=== PATIENT | male | born 1955 | race Caucasian/White ===

== ENCOUNTER → 2019-05-13 10:12 | Outpatient (CLI) | payer OTHER, SELFPAY ==
--- NOTE | 2019-05-13 10:22 | CT_ITS ---
PROCEDURE: CT HEAD/BRAIN WO CON CLINICAL INDICATION: CONFUSION, HTN, DIZZINESS, CHINO COMPARISON: No exams were available for comparison TECHNIQUE: Axial images obtained with sagittal and coronal reformats. All CT scans at the facility use one or more dose reduction, viz: automated exposure control, ma/kV adjustment per patient size (including targeted exams where dose is matched to indication, i.e. head), or iterative reconstruction technique. FINDINGS: No midline shift, mass effect, intracranial hemorrhage, hydrocephalus, or extra-axial fluid collection is evident. Small area of decreased attenuation is present in the left frontal lobe adjacent to the anterior horn of the left lateral ventricle consistent with an old lacunar infarctions/periventricular ischemic gliotic change. The calvarium has an unremarkable appearance. No mastoid effusion. There is partial opacification of the right aspect of the sphenoid sinus IMPRESSION: 1. No acute intracranial findings. Periventricular ischemic gliotic change. 2. Right sphenoid sinus disease Dictated by: Markus Santo MD 05/14/2019 06:56 Electronically signed by Markus Santo MD in [place] 05/14/2019 06:56
== END ==
PROVIDERS: PCP Family Medicine; Visit Provider Nurse Practitioner
DX: R41.0 Disorientation, unspecified (principal); R42 Dizziness and giddiness; R51 Headache; I10 Essential (primary) hypertension
CPT/HCPCS: 70450

== ENCOUNTER → 2019-05-20 14:09 | Outpatient (CLI) | payer OTHER, SELFPAY ==
--- NOTE | 2019-05-20 14:23 | MR_ITS ---
PROCEDURE: MR HEAD/BRAIN WO/W CON CLINICAL INDICATION: TIA COMPARISON: No exams were available for comparison TECHNIQUE: Routine technique including diffusion-weighted images and contrasted images following intravenous injection of 20 cc of ProHance contrast. FINDINGS: Diffusion-weighted images are normal. There is no mass, hemorrhage or extra-axial fluid collection. There are small foci of increased FLAIR signal within the periventricular white matter adjacent to the frontal horns of the lateral ventricles, more prominent on the left side with central focus of CSF signal suggesting old lacunar infarct. There are no other areas of abnormal signal. Visualized portions of the optic pathway structures are normal. Visualized vessels are patent and the area of the foramen magnum is normal. There are non enhancing foci of increased T2 signal in the floor of the right maxillary sinus measuring at least 3.0 centimeters. IMPRESSION: No acute intracranial process or acute infarctions. Periventricular white matter findings likely from mild chronic microvascular ischemic change with left frontal old lacunar infarct. Right maxillary sinus retention cyst. Dictated by: Daniele Mcdaniels 05/20/2019 16:07 Electronically signed by Daniele Mcdaniels in [place] 05/20/2019 16:07
--- NOTE | 2019-05-20 15:05 | HMH.ITSHM ---
Current Home Medications as stated by this patient Chip Gamez or special service representative. []VALACYCLOVIR AMLODIPINE BESYLATE LOSARTAN POTASSIUM FLUTICASONE PROPIONATE AMOXICILLIN
== END ==
PROVIDERS: PCP Family Medicine; Visit Provider Family Medicine
DX: G45.9 Transient cerebral ischemic attack, unspecified (principal); I10 Essential (primary) hypertension; R20.2 Paresthesia of skin; M21.42 Flat foot [pes planus] (acquired), left foot; H54.7 Unspecified visual loss
CPT/HCPCS: 70553; A9576

== ENCOUNTER → 2019-05-28 10:55 | Outpatient (CLI) | payer OTHER, SELFPAY ==
--- NOTE | 2019-05-28 11:28 | MR_ITS ---
PROCEDURE: MR ANGIO HEAD WO CON CLINICAL INDICATION: TIA, LEFT HAND PARESTHESIA, LOSS OF VISION COMPARISON: MR HEAD/BRAIN WO/W CON from 05/20/2019 TECHNIQUE: 3D [id number] images are obtained without contrast. FINDINGS: No aneurysm, arteriovenous malformation, or major intracranial occlusive process is evident. The vertebral basilar system has an unremarkable appearance IMPRESSION: Negative MRA of the brain Dictated by: Markus Santo MD 05/29/2019 18:38 Electronically signed by Markus Santo MD in [place] 05/29/2019 18:38
== END ==
PROVIDERS: PCP Family Medicine; Visit Provider Family Medicine
DX: G45.9 Transient cerebral ischemic attack, unspecified (principal); I10 Essential (primary) hypertension; R20.2 Paresthesia of skin; M21.42 Flat foot [pes planus] (acquired), left foot; H54.7 Unspecified visual loss
CPT/HCPCS: 70544

== ENCOUNTER 2021-02-09 17:25 | Emergency (ER) | payer OTHER, SELFPAY ==
[2021-02-09 17:30] VITALS: BP 121/70; PULSE 95; RESP 16; TEMP 36.5; O2SAT 98; BMI 29.5
--- NOTE | 2021-02-09 18:05 | HMH.EDUTC ---
[facility] [place]ression: [place]cess of right buttock Disposition: Home, Self-Care Condition on Discharge: Good Instructions: Boil Additional Instructions: Apply warm wet compresses to the affected sites three or four times per day for 15 minutes as tolerated. Follow up with your primary care doctor. in 2 to 3 days for a recheck of the wound. Have your doctor look up the culture report and maybe stop one of the antibiotics depending on the culture result. Take the antibiotics as directed. Apply the topical antibiotics as directed. Follow up with your regular doctor. GO TO THE ER FOR ANY WORSENING SYMPTOMS OR CONCERNS Prescriptions: Sulfamethoxazole/Trimethoprim [Bactrim DS tablet] 1 each PO BID 10 Days #20 tab Transmission Status: Received by [facility] #[id number] Mupirocin [Bactroban 2% Ointment 22gm tube] 1 applicatio TP TID 7 Days #1 tube Transmission Status: Received by [facility] #[id number] cephALEXin [cephALEXin 500mg capsule] 500 mg PO Q6H 10 Days #40 cap Transmission Status: Received by [facility] #[id number] Referrals: Dashawn Mancilla MD [Primary Care Provider] - Forms: Work/School Release Time of Disposition: 18:09 Medical Decision Making - Medical Records Medical records reviewed: No: I reviewed the patient's medical records. - Curtis Inquiry Pt receiving controlled substance: No Vital Signs: 02/09/21 17:30 02/09/21 18:06 Temperature 97.7 F 98 F Temperature Source Oral Pulse Rate 95 H Pulse Rate [Right] 95 H Respiratory Rate 16 18 Blood Pressure 131/75 Blood Pressure [Right Arm] 121/70 Blood Pressure Mean [Right Arm] 87 02 Sat by Pulse Oximetry 98 Oxygen Delivery Method Room Air Orders (Tests/Meds): ED MEDICATIONS Discontinued Medications Generic Name Dose Route Start Last Admin Trade Name Freq PRN Reason Stop Dose Admin Lidocaine HCl 5 ml 02/09/21 18:01 02/09/21 18:04 Lidocaine 1% 5ml Pf Vial IJ 02/09/21 18:02 5 ml ONCE ONE Administration ORDERS Category Date Time Status Wound Culture and Gram Stain Stat Micro 02/09/21 17:59 Results [facility] [place] - General Stated complaint: boil on r hip Time Seen by Provider: 02/09/21 17:45 Mode of Arrival: Ambulatory Source of Information: Patient Limitations: No Limitations Description of Symptoms (Recalled from Triage Doc. by RN): pt c/o of a boil on his R buttocks. pt states he occasionally gets them behind his neck and has had them in his groin before. the area is not opened. red and inflamed. HEENT Symptoms (Recalled from RN notes): No Resp Symptoms (Recalled from RN notes): No Skin Symptoms (Recalled from RN notes): Yes (boil on R buttocks. area is not draining.) MS Symptoms (Recalled from RN notes): No Functional Status (Recalled from RN notes): na - History of Present Illness Provider Complaint: He states that he has had a swollen tender area on her right buttock for the past 3 days. He denies any fever chills. - Related Data Previous Rx's Medication Instructions Recorded Amoxicillin/Potassium Clav 1 tab PO Q12H 5 Days #10 tab 10/27/19 [Augmentin 875-125 Tablet] Azithromycin [Zithromax 250mg 250 mg PO DIRECTED #6 tab 10/27/19 tab] predniSONE [Prednisone 20mg 40 mg PO DAILY #5 tab 10/27/19 Tab] Amoxicillin/Potassium Clav 1 tab PO Q12H 10 Days #20 tab 11/13/19 [Augmentin 875-125 Tablet] Benzonatate [Tessalon Perle 100mg 100 mg PO TIDP PRN #30 cap 11/13/19 Cap] methylPREDNISolone [Medrol] 4 mg PO DIRECTED 6 Days #21 11/13/19 tab.ds.pk Mupirocin [Bactroban 2% Ointment 1 applicatio TP TID 7 Days #1 tube 02/09/21 22gm tube] Sulfamethoxazole/Trimethoprim 1 each PO BID 10 Days #20 tab 02/09/21 [Bactrim DS tablet] cephALEXin [cephALEXin 500mg 500 mg PO Q6H 10 Days #40 cap 02/09/21 capsule] Allergies Allergy/AdvReac Type Severity Reaction Status Date / Time No Known Allergies Allergy Verified 02/09/21 17
[2021-02-09 18:06] VITALS: BP 131/75; PULSE 95; RESP 18; TEMP 36.6
== END 2021-02-09 18:17 | disposition home or self-care (01) ==
PROVIDERS: Emergency Provider Nurse Practitioner Family; PCP Family Medicine
DX: L02.31 Cutaneous abscess of buttock (principal); E78.5 Hyperlipidemia, unspecified
CPT/HCPCS: 46050; 87070; 87077; 87186; 87205; 99202; G0463

== ENCOUNTER → 2022-01-08 07:10 | Outpatient (CLI) | payer MEDICARE, SELFPAY ==
--- NOTE | 2022-01-08 07:15 | CT_ITS ---
FINAL REPORT CLINICAL HISTORY: SMOKER. 1/2 ppd x 45 years. copd. no family hx COMPARISON: 10/27/2019 FINDINGS: Axial images were obtained from the lung apex to the mid abdomen by computed tomography. Low-dose protocol was utilized. CTDl vol(mGy): 2.90 DLP (mGy-cm): 107.33 FINDINGS: There is no axillary adenopathy. There is no hilar or mediastinal adenopathy. The heart size is normal. There is no pericardial or pleural effusion. Limited images of the upper abdomen are unremarkable. Lung window images demonstrate evidence of prior granulomatous disease. There is a 3 mm right lower lobe nodule seen on image 50 which is unchanged. No additional nodules or masses are identified.. IMPRESSION: Right lower lobe nodule, stable for 2 years. Lung RADS category 1. Recommend 12 month follow-up low-dose chest CT. Reviewed, Interpreted and Dictated by Kayla Watkins MD Transcribed by Waleska Villagomez Authenticated by Kayla Watkins MD on 01/08/2022 08:22:36 AM [facility]
--- NOTE | 2022-01-08 07:15 | US_ITS ---
FINAL REPORT CLINICAL HISTORY: SMOKER..TRIPLE A FINDINGS: Sonographic images were obtained of the abdominal aorta. The abdominal aorta measures up to 2.5 CM in greatest dimensions. The common iliac arteries are within normal limits. IMPRESSION: No evidence of abdominal aortic aneurysm. Reviewed, Interpreted and Dictated by Kayla Watkins MD Transcribed by Toi Milton Authenticated by Kayla Watkins MD on 01/08/2022 08:54:17 AM [facility]
== END ==
PROVIDERS: PCP Internal Medicine Adolescent Medicine; Visit Provider Internal Medicine Adolescent Medicine
DX: Z87.891 Personal history of nicotine dependence (principal); Z12.2 Encounter for screening for malignant neoplasm of respiratory organs; Z13.6 Encounter for screening for cardiovascular disorders
CPT/HCPCS: 71271; 76770

== ENCOUNTER → 2022-07-23 16:13 | Outpatient (CLI) | payer MEDICARE, SELFPAY ==
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
== END ==
PROVIDERS: PCP Internal Medicine Adolescent Medicine; Visit Provider Internal Medicine Adolescent Medicine
DX: M79.671 Pain in right foot (principal)
CPT/HCPCS: 73630

== ENCOUNTER 2022-07-25 14:47 | Outpatient (RCR) | payer MEDICARE, SELFPAY | END 2022-07-25 15:30 | disposition home or self-care (01) | LOC: PT 14:47 | PROVIDERS: Visit Provider Internal Medicine Adolescent Medicine | DX: S92.511A Displaced fracture of proximal phalanx of right lesser toe(s), initial encounter for closed fracture (principal) | CPT/HCPCS: 97760 ==

== ENCOUNTER → 2022-07-30 09:23 | Outpatient (CLI) | payer MEDICARE, SELFPAY ==
--- NOTE | 2022-07-30 09:33 | XR_ITS ---
FINAL REPORT CLINICAL HISTORY: R 5th displaced fx COMPARISON: July 23, 2022 FINDINGS: RIGHT FOOT Three views of the right foot demonstrate a fracture of the distal aspect of the 5th proximal phalanx. Bony alignment is unchanged. There is no significant callus formation. No new abnormality is identified. There is mild degenerative change. The soft tissues are unremarkable. IMPRESSION: 5th proximal phalanx fracture with no significant callus formation.. Reviewed, Interpreted and Dictated by Eliot Kulkarni III, MD Transcribed by Alicia Laguna Authenticated and . [facility]
== END ==
PROVIDERS: PCP Internal Medicine Adolescent Medicine; Visit Provider Podiatrist
DX: S92.351A Displaced fracture of fifth metatarsal bone, right foot, initial encounter for closed fracture (principal)
CPT/HCPCS: 73630

== ENCOUNTER → 2022-08-28 14:01 | Outpatient (CLI) | payer MEDICARE, SELFPAY ==
--- NOTE | 2022-08-28 14:08 | XR_ITS ---
FINAL REPORT CLINICAL HISTORY: closed fx to 5th toe COMPARISON: July 30, 2022 FINDINGS: RIGHT FOOT Three views of the right foot were obtained. Again noted is a fracture of the distal aspect of the 5th proximal phalanx. There is callus formation at the site. There are mild degenerative changes in the midfoot. The soft tissues are unremarkable. IMPRESSION: Healing fracture of the 5th proximal phalanx. Reviewed, Interpreted and Dictated by Eliot Kulkarni III, MD Transcribed by Alicia Laguna Authenticated and [facility]
== END ==
PROVIDERS: PCP Internal Medicine Adolescent Medicine; Visit Provider Podiatrist
DX: S92.501D Displaced unspecified fracture of right lesser toe(s), subsequent encounter for fracture with routine healing (principal); M79.671 Pain in right foot
CPT/HCPCS: 73630

== ENCOUNTER 2024-05-04 09:35 | Outpatient (CLI) | payer MEDICARE, SELFPAY ==
--- NOTE | 2024-05-04 09:39 | CT_ITS ---
FINAL REPORT TECHNIQUE: Thin section axial images were obtained through the lungs using a low-dose technique per lung cancer screening protocol. Reconstruction images were obtained using the axial data. Exam was performed using dose reduction technique. CLINICAL HISTORY: SCREENING current smoker 1ppd x 50 yrs COMPARISON: 01/08/2022 FINDINGS: CTDLvol: 2.9 DLP: 120.63 68-year-old male, current smoker 50 pack year history Lungs: There is evidence of prior granulomatous disease. No acute pulmonary abnormality. No suspicious nodules. There are presumed dependent secretions in the trachea and left mainstem bronchus. Lymph nodes: No thoracic lymphadenopathy. Mediastinum: Heart size is normal. Prominent coronary artery calcifications are present. Pleura/pericardium: No pleural or pericardial effusion. Other: There is a hypodense right renal lesion which is not accurately characterized without the administration of intravenous contrast. Would consider renal ultrasound for further evaluation. IMPRESSION: No suspicious pulmonary nodule or mass. There are presumed dependent secretions in the trachea and left mainstem bronchus. Lung RADS: 2S, the S designation for the hypodense right renal lesion and prominent coronary artery calcifications. Recommendation: 12-month follow-up LDCT Reviewed, Interpreted and Dictated by Kayla Watkins MD Transcribed by Shelia Hopper Authenticated and [facility]
== END 2024-05-04 23:59 | disposition home or self-care (01) ==
LOC: RAD 09:35
PROVIDERS: PCP Internal Medicine Adolescent Medicine; Visit Provider Internal Medicine Adolescent Medicine
DX: Z87.891 Personal history of nicotine dependence (principal)
CPT/HCPCS: 71271

== ENCOUNTER 2024-06-03 10:24 | Inpatient (IN) | payer MEDICARE, SELFPAY ==
[2024-06-03] VITALS (34 sets, daily range): BP systolic 100–272; BP diastolic 38–102; PULSE 30–48; RESP 14–20; TEMP 36.6–36.9; O2SAT 85–99; BMI 27.8
--- NOTE | 2024-06-03 10:33 | PC.NURSE ---
arrived by w/c from ED admissions
--- NOTE | 2024-06-03 10:51 | CA_ITS ---
APPROVED REPORT EXAM: Comprehensive 2D, Doppler, and color-flow Echocardiogram Commercial Property Manager: Sis Heck, ANTON, RVS Ht: 6 ft 0 in Wt: 204lbs BSA: 2.15 BP: 157/40 mmHg Rhythm: Bradycardia Indications: 3rd degree heart block, COPD, Smoker, Near syncope, Fatigue, EDMONDS, HTN, HLD 2D Dimensions Left Atrium 3.85 cm M: 3.0 - 4.0 LA Volume 63.50 mL LA Volume Index 29.221711 mL/m2 (M/F) 16-34 EF AP4 77.30 % GL Strain -30.9 % M-Mode Dimensions RVDd 2.44 cm (0.9-2.6) LA Diam 4.52 cm (1.9-4.0) LVDd 5.34 cm (3.5-5.7) LVDs 2.38 cm (3.5-5.7) IVSd 1.37 cm (0.6-1.1) PWd 1.35 cm (0.6-1.1) EF (Teich) 85.70% EPSs 1.11 cm FS 55.40% EDV (Teich) 137.70 mL TAPSE 2.64 (<1.7) ESV (Teich) 19.70 mL LV Diastology E Decel Time 280 (160-240 msec) E/A Ratio 0.78 MED A' 13.60 cm/s LAT A' 11.30 cm/s Aortic Valve JANA Index 0.99 cm2/m2 AoV Peak Alexis. 148.0 (50-130 cm/s) AO Peak GR. 8.70 mmHg AO Mean GR. 5.50 (<5 mmHg) AO VTI 46.4 (18-25 cm) JANA (VTI) 2.17 (2.5-4.5 cm2) Mitral Valve MV A Velocity 127.0 (40-130 cm/s) E/A Ratio 0.78 MV Mean Gr. 2.00 (<2mmHg) Pulmonary Valve PV Peak Velocity 134.0 (50-150 cm/s) Left Ventricle The left ventricle is normal size. The left ventricular systolic function is normal. The left ventricular ejection fraction is within the normal range. There is marked increase in LV wall thickness. IVSd 1.4 cm. There is normal LV segmental wall motion. Diastolic function is indeterminate. LVEF is 65%. Right Ventricle The right ventricle is mildly dilated. The right ventricular systolic function is normal. Atria The left atrium mildly dilated. The right atrium size is normal. There is no Doppler evidence of interatrial shunt. Aortic Valve The aortic valve is mildly thickened. There is no aortic valvular stenosis. Trace aortic regurgitation. Mitral Valve The mitral valve leaflets are mildly thickened. No evidence of mitral valve stenosis. Mild mitral regurgitation. Tricuspid Valve The tricuspid valve leaflets are thin and pliable. Trace tricuspid regurgitation. There is insufficient TR jet to estimate RVSP. Pulmonic Valve The pulmonary valve is normal in structure. Trace pulmonic regurgitation. Great Vessels The aortic root is normal in size. The ascending aorta is normal in size. IVC is normal in size and collapses >50% with inspiration. Pericardium There is no pericardial effusion. Other Information Study Quality: Fair Conclusion Normal biventricular systolic function. Marked increase in LV wall thickness. IVSD is 1.4 cm. Mild RV dilation with normal RV function. Mild LA dilation. Mild MR. In the setting of marked increase of LV wall thickness and conduction abnormality with complete heart block, further evaluation to rule out infiltrative cardiomyopathy (namely amyloidosis) is suggested with cardiac MRI (amyloidosis protocol), PYP nuclear scan, amyloidosis lab testing. Electronically signed by : Wanda Luis MD 06/03/2024 11:56:34
--- NOTE | 2024-06-03 11:00 | IR_ITS ---
APPROVED REPORT Patient Location: Inpatient PROCEDURES Selective coronary angiogram Drug-eluting stent deployment to the proximal and mid dominant right coronary artery Catheter placed in left subclavian artery Left subclavian artery angiogram INDICATION Third-degree AV block, Known coronary artery disease with extensive diffuse calcifications, Left subclavian artery occlusion, Malignant hypertension blood pressure 300/160 mmHg Informed consent was obtained prior to the procedure. COMPLICATIONS NONE Estimated Blood Loss: LESS THAN 10 ML TECHNIQUE One percent lidocaine used to anesthetize the right anterior aspect of the wrist. The right radial artery was accessed via the Seldinger technique. A 6 Frisian sheath was placed in the right radial artery. The initial aortic pressure measured 300/140 mmHg. Patient was given 2 separate aliquots of 800 mcg of intra arterial nitroglycerin. An IV night pride drip was started and the blood pressure was brought down to 180 mmHg. The 6 Frisian JL 3 guide catheter used to perform selective coronary angiogram. At the end of the diagnostic angiogram therapeutic heparin was administered giving a therapeutic ACT and the guide catheter was placed in the right coronary artery followed by Choice PT extra-support wire placed distally. A 3 mm x 38 mm Atul frontier stent was deployed at 24 shabbir in the mid dominant right coronary. An additional 3.5 x 38 mm Atul frontier stent was placed proximal to the for stent yet still overlapping and deployed at 20 shabbir. The balloon was advanced three quarters of the length and then deployed at 20 shabbir to post dilate the for stent and mesh the 2 stents. ROSENDA-3 flow was present before and after the procedure. The catheter was then pulled back and placed in the left subclavian artery where selective left subclavian artery angiography was performed. The end of procedure the apparatus was removed the arterial sheath was left into place due to the malignant hypertension in the presence of night pride drip. Patient was transferred to the postop holding area in stable condition ANGIOGRAPHIC RESULTS The left main artery Normal The left anterior descending artery Proximally normal with mid vessel calcified 50 and 60% stenoses. Distally there are additional diffuse 50% stenoses. As the LAD approaches the apex there is a concentric 90% stenosis and a vessel less than 2 mm in diameter The circumflex artery Is nondominant and calcified in the proximal and mid segment. There are 60% proximal and mid vessel calcifications The right coronary artery Is a dominant vessel and has proximal 80% stenosis mid vessel 80% and concentric 90% calcified stenosis. Distally there are 40% stenosis The MCGEE ventriculogram reveals Not performed The left ventricular end-diastolic pressure Not measured Left subclavian artery is ostially occluded IMPRESSION Coronary disease as described above Successful stenting of the proximal and mid dominant right coronary severe to critical disease reduced to 0% with 2 contiguous drug-eluting stents Persistent coronary disease in the LAD and circumflex artery which is best managed medically at this time Occluded left subclavian artery Persistent malignant hypertension Persistence of right radial arterial 6 Frisian sheath for continuous night pride monitoring PLAN 1. Plavix and aspirin 2. Continue nitroglycerin drip with a goal blood pressure of 160 mmHg systolic to 200 mmHg systolic 3. Continue heparin drip overnight due to the presence of right arterial sheath 4. Plan pacemaker tomorrow morning 5. Monitor blood pressure over the weekend and slowly wean off night pride drip while adding oral medications. Following pacemaker placement patient should be able to tolerate the addition of beta-blockers for blood pressure control 6. I would like to proceed with left subclavian artery stenting and revascularization prior to discharge home unless patient remains clinically stable and then the subclavian artery occlusion can be revascularized as an outpatient 7. Monitor for malignant hypertension and endorgan disease 8. Regular neurochecks monitoring for symptomatic hypotension 9. LDL less than 55 to be achieved with high intensity statin 10. Formal echocardiogram Electronically signed by : Gui Linares MD 06/03/2024 15:48:05
--- NOTE | 2024-06-03 11:05 | ECG_ITS ---
APPROVED REPORT Exam: Resting ECG HR:31 bpm ECG Measurements Heart Rate 31 AXES QRSd 154 QRS 111 QT 635 T 167 QTc 510 Conclusion 3rd Degree AV Block with severe bradycardia UNCONFIRMED REPORT Electronically signed by : Dashawn Chowdhury MD 06/04/2024 16:10:43
--- NOTE | 2024-06-03 11:11 | HMH.PHAINT1 ---
Pharmacy Intervention Comments: MEDICATION RECONCILIATION COMPLETED ON PATIENT USING EXTERNAL FILL HISTORY FROM PHARMACY. -HODA TALBOT, ROYERD
[2024-06-03 11:15] LABS: Chloride 110 mmol/L (98-107)
[2024-06-03 11:16] LABS: Albumin Level 3.8 g/dl (3.5-5.0); Potassium 4.2 mmoL/L (3.5-5.1); Sodium 138 mmol/L (136-145)
[2024-06-03 11:18] LABS: Magnesium 2.2 mg/dl (1.6-2.3)
[2024-06-03 11:19] LABS: Alanine Aminotransferase 46 U/L (12-78); Alkaline Phosphatase 84 U/L (38-126); Anion Gap 10.2 mEq/L (5-15); Aspartate Amino Transferase 30 U/L (17-59); Bilirubin,Direct 0.1 mg/dl (0.0-0.4); Bilirubin,Indirect 0.6 mg/dL (0.0-0.9); Bilirubin,Total 0.7 mg/dl (0.2-1.3); Bilirubin,Unconjugated 0.7 mg/dL (0.0-1.1); Blood Urea Nitrogen 34 mg/dl (9-20); Carbon Dioxide 22 mmol/L (22.0-30.0); Creatinine Clearance Estimated 47 mL/min (50-200); Estimated Glomerular Filt Rate 33 ml/min (>60); GFR (African American) 40 ML/MIN (>60); Glucose 101 mg/dl (74-100); Total Protein,Serum 6.4 g/dl (6.3-8.2)
[2024-06-03 11:23] LABS: Basophils # 0.1 K/mm3 (0-0.2); Basophils % 0.6 % (0.1-2.0); Eosinophils # 0.1 K/mm3 (0.0-0.4); Eosinophils % 1.2 % (0.1-12.0); Hematocrit 44.7 % (42.0-52.0); Hemoglobin 14.9 g/dL (14.1-18.0); Lymphocytes # 1.6 K/mm3 (0.7-4.5); Lymphocytes % 18.8 % (10-50); Mean Corpuscular HGB Conc 33.3 g/dL (31.8-35.4); Mean Corpuscular Hemoglobin 28.6 pg (27.0-31.2); Mean Platelet Volume 8.8 fl (7.4-10.4); Monocytes # 0.4 K/mm3 (0.1-1.0); Monocytes % 4.1 % (1.7-9.3); Neutrophils # 6.6 K/mm3 (1.8-7.8); Neutrophils % 75.3 % (37.0-80.0); Platelet Count 157 K/mm3 (142-424); Red Cell Distribution Width 14.2 % (11.5-17.5); White Blood Count 8.8 K/mm3 (4.8-10.8)
[2024-06-03 11:31] LABS: Troponin I 0.04 ng/ml (0.00-0.034)
[2024-06-03 11:49] LABS: Free T4 (Free Thyroxine) 1.37 ng/dl (0.78-2.19)
[2024-06-03 11:50] LABS: Thyroid Stimulating Hormone 1.25 uIU/mL (0.465-4.68)
--- NOTE | 2024-06-03 11:56 | MR_ITS ---
APPROVED REPORT Cocktail Lounge Manager: CLINICAL INDICATION Complete heart block. Plan for PPM. TECHNIQUE Image Acquisition: Cardiac magnetic resonance (CMR) was performed on Siemens Espree MRI 1.5T scanner. Software platform sequences were performed using the Siemens RoundPegg MR B19 platform. A set of three-plane, low-resolution, large [id number] localizers were initially acquired. Then axial, coronal, sagittal TrueFISP, as well as axial HASTE images, were obtained. These were followed by gated TrueFISP breathold cinematic sequences obtained in the short axis with 8 mm slices and 2 mm gaps, 2-chamber (vertical long axis), 3-chamber, 4-chamber (horizontal long axis). A bolus of contrast was injected intravenously with first-pass sequences obtained in the short axis and four-chamber planes. After approximately 10 minutes, a TI labor crew supervisor sequence was performed to determine the optimal TI time. Using the optimized TI time, delayed contrast enhancement segmented inversion???recovery TurboFLASH sequences were obtained in the short axis, 2-chamber, 3-chamber, and 4-chamber projections. 2D-velocity phase mapping was performed. Functional parameters were calculated by offline analysis on an independent workstation ([employer], [employer]). Contrast: ProHance??? (Gadoteridol) FINDINGS MORPHOLOGY AND FUNCTION Left ventricle: The left ventricle is normal in size. The indexed left ventricular end-diastolic volume (LVEDVi) is 64 ml/m2 (reference range 57-105 ml/m2 in males, 56-96 ml/m2 in females). Normal left ventricular systolic function is present. There is normal left ventricular wall thickness. There are no regional wall motion abnormalities noted. LVEF is calculated at 69.0% (reference range 57-77%). Right ventricle: The right ventricle is normal in size. The indexed right ventricular end-diastolic volume (RVEDVi) is 72 ml/m2 (reference range 61-121 ml/m2 in males, 48-112 ml/m2 in females). Normal right ventricular systolic function is present. RVEF is calculated at 54.5% (reference range 52-72% in males, 51-71% in females). Atria: The left atrium is normal in size. The maximum indexed left atrial volume is 39 ml/m2 (reference range 26-52 ml/m2 in males, 27-53 ml/m2 in females). The right atrium is normal in size. The maximum indexed right atrial volume is 20 ml/m2 (reference range 18-90 ml/m2). Aorta: The diameter of the aortic annulus is normal, measuring 25 mm (coronal view reference range 21-30 mm in males, 19-27 mm in females). The diameter of the aortic sinus is normal, measuring 32 mm (coronal view reference range 25-42 mm in males, 24-36 mm in females). The diameter of the sinotubular junction is normal, measuring 26 mm (coronal view reference range 18-32 mm in males, 18-28 mm in females). The diameters of the ascending and descending thoracic aorta are normal. Main pulmonary artery: The main pulmonary artery diameter is normal. Pericardium: The pericardial thickness is normal. The pericardial thickness measures 1.3 mm (normal < 4.0 mm). Trivial, circumferential pericardial effusion is present. VALVES The valvular morphologies in the visualized sequences appear normal. There is no significant valvular stenosis or regurgitation of the mitral, aortic, tricuspid, or pulmonic valve noted visually. Systolic anterior motion of the mitral valve is not visualized. Ratio of pulmonary to systemic flow, Qp:Qs ratio = 1.10. (normal < or = 1.2, hemodynamically significant shunt > 1.5), demonstrating no evidence of hemodynamically significant shunt. TISSUE CHARACTERIZATION Resting Perfusion: Normal myocardial blood flow at rest. No evidence of resting hypoperfusion. Myocardial Fibrosis and/or edema: Normal gadolinium kinetics are present. No obvious evidence of late gadolinium enhancement is noted, consistent with absence of myocardial scarring, infarction, or necrosis. Note that LGE data is difficult to analyze in the setting of significant motion and blurring. T2-weighted imaging demonstrates no evidence of myocardial edema or inflammation. OTHER Bilateral pleural effusions are noted. A small, T1 hyperintense mass is noted in the liver, measuring approximately 3 mm in diameter. This most likely represents hepatic cyst or hemangioma. Correlation with recent CT abdomen/pelvis is suggested. IMPRESSION Technically difficult study due to significant motion and blurring during image acquisition (in the setting of complete heart block). Normal LV size with normal LV systolic function. LVEDVi= 64 ml/m2 and LVEF= 69.0%. Normal RV size with normal RV systolic function. RVEDVi= 72 ml/m2 and RVEF= 54.5%. No atrial enlargement. No obvious CMR evidence of myocardial scarring, infarction, or necrosis. No evidence of myocardial edema or inflammation. Perfusion analysis demonstrates normal blood flow at rest with no evidence of resting hypoperfusion. Ratio of pulmonary to systemic flow, Qp:Qs ratio = 1.10 (normal < or = 1.2, hemodynamically significant shunt > 1.5), demonstrating no evidence of hemodynamically significant shunt. Trivial, circumferential pericardial effusion is present. Bilateral pleural effusions are noted. Overall, this CMR demonstrates normal biventricular size and systolic function. No evidence of infiltrative cardiomyopathy. No evidence of myocardial scarring, prior infarct, or acute/chronic inflammatory processes. No evidence of significant lymphadenopathy or aneurysms or other suggestion of cardiac sarcoidosis. COMPARISON None CRITICAL RESULT None COMMUNICATION Per this written report The findings of this cardiac MR were reviewed, reported, and signed by Zoran Luis MD (Coin Machine Assembler). Conclusion Electronically signed by : Wanda Luis MD 06/09/2024 01:06:40
--- NOTE | 2024-06-03 12:19 | P.PN_ITS ---
Subjective Subjective Date: 06/03/24 Time: 12:00 Principal diagnosis: third degree heart block Interval history: This is a 68-year-old gentleman who was admitted from cardiology clinic due to third-degree heart block. The patient has been having dizziness and lightheadedness when he stands up and feels as if he was going to pass out for approximately 2 weeks prior to being evaluated. The patient has some shortness of breath with very little activity which also started about 2 weeks ago. It improves with rest. He denies any chest pain or pressure. He denies any lower extremity edema. He denies any fever, chills, nausea, vomiting, diarrhea, PND or orthopnea. The patient states that he noticed he had a lower heart rate on his smart watch. He came into cardiology clinic today and was found to be bradycardic with third-degree heart block and referred for admission. Exam Data for Last 24 hours Vital signs and Labs for Last 24 Hours: Pulse Resp BP Pulse Ox O2 Del Method 31 L 20 133/54 L 98 Room Air 06/03/24 11:16 06/03/24 11:16 06/03/24 11:16 06/03/24 11:16 06/03/24 11:16 Laboratory Results - last 24 hr 06/03/24 11:02: WBC 8.8, RBC 5.20, Hgb 14.9, Hct 44.7, MCV 86.0, MCH 28.6, MCHC 33.3, RDW 14.2, Plt Count 157, MPV 8.8, Neut % (Auto) 75.3, Lymph % (Auto) 18.8, [place] % (Auto) 4.1, Eos % (Auto) 1.2, Baso % (Auto) 0.6, Neut # (Auto) 6.6, Lymph # (Auto) 1.6, [place] # (Auto) 0.4, Eos # (Auto) 0.1, Baso # (Auto) 0.1, Sodium 138, Potassium 4.2, Chloride 110 H, Carbon Dioxide 22, Anion Gap 10.2, BUN 34 H, Creatinine 2.00 H, Estimated Creat Clear 47, Estimated GFR 33 L, Est GFR ( Amer) 40 L, Glucose 101 H, Calcium 9.0, Magnesium 2.2, Total Bilirubin 0.7, Direct Bilirubin 0.1, Conjugated Bilirubin 0.0, Indirect Bilirubin 0.6, Unconjugated Bilirubin 0.7, AST 30, ALT 46, Alkaline Phosphatase 84, Troponin I 0.04 H, Total Protein 6.4, Albumin 3.8, TSH 1.25, Free T4 1.37 I & O for Last 24 hours: Intake & Output 05/31/24 06/01/24 06/02/24 06/03/24 23:59 23:59 23:59 23:59 Weight 205 lb 6 oz Constitutional Constitutional: no acute distress and average body habitus *Routine HEENT Exam Head: Present normocephalic and atraumatic ENT: Present mucous membranes moist *Routine Neck Exam Neck: Present supple, full ROM and normal carotid upstroke; Absent JVD, carotid bruit or lymphadenopathy *Routine Respiratory Exam Respiratory: Present CTA bilaterally, normal respiratory effort, able to speak in complete sentences and symmetric chest movement *Routine Cardiovascular Exam Cardiovascular: Present RRR, Normal S1, Normal S2 and bradycardia; Absent murmur or gallop *Routine Abdominal Exam Abdominal: Present soft and normoactive bowel sounds; Absent tenderness, distended or organomegaly *Routine Extremities Exam Extremities: Present full ROM, pulses intact and normal capillary refill; Absent cyanosis, clubbing or edema *Routine Skin Exam Skin: Present intact and warm; Absent erythema *Routine Neurological Exam Neurological: Present alert, oriented X3 and CN II-XII intact; Absent sensory deficit or motor deficit Routine Psychiatric Exam Psychiatric: Present normal affect Progress Note: A&P Assessment and plan (1) Elevated troponin: Status: Acute (2) Third degree heart block: Status: Acute (3) Near syncope: Status: Acute (4) Dizziness: Status: Acute (5) Shortness of Breath: Status: Acute (6) HLD (hyperlipidemia): Status: Acute (7) HTN (hypertension): Status: Acute (8) MUNA (acute kidney injury): Status: Acute Assessment and Plan Assessment and Plan for All Diagnoses:: Plan: 1. The patient presented to cardiology clinic and was found to be in third- degree heart block. The patient was referred for admission. Will obtain an echocardiogram to evaluate his LV function prior to proceeding with permanent pacemaker placement. 2. Given the patient's shortness of breath and third-degree heart block as well as elevated troponin we will plan to proceed with left cardiac catheterization today to evaluate for coronary artery disease prior to proceeding with permanent pacemaker placement. As his third-degree heart block could be ischemically mediated in the setting of an elevated troponin. 3. The patient has been educated the risk and benefits of proceeding with left cardiac catheterization. The patient verbalized understanding and is agreeable in proceeding with the procedure. 4. The patient will be n.p.o. in preparation for left cardiac catheterization. 5. Echocardiogram was obtained and the patient does have a normal ejection fraction with mild MR and LV wall thickness. This is highly concerning for amyloidosis in this patient with a thick LV wall and third-degree heart block. Will plan to proceed with cardiac MRI with and without contrast today to rule out amyloidosis before proceeding with pacemaker placement. 6. Given the patient's third-degree heart block we will plan to proceed with permanent pacemaker placement tomorrow pending his left cardiac catheterization and cardiac MRI with and without contrast results. 7. The patient has been educated the risk and benefits of proceeding with permanent pacemaker placement. The patient verbalizes understanding and is agreeable in proceeding with this procedure as well. 8. His blood pressure is well-controlled. 9. His LDL goal is less than 100. He is on Crestor. Will get a lipid panel in the morning. 10. The patient does have an elevated creatinine at 2.0. His baseline creatinine from 2019 was 1.2. The patient does have an MUNA. This may be stemming from his third-degree heart block. Hold losartan. 11. Further recommendations were made pending the patient's response to treatment and the results of his left cardiac catheterization and cardiac MRI with and without contrast today. Thank you for the opportunity to help participate in the care of this patient. All recommendations and orders are per Dr. Luis. Addendum: The patient's AFO pressure during cardiac catheterization was 300/100. The patient was given intra-arterial nitroglycerin and his systolic blood pressure dropped to 250. The patient was then started on a nipride drip. Cancel cardiac MRI as the patient's blood pressure is too high and he will most likely have an A-line left in place to monitor his blood pressure while on the nipride drip. The patient's LV wall thickness is most likely stemming from his malignantly elevated blood pressure.
--- NOTE | 2024-06-03 12:25 | PC.NURSE ---
Addendum entered by Lizeth Lacy RN 06/03/24 13:57: 1350 pt transported directly from MRI to laboratory sample carrier by radiology staff and Guillermo Arvizu RN Original Note: 1220 pt transported by Radiology staff to MRI for cardiac MRI. pt accompanied by Guillermo Arvizu RN
[2024-06-03 12:29] LABS: Total Protein,Serum 6.3 g/dl (6.3-8.2)
--- NOTE | 2024-06-03 14:03 | P.HP_ITS ---
History of Present Illness *Admission Date: 06/03/24 *Reason for visit:: Complete heart block, malignant hypertension *History of present illness: hCip Horan is a 68-year-old male with a medical history significant for hypertension, left frontal lacunar CVA, BPH presented to cardiology clinic with dizziness, lightheadedness. He was found to have complete heart block with heart rate in the 30s on EKG. I discussed case with cardiology, and decision was made to admit patient for complete heart block requiring continuous telemetry, left heart catheterization, and pacemaker placement. Patient denies previous stents, but does endorse remote CVA in around 2019. Denies chest pain, shortness of breath. States he has been adherent to his medications. [facility] Disclaimer: The information contained in this section may have been updated after the patient was seen, as this information can be updated by other users. Medical History (Updated 06/03/24 @ 17:38 by Hiro Marie MD) MUNA (acute kidney injury) Elevated troponin Shortness of Breath Neuropathy Renal cyst CVA (cerebral vascular accident) BPH (benign prostatic hyperplasia) HTN (hypertension) HLD (hyperlipidemia) COPD (chronic obstructive pulmonary disease) High blood pressure Surgical History History of dental surgery Family History (Updated 06/03/24 @ 11:20 by Lizeth Lacy RN) Other Coronary artery disease Social History (Updated 06/03/24 @ 11:21 by Lizeth Lacy RN) Smoking Status: Current every day smoker tobacco type: cigarettes packs per day: 1 second hand exposure: Yes alcohol intake: never current occupational status: employed Travel in the last 8 weeks: None housing: house Other Medical History Have you received the Flu Vaccine for this season: No Have you received the Pneumonia Vaccine: Yes Meds Home Medications and Allergies Home Medications ?Medication ?Instructions ?Recorded ?Confirmed ?Type losartan 100 mg tablet 100 mg PO DAILY 08/28/22 06/03/24 History rosuvastatin 20 mg tablet 20 mg PO DAILY 08/28/22 06/03/24 History tamsulosin 0.4 mg capsule 0.4 mg PO DAILY 08/28/22 06/03/24 History tadalafil 5 mg tablet 5 mg PO DAILY 06/03/24 06/03/24 History New Prescriptions to Start Prescriptions: Allergies Allergy/AdvReac Type Severity Reaction Status Date / Time No Known Allergies Allergy Verified 06/03/24 10:20 Exam Data for Last 24 hours Vital signs and Labs for Last 24 Hours: Pulse Resp BP Pulse Ox O2 Del Method 40 L 20 133/54 L 98 Room Air 06/03/24 12:00 06/03/24 11:16 06/03/24 11:16 06/03/24 11:16 06/03/24 11:16 Laboratory Results - last 24 hr 06/03/24 11:02: WBC 8.8, RBC 5.20, Hgb 14.9, Hct 44.7, MCV 86.0, MCH 28.6, MCHC 33.3, RDW 14.2, Plt Count 157, MPV 8.8, Neut % (Auto) 75.3, Lymph % (Auto) 18.8, [place] % (Auto) 4.1, Eos % (Auto) 1.2, Baso % (Auto) 0.6, Neut # (Auto) 6.6, Lymph # (Auto) 1.6, [place] # (Auto) 0.4, Eos # (Auto) 0.1, Baso # (Auto) 0.1, Sodium 138, Potassium 4.2, Chloride 110 H, Carbon Dioxide 22, Anion Gap 10.2, BUN 34 H, Creatinine 2.00 H, Estimated Creat Clear 47, Estimated GFR 33 L, Est GFR ( Amer) 40 L, Glucose 101 H, Calcium 9.0, Magnesium 2.2, Total Bilirubin 0.7, Direct Bilirubin 0.1, Conjugated Bilirubin 0.0, Indirect Bilirubin 0.6, Unconjugated Bilirubin 0.7, AST 30, ALT 46, Alkaline Phosphatase 84, Troponin I 0.04 H, Total Protein 6.4 06/03/24 11:02: Total Protein 6.3, Albumin 3.8, TSH 1.25, Free T4 1.37 I & O for Last 24 hours: Intake & Output 05/31/24 06/01/24 06/02/24 06/03/24 23:59 23:59 23:59 23:59 Weight 93.157 kg Constitutional Constitutional: no acute distress *Routine HEENT Exam Head: Present normocephalic Eye: Present EOMI and PERRL ENT: Present mucous membranes moist *Routine Neck Exam Neck: Present supple; Absent lymphadenopathy *Routine Respiratory Exam Respiratory: Present CTA bilaterally *Routine Cardiovascular Exam Cardiovascular: Present RRR *Routine Abdominal Exam Abdominal: Present soft and normoactive bowel sounds; Absent tenderness *Routine Rectal Exam Rectal:: deferred *Routine Genitalia Exam Genitalia:: deferred *Routine Extremities Exam Extremities: Absent cyanosis, clubbing or edema Comments: Right radial arterial sheath intact without bloody drainage. *Routine Skin Exam Skin: Present warm; Absent rash *Routine Neurological Exam Neurological: Present alert and oriented X3 Assessment and Plan *Assessment and plan (1) MUNA (acute kidney injury): Status: Acute Category: Medical Code(s): N17.9 - Acute kidney failure, unspecified (2) HTN (hypertension): Status: Acute Category: Medical Code(s): I10 - Essential (primary) hypertension (3) Malignant hypertension: Status: Acute Category: Medical Code(s): I10 - Essential (primary) hypertension (4) CAD (coronary artery disease): Status: Acute Category: Medical Code(s): I25.10 - Atherosclerotic heart disease of [place] coronary artery without angina pectoris (5) Third degree heart block: Status: Acute Category: Medical Code(s): I44.2 - Atrioventricular block, complete (6) Subclavian artery stenosis: Status: Acute Category: Medical Code(s): I77.1 - Stricture of artery Plan Chip Horan is a 68-year-old male with a medical history significant for hypertension, left frontal lacunar CVA, BPH presented to cardiology clinic with dizziness, lightheadedness. He was found to have complete heart block with heart rate in the 30s on EKG. I discussed case with cardiology, and decision was made to admit patient for complete heart block requiring continuous telemetry, left heart catheterization, and pacemaker placement. Patient denies previous stents, but does endorse remote CVA in around 2019. Denies chest pain, shortness of breath. States he has been adherent to his medications. #CAD #Complete heart block #Left subclavian artery stenosis ? S/p PCI today with 2 stents in right dominant artery. Access right radial artery, sheath in place without bloody drainage. ? LHC revealed significant subclavian artery occlusion ostially. Therefore, blood pressure readings in the left arm are not physician relations representative of systemic blood pressure. ? Plan for pacemaker and cardiac resynchronization tomorrow morning with cardiology. N.p.o. at midnight. ? Cardiology plans for inpatient subclavian artery PCI unless patient is stable. ? Aspirin 81 mg, Plavix 75, atorvastatin 40 mg daily. Loaded with Plavix 600 mg. ? IV heparin drip for left subclavian artery stenosis. ? Continuous telemetry. Avoid beta-blockers. Heart rate currently in the 30s, but patient comfortable. ? Follow-up ECHO. ? Follow-up cardiac MRI ordered by cardiology to evaluate for amyloidosis. ? Cardiology following, appreciate efforts and recommendations as above. #Malignant hypertension ? With left subclavian artery stenosis, blood pressures in the left arm are not physician relations representative systemic pressures. ? Right radial arterial line yesterday revealed blood pressures of 300/150 during C. ? Creatinine 2.0 on admission, was 1.2 in 2019. Patient is breathing with appr opriate saturations on room air, not suggestive of pulmonary edema. No other evidence of endorgan damage at this time. ? Thyroid function tests normal during admission. ? IV nitroprusside gtt was started by cardiology. ? SBP goal between 180 and 200 for tonight as blood pressures distal to subclavian occlusion likely lower. ? Left arm blood pressure checks every 1 hour. SBP goal greater than 90. ? Started amlodipine 10 mg, and resumed home tamsulosin 0.4 mg. ? Can consider Imdur if need further blood pressure optimization to wean off nitroprusside. ? Avoid beta-blockers in the setting of complete heart block. ? Follow-up renal duplex ultrasound, carotid ultrasound. ? Follow-up renin/aldosterone labs. Full code DVT prophylaxis heparin drip Cardiac diet
[2024-06-03] MEDS: 0.9 % SODIUM CHLORIDE 50 ML VIAL IV (14:06)
[2024-06-03] MEDS: SODIUM CHLORIDE 0.9% 10ML SYR (RAD ONLY) 10 ML IV (14:07)
[2024-06-03] MEDS: GADOTERIDOL INJ 20ML SYRINGE 20 ML IV (14:07)
[2024-06-03] MEDS: LIDOCAINE 1% 10ML MDV 20 ML IJ (14:55)
[2024-06-03] MEDS: HEPARIN 1,000 UNITS/ML 10ML VIAL (CATH LAB) 10000 UNIT IV (14:55)
[2024-06-03] MEDS: diphenhydrAMINE 50MG/ML VIAL 50 MG IV (14:55)
[2024-06-03] MEDS: 0.9 % SODIUM CHLORIDE 500 ML 25 ML IV (14:56)
[2024-06-03] MEDS: MIDAZOLAM HCL 1MG/ML 5ML VIAL 1 MG IV (14:56)
[2024-06-03] MEDS: VERAPAMIL 2.5MG/ML 2ML VIAL 2.5 MG IV (14:56)
[2024-06-03] MEDS: FENTANYL 100MCG/2ML VIAL 50 MCG IV (14:56)
[2024-06-03] MEDS: HEPARIN 1,000 UNITS/500ML NS (CATH LAB) 3000 UNIT IV (14:57)
[2024-06-03] MEDS: NITROPRUSSIDE SODIUM 50 MG in DEXTROSE 5 % IN WATER 250 ML IV (15:36)
[2024-06-03] MEDS: IOPAMIDOL-370 (76%);100ML BOTTLE 40 ML IV (15:54)
[2024-06-03 15:56] LABS: CATHL Activated Clotting Time > 400 SEC (74-125)
--- NOTE | 2024-06-03 16:10 | HMH.PHAHEP ---
[facility] Pharmacy Heparin Dosing Demographic Data Admission date:: 06/03/24 Date: 06/03/24 Time: 16:11 Allergies Allergy/AdvReac Type Severity Reaction Status Date / Time No Known Allergies Allergy Verified 06/03/24 10:20 Height: 1.83 m Weight: 93 kg Indication Medication therapy:: Heparin Current Active Problems (Updated 06/03/24 @ 17:38 by Hiro Marie MD) Subclavian artery stenosis (Acute) CAD (coronary artery disease) (Acute) Malignant hypertension (Acute) MUNA (acute kidney injury) (Acute) HTN (hypertension) (Acute) Third degree heart block (Acute) CVA?: No Bleeding problem?: No Kidney disease?: No ND?: No Desired PTT range:: 50-75 seconds Labs Anticoagulation Lab Results:: 06/03/24 11:02 Hgb 14.9 Hct 44.7 Plt Count 157 Monitoring Dose Monitor 1: Date: 06/03/24 Time: 16:11 PTT Result:: MD STARTED AT 20 ML/HR (1000 UNITS/HR). PATIENT RECEIVED [id number] UNITS IN STEAM SHOVEL OPERATOR. BASELINE PTT ORDERED. Infusion Rate:: 20 ML/HR (1000 UNITS/HR) Dose Monitor 2: Date: 06/03/24 Time: 17:03 PTT Result:: 200 Infusion Rate:: CONTINUED AT 20 ML/HR Dose Monitor 3: Date: 06/03/24 Time: 19:07 PTT Result:: 126.2 Infusion Rate:: CONTINUED AT 20 ML/HR Dose Monitor 4: Date: 06/03/24 Time: 22:31 PTT Result:: 64.2 Infusion Rate:: CONTINUE WITH HEPARIN 20 ML/HR Dose Monitor 5: Date: 06/04/24 Time: 04:07 PTT Result:: 46.4 Infusion Rate:: INCREASE RATE TO 23 ML/HR AND BOLUSED WITH 3000 UNITS OF HEPARIN. Dose Monitor 6: Date: 06/04/24 Time: 13:20 PTT Result:: 42.3 Infusion Rate:: 3000 UNIT BOLUS, NO CHANGE IN DOSE RATE 1150 UNITS/HR Dose Monitor 7: Date: 06/04/24 Time: 17:40 PTT Result:: 72.7 Infusion Rate:: 1150 UNITS/HR Dose Monitor 8: Date: 06/05/24 Time: 00:10 PTT Result:: 61.2 Infusion Rate:: HEPARIN 1150 UNITS/HR Dose Monitor 9: Date: 06/05/24 Time: 06:20 PTT Result:: 57.4 Infusion Rate:: 1150 UNITS/HR Dose Monitor 10: Date: 06/05/24 Time: 12:00 PTT Result:: 53.2 Infusion Rate:: 1150 UNITS/HR Dose Monitor 11: Date: 06/05/24 Time: 17:45 PTT Result:: 50.7 Infusion Rate:: 1150 UNITS/HR Dose Monitor 12: Date: 06/06/24 Time: 02:24 PTT Result:: 58.1 Infusion Rate:: 1150 UNITS/HR Dose Monitor 13: Date: 06/06/24 Time: 06:37 PTT Result:: 54.8 Infusion Rate:: 1150 UNITS/HR Core Measures Is INR > or = 2 at discharge?: No Most Recent Labs:: Laboratory Results - last 24 hr 06/03/24 11:02: WBC 8.8, RBC 5.20, Hgb 14.9, Hct 44.7, MCV 86.0, MCH 28.6, MCHC 33.3, RDW 14.2, Plt Count 157, MPV 8.8, Neut % (Auto) 75.3, Lymph % (Auto) 18.8, [place] % (Auto) 4.1, Eos % (Auto) 1.2, Baso % (Auto) 0.6, Neut # (Auto) 6.6, Lymph # (Auto) 1.6, [place] # (Auto) 0.4, Eos # (Auto) 0.1, Baso # (Auto) 0.1, Sodium 138, Potassium 4.2, Chloride 110 H, Carbon Dioxide 22, Anion Gap 10.2, BUN 34 H, Creatinine 2.00 H, Estimated Creat Clear 47, Estimated GFR 33 L, Est GFR ( Amer) 40 L, Glucose 101 H, Calcium 9.0, Magnesium 2.2, Total Bilirubin 0.7, Direct Bilirubin 0.1, Conjugated Bilirubin 0.0, Indirect Bilirubin 0.6, Unconjugated Bilirubin 0.7, AST 30, ALT 46, Alkaline Phosphatase 84, Troponin I 0.04 H, Total Protein 6.4 06/03/24 11:02: Total Protein 6.3, Albumin 3.8, TSH 1.25, Free T4 1.37 06/03/24 15:14: Activated Clotting Time > 400 H* If INR was < than 2.0 why was therapy stopped?: HEPARIN DRIP STOPPED Were Heparin and Warfarin started on the same day?: No If not, why?: HEPARIN DRIP STOPPED
--- NOTE | 2024-06-03 16:47 | SUR.PHASEII ---
Notified nurse that pt needs loading dose of 600mg of plavix
[2024-06-03] MEDS: CLOPIDOGREL 300MG TABLET 600 MG PO (16:55)
[2024-06-03] MEDS: HEPARIN SODIUM,PORCINE/D5W 500 ML 20 UNIT IV (16:57)
--- NOTE | 2024-06-03 17:33 | ECG_ITS ---
APPROVED REPORT Exam: Resting ECG HR:34 bpm ECG Measurements Heart Rate 34 AXES QRSd 138 QRS 94 QT 605 T -82 QTc 497 Conclusion IDIOVENTRICULAR RHYTHM PROLONGED QT INTERVAL CRITICAL TEST RESULT UNCONFIRMED REPORT Electronically signed by : Dashawn Chowdhury MD 06/04/2024 16:08:47
--- NOTE | 2024-06-03 18:13 | PC.NURSE ---
1758 notified [facility] pharmacist that pt ptt is 200.0 pt had just been in center medical and lab director and received heparin during case. ptt to be rechecked at 1900. no changes in orders from kalin
[2024-06-03] MEDS: AMLODIPINE 10MG TABLET 10 MG PO (18:21)
--- NOTE | 2024-06-03 19:20 | PC.NURSE ---
Right radial artery sheath in place from catholic priest-- to be used as arterial line. Small amount of old blood under dressing without signs of acute bleeding at site. 20g RAC, 20g Left hand. Heparin gtt and Nipride infusing per MAR/titration record.
[2024-06-03] MEDS: NITROPRUSSIDE SODIUM 50 MG in DEXTROSE 5 % IN WATER 250 ML 70.43 MG IV (20:09)
[2024-06-03] MEDS: ATORVASTATIN 40MG TABLET 40 MG PO (20:13)
[2024-06-03 20:24] LABS: PTT Heparin (inpatient only) 126.2 Seconds (50-75)
[2024-06-03] MEDS: ACETAMINOPHEN 325MG TAB 650 MG PO (20:38)
[2024-06-03 23:00] LABS: PTT Heparin (inpatient only) 64.2 Seconds (50-75)
[2024-06-04] VITALS (44 sets, daily range): BP systolic 91–229; BP diastolic 6–86; PULSE 30–70; RESP 12–22; TEMP 36.5–37.7; O2SAT 88–100; BMI 19.7; BMI 27.8
[2024-06-04] MEDS: NITROPRUSSIDE SODIUM 50 MG in DEXTROSE 5 % IN WATER 250 ML 56.34 MG IV ×2 (00:11→09:47)
[2024-06-04] MEDS: MORPHINE 2MG/ML SYRINGE 2 MG IV (00:18)
[2024-06-04] MEDS: ONDANSETRON 4MG/2ML VIAL 4 MG IV (00:23)
--- NOTE | 2024-06-04 03:14 | PC.NURSE ---
Patient has removed BP cuff from left arm and states he no longer wants it taken in that arm r/t it being too tight. Patient educated that Dr. Marie would like an hourly check to this arm. Patient declined to have it to his left arm or either leg. ICU care continued.
--- NOTE | 2024-06-04 04:27 | PC.NURSE ---
Patient remains stable at this time. Patient remains in a 3rd degree heart block with an almost constant rate of 35 bpm. Nipride gtt titrated per titration record to maintain systolic arterial pressure of 160-[address] Marie communication order. Medicated per MAR per pain and nausea. Right radial arterial sheath remains in place for arterial pressure readings. Patient remains comfortable, a/o x3 with no acute needs or concerns. Family has stayed at bedside and voice no questions or concerns. VSS otherwise with NAD. ICU care continued.
[2024-06-04 05:01] LABS: PTT Heparin (inpatient only) 46.4 Seconds (50-75)
--- NOTE | 2024-06-04 05:13 | PC.NURSE ---
Spoke to Jackson with [facility] pharmacy regarding Heparin gtt-- Jackson to place orders for Heparin bolus and increasing gtt rate to 1150 units/hr. Repeat PTT order placed for 6 hours
[2024-06-04 05:15] LABS: Basophils % 0.4 % (0.1-2.0); Eosinophils # 0.1 K/mm3 (0.0-0.4); Eosinophils % 1.1 % (0.1-12.0); Hematocrit 36.8 % (42.0-52.0); Lymphocytes # 1.4 K/mm3 (0.7-4.5); Mean Corpuscular Hemoglobin 29.3 pg (27.0-31.2); Mean Platelet Volume 8.7 fl (7.4-10.4); Monocytes # 0.5 K/mm3 (0.1-1.0); Monocytes % 4.9 % (1.7-9.3); Neutrophils # 7.2 K/mm3 (1.8-7.8); Neutrophils % 78.6 % (37.0-80.0); Platelet Count 161 K/mm3 (142-424); Red Blood Count 4.28 M/mm3 (4.60-6.20); Red Cell Distribution Width 14.4 % (11.5-17.5); White Blood Count 9.2 K/mm3 (4.8-10.8)
[2024-06-04 05:21] LABS: Chloride 111 mmol/L (98-107); Potassium 3.7 mmoL/L (3.5-5.1); Sodium 135 mmol/L (136-145)
[2024-06-04] MEDS: HEPARIN SODIUM 5,000 UNIT/ML VIAL 3000 UNIT IV ×2 (05:22→14:12)
[2024-06-04] MEDS: HEPARIN SODIUM,PORCINE/D5W 500 ML 23 UNIT IV ×2 (05:22→15:42)
[2024-06-04 05:24] LABS: Anion Gap 8.7 mEq/L (5-15); Blood Urea Nitrogen 37 mg/dl (9-20); Calcium 8.3 mg/dl (8.4-10.2); Carbon Dioxide 19 mmol/L (22.0-30.0); Creatinine Clearance Estimated 31 mL/min (50-200); Estimated Glomerular Filt Rate 32 ml/min (>60); GFR (African American) 38 ML/MIN (>60); Glucose 105 mg/dl (74-100)
[2024-06-04 05:30] LABS: Hemoglobin 12.8 g/dL (14.1-18.0)
[2024-06-04 05:53] LABS: Chol/HDL Ratio 3.8 (1-3.5); Cholesterol 123 mg/dl (140-200); HDL Cholesterol 32 mg/dl (40-60); Magnesium 2.1 mg/dl (1.6-2.3); Triglycerides 109 mg/dl (30-150); VLDL Cholesterol 22 mg/dL (0-40)
--- NOTE | 2024-06-04 06:30 | CA_ITS ---
FINAL REPORT TECHNIQUE: Real-time imaging was performed of the extracranial carotid arteries in transverse and longitudinal planes, with color duplex evaluation of blood flow velocity. Spectral analysis was performed. The cervical vertebral arteries were also examined. CLINICAL HISTORY: Evaluate for stenosis, Extreme HTN, Extreme bradycardia FINDINGS: NASCET technique is utilized for stenosis evaluation. Right carotid system (centimeters/second): CCA: 160 ICA: 361 Vertebral artery: Antegrade ICA/CCA ratio: 2.47 Large plaque is identified at the bifurcation. Left carotid system (centimeters/second): Occlusion of the left common and internal carotid arteries. Vertebral artery: Retrograde IMPRESSION: High-grade stenosis of the proximal right internal carotid artery, greater than 70%. Correlation with CTA or catheter directed angiogram is recommended. Occlusion of the left common and internal carotid arteries. Retrograde flow in the left vertebral artery. Reviewed, Interpreted and Dictated by Alfredo Page MD Transcribed by Nichole Harman Authenticated and [facility]
[2024-06-04] MEDS: NITROPRUSSIDE SODIUM 50 MG in DEXTROSE 5 % IN WATER 250 ML 42.26 MG IV ×2 (06:31→09:55)
--- NOTE | 2024-06-04 08:28 | IR_ITS ---
APPROVED REPORT Patient Location: Inpatient Rn Ortho: GUERITA Cortez RT (R) PROCEDURES 1. Pocket formation for Permanent Pacemaker Placement. 2. Placement of an atrial sensing and pacing coil into the right atrial appendage. 3. Placement of a ventricular sensing and pacing coil in the right ventricular apex. 4. Permanent Pacemaker Placement. INDICATION Third-degree AV block Informed consent was obtained prior to the procedure. COMPLICATIONS None Estimated Blood Loss: Less than 10 mls TECHNIQUE 1% Lidocaine with epinephrine used to anesthetized the left anterior aspect of the chest. Scalpel was used to make the initial cutaneous incision while electrocautery was used to dissect down tinto the fascia. The fascia was lifted off the pectoralis muscle and digitally manipulated creating a pocket for the pacemaker. The patient was then placed in Trendelenburg position and the subclavian vein was accessed twice via the Selinger technique, there are two wires in the vein. A 6 Maldivian sheath was placed under fluoroscopic guidance into the subclavian vein over one of the wires while keeping the other wire in place within the subclavian vein. The dilator was removed from the sheath. Using fluoroscopic guidance, the ventricular lead was placed into the right ventricular apex, screwed and secured into place. Electronic interrogation proved acceptable thresholds and voltage within the lead. Using 3-0 silk, the ventricular lead was then secured into place. Lead was secured to the facia using the 3-0 silk. Following this, the sheath was pealed away. An additional 6 Maldivian fresh sheath and dilator was placed over the existing wire. Using fluoroscopic guidance, the atrial lead was the placed into the right atrial appendage and screwed and secured in place. Electrical interrogation demonstrated acceptable thresholds and voltage number. The atrial lead was then secured into place using 3-0 silk. 1 gram of Ancef was used to flush the pocket. Following the pacemaker generator being secured to the fascia and in place, Monocryl was used to close the subcutaneous layers while melba were used to close the cutaneous layer. A pressure dressing was placed and the patient was transferred to the postop holding area in stable condition for postoperative care. INTERROGATION Generator Model number: BioPh[employer]X [id number] Generator Serial number: [id number] Atrial lead model number: Tendril STS 8TC Atrial lead serial number: [id number] P-wave: 3.0 mV Impedance: 510 Ohms Threshold: 1.0V @ 0.4ms Right Ventricular lead model number: Leigh STS 8TC Right Ventricular lead serial number: [id number] R-wave: 17 mV Impedance: 730 Ohms Threshold: 1.0V @ 0.4ms Pacing Parameters: Mode: DDDR Base/Max Track:60 ppm / 130 ppm No diaphragmatic stimulation at 10 volts. IMPRESSION 1. Successful pocket formation for Permanent Pacemaker Placement. 2. Successful placement of an atrial sensing and pacing coil into the right atrial appendage. 3. Successful placement of a ventricular sensing and pacing coil in the right ventricular apex. 4. Successful permanent Pacemaker Placement. PLAN 1. Post op wound care, follow up office visit Electronically signed by : Gui Linares MD 06/04/2024 14:39:09
[2024-06-04] MEDS: CLOPIDOGREL 75MG TAB 75 MG PO (08:29)
[2024-06-04] MEDS: AMLODIPINE 10MG TABLET 10 MG PO (08:29)
[2024-06-04] MEDS: ASPIRIN EC 81MG TABLET 81 MG PO (08:29)
--- NOTE | 2024-06-04 09:15 | EXP.CARD.PN ---
Subjective Subjective Date: 06/04/24 Time: 08:30 Principal diagnosis: third degree heart block Interval history: Patient status post left heart catheterization yesterday. Patient awaiting pacemaker placement today. Patient complaining of fatigue. Morning labs reviewed. Patient is on heparin drip and nipride drip with a systolic blood pressure of 190. Family at bedside. Exam Data for Last 24 hours Vital signs and Labs for Last 24 Hours: Temp Pulse Resp BP Pulse Ox O2 Del Method O2 Flow Rate 97.7 F 36 L 20 194/53 H 95 Nasal Cannula 4 06/04/24 08:00 06/04/24 08:30 06/04/24 08:30 06/04/24 08:30 06/04/24 08:30 06/04/24 08:30 06/04/24 08:30 Laboratory Results - last 24 hr 06/03/24 11:02: WBC 8.8, RBC 5.20, Hgb 14.9, Hct 44.7, MCV 86.0, MCH 28.6, MCHC 33.3, RDW 14.2, Plt Count 157, MPV 8.8, Neut % (Auto) 75.3, Lymph % (Auto) 18.8, [place] % (Auto) 4.1, Eos % (Auto) 1.2, Baso % (Auto) 0.6, Neut # (Auto) 6.6, Lymph # (Auto) 1.6, [place] # (Auto) 0.4, Eos # (Auto) 0.1, Baso # (Auto) 0.1, Sodium 138, Potassium 4.2, Chloride 110 H, Carbon Dioxide 22, Anion Gap 10.2, BUN 34 H, Creatinine 2.00 H, Estimated Creat Clear 47, Estimated GFR 33 L, Est GFR ( Amer) 40 L, Glucose 101 H, Calcium 9.0, Magnesium 2.2, Total Bilirubin 0.7, Direct Bilirubin 0.1, Conjugated Bilirubin 0.0, Indirect Bilirubin 0.6, Unconjugated Bilirubin 0.7, AST 30, ALT 46, Alkaline Phosphatase 84, Troponin I 0.04 H, Total Protein 6.4 06/03/24 11:02: Total Protein 6.3, Albumin 3.8, TSH 1.25, Free T4 1.37 06/03/24 15:14: Activated Clotting Time > 400 H* 06/03/24 17:03: APTT 200.0 H* 06/03/24 19:07: APTT 126.2 H* 06/03/24 22:31: APTT 64.2 06/04/24 04:07: APTT 46.4 L 06/04/24 05:10: WBC 9.2, RBC 4.28 L, Hgb 12.8 L D, Hct 36.8 L, MCV 86.0, MCH 29.3, MCHC 34.0, RDW 14.4, Plt Count 161, MPV 8.7, Neut % (Auto) 78.6, Lymph % (Auto) 15.0, [place] % (Auto) 4.9, Eos % (Auto) 1.1, Baso % (Auto) 0.4, Neut # (Auto) 7.2, Lymph # (Auto) 1.4, [place] # (Auto) 0.5, Eos # (Auto) 0.1, Baso # (Auto) 0.0, Sodium 135 L, Potassium 3.7, Chloride 111 H, Carbon Dioxide 19 L, Anion Gap 8.7, BUN 37 H, Creatinine 2.10 H, Estimated Creat Clear 31, Estimated GFR 32 L, Est GFR ( Amer) 38 L, Glucose 105 H, Calcium 8.3 L, Magnesium 2.1, Triglycerides 109, Cholesterol 123 L, LDL Cholesterol Direct 64.40 L, VLDL Cholesterol 22, HDL Cholesterol 32 L, Cholesterol/HDL Ratio 3.8 H I & O for Last 24 hours: Intake & Output 06/01/24 06/02/24 06/03/24 06/04/24 23:59 23:59 23:59 23:59 Intake Total 767.385 / 787.385 434.382 / 434.382 Output Total 225 / 225 200 / 200 Balance 542.385 / 562.385 234.382 / 234.382 Weight 205 lb 0.478 oz 145 lb 7 oz Constitutional Constitutional: no acute distress *Routine Respiratory Exam Respiratory: Present CTA bilaterally and symmetric chest movement *Routine Cardiovascular Exam Cardiovascular: Present Normal S1, Normal S2 and bradycardia *Routine Abdominal Exam Abdominal: Present soft and normoactive bowel sounds; Absent tenderness *Routine Extremities Exam Extremities: Present full ROM; Absent edema *Routine Skin Exam Skin: Present intact, dry and warm Detailed Neck Exam: Thyroids Thyroid: Absent bruit Progress Note: A&P Assessment and plan (1) MUNA (acute kidney injury): Status: Acute (2) HTN (hypertension): Status: Acute (3) Malignant hypertension: Status: Acute (4) CAD (coronary artery disease): Status: Acute (5) Third degree heart block: Status: Acute (6) Subclavian artery stenosis: Status: Acute Assessment and Plan Assessment and Plan for All Diagnoses:: Coronary artery disease Third-degree AV block resolved s/p dual-chamber pacemaker Echocardiogram: Normal biventricular systolic function, marked increased LV wall thickness, mild RV dilation with normal RV function, mild LA dilation, mild MR. Recommend cardiac MRI, PYP nuclear scan and amyloidosis lab testing. Cardiac MRI is pending Left heart catheterization 06/03/2024: Successful stenting of the proximal and mid dominant RCA with 2 NANETTE. Persistent coronary disease in the LAD and circumflex artery which is best managed medically at this time. Occluded left subclavian artery. Persistent malignant hypertension. Continue Plavix and aspirin Dual-chamber pacemaker placed today with resolution of 3rd degree block Malignant hypertension Right radial artery sheath present for continuous blood pressure readings Continue Nipride drip Start esmolol drip, titrate systolic blood pressure to 160. Blood pressure needs to remain above 160. Stop Norvasc Start Isordil 10 mg 3 times daily Start metoprolol tartrate 50 mg p.o. every 6 hours Continuing heparin drip for right arterial sheath Left subclavian artery stenosis Total occlusion of the left CCA and internal carotid arteries Stenosis of the right internal carotid artery greater than 70% Carotid ultrasound: High-grade stenosis of the proximal right internal carotid artery greater than 70%. Occlusion of the left common and internal carotid arteries with retrograde flow noted Left subclavian artery stenosis noted on left heart cath yesterday Possible intervention for left subclavian during this admission Hip pain Concern for PAD Bilateral LE arterial duplex and venous duplex pending Acute kidney injury Creatinine upon presentation was 2 Creatinine up to 2.1 today Renal artery duplex pending CV summary 06/04/2024: Patient is status post pacemaker placement. Continue Nipride drip. Start Esmolol drip, Isordil 10 mg p.o. 3 times daily and Metoprolol tartrate 50mg po Q6 hours. Goal systolic blood pressures 160. Renal artery duplex and bilateral lower extremity arterial and venous duplexes pending. Cardiac MRI pending. All orders per Dr. Linares. Cardiac meds: Aspirin 81 mg p.o. daily Atorvastatin 40 mg p.o. daily Plavix 75 mg p.o. daily Heparin drip Esmolol drip Nipride drip Metoprolol tartrate 50 mg every 6 hours Isordil 10mg po TID
--- NOTE | 2024-06-04 09:24 | PC.NURSE ---
0925 Pt transported off of unit to clinical lab assistant at this time for procedure. transported by sae weiner and [facility]
--- NOTE | 2024-06-04 09:34 | EXP.ANES.CKL ---
[facility] Disclaimer: The information contained in this section may have been updated after the patient was seen, as this information can be updated by other users. Medical History MUNA (acute kidney injury) Elevated troponin Shortness of Breath Neuropathy Renal cyst CVA (cerebral vascular accident) BPH (benign prostatic hyperplasia) HTN (hypertension) HLD (hyperlipidemia) COPD (chronic obstructive pulmonary disease) High blood pressure Surgical History History of dental surgery Family History Other Coronary artery disease Social History Smoking Status: Current every day smoker tobacco type: cigarettes packs per day: 1 second hand exposure: Yes alcohol intake: never substance use type: denies use current occupational status: employed Travel in the last 8 weeks: None housing: house [facility] Anesthesia Checklist Patient Identification Patient Identification: Arm Band and Verbal (Name & ) Structural Data Admitted From: Inpatient Planned Operative Procedure/s: Pacemaker placement Consent for Planned Operative Procedure(s) Verified: Yes Verified Documents: Surgical Consent and History and Physical NPO Status Verified Time NPO: 00:00 Chart Verification Results Verified: CBC, BMP and ECG Additional verifications Anesthesia Reactions: No Airway Assessment Mallampati Score:: Class II C-Spine Mobility Assessed: Yes TMJ Mobility Assessed: Yes Dentition: Good Dentition Neurological Assessment Level of Consciousness: Awake Hx Seizures: No Numbness or tingling in extremities: No Anesthesia Plan Anesthesia Risk discussed: Yes Anesthesia Plan: Verified ASA Class: IV Anesthesia Type: MAC
[2024-06-04] MEDS: CEFAZOLIN SODIUM 1 GM in 0.9 % SODIUM CHLORIDE 50 ML IV (10:08)
[2024-06-04] MEDS: LIDOCAINE 1% W/EPI 1:100,000 20ML VIAL 20 ML SQ (10:08)
[2024-06-04] MEDS: CEFAZOLIN 1GM VIAL 1 GM TP (10:08)
[2024-06-04] MEDS: NITROPRUSSIDE SODIUM 50 MG in DEXTROSE 5 % IN WATER 250 ML 14.09 MG IV ×2 (10:15→14:10)
[2024-06-04] MEDS: NITROPRUSSIDE SODIUM 50 MG in DEXTROSE 5 % IN WATER 250 ML 8.45 MG IV (10:40)
[2024-06-04] MEDS: METOPROLOL TARTRATE 5MG/5ML VIAL 5 MG IV ×2 (10:57→11:18)
--- NOTE | 2024-06-04 11:16 | XR_ITS ---
FINAL REPORT TECHNIQUE: Single view chest CLINICAL HISTORY: Confirm pacemaker/AID placement COMPARISON: 10/27/2019 FINDINGS: A single view of the chest was obtained. There is been interval placement of a left-sided pacemaker. There are overlying skin melba. The heart and mediastinum are within normal limits. Mild chronic changes are seen at the lung bases. The lungs are otherwise clear. There is no pneumothorax. Osseous structures are unremarkable. IMPRESSION: Interval pacemaker placement without pneumothorax. Reviewed, Interpreted and Dictated by Alfredo Page MD Transcribed by Sandra Johnson Authenticated and . [facility]
--- NOTE | 2024-06-04 11:30 | SUR.PHASEII ---
PORTABLE CHEST XRAY AT BEDSIDE
--- NOTE | 2024-06-04 11:40 | SUR.PHASEII ---
CALLED REPORT TO KEVEN HENRIQUEZ
[2024-06-04] MEDS: ESMOLOL HCL 100 MG/10 ML VIAL 46 MG IV (11:44)
[2024-06-04] MEDS: ESMOLOL HCL IN STERILE WATER 2,500 MG/250 ML PIGGYBACK 27.9 MG IV (11:45)
--- NOTE | 2024-06-04 11:45 | CA_ITS ---
FINAL REPORT TECHNIQUE: Grayscale and color Doppler ultrasound images with graded compression of the deep venous system were obtained from the groin to the calf veins bilaterally. CLINICAL HISTORY: hip pain. s/p pacemaker/cardiac catheterization FINDINGS: The deep venous system is normal. There is no evidence of DVT. Flow and compressibility are normal. IMPRESSION: No evidence of left or right lower extremity DVT. Reviewed, Interpreted and Dictated by Alfredo Page MD Transcribed by Nichole Harman Authenticated and [facility]
[2024-06-04 13:22] LABS: PTT Heparin (inpatient only) 42.3 Seconds (50-75)
[2024-06-04] MEDS: METOPROLOL TARTRATE 50MG TABLET 50 MG PO ×3 (13:40→23:55)
--- NOTE | 2024-06-04 14:08 | P.PN_ITS ---
Subjective *Date: 06/04/24 *Time: 14:08 Interval history: Patient returned from dual-chamber pacemaker placement this morning. Currently comfortable, states he feels better after pacemaker. Exam Data for Last 24 hours Vital signs and Labs for Last 24 Hours: Temp Pulse Resp BP Pulse Ox O2 Del Method O2 Flow Rate 98.2 F 62 18 215/82 H 95 Room Air 6 06/04/24 12:00 06/04/24 12:30 06/04/24 12:30 06/04/24 12:30 06/04/24 12:30 06/04/24 12:30 06/04/24 11:43 Laboratory Results - last 24 hr 06/03/24 15:14: Activated Clotting Time > 400 H* 06/03/24 17:03: APTT 200.0 H* 06/03/24 19:07: APTT 126.2 H* 06/03/24 22:31: APTT 64.2 06/04/24 04:07: APTT 46.4 L 06/04/24 05:10: WBC 9.2, RBC 4.28 L, Hgb 12.8 L D, Hct 36.8 L, MCV 86.0, MCH 29.3, MCHC 34.0, RDW 14.4, Plt Count 161, MPV 8.7, Neut % (Auto) 78.6, Lymph % (Auto) 15.0, [place] % (Auto) 4.9, Eos % (Auto) 1.1, Baso % (Auto) 0.4, Neut # (Auto) 7.2, Lymph # (Auto) 1.4, [place] # (Auto) 0.5, Eos # (Auto) 0.1, Baso # (Auto) 0.0, Sodium 135 L, Potassium 3.7, Chloride 111 H, Carbon Dioxide 19 L, Anion Gap 8.7, BUN 37 H, Creatinine 2.10 H, Estimated Creat Clear 31, Estimated GFR 32 L, Est GFR ( Amer) 38 L, Glucose 105 H, Calcium 8.3 L, Magnesium 2.1, Triglycerides 109, Cholesterol 123 L, LDL Cholesterol Direct 64.40 L, VLDL Cholesterol 22, HDL Cholesterol 32 L, Cholesterol/HDL Ratio 3.8 H 06/04/24 12:52: APTT 42.3 L I & O for Last 24 hours: Intake & Output 06/01/24 06/02/24 06/03/24 06/04/24 23:59 23:59 23:59 23:59 Intake Total 767.385 / 787.385 678.771 / 678.771 Output Total 225 / 225 200 / 200 Balance 542.385 / 562.385 478.771 / 478.771 Weight 93 kg 92.986 kg Constitutional Constitutional: no acute distress *Routine HEENT Exam Head: Present normocephalic Eye: Present EOMI and PERRL ENT: Present mucous membranes moist *Routine Neck Exam Neck: Present supple; Absent lymphadenopathy *Routine Respiratory Exam Respiratory: Present CTA bilaterally *Routine Cardiovascular Exam Cardiovascular: Present RRR *Routine Abdominal Exam Abdominal: Present soft and normoactive bowel sounds; Absent tenderness *Routine Extremities Exam Extremities: Absent cyanosis, clubbing or edema *Routine Skin Exam Skin: Present warm; Absent rash *Routine Neurological Exam Neurological: Present alert and oriented X3 Assessment and Plan *Assessment and plan (1) MUNA (acute kidney injury): Status: Acute Category: Medical Code(s): N17.9 - Acute kidney failure, unspecified (2) HTN (hypertension): Status: Acute Category: Medical Code(s): I10 - Essential (primary) hypertension (3) Malignant hypertension: Status: Acute Category: Medical Code(s): I10 - Essential (primary) hypertension (4) CAD (coronary artery disease): Status: Acute Category: Medical Code(s): I25.10 - Atherosclerotic heart disease of [place] coronary artery without angina pectoris (5) Third degree heart block: Status: Acute Category: Medical Code(s): I44.2 - Atrioventricular block, complete (6) Subclavian artery stenosis: Status: Acute Category: Medical Code(s): I77.1 - Stricture of artery Plan Chip Horan is a 68-year-old male with a medical history significant for hypertension, left frontal lacunar CVA, BPH presented to cardiology clinic with dizziness, lightheadedness. He was found to have complete heart block with heart rate in the 30s on EKG. I discussed case with cardiology, and decision was made to admit patient for complete heart block requiring continuous telemetry, left heart catheterization, and pacemaker placement. Patient denies previous stents, but does endorse remote CVA in around 2019. Denies chest pain, shortness of breath. States he has been adherent to his medications. #CAD #Third-degree heart block ? Direct admit from cardiology clinic for third-degree heart block, with symptoms of dizziness and fatigue. ? S/p PCI 06/05/2024 with 2 stents in right dominant artery. Access right radial artery, sheath in place without bloody drainage. ? S/p dual-chamber pacemaker on 06/04/2024. Currently pacing appropriately. ? ECHO Normal biventricular systolic function, marked increased LV wall thickness, mild RV dilation with normal RV function, mild LA dilation, mild MR. Recommend cardiac MRI, PYP nuclear scan and amyloidosis lab testing. ? Aspirin 81 mg, Plavix 75, atorvastatin 40 mg daily. Loaded with Plavix 600 mg. ? Follow-up cardiac MRI ordered by cardiology to evaluate for amyloidosis. ? Cardiology following, appreciate efforts and recommendations as above. 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 C 06/05/2020 revealed significant subclavian artery occlusion ostially. Therefore, blood pressure readings in the left arm are not associate sales representative of systemic blood pressure. ? Carotid ultrasound revealed high-grade stenosis of the proximal right internal carotid artery, greater than 70%. Occlusion of the left common and internal carotid arteries. Retrograde flow in the left vertebral artery. ? Patient has symptoms of subclavian steal syndrome, endorsing word finding difficulties this morning and intermittent paresthesias of left arm suggesting hypoperfusion. Blood pressure was in the 150s at that time. ? Dr. Linares wants to perform intervention for subclavian artery stenosis next week, and that can be done outpatient if patient's blood pressure is at goal and patient is asymptomatic from hypoperfusion standpoint. ? Maintain SBP greater than 160-180 to avoid hypoperfusion from subclavian steal syndrome. ? If patient has strokelike symptoms such as word finding difficulties, SBP needs to be increased to decrease hypoperfusion. ? Neurochecks every 2 hours. ? Avoid strenuous or overhead activity with left arm. ? Patient is an active smoker contributing to cardiovascular burden. Counseled on smoke cessation and patient is interested in quitting. Nicotine patch ordered as needed. #Malignant hypertension with endorgan damage #MUNA ? With left subclavian artery stenosis, blood pressures in the left arm are not associate sales representative systemic pressures. ? Right radial arterial line yesterday revealed blood pressures of 300/150 during [facility]. ? Creatinine 2.0 on admission, was 1.2 in 2019. Patient is breathing with appropriate saturations on room air, not suggestive of pulmonary edema. No other evidence of endorgan damage at this time. ? Creatinine 2.1 today, no electrolyte abnormalities and patient making urine. Will continue to monitor as malignant hypertension is treated. ? Thyroid function tests normal during admission. ? Per cardiology, continue IV nitroprusside and IV esmolol drip. Started metoprolol tartrate 50 mg every 6 hours and Isordil 10 mg 3 times daily. ? SBP goal between 160 and 180 on right radial arterial line. Continue IV heparin until radial sheath can be discontinued. - Resumed home tamsulosin 0.4 mg. ? Follow-up renal duplex ultrasound. ? Follow-up renin/aldosterone labs. Full code DVT prophylaxis heparin drip Cardiac diet
[2024-06-04] MEDS: ISOSORBIDE DINITRATE 10 MG TABLET PO ×2 (14:12→20:41)
[2024-06-04] MEDS: ESMOLOL HCL IN STERILE WATER 2,500 MG/250 ML PIGGYBACK 55.79 MG IV ×2 (16:37→20:42)
--- NOTE | 2024-06-04 17:25 | PC.NURSE ---
Patient has appeared to be resting in room following pacemaker placement. pt is a/ox 4. pt has patent art line in r radial artery. pacemaker site to l chest no hematoma or bruising noted at site pt is currently on nipride, esmolol and heparin drips. when asleep pt bp is noted to be in the 170 systolic range. Pt sitting up for supper, art line pressure is noted to again be elevated in the 200's systolic. pt started on oral hypertension meds this shift. pt has had numerous visitors this shift, bp noted to be elevated at times as well.
[2024-06-04 18:16] LABS: PTT Heparin (inpatient only) 72.7 Seconds (50-75)
--- NOTE | 2024-06-04 18:33 | PC.NURSE ---
183 called and notified Olga in [facility] pharmacy of pt PTT results of 72.7 no new orders for changes in heparin drip
[2024-06-04] MEDS: OXYCODONE 5MG W/APAP 325MG TABLET 1 EACH PO ×2 (19:39→23:56)
[2024-06-04] MEDS: ATORVASTATIN 40MG TABLET 40 MG PO (20:41)
[2024-06-04] MEDS: TAMSULOSIN 0.4MG CAPSULE 0.4 MG PO (20:41)
[2024-06-04] MEDS: dilTIAZem 30MG TABLET 30 MG PO (23:55)
[2024-06-05] VITALS (26 sets, daily range): BP systolic 151–205; BP diastolic 57–88; PULSE 60–74; RESP 14–22; TEMP 36.5–36.7; O2SAT 91–97; BMI 27.7
[2024-06-05 00:45] LABS: PTT Heparin (inpatient only) 61.2 Seconds (50-75)
--- NOTE | 2024-06-05 00:50 | PC.NURSE ---
Spoke with Jackson at [facility] to inform of patient ptt result. No new orders to change heparin gtt rate at this time, and to maintain current dose, see MAR. Next ptt draw at 0600, order placed per written protocol.
[2024-06-05] MEDS: ESMOLOL HCL IN STERILE WATER 2,500 MG/250 ML PIGGYBACK 55.79 MG IV ×2 (01:40→06:48)
--- NOTE | 2024-06-05 05:32 | PC.NURSE ---
Dr. Linares called TRN to check on patient. TRN updated him on patient care and gtt titrations. Informed to give metoprolol with diltiazem as scheduled and approx 30 min after medication administered to wean off esmolol. Maintain SBP between 160-180. If SBP exceeds parameters, administer Nitroprusside gtt as ordered.
[2024-06-05] MEDS: dilTIAZem 30MG TABLET 30 MG PO (06:05)
[2024-06-05] MEDS: METOPROLOL TARTRATE 50MG TABLET 50 MG PO ×3 (06:06→17:40)
[2024-06-05 06:59] LABS: Basophils % 0.5 % (0.1-2.0); Eosinophils # 0.1 K/mm3 (0.0-0.4); Eosinophils % 0.7 % (0.1-12.0); Hematocrit 36.4 % (42.0-52.0); Hemoglobin 12.5 g/dL (14.1-18.0); Lymphocytes # 1.6 K/mm3 (0.7-4.5); Lymphocytes % 17.9 % (10-50); Mean Corpuscular HGB Conc 34.2 g/dL (31.8-35.4); Mean Corpuscular Hemoglobin 29.4 pg (27.0-31.2); Mean Corpuscular Volume 85.9 fl (80-94); Mean Platelet Volume 8.5 fl (7.4-10.4); Monocytes # 0.4 K/mm3 (0.1-1.0); Monocytes % 4.3 % (1.7-9.3); Neutrophils # 6.8 K/mm3 (1.8-7.8); Neutrophils % 76.6 % (37.0-80.0); Platelet Count 156 K/mm3 (142-424); Red Blood Count 4.24 M/mm3 (4.60-6.20); Red Cell Distribution Width 14.2 % (11.5-17.5); White Blood Count 8.9 K/mm3 (4.8-10.8)
[2024-06-05 07:06] LABS: Chloride 109 mmol/L (98-107); Potassium 3.8 mmoL/L (3.5-5.1); Sodium 134 mmol/L (136-145)
[2024-06-05 07:09] LABS: Anion Gap 7.8 mEq/L (5-15); Blood Urea Nitrogen 29 mg/dl (9-20); Calcium 8.4 mg/dl (8.4-10.2); Carbon Dioxide 21 mmol/L (22.0-30.0); Creatinine Clearance Estimated 52 mL/min (50-200); Estimated Glomerular Filt Rate 38 ml/min (>60); GFR (African American) 46 ML/MIN (>60); Glucose 93 mg/dl (74-100)
[2024-06-05 07:10] LABS: PTT Heparin (inpatient only) 57.4 Seconds (50-75)
[2024-06-05] MEDS: CLOPIDOGREL 75MG TAB 75 MG PO (09:27)
[2024-06-05] MEDS: ASPIRIN EC 81MG TABLET 81 MG PO (09:27)
[2024-06-05] MEDS: ISOSORBIDE DINITRATE 10 MG TABLET PO ×3 (09:28→20:08)
[2024-06-05] MEDS: OXYCODONE 5MG W/APAP 325MG TABLET 1 EACH PO ×3 (10:30→20:08)
--- NOTE | 2024-06-05 10:47 | EXP.CARD.PN ---
Subjective Subjective Date: 06/05/24 Time: 08:00 Principal diagnosis: third degree heart block Interval history: Patient is status post dual-chamber pacemaker yesterday. Blood pressure remains elevated >160. Morning labs reviewed. Bilateral renal ultrasound and bilateral lower extremity arterial and venous ultrasounds are pending. Girlfriend at bedside. Exam Data for Last 24 hours Vital signs and Labs for Last 24 Hours: Temp Pulse Resp BP Pulse Ox O2 Del Method O2 Flow Rate 97.7 F 63 20 205/72 H 97 Room Air 6 06/05/24 09:00 06/05/24 10:00 06/05/24 10:00 06/05/24 10:00 06/05/24 10:00 06/05/24 10:00 06/04/24 11:43 FiO2 50 06/04/24 15:30 Laboratory Results - last 24 hr 06/04/24 12:52: APTT 42.3 L 06/04/24 17:40: APTT 72.7 06/05/24 00:10: APTT 61.2 06/05/24 06:20: WBC 8.9, RBC 4.24 L, Hgb 12.5 L, Hct 36.4 L, MCV 85.9, MCH 29.4, MCHC 34.2, RDW 14.2, Plt Count 156, MPV 8.5, Neut % (Auto) 76.6, Lymph % (Auto) 17.9, [place] % (Auto) 4.3, Eos % (Auto) 0.7, Baso % (Auto) 0.5, Neut # (Auto) 6.8, Lymph # (Auto) 1.6, [place] # (Auto) 0.4, Eos # (Auto) 0.1, Baso # (Auto) 0.0, APTT 57.4, Sodium 134 L, Potassium 3.8, Chloride 109 H, Carbon Dioxide 21 L, Anion Gap 7.8, BUN 29 H, Creatinine 1.80 H, Estimated Creat Clear 52, Estimated GFR 38 L, Est GFR ( Amer) 46 L D, Glucose 93, Calcium 8.4, Magnesium 2.0 I & O for Last 24 hours: Intake & Output 06/02/24 06/03/24 06/04/24 06/05/24 23:59 23:59 23:59 23:59 Intake Total 767.385 / 914.331 8925.421 / 2295.421 1646.117 / 1646.117 Output Total 225 / 225 900 / 900 250 / 250 Balance 542.385 / 568.088 7474.421 / 2989.347 9866.117 / 1396.117 Weight 205 lb 0.478 oz 205 lb 204 lb 15.984 oz Constitutional Constitutional: no acute distress *Routine HEENT Exam Head: Present normocephalic Eye: Present EOMI and PERRL ENT: Present mucous membranes moist *Routine Neck Exam Neck: Present supple; Absent lymphadenopathy *Routine Respiratory Exam Respiratory: Present CTA bilaterally *Routine Cardiovascular Exam Cardiovascular: Present RRR *Routine Abdominal Exam Abdominal: Present soft and normoactive bowel sounds; Absent tenderness *Routine Extremities Exam Extremities: Absent cyanosis, clubbing or edema *Routine Skin Exam Skin: Present warm; Absent rash *Routine Neurological Exam Neurological: Present alert and oriented X3 Progress Note: A&P Assessment and plan (1) MUNA (acute kidney injury): Status: Acute (2) HTN (hypertension): Status: Acute (3) Malignant hypertension: Status: Acute (4) CAD (coronary artery disease): Status: Acute (5) Third degree heart block: Status: Acute (6) Subclavian artery stenosis: Status: Acute Assessment and Plan Assessment and Plan for All Diagnoses:: Coronary artery disease Third-degree AV block resolved s/p dual-chamber pacemaker Echocardiogram: Normal biventricular systolic function, marked increased LV wall thickness, mild RV dilation with normal RV function, mild LA dilation, mild MR. Recommend cardiac MRI, PYP nuclear scan and amyloidosis lab testing. Cardiac MRI is pending Left heart catheterization 06/03/2024: Successful stenting of the proximal and mid dominant RCA with 2 NANETTE. Persistent coronary disease in the LAD and circumflex artery which is best managed medically at this time. Occluded left subclavian artery. Persistent malignant hypertension. Continue Plavix and aspirin Dual-chamber pacemaker placed yesterday with resolution of 3rd degree block Malignant hypertension Continue Nipride drip Esmolol drip off currently, titrate systolic blood pressure to 160. Blood pressure needs to remain above 160. Continue Isordil 10 mg 3 times daily Continue metoprolol tartrate 50 mg p.o. every 6 hours Continue diltiazem 30 mg p.o. every 6 hours Will plan for arterial line placement today. Once arterial line is placed the radial sheath can be pulled and heparin drip can be turned off. 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 Occlusion of the left common and internal carotid arteries with retrograde flow noted Left subclavian artery stenosis noted on left heart cath yesterday Hip pain Concern for PAD Bilateral lower extremity venous duplex negative Bilateral LE arterial duplex-preliminary reports shows a left femoral artery occlusion with plaque in bilateral [employer]. Official read is pending Acute kidney injury Creatinine improving to 1.8 today Preliminary renal artery duplex shows a left renal artery stenosis greater than 60%. Official read is pending CV summary 06/05/2024: Patient is status post pacemaker placement. Blood pressure remains elevated averaging 160s to 200s systolic. Patient has a left subclavian artery stenosis, total occlusion of the left CCA and internal carotid arteries and stenosis of the right internal carotid artery greater than 70%. Patient also has a left renal artery stenosis greater than 60% and a left femoral artery occlusion with plaque noted to bilateral [employer]. Due to significant vascular disease patient's family are requesting he be transferred to a facility that offers vascular and neurology coverage. Primary service will facilitate this transfer. Arterial line needs placed today prior to transfer. Once art line is placed the arterial sheath can be pulled and the heparin drip can be turned off. Cardiac meds: Aspirin 81 mg p.o. daily Atorvastatin 40 mg p.o. daily Plavix 75 mg p.o. daily Heparin drip Esmolol drip-currently off Nipride drip Metoprolol tartrate 50 mg every 6 hours Isordil 10mg po TID Diltiazem 30 mg p.o. every 6 hours
[2024-06-05] MEDS: dilTIAZem 60MG TABLET 60 MG PO ×2 (12:28→17:39)
[2024-06-05 12:41] LABS: PTT Heparin (inpatient only) 53.2 Seconds (50-75)
[2024-06-05 14:13] LABS: Protein,Total,Urine 598.6 mg/dL (Not Estab.)
[2024-06-05 14:13] LABS: Albumin 2.6 g/dL (2.9-4.4); Alpha-1-Globulin 0.2 g/dL (0.0-0.4); Alpha-2-Globulin 0.5 g/dL (0.4-1.0); Gamma Globulin 0.8 g/dL (0.4-1.8); Protein, Total 4.7 g/dL (6.0-8.5)
[2024-06-05] MEDS: HEPARIN SODIUM,PORCINE/D5W 500 ML 23 UNIT IV (14:51)
--- NOTE | 2024-06-05 15:43 | PC.NURSE ---
VS stable, right arterial sheath in place. Old bloody drainage noted, no new drainage present. Lung sounds clear. Nipride gtt at 0.5 mcg. Patient remained on room air. AV paced on monitor, pacemaker site clean dry and intact.
--- NOTE | 2024-06-05 15:50 | P.PN_ITS ---
Subjective *Date: 06/05/24 *Time: 15:50 Interval history: Patient continues to feel well, however daughter requests transfer to facility that has vascular surgery. reached out to and [facility] and spoke to the vascular surgeons. Both surgeons advised that if we can get the blood pressures under control, there is no need for transfer for inpatient intervention at this time. Patient can follow-up in their outpatient clinics for further evaluation management. Phone numbers given to family to make appointments. [facility] will call them to make an appointment next week Exam Data for Last 24 hours Vital signs and Labs for Last 24 Hours: Temp Pulse Resp BP Pulse Ox O2 Del Method O2 Flow Rate 98 F 60 20 164/62 H 93 L Room Air 6 06/05/24 13:00 06/05/24 15:00 06/05/24 15:00 06/05/24 15:00 06/05/24 15:00 06/05/24 15:00 06/04/24 11:43 FiO2 50 06/04/24 15:30 Laboratory Results - last 24 hr 06/03/24 17:03: Total Protein (PEP) 4.7 L, Albumin (PEP) 2.6 L, Globulin (PEP) 2.1 L, Albumin/Globulin Ratio 1.2, Llczi-7-Nnwlljgjt 0.2, Fsduy-2-Alplbwzcz 0.5, Beta Globulins 0.7, Gamma Globulins 0.8, M-Maxwell Comment:, PEP Note Comment 06/04/24 06:48: Urine Total Protein 598.6, Ur Protein 24 Hr Calc Comment, Urine Albumin (%) TNP, U Ercsp-9-Zyalsegb (%) TNP, U Aiijg-5-Abrclxhb (%) TNP, U Beta Globulin (%) TNP, U Gamma Globulin (%) TNP, U PEP M-Maxwell % TNP, Urine PEP Note Comment, Ur IEP M-Maxwell mg/24hr TNP 06/04/24 17:40: APTT 72.7 06/05/24 00:10: APTT 61.2 06/05/24 06:20: WBC 8.9, RBC 4.24 L, Hgb 12.5 L, Hct 36.4 L, MCV 85.9, MCH 29.4, MCHC 34.2, RDW 14.2, Plt Count 156, MPV 8.5, Neut % (Auto) 76.6, Lymph % (Auto) 17.9, [place] % (Auto) 4.3, Eos % (Auto) 0.7, Baso % (Auto) 0.5, Neut # (Auto) 6.8, Lymph # (Auto) 1.6, [place] # (Auto) 0.4, Eos # (Auto) 0.1, Baso # (Auto) 0.0, APTT 57.4, Sodium 134 L, Potassium 3.8, Chloride 109 H, Carbon Dioxide 21 L, Anion Gap 7.8, BUN 29 H, Creatinine 1.80 H, Estimated Creat Clear 52, Estimated GFR 38 L, Est GFR ( Amer) 46 L D, Glucose 93, Calcium 8.4, Magnesium 2.0 06/05/24 12:00: APTT 53.2 I & O for Last 24 hours: Intake & Output 06/02/24 06/03/24 06/04/24 06/05/24 23:59 23:59 23:59 23:59 Intake Total 767.385 / 228.898 7571.421 / 2295.421 1886.117 / 1886.117 Output Total 225 / 225 900 / 900 475 / 475 Balance 542.385 / 336.660 1837.421 / 1799.042 6278.117 / 1411.117 Weight 93 kg 92.986 kg 92.986 kg Constitutional Constitutional: no acute distress *Routine HEENT Exam Head: Present normocephalic Eye: Present EOMI and PERRL ENT: Present mucous membranes moist *Routine Neck Exam Neck: Present supple; Absent lymphadenopathy *Routine Respiratory Exam Respiratory: Present CTA bilaterally *Routine Cardiovascular Exam Cardiovascular: Present RRR *Routine Abdominal Exam Abdominal: Present soft and normoactive bowel sounds; Absent tenderness *Routine Extremities Exam Extremities: Absent cyanosis, clubbing or edema Comments: Right arterial line in place with no active bleeding, but presence of dried blood. Sheath in place. *Routine Skin Exam Skin: Present warm; Absent rash *Routine Neurological Exam Neurological: Present alert and oriented X3 Assessment and Plan *Assessment and plan (1) MUNA (acute kidney injury): Status: Acute Category: Medical Code(s): N17.9 - Acute kidney failure, unspecified (2) HTN (hypertension): Status: Acute Category: Medical Code(s): I10 - Essential (primary) hypertension (3) Malignant hypertension: Status: Acute Category: Medical Code(s): I10 - Essential (primary) hypertension (4) CAD (coronary artery disease): Status: Acute Category: Medical Code(s): I25.10 - Atherosclerotic heart disease of [place] coronary artery without angina pectoris (5) Third degree heart block: Status: Acute Category: Medical Code(s): I44.2 - Atrioventricular block, complete (6) Subclavian artery stenosis: Status: Acute Category: Medical Code(s): I77.1 - Stricture of artery Plan Chip Horan is a 68-year-old male with a medical history significant for hypertension, left frontal lacunar CVA, BPH presented to cardiology clinic with dizziness, lightheadedness. He was found to have complete heart block with heart rate in the 30s on EKG. I discussed case with cardiology, and decision was made to admit patient for complete heart block requiring continuous telemetry, left heart catheterization, and pacemaker placement. Patient denies previous stents, but does endorse remote CVA in around 2019. Denies chest pain, shortness of breath. States he has been adherent to his medications. #Malignant hypertension with endorgan damage #MUNA ? With left subclavian artery stenosis, blood pressures in the left arm are not business center representative systemic pressures. ? Right radial arterial line during C revealed blood pressures of 300/150 duri ng [facility]. ? Creatinine 2.0 on admission, was 1.2 in 2020. Patient is breathing with appropriate saturations on room air, not suggestive of pulmonary edema. No other evidence of endorgan damage at this time. ? Creatinine improved to 1.8 from 2.1 yesterday after gentle IV fluid rehydration. Will continue to monitor as malignant hypertension is treated. ? Thyroid function tests normal during admission. ? Per cardiology, continue IV nitroprusside and IV esmolol drip. Patient weaned off esmolol drip, weaning nitroprusside drip. ? Continue metoprolol tartrate 50 mg every 6 hours and Isordil 10 mg 3 times daily. ? Started diltiazem 30 mg, uptitrated to 60 mg every 6 hours per cardiology recommendations. ? Consider hydralazine if BP not at goal. Avoid nephrotoxic medications in setting of MUNA. ? SBP goal between 160 and 180 on right radial arterial line. Continue IV heparin until radial sheath can be discontinued. - Resumed home tamsulosin 0.4 mg. ? Follow-up renal duplex ultrasound. ? Follow-up renin/aldosterone labs. 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 [facility] 06/05/2020 revealed significant subclavian artery occlusion ostially. Therefore, blood pressure readings in the left arm are not business center representative of systemic blood pressure. ? Carotid ultrasound revealed high-grade stenosis of the proximal right internal carotid artery, greater than 70%. Occlusion of the left common and internal carotid arteries. Retrograde flow in the left vertebral artery. ? Patient has symptoms of subclavian steal syndrome, endorsing word finding difficulties this morning and intermittent paresthesias of left arm suggesting hypoperfusion. Blood pressure was in the 150s at that time. ? Dr. Linares wants to perform intervention for subclavian artery stenosis next week, and that can be done outpatient if patient's blood pressure is at goal and patient is asymptomatic from hypoperfusion standpoint. ? Maintain SBP greater than 160-180 to avoid hypoperfusion from subclavian steal syndrome. ? If patient has strokelike symptoms such as word finding difficulties, SBP needs to be increased to decrease hypoperfusion. ? Neurochecks every 2 hours. ? Avoid strenuous or overhead activity with left arm. ? Patient is an active smoker contributing to cardiovascular burden. Counseled on smoke cessation and patient is interested in quitting. Nicotine patch ordered as needed. ? Per family request, reached out to and [facility] and spoke to the vascular surgeons. Both surgeons advised that if we can get the blood pressures under control, there is no need for transfer for inpatient intervention at this time. Patient can follow-up in their outpatient clinics for further evaluation management. Phone numbers given to family to make appointments. [facility] will call them to make an appointment next week #CAD #Third-degree heart block ? Direct admit from cardiology clinic for third-degree heart block, with symptoms of dizziness and fatigue. ? S/p PCI 06/05/2024 with 2 stents in right dominant artery. Access right radial artery, sheath in place without bloody drainage. ? S/p dual-chamber pacemaker on 06/04/2024. Currently pacing appropriately. ? ECHO Normal biventricular systolic function, marked increased LV wall thickness, mild RV dilation with normal RV function, mild LA dilation, mild MR. Recommend cardiac MRI, PYP nuclear scan and amyloidosis lab testing. ? Aspirin 81 mg, Plavix 75, atorvastatin 40 mg daily. Loaded with Plavix 600 mg. ? Follow-up cardiac MRI ordered by cardiology to evaluate for amyloidosis. ? Cardiology following, appreciate efforts and recommendations as above. Full code DVT prophylaxis heparin drip Cardiac diet
[2024-06-05 17:14] LABS: Free Kappa Lt Chains 25.3 mg/L (3.3-19.4); Free Lambda Lt Chains 20.7 mg/L (5.7-26.3); Immunoglobulin A, Qn 139 mg/dL (61-437); Immunoglobulin G, Qn 523 mg/dL (603-1613); Immunoglobulin M, Qn 25 mg/dL (20-172)
[2024-06-05] MEDS: ONDANSETRON 4MG/2ML VIAL 4 MG IV (17:40)
[2024-06-05 18:45] LABS: PTT Heparin (inpatient only) 50.7 Seconds (50-75)
--- NOTE | 2024-06-05 18:53 | PC.NURSE ---
Per [facility], no change in ptt. Next draw at 0600 and can be daily due to numerous prior therapeutic ranges.
[2024-06-05] MEDS: ATORVASTATIN 40MG TABLET 40 MG PO (20:08)
[2024-06-05] MEDS: TAMSULOSIN 0.4MG CAPSULE 0.4 MG PO (20:08)
[2024-06-05] MEDS: NITROPRUSSIDE SODIUM 50 MG in DEXTROSE 5 % IN WATER 250 ML 14.09 MG IV (20:51)
[2024-06-06] VITALS (30 sets, daily range): BP systolic 115–209; BP diastolic 57–84; PULSE 59–63; RESP 14–20; TEMP 36.4–36.8; O2SAT 90–96; BMI 27.8
[2024-06-06] MEDS: METOPROLOL TARTRATE 50MG TABLET 50 MG PO ×3 (00:01→18:51)
[2024-06-06] MEDS: dilTIAZem 60MG TABLET 60 MG PO ×3 (00:01→11:07)
[2024-06-06] MEDS: OXYCODONE 5MG W/APAP 325MG TABLET 1 EACH PO ×4 (00:51→15:54)
[2024-06-06 02:53] LABS: PTT Heparin (inpatient only) 58.1 Seconds (50-75)
--- NOTE | 2024-06-06 03:15 | PC.NURSE ---
Spoke with Jackson at [facility] to report ptt results. Patient remains therapeutic at this time, and he instructs to get daily ptt draws for maintenance. New order placed for redraw at 0900 which will start daily blood draws while patient is on heparin gtt.
[2024-06-06 06:56] LABS: Basophils % 0.3 % (0.1-2.0); Eosinophils # 0.2 K/mm3 (0.0-0.4); Eosinophils % 1.9 % (0.1-12.0); Hematocrit 35.2 % (42.0-52.0); Hemoglobin 11.8 g/dL (14.1-18.0); Lymphocytes # 1.5 K/mm3 (0.7-4.5); Lymphocytes % 17.5 % (10-50); Mean Corpuscular HGB Conc 33.6 g/dL (31.8-35.4); Mean Corpuscular Hemoglobin 28.6 pg (27.0-31.2); Mean Platelet Volume 8.3 fl (7.4-10.4); Monocytes # 0.5 K/mm3 (0.1-1.0); Monocytes % 5.6 % (1.7-9.3); Neutrophils # 6.3 K/mm3 (1.8-7.8); Neutrophils % 74.7 % (37.0-80.0); Platelet Count 159 K/mm3 (142-424); Red Blood Count 4.15 M/mm3 (4.60-6.20); Red Cell Distribution Width 14.3 % (11.5-17.5); White Blood Count 8.4 K/mm3 (4.8-10.8)
[2024-06-06 07:12] LABS: Free Kappa Lt Chains,Ur 148.33 mg/L (1.17-86.46); Free Lambda Lt Chains,Ur 57.81 mg/L (0.27-15.21)
[2024-06-06 07:26] LABS: PTT Heparin (inpatient only) 54.8 Seconds (50-75)
[2024-06-06 07:31] LABS: Anion Gap 4.6 mEq/L (5-15); Blood Urea Nitrogen 22 mg/dl (9-20); Carbon Dioxide 23 mmol/L (22.0-30.0); Chloride 110 mmol/L (98-107); Creatinine Clearance Estimated 58 mL/min (50-200); Estimated Glomerular Filt Rate 43 ml/min (>60); GFR (African American) 52 ML/MIN (>60); Glucose 104 mg/dl (74-100); Potassium 3.6 mmoL/L (3.5-5.1); Sodium 134 mmol/L (136-145)
[2024-06-06 08:31] LABS: Magnesium 2.1 mg/dl (1.6-2.3)
[2024-06-06] MEDS: ASPIRIN EC 81MG TABLET 81 MG PO (08:48)
[2024-06-06] MEDS: ISOSORBIDE DINITRATE 10 MG TABLET PO ×2 (08:48→13:30)
[2024-06-06] MEDS: CLOPIDOGREL 75MG TAB 75 MG PO (08:48)
[2024-06-06] MEDS: CARVEDILOL 6.25MG TABLET 6.25 MG PO ×2 (09:25→11:07)
[2024-06-06] MEDS: ONDANSETRON 4MG/2ML VIAL 4 MG IV (12:14)
--- NOTE | 2024-06-06 13:04 | PC.NURSE ---
c/o nausea, nurse is aware
[2024-06-06] MEDS: HEPARIN SODIUM,PORCINE/D5W 500 ML 23 UNIT IV (13:17)
[2024-06-06] MEDS: CARVEDILOL 12.5MG TABLET 12.5 MG PO (13:31)
[2024-06-06] MEDS: 0.9 % SODIUM CHLORIDE 1000ML 1,000 ML 333 ML IV (15:28)
[2024-06-06] MEDS: NITROPRUSSIDE SODIUM 50 MG in DEXTROSE 5 % IN WATER 250 ML IV (15:29)
[2024-06-06] MEDS: dilTIAZem 30MG TABLET 60 MG PO (15:37)
[2024-06-06] MEDS: NIFEdipine 10MG CAPSULE 20 MG PO (17:22)
--- NOTE | 2024-06-06 17:45 | PC.NURSE ---
verbal order given per Dr. Marie to remove radial sheath. Radial sheath removed using sterile technique. Radial band placed with 17 ml's of air. pt able to move all fingers at this time, cap refill noted. Instructed pt's MARTINEZ Ray air could start being removed at 1945, assess cap refill and movement of fingers.
[2024-06-06] MEDS: dilTIAZem 30MG TABLET 90 MG PO (18:23)
--- NOTE | 2024-06-06 18:36 | EXP.PN ---
Subjective *Date: 06/06/24 *Time: 18:36 Interval history: Patient continues to feel well, no chest pain, shortness of breath. No focal neurological deficits. Exam Data for Last 24 hours Vital signs and Labs for Last 24 Hours: Temp Pulse Resp BP Pulse Ox O2 Del Method O2 Flow Rate 98.3 F 60 20 172/73 H 92 L Room Air 6 06/06/24 15:15 06/06/24 17:40 06/06/24 17:40 06/06/24 17:40 06/06/24 17:40 06/06/24 17:40 06/04/24 11:43 FiO2 50 06/04/24 15:30 Laboratory Results - last 24 hr 06/03/24 17:03: U Free [place] Light Ch 148.33 H, U Free [place] Ch 57.81 H, Free [place]/Lambda Ratio 2.57 06/05/24 17:45: APTT 50.7 06/06/24 02:24: APTT 58.1 06/06/24 06:37: WBC 8.4, RBC 4.15 L, Hgb 11.8 L, Hct 35.2 L, MCV 85.0, MCH 28.6, MCHC 33.6, RDW 14.3, Plt Count 159, MPV 8.3, Neut % (Auto) 74.7, Lymph % (Auto) 17.5, [place] % (Auto) 5.6, Eos % (Auto) 1.9, Baso % (Auto) 0.3, Neut # (Auto) 6.3, Lymph # (Auto) 1.5, [place] # (Auto) 0.5, Eos # (Auto) 0.2, Baso # (Auto) 0.0, APTT 54.8, Sodium 134 L, Potassium 3.6, Chloride 110 H, Carbon Dioxide 23, Anion Gap 4.6 L, BUN 22 H, Creatinine 1.60 H, Estimated Creat Clear 58, Estimated GFR 43 L, Est GFR ( Amer) 52 L, Glucose 104 H, Calcium 8.0 L, Magnesium 2.1 I & O for Last 24 hours: Intake & Output 06/03/24 06/04/24 06/05/24 06/06/24 23:59 23:59 23:59 23:59 Intake Total 767.385 / 205.218 7468.421 / 2295.421 2469.228 / 2469.228 924.361 / 924.361 Output Total 225 / 225 900 / 900 1220 / 1220 1600 / 1600 Balance 542.385 / 552.054 9319.421 / 8810.993 4449.228 / 1249.228 -675.639 / -675.639 Weight 93 kg 92.986 kg 92.986 kg 93.213 kg Constitutional Constitutional: no acute distress *Routine HEENT Exam Head: Present normocephalic Eye: Present EOMI and PERRL ENT: Present mucous membranes moist *Routine Neck Exam Neck: Present supple; Absent lymphadenopathy *Routine Respiratory Exam Respiratory: Present CTA bilaterally *Routine Cardiovascular Exam Cardiovascular: Present RRR *Routine Abdominal Exam Abdominal: Present soft and normoactive bowel sounds; Absent tenderness *Routine Extremities Exam Extremities: Absent cyanosis, clubbing or edema *Routine Skin Exam Skin: Present warm; Absent rash *Routine Neurological Exam Neurological: Present alert and oriented X3 Assessment and Plan *Assessment and plan (1) MUNA (acute kidney injury): Status: Acute Category: Medical Code(s): N17.9 - Acute kidney failure, unspecified (2) HTN (hypertension): Status: Acute Category: Medical Code(s): I10 - Essential (primary) hypertension (3) Malignant hypertension: Status: Acute Category: Medical Code(s): I10 - Essential (primary) hypertension (4) CAD (coronary artery disease): Status: Acute Category: Medical Code(s): I25.10 - Atherosclerotic heart disease of [place] coronary artery without angina pectoris (5) Third degree heart block: Status: Acute Category: Medical Code(s): I44.2 - Atrioventricular block, complete (6) Subclavian artery stenosis: Status: Acute Category: Medical Code(s): I77.1 - Stricture of artery Plan Chip Horan is a 68-year-old male with a medical history significant for hypertension, left frontal lacunar CVA, BPH presented to cardiology clinic with dizziness, lightheadedness. He was found to have complete heart block with heart rate in the 30s on EKG. I discussed case with cardiology, and decision was made to admit patient for complete heart block requiring continuous telemetry, left heart catheterization, and pacemaker placement. Patient denies previous stents, but does endorse remote CVA in around 2019. Denies chest pain, shortness of breath. States he has been adherent to his medications. #Malignant hypertension with endorgan damage #MUNA ? With left subclavian artery stenosis, blood pressures in the left arm are not u.s. representative systemic pressures. ? Right radial arterial line during [facility] revealed blood pressures of 300/150 during LH. ? Creatinine 2.0 on admission, was 1.2 in 2020. Patient is breathing with appropriate saturations on room air, not suggestive of pulmonary edema. No other evidence of endorgan damage at this time. ? Creatinine improved to 1.8 from 2.1 yesterday after gentle IV fluid rehydration. Will continue to monitor as malignant hypertension is treated. ? Thyroid function tests normal during admission. ? Today, patient states he continues to feel well. ? Blood pressures have been quite refractory to oral medications, even with the addition of multiple doses of Coreg and diltiazem. ? Weaned off IV nitroprusside today. ? Started nifedipine 30 mg every 8 hours. ? Increase diltiazem to 90 mg every 6 hours. Continue metoprolol tartrate 50 mg every 6 hours and Isordil 10 mg 3 times daily. ? Consider hydralazine if BP not at goal. Avoid nephrotoxic medications in setting of MUNA. ? 1 L fluid bolus given for MUNA. Creatinine improving today. ? SBP goal between 160 and 180. ? Right lower artery line which sheath removed today. IV heparin discontinued. ? Blood pressure checks every 30 minutes to 1 hour. -Continue home tamsulosin 0.4 mg. ? Follow-up renal duplex ultrasound. ? Follow-up renin/aldosterone labs. ? If patient continues to have refractory blood pressure, will likely need endovascular treatment for likely underlying renal artery stenosis, subclavian artery stenosis, carotid artery stenosis. 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 [facility] 06/05/2020 revealed significant subclavian artery occlusion ostially. Therefore, blood pressure readings in the left arm are not u.s. representative of systemic blood pressure. ? Carotid ultrasound revealed high-grade stenosis of the proximal right internal carotid artery, greater than 70%. Occlusion of the left common and internal carotid arteries. Retrograde flow in the left vertebral artery. ? Patient has symptoms of subclavian steal syndrome, endorsing word finding difficulties this morning and intermittent paresthesias of left arm suggesting hypoperfusion. Blood pressure was in the 150s at that time. ? Dr. Linares wants to perform intervention for subclavian artery stenosis next week, and that can be done outpatient if patient's blood pressure is at goal and patient is asymptomatic from hypoperfusion standpoint. ? Maintain SBP greater than 160-180 to avoid hypoperfusion from subclavian steal syndrome. ? If patient has strokelike symptoms such as word finding difficulties, SBP needs to be increased to decrease hypoperfusion. ? Neurochecks every 2 hours. ? Avoid strenuous or overhead activity with left arm. ? Patient is an active smoker contributing to cardiovascular burden. Counseled on smoke cessation and patient is interested in quitting. Nicotine patch ordered as needed. ? Per family request, reached out to and Sofia Burnham and spoke to the vascular surgeons. Both surgeons advised that if we can get the blood pressures under control, there is no need for transfer for inpatient intervention at this time. Patient can follow-up in their outpatient clinics for further evaluation management. Phone numbers given to family to make appointments. [facility] will call them to make an appointment next week #CAD #Third-degree heart block ? Direct admit from cardiology clinic for third-degree heart block, with symptoms of dizziness and fatigue. ? S/p PCI 06/05/2024 with 2 stents in right dominant artery. Access right radial artery, sheath in place without bloody drainage. ? S/p dual-chamber pacemaker on 06/04/2024. Currently pacing appropriately. ? ECHO Normal biventricular systolic function, marked increased LV wall thickness, mild RV dilation with normal RV function, mild LA dilation, mild MR. Recommend cardiac MRI, PYP nuclear scan and amyloidosis lab testing. ? Aspirin 81 mg, Plavix 75, atorvastatin 40 mg daily. Loaded with Plavix 600 mg. ? Follow-up cardiac MRI ordered by cardiology to evaluate for amyloidosis. ? Cardiology following, appreciate efforts and recommendations as above. Full code DVT prophylaxis heparin drip Cardiac diet
--- NOTE | 2024-06-06 18:38 | PC.NURSE ---
Patient remains a/o able to voice needs to staff, no new c/o this shift. Rt radial sheath / art line removed, radial band placed site unremarkable with no bleeding or s/s of hematoma noted at this time. VS baseline for patient, nipride gtt weaned off, heparin gtt stopped prior to sheath removal. Patient educated on post radial sheath removal precautions and s/s to report to nurse. PRN pain medications given throughout shift as patient requested, pain controlled with current regimen. Patient has multiple family visitors throughout day. Remains resting in bed with call light in reach
[2024-06-06] MEDS: ATORVASTATIN 40MG TABLET 40 MG PO (20:20)
[2024-06-06] MEDS: TAMSULOSIN 0.4MG CAPSULE 0.4 MG PO (20:20)
[2024-06-06] MEDS: SENNA 8.6MG TABLET 8.6 MG PO (20:45)
--- NOTE | 2024-06-06 21:44 | PC.NURSE ---
Pressure dressing removed, and area cleaned with chlorahexadine. No bleeding noted. Pressure dressing applied. Patient tolerated procedure well. While TRN was in room patient BP resulted as 115/59. Dr. Freedman notified, new orders received. See MAR. Patient with nighttime BP meds held per MD order, and informed to administer 500cc bolus of NS, and continue maintenance fluids at 75/hr. Patient denies felling any different, denies s/s of hypotension, and neuro exam negative. MD aware.
[2024-06-06] MEDS: 0.9 % SODIUM CHLORIDE 1000ML 500 ML 999 ML IV (22:00)
[2024-06-06] MEDS: 0.9 % SODIUM CHLORIDE 1000ML 1,000 ML 75 ML IV (22:30)
[2024-06-07] VITALS (19 sets, daily range): BP systolic 142–210; BP diastolic 65–79; PULSE 60–80; RESP 15–22; TEMP 36.6–37.1; O2SAT 90–97; BMI 28.9
--- NOTE | 2024-06-07 04:13 | PC.NURSE ---
Spoke with Dr. Freedman to inform of patient SBP sustaining >150 since 0200. New orders received to not dc fluids but to decrease maintenance fluids from 75 ml/hr to 50ml/hr. Pharmacy sheet faxed at this time.
[2024-06-07] MEDS: 0.9 % SODIUM CHLORIDE 1000ML 1,000 ML 50 ML IV (04:42)
[2024-06-07] MEDS: OXYCODONE 5MG W/APAP 325MG TABLET 1 EACH PO ×2 (04:43→16:58)
[2024-06-07 06:26] LABS: Chloride 110 mmol/L (98-107); Sodium 136 mmol/L (136-145)
[2024-06-07 06:27] LABS: Potassium 3.7 mmoL/L (3.5-5.1)
[2024-06-07 06:29] LABS: Blood Urea Nitrogen 18 mg/dl (9-20); Creatinine Clearance Estimated 61 mL/min (50-200); Estimated Glomerular Filt Rate 43 ml/min (>60); GFR (African American) 52 ML/MIN (>60)
[2024-06-07 06:30] LABS: Anion Gap 7.7 mEq/L (5-15); Calcium 8.4 mg/dl (8.4-10.2); Carbon Dioxide 22 mmol/L (22.0-30.0); Glucose 97 mg/dl (74-100)
[2024-06-07 06:38] LABS: Basophils % 0.3 % (0.1-2.0); Eosinophils # 0.1 K/mm3 (0.0-0.4); Eosinophils % 1.9 % (0.1-12.0); Hematocrit 35.7 % (42.0-52.0); Hemoglobin 12.3 g/dL (14.1-18.0); Lymphocytes # 1.3 K/mm3 (0.7-4.5); Lymphocytes % 19.1 % (10-50); Mean Corpuscular HGB Conc 34.5 g/dL (31.8-35.4); Mean Corpuscular Hemoglobin 29.7 pg (27.0-31.2); Mean Corpuscular Volume 86.2 fl (80-94); Mean Platelet Volume 8.7 fl (7.4-10.4); Monocytes # 0.4 K/mm3 (0.1-1.0); Monocytes % 5.8 % (1.7-9.3); Neutrophils % 72.9 % (37.0-80.0); Platelet Count 147 K/mm3 (142-424); Red Blood Count 4.14 M/mm3 (4.60-6.20); Red Cell Distribution Width 14.1 % (11.5-17.5); White Blood Count 6.9 K/mm3 (4.8-10.8)
[2024-06-07] MEDS: CLOPIDOGREL 75MG TAB 75 MG PO (08:59)
[2024-06-07] MEDS: NIFEdipine 10MG CAPSULE 10 MG PO (08:59)
[2024-06-07] MEDS: SENNA 8.6MG TABLET 8.6 MG PO (08:59)
[2024-06-07] MEDS: ISOSORBIDE DINITRATE 10 MG TABLET PO ×3 (08:59→20:50)
[2024-06-07] MEDS: ASPIRIN EC 81MG TABLET 81 MG PO (08:59)
--- NOTE | 2024-06-07 11:21 | EXP.PN ---
Subjective *Date: 06/07/24 *Time: 11:21 Interval history: Patient states he is feeling better today, will plan to ambulate around the room. Denies chest pain, shortness of breath Exam Data for Last 24 hours Vital signs and Labs for Last 24 Hours: Temp Pulse Resp BP Pulse Ox O2 Del Method O2 Flow Rate 98.2 F 63 18 173/77 H 96 Room Air 6 06/07/24 08:00 06/07/24 08:00 06/07/24 08:00 06/07/24 08:00 06/07/24 08:00 06/07/24 08:00 06/04/24 11:43 FiO2 50 06/04/24 15:30 Laboratory Results - last 24 hr 06/07/24 05:35: WBC 6.9, RBC 4.14 L, Hgb 12.3 L, Hct 35.7 L, MCV 86.2, MCH 29.7, MCHC 34.5, RDW 14.1, Plt Count 147, MPV 8.7, Neut % (Auto) 72.9, Lymph % (Auto) 19.1, [place] % (Auto) 5.8, Eos % (Auto) 1.9, Baso % (Auto) 0.3, Neut # (Auto) 5.0, Lymph # (Auto) 1.3, [place] # (Auto) 0.4, Eos # (Auto) 0.1, Baso # (Auto) 0.0, Sodium 136, Potassium 3.7, Chloride 110 H, Carbon Dioxide 22, Anion Gap 7.7, BUN 18, Creatinine 1.60 H, Estimated Creat Clear 61, Estimated GFR 43 L, Est GFR ( Amer) 52 L, Glucose 97, Calcium 8.4, Magnesium 2.0 I & O for Last 24 hours: Intake & Output 06/04/24 06/05/24 06/06/24 06/07/24 23:59 23:59 23:59 23:59 Intake Total 2043.421 / 2295.421 2469.228 / 2469.228 2724.361 / 2799.361 2095 / 2095 Output Total 900 / 900 1220 / 1220 1900 / 1900 800 / 800 Balance 1143.421 / 0155.634 5670.228 / 1249.228 824.361 / 558.855 0594 / 1296 Weight 92.986 kg 92.986 kg 93.213 kg 96.842 kg Constitutional Constitutional: no acute distress *Routine HEENT Exam Head: Present normocephalic Eye: Present EOMI and PERRL ENT: Present mucous membranes moist *Routine Neck Exam Neck: Present supple; Absent lymphadenopathy *Routine Respiratory Exam Respiratory: Present CTA bilaterally *Routine Cardiovascular Exam Cardiovascular: Present RRR *Routine Abdominal Exam Abdominal: Present soft and normoactive bowel sounds; Absent tenderness *Routine Extremities Exam Extremities: Present edema; Absent cyanosis or clubbing Comments: Trace edema since starting nifedipine. *Routine Skin Exam Skin: Present warm; Absent rash *Routine Neurological Exam Neurological: Present alert and oriented X3 Assessment and Plan *Assessment and plan (1) MUNA (acute kidney injury): Status: Acute Category: Medical Code(s): N17.9 - Acute kidney failure, unspecified (2) HTN (hypertension): Status: Acute Category: Medical Code(s): I10 - Essential (primary) hypertension (3) Malignant hypertension: Status: Acute Category: Medical Code(s): I10 - Essential (primary) hypertension (4) CAD (coronary artery disease): Status: Acute Category: Medical Code(s): I25.10 - Atherosclerotic heart disease of [place] coronary artery without angina pectoris (5) Third degree heart block: Status: Acute Category: Medical Code(s): I44.2 - Atrioventricular block, complete (6) Subclavian artery stenosis: Status: Acute Category: Medical Code(s): I77.1 - Stricture of artery Plan Chip Horan is a 68-year-old male with a medical history significant for hypertension, left frontal lacunar CVA, BPH presented to cardiology clinic with dizziness, lightheadedness. He was found to have complete heart block with heart rate in the 30s on EKG. I discussed case with cardiology, and decision was made to admit patient for complete heart block requiring continuous telemetry, left heart catheterization, and pacemaker placement. Patient denies previous stents, but does endorse remote CVA in around 2019. Denies chest pain, shortness of breath. States he has been adherent to his medications. #Malignant hypertension, resolving #MUNA, resolving #CKD suspected from uncontrolled hypertension ? With left subclavian artery stenosis, blood pressures in the left arm are not financial services sales representative systemic pressures. ? Creatinine 2.0 on admission, was 1.2 in 2020 though may now be in CKD given uncontrolled hypertension. Patient is breathing with appropriate saturations on room air, not suggestive of pulmonary edema. No other evidence of endorgan damage at this time. ? Creatinine has plateaued at 1.6, suggesting patient may have CKD stage III from uncontrolled hypertension. Will continue to monitor as malignant hypertension is treated. ? Thyroid function tests normal during admission. ? Today, patient states he is feeling much better than yesterday. Received IV fluids yesterday to help with MUNA. ? Blood pressures have been refractory to diltiazem, metoprolol, Coreg. Initially holding off on nephrotoxic antihypertensives given presumed MUNA. ? Weaned off IV nitroprusside 06/06/2024. ? Right lower artery line which sheath removed 06/06/2024. IV heparin discontinued. ? SBP goal between 160-180, given subclavian steal syndrome, carotid artery stenosis. ? Started nifedipine 20 mg, however blood pressures were over responsive going down as low as 115/59. ? Will likely start MARTINEZ/ARB this afternoon and discontinue nifedipine. ? Holding diltiazem, metoprolol tartrate given lack of efficacy. ? Blood pressure checks every 30 minutes to 1 hour. - Continue Isordil 10 mg 3 times daily, home tamsulosin 0.4 mg. ? Follow-up renal duplex ultrasound. ? Follow-up renin/aldosterone labs. ? Patient likely can be discharged once BP is stable with outpatient follow-up with cardiology and vascular for further management of subclavian artery stenosis, carotid/renal artery stenosis. 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 C 06/05/2020 revealed significant subclavian artery occlusion ostially. Therefore, blood pressure readings in the left arm are not financial services sales representative of systemic blood pressure. ? Carotid ultrasound revealed high-grade stenosis of the proximal right internal carotid artery, greater than 70%. Occlusion of the left common and internal carotid arteries. Retrograde flow in the left vertebral artery. ? Patient has symptoms of subclavian steal syndrome, endorsing word finding difficulties this morning and intermittent paresthesias of left arm suggesting hypoperfusion. Blood pressure was in the 150s at that time. ? Dr. Linares wants to perform intervention for subclavian artery stenosis next week, and that can be done outpatient if patient's blood pressure is at goal and patient is asymptomatic from hypoperfusion standpoint. ? Maintain SBP greater than 160-180 to avoid hypoperfusion from subclavian steal syndrome. ? If patient has strokelike symptoms such as word finding difficulties, SBP needs to be increased to decrease hypoperfusion. ? Neurochecks every 2 hours. ? Avoid strenuous or overhead activity with left arm. ? Patient is an active smoker contributing to cardiovascular burden. Counseled on smoke cessation and patient is interested in quitting. Nicotine patch ordered as needed. ? Per family request, reached out to and Sofia Burnham and spoke to the vascular surgeons. Both surgeons advised that if we can get the blood pressures under control, there is no need for transfer for inpatient intervention at this time. Patient can follow-up in their outpatient clinics for further evaluation management. Phone numbers given to family to make appointments. [facility] will call them to make an appointment next week #CAD #Third-degree heart block ? Direct admit from cardiology clinic for third-degree heart block, with symptoms of dizziness and fatigue. ? S/p PCI 06/05/2024 with 2 stents in right dominant artery. Access right radial artery, sheath in place without bloody drainage. ? S/p dual-chamber pacemaker on 06/04/2024. Currently pacing appropriately. ? ECHO Normal biventricular systolic function, marked increased LV wall thickness, mild RV dilation with normal RV function, mild LA dilation, mild MR. Recommend cardiac MRI, PYP nuclear scan and amyloidosis lab testing. ? Aspirin 81 mg, Plavix 75, atorvastatin 40 mg daily. Loaded with Plavix 600 mg. ? Follow-up cardiac MRI ordered by cardiology to evaluate for amyloidosis. ? Cardiology following, appreciate efforts and recommendations as above. Full code DVT prophylaxis heparin drip Cardiac diet
[2024-06-07] MEDS: IRBESARTAN 75MG TABLET 37.5 MG PO (14:19)
--- NOTE | 2024-06-07 17:41 | PC.NURSE ---
Patient able to tolerate bp oral medications. Some swelling noted on ankles and feet, md aware. VS stable and patient remained on room air. Patient able to ambulate to bathroom a couple of times during shift. Patient sat in chair for lunch but stated he did not want to sit in chair again as he was uncomfortable. Lung sounds clear. Right radial dressing clean dry and intact. Left chest wall dressing has scant old drainage, no new drainage noted. Pain medicated with prm medications and relief noted per patient.
[2024-06-07] MEDS: TAMSULOSIN 0.4MG CAPSULE 0.4 MG PO (20:45)
[2024-06-07] MEDS: ATORVASTATIN 40MG TABLET 40 MG PO (20:45)
[2024-06-07] MEDS: NIFEdipine XL 30MG TABLET 30 MG PO (20:50)
[2024-06-08] VITALS (9 sets, daily range): BP systolic 170–212; BP diastolic 71–83; PULSE 64–80; RESP 16–20; TEMP 36.6–36.9; O2SAT 94–97; BMI 27.1
[2024-06-08] MEDS: ISOSORBIDE DINITRATE 10 MG TABLET PO ×3 (00:37→13:35)
[2024-06-08] MEDS: OXYCODONE 5MG W/APAP 325MG TABLET 1 EACH PO (00:43)
--- NOTE | 2024-06-08 05:11 | PC.NURSE ---
Patient has had a good night. His BP has remained within parameters through the shift once i gave the extra dose of medication per provider. He has been using the urinal thorough the shift. He tried to have a BM and was unsuccessful. He has requested to have medication during the day today, RN offered to call the provider but the patient wanted to wait. He does state that his pacemaker site is more sore today and swollen. Swelling is noted but no bruising and is skin soft around the site. Family has remained at bedside through the night
[2024-06-08 06:59] LABS: Basophils % 0.5 % (0.1-2.0); Eosinophils # 0.2 K/mm3 (0.0-0.4); Eosinophils % 2.2 % (0.1-12.0); Hemoglobin 12.9 g/dL (14.1-18.0); Lymphocytes # 1.7 K/mm3 (0.7-4.5); Lymphocytes % 21.1 % (10-50); Mean Corpuscular HGB Conc 34.9 g/dL (31.8-35.4); Mean Corpuscular Hemoglobin 29.8 pg (27.0-31.2); Mean Corpuscular Volume 85.3 fl (80-94); Mean Platelet Volume 8.1 fl (7.4-10.4); Monocytes # 0.5 K/mm3 (0.1-1.0); Monocytes % 5.9 % (1.7-9.3); Neutrophils # 5.7 K/mm3 (1.8-7.8); Neutrophils % 70.3 % (37.0-80.0); Platelet Count 181 K/mm3 (142-424); Red Blood Count 4.33 M/mm3 (4.60-6.20); Red Cell Distribution Width 14.2 % (11.5-17.5); White Blood Count 8.1 K/mm3 (4.8-10.8)
[2024-06-08 07:05] LABS: Anion Gap 6.7 mEq/L (5-15); Blood Urea Nitrogen 18 mg/dl (9-20); Calcium 8.6 mg/dl (8.4-10.2); Carbon Dioxide 24 mmol/L (22.0-30.0); Chloride 111 mmol/L (98-107); Creatinine Clearance Estimated 65 mL/min (50-200); Estimated Glomerular Filt Rate 50 ml/min (>60); GFR (African American) 61 ML/MIN (>60); Glucose 91 mg/dl (74-100); Potassium 3.7 mmoL/L (3.5-5.1); Sodium 138 mmol/L (136-145)
[2024-06-08] MEDS: CLOPIDOGREL 75MG TAB 75 MG PO (08:34)
[2024-06-08] MEDS: SENNA 8.6MG TABLET 8.6 MG PO (08:34)
[2024-06-08] MEDS: ASPIRIN EC 81MG TABLET 81 MG PO (08:34)
[2024-06-08] MEDS: POLYETHYLENE GLYCOL 3350 17 GM PACKET PO (11:49)
--- NOTE | 2024-06-08 11:58 | EXP.CARD.PN ---
Subjective Subjective Date: 06/08/24 Time: 08:00 Principal diagnosis: third degree heart block Interval history: Patient remains stable. This morning patient reports he is feeling better, denies chest pain, shortness of breath or dizziness. Blood pressure > 160. Morning labs reviewed. Exam Data for Last 24 hours Vital signs and Labs for Last 24 Hours: Temp Pulse Resp BP Pulse Ox O2 Del Method O2 Flow Rate 98.4 F 73 20 191/71 H 96 Room Air 6 06/08/24 11:49 06/08/24 10:00 06/08/24 10:00 06/08/24 10:00 06/08/24 10:00 06/08/24 11:00 06/04/24 11:43 FiO2 50 06/04/24 15:30 Laboratory Results - last 24 hr 06/08/24 05:30: WBC 8.1, RBC 4.33 L, Hgb 12.9 L, Hct 37.0 L, MCV 85.3, MCH 29.8, MCHC 34.9, RDW 14.2, Plt Count 181, MPV 8.1, Neut % (Auto) 70.3, Lymph % (Auto) 21.1, [place] % (Auto) 5.9, Eos % (Auto) 2.2, Baso % (Auto) 0.5, Neut # (Auto) 5.7, Lymph # (Auto) 1.7, [place] # (Auto) 0.5, Eos # (Auto) 0.2, Baso # (Auto) 0.0, Sodium 138, Potassium 3.7, Chloride 111 H, Carbon Dioxide 24, Anion Gap 6.7, BUN 18, Creatinine 1.40 H, Estimated Creat Clear 65, Estimated GFR 50 L, Est GFR ( Amer) 61, Glucose 91, Calcium 8.6, Magnesium 2.0 I & O for Last 24 hours: Intake & Output 06/05/24 06/06/24 06/07/24 06/08/24 23:59 23:59 23:59 23:59 Intake Total 2469.228 / 2469.228 2724.361 / 2799.361 2856 / 2856 540 / 540 Output Total 1220 / 1220 1900 / 1900 2175 / 2575 2100 / 2100 Balance 1249.228 / 1249.228 824.361 / 899.361 681 / 281 -1560 / -1560 Weight 204 lb 15.984 oz 205 lb 8 oz 213 lb 7.225 oz 200 lb 3.017 oz Constitutional Constitutional: no acute distress *Routine Respiratory Exam Respiratory: Present CTA bilaterally and symmetric chest movement *Routine Cardiovascular Exam Cardiovascular: Present RRR, Normal S1 and Normal S2 *Routine Abdominal Exam Abdominal: Present soft and normoactive bowel sounds; Absent tenderness *Routine Extremities Exam Extremities: Present full ROM; Absent edema *Routine Skin Exam Skin: Present intact, dry and warm Detailed Neck Exam: Thyroids Thyroid: Absent bruit Progress Note: A&P Assessment and plan (1) MUNA (acute kidney injury): Status: Acute (2) HTN (hypertension): Status: Acute (3) Malignant hypertension: Status: Acute (4) CAD (coronary artery disease): Status: Acute (5) Third degree heart block: Status: Acute (6) Subclavian artery stenosis: Status: Acute Assessment and Plan Assessment and Plan for All Diagnoses:: Coronary artery disease Third-degree AV block resolved s/p dual-chamber pacemaker Echocardiogram: Normal biventricular systolic function, marked increased LV wall thickness, mild RV dilation with normal RV function, mild LA dilation, mild MR. Recommend cardiac MRI, PYP nuclear scan and amyloidosis lab testing. Cardiac MRI is pending Left heart catheterization 06/03/2024: Successful stenting of the proximal and mid dominant RCA with 2 NANETTE. Persistent coronary disease in the LAD and circumflex artery which is best managed medically at this time. Occluded left subclavian artery. Persistent malignant hypertension. Continue Plavix and aspirin Dual-chamber pacemaker placed with resolution of 3rd degree block Malignant hypertension Maintain blood pressure greater than 160 due to neurological symptoms when blood pressure falls below 160 Continue Procardia 30 mg p.o. daily Change Isordil to Imdur 30 mg p.o. daily Left subclavian artery stenosis Total occlusion of the left CCA and internal carotid arteries Stenosis of the right internal carotid artery greater than 70% Carotid ultrasound: High-grade stenosis of the proximal right internal carotid artery greater than 70%. 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 Official read is pending Acute kidney injury-resolving Creatinine improving to 1.4 today Preliminary renal artery duplex shows a left renal artery stenosis greater than 60%. Official read is pending Scheduled for renal angiogram on Saturday with Dr. Linares. CV summary 06/08/2024: Patient is CV stable for discharge home. Please discharge patient home with the below listed medications. Patient has an office follow-up for blood pressure check tomorrow at 10 AM with Henry Reyes PA-C. Patient will be scheduled for a renal angiogram on Saturday to address renal artery stenosis. A referral has been placed to [facility] in [place] to see Dr. Renee in the 1-2 weeks. Vascular images have been sent to [facility] for review by vascular. Cardiac meds: Aspirin 81 mg p.o. daily Atorvastatin 40 mg p.o. daily Plavix 75 mg p.o. daily Procardia 30 mg p.o. daily Imdur 30 mg p.o. daily
[2024-06-08] MEDS: NIFEdipine XL 30MG TABLET 30 MG PO (12:15)
--- NOTE | 2024-06-08 15:04 | EXP.DC.SUM ---
General Admission date:: 06/03/24 HPI HPI HPI: Chip Horan is a 68-year-old male with a medical history significant for hypertension, left frontal lacunar CVA, BPH presented to cardiology clinic with dizziness, lightheadedness. He was found to have complete heart block with heart rate in the 30s on EKG. I discussed case with cardiology, and decision was made to admit patient for complete heart block requiring continuous telemetry, left heart catheterization, and pacemaker placement. Patient denies previous stents, but does endorse remote CVA in around 2019. Denies chest pain, shortness of breath. States he has been adherent to his medications. Hospital Course Hospital Course Hospital Course: Chip Horan is a 68-year-old male with a medical history significant for hypertension, left frontal lacunar CVA, BPH presented to cardiology clinic with dizziness, lightheadedness. He was found to have complete heart block with heart rate in the 30s on EKG. I discussed case with cardiology, and decision was made to admit patient for complete heart block requiring continuous telemetry, left heart catheterization, and pacemaker placement. Patient denies previous stents, but does endorse remote CVA in around 2019. Denies chest pain, shortness of breath. States he has been adherent to his medications. #Malignant hypertension #MUNA #CKD suspected from uncontrolled hypertension ? With left subclavian artery stenosis, blood pressures in the left arm are not sales representative livestock systemic pressures. ? Creatinine 2.0 on admission, was 1.2 in 2020 though may now be in CKD given uncontrolled hypertension. Patient is breathing with appropriate saturations on room air, not suggestive of pulmonary edema. No other evidence of endorgan damage at this time. ? Creatinine improved to 1.4 during admission. ? Thyroid function tests normal during admission. - Patient's blood pressues have been very challenging to control. Required IV nitroprusside, esmolol drips, and arterial line for BP monitoring. - HTN refractory to even high doses of metoprolol tartrate and diltiazem Q6h. Discontinued. - Responsive to IR nefedipine 20mg, however blood pressures were over-responsive going down as low as 115/59. - Somewhat responsive to irbesartan, however discontinued given risk of azotemia in suspected bilateral renal artery stenosis. Will avoid MARTINEZ/ARB until renal duplex results. - Started nefedipine 30mg ER with good response for 12 hours. Increased to 60mg. ? SBP goal between 160-180, given subclavian steal syndrome, carotid artery stenosis. ? Follow-up renal duplex ultrasound. ? Follow-up renin/aldosterone labs. - Discharged with nefedipine 60mg ER, Imdur 30mg. Will follow-up with cardiology tomorrow, and vascular surgery at [facility] in [place], [place]. 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 [facility] 06/05/2020 revealed significant subclavian artery occlusion ostially. Therefore, blood pressure readings in the left arm are not sales representative livestock of systemic blood pressure. ? Carotid ultrasound revealed high-grade stenosis of the proximal right internal carotid artery, greater than 70%. Occlusion of the left common and internal carotid arteries. Retrograde flow in the left vertebral artery. ? Patient has mild symptoms of subclavian steal syndrome, endorsing word finding difficulties this morning and intermittent paresthesias of left arm suggesting hypoperfusion though these were rare events during admission. ? Dr. Linares wants to perform intervention for subclavian artery stenosis this week, and that can be done outpatient. ? Maintain SBP greater than 160-180 to avoid hypoperfusion from subclavian steal syndrome. ? Avoid strenuous or overhead activity with left arm. ? Patient is an active smoker contributing to cardiovascular burden. Counseled on smoke cessation and patient is interested in quitting. Nicotine patch ordered as needed. ? Per family request, reached out to and [facility] and spoke to the vascular surgeons. Both surgeons advised that if we can get the blood pressures under control, there is no need for transfer for inpatient intervention at this time. Patient can follow-up in their outpatient clinics for further evaluation management. Phone numbers given to family to make appointments. [facility] will call them to make an appointment next week. #CAD #Third-degree heart block ? Direct admit from cardiology clinic for third-degree heart block, with symptoms of dizziness and fatigue. ? S/p PCI 06/05/2024 with 2 stents in right dominant artery. Access right radial artery, sheath in place without bloody drainage. ? S/p dual-chamber pacemaker on 06/04/2024. Currently pacing appropriately. ? ECHO Normal biventricular systolic function, marked increased LV wall thickness, mild RV dilation with normal RV function, mild LA dilation, mild MR. Recommend cardiac MRI, PYP nuclear scan and amyloidosis lab testing. ? Aspirin 81 mg, Plavix 75, atorvastatin 40 mg daily. Loaded with Plavix 600 mg. ? Follow-up cardiac MRI ordered by cardiology to evaluate for amyloidosis. Exam Data for Last 24 hours Vital signs and Labs for Last 24 Hours: Temp Pulse Resp BP Pulse Ox O2 Del Method O2 Flow Rate 98.4 F 72 18 177/75 H 96 Room Air 6 06/08/24 11:49 06/08/24 14:00 06/08/24 14:00 06/08/24 14:00 06/08/24 14:00 06/08/24 14:37 06/04/24 11:43 FiO2 50 06/04/24 15:30 Laboratory Results - last 24 hr 06/08/24 05:30: WBC 8.1, RBC 4.33 L, Hgb 12.9 L, Hct 37.0 L, MCV 85.3, MCH 29.8, MCHC 34.9, RDW 14.2, Plt Count 181, MPV 8.1, Neut % (Auto) 70.3, Lymph % (Auto) 21.1, Gilchrist % (Auto) 5.9, Eos % (Auto) 2.2, Baso % (Auto) 0.5, Neut # (Auto) 5.7, Lymph # (Auto) 1.7, Gilchrist # (Auto) 0.5, Eos # (Auto) 0.2, Baso # (Auto) 0.0, Sodium 138, Potassium 3.7, Chloride 111 H, Carbon Dioxide 24, Anion Gap 6.7, BUN 18, Creatinine 1.40 H, Estimated Creat Clear 65, Estimated GFR 50 L, Est GFR ( Amer) 61, Glucose 91, Calcium 8.6, Magnesium 2.0 I & O for Last 24 hours: Intake & Output 06/05/24 06/06/24 06/07/24 06/08/24 23:59 23:59 23:59 23:59 Intake Total 2469.228 / 2469.228 2724.361 / 2799.361 2856 / 2856 1080 / 1080 Output Total 1220 / 1220 1900 / 1900 2175 / 2575 2400 / 2400 Balance 1249.228 / 1249.228 824.361 / 899.361 681 / 281 -1320 / -1320 Weight 92.986 kg 93.213 kg 96.82 kg 90.804 kg Constitutional Constitutional: no acute distress *Routine HEENT Exam Head: Present normocephalic Eye: Present EOMI and PERRL ENT: Present mucous membranes moist *Routine Neck Exam Neck: Present supple; Absent lymphadenopathy *Routine Respiratory Exam Respiratory: Present CTA bilaterally *Routine Cardiovascular Exam Cardiovascular: Present RRR *Routine Abdominal Exam Abdominal: Present soft and normoactive bowel sounds; Absent tenderness *Routine Extremities Exam Extremities: Present edema; Absent cyanosis or clubbing Comments: Trace edema since starting nifedipine. *Routine Skin Exam Skin: Present warm; Absent rash *Routine Neurological Exam Neurological: Present alert and oriented X3 Results Data Completed and Pending Labs on day of discharge: Labs from last 24 hours 06/08/24 05:30 WBC 8.1 RBC 4.33 L Hgb 12.9 L Hct 37.0 L MCV 85.3 MCH 29.8 MCHC 34.9 RDW 14.2 Plt Count 181 MPV 8.1 Neut % (Auto) 70.3 Lymph % (Auto) 21.1 Gilchrist % (Auto) 5.9 Eos % (Auto) 2.2 Baso % (Auto) 0.5 Neut # (Auto) 5.7 Lymph # (Auto) 1.7 Gilchrist # (Auto) 0.5 Eos # (Auto) 0.2 Baso # (Auto) 0.0 Sodium 138 Potassium 3.7 Chloride 111 H Carbon Dioxide 24 Anion Gap 6.7 BUN 18 Creatinine 1.40 H Estimated Creat Clear 65 Estimated GFR 50 L Est GFR ( Amer) 61 Glucose 91 Calcium 8.6 Magnesium 2.0 DS: Diagnosis Discharge Diagnosis (1) MUNA (acute kidney injury): Status: Acute Code(s): N17.9 - Acute kidney failure, unspecified (2) HTN (hypertension): Status: Acute Code(s): I10 - Essential (primary) hypertension (3) Malignant hypertension: Status: Acute Code(s): I10 - Essential (primary) hypertension (4) CAD (coronary artery disease): Status: Acute Code(s): I25.10 - Atherosclerotic heart disease of rosebud coronary artery without angina pectoris (5) Third degree heart block: Status: Acute Code(s): I44.2 - Atrioventricular block, complete (6) Subclavian artery stenosis: Status: Acute Code(s): I77.1 - Stricture of artery Meds Home Medications and Allergies Home Medications ?Medication ?Instructions ?Recorded ?Confirmed ?Type tamsulosin 0.4 mg capsule 0.4 mg PO DAILY 08/28/22 06/09/24 History aspirin 81 mg tablet,delayed 81 mg PO DAILY 30 days #30 tabs 06/08/24 06/09/24 Rx release atorvastatin 40 mg tablet 40 mg PO HS 30 days #30 tabs 06/08/24 06/09/24 Rx clopidogrel 75 mg tablet 75 mg PO DAILY 30 days #30 tabs 06/08/24 06/09/24 Rx isosorbide mononitrate 30 mg 30 mg PO DAILY #30 tabs 06/08/24 06/09/24 Rx tablet,extended release 24 hr nifedipine 30 mg tablet,extended 60 mg (2 x 30 mg) PO DAILY 30 days 06/08/24 06/09/24 Rx release 24 hr #60 tabs New Prescriptions to Start Prescriptions: aspirin Frank,Hiro atorvastatin [place],Hiro clopidogrel Frank,Hiro isosorbide mononitrate Frank,Hiro nifedipine Frank,Hiro Allergies Allergy/AdvReac Type Severity Reaction Status Date / Time No Known Allergies Allergy Verified 06/09/24 09:47 Discharge Plan Disposition Patient Disposition: Home, Self-Care Discharge Order Discharge Orders: Discharge Order (Routine); Ordered 06/08/24 Ordered By: Hiro Marie Follow up Plan Follow up with: Henry Reyes PA [Physician Boat Painter] - 06/09/24 10:00 am Dashawn Chowdhury MD [Primary Care Provider] - 06/15/24 11:00 am Prescriptions/Medication Reconciliation: New atorvastatin 40 mg Tablet 40 mg PO HS 30 Days Qty: 30 0RF aspirin 81 mg Tablet,Delayed Release (Dr/Ec) 81 mg PO DAILY 30 Days Qty: 30 0RF nifedipine 30 mg Tablet Extended Release 24hr 60 mg PO DAILY 30 Days Qty: 60 0RF clopidogrel 75 mg Tablet 75 mg PO DAILY 30 Days Qty: 30 0RF isosorbide mononitrate 30 mg tablet extended release 24 hr 30 mg PO DAILY Qty: 30 0RF Continued tamsulosin 0.4 mg capsule 0.4 mg PO DAILY Discontinued losartan 100 mg tablet 100 mg PO DAILY rosuvastatin 20 mg tablet 20 mg PO DAILY tadalafil 5 mg tablet 5 mg PO DAILY Patient Comments: TAKE 1 TABLET BY MOUTH EVERY DAY Problem Reconciliation Problems Reviewed?: Yes Patient Discharge Instructions Patient Instructions: Coronary Artery Disease, Cardiac Catheterization, Pacemaker Insertion, Heart Block -- Adult, Malignant Hypertension, Heart-Healthy Diet, Surgical Site Infection, Moderate Sedation, DI for Post-Surgical Bleeding Print Language: Gibraltarian Providers Primary Care Provider: Dashawn Chowdhury Admit Provider: Gui Linares Attending Provider: Hiro Marie
[2024-06-08 15:30] LABS: Albumin, U 72.3 % (.); Alpha-1-Globulin, U 1.3 % (.); Alpha-2-Globulin, U 7.8 % (.); Beta Globulin, U 9.9 % (.); Gamma Globulin, U 8.7 % (.); M-Spike, % Not Observed % (Not Observed)
[2024-06-09 19:16] LABS: Renin Activity, Plasma 0.789 ng/mL/hr (0.167-5.380)
== END 2024-06-08 15:43 | disposition home or self-care (01) | DRG 243 ==
PROVIDERS: Nurse Practitioner Family; Admitting Provider Internal Medicine; PCP Internal Medicine Adolescent Medicine; Visit Provider Student in an Organized Health Care Education/Training Program
PROC: 027035Z Dilation of Coronary Artery, One Artery with Two Drug-eluting Intraluminal Devices, Percutaneous Approach (ICD-10-PCS; principal; 2024-06-03 12:50)
PROC: 0JH606Z Insertion of Pacemaker, Dual Chamber into Chest Subcutaneous Tissue and Fascia, Open Approach (ICD-10-PCS; principal; 2024-06-04 08:30)
DX: N17.9 Acute kidney failure, unspecified (principal); I12.9 Hypertensive chronic kidney disease with stage 1 through stage 4 chronic kidney disease, or unspecified chronic kidney disease; I25.10 Atherosclerotic heart disease of native coronary artery without angina pectoris; I44.2 Atrioventricular block, complete; I77.1 Stricture of artery; I70.8 Atherosclerosis of other arteries; I65.23 Occlusion and stenosis of bilateral carotid arteries; J44.9 Chronic obstructive pulmonary disease, unspecified; F17.210 Nicotine dependence, cigarettes, uncomplicated; I70.1 Atherosclerosis of renal artery; Z86.73 Personal history of transient ischemic attack (TIA), and cerebral infarction without residual deficits; N18.9 Chronic kidney disease, unspecified
CPT/HCPCS: 33208; 36415; 71045; 75561; 80048; 80061; 80076; 82088; 82784; 83735; 83883; 84155; 84156; 84165; 84166; 84244; 84439; 84443; 84484; 85025; 85347; 85730; 86334; 86335; 92928; 93005; 93306; 93454; 93880; 93925; 93970; 93976; 99152; 99153; A9576; C1725; C1760; C1769; C1785; C1874; C1898; C9600; J1200; J1644; J2250; J2270; J2405; J3010; J7030; J7060; Q9967

== ENCOUNTER 2024-06-10 14:20 | Observation (INO) | payer MEDICARE, SELFPAY ==
[2024-06-10] VITALS (40 sets, daily range): BP systolic 102–201; BP diastolic 54–119; PULSE 60–80; RESP 12–20; TEMP 36.8; O2SAT 90–100; BMI 25.4
--- NOTE | 2024-06-10 07:15 | IR_ITS ---
APPROVED REPORT Patient Location: Outpatient PROCEDURES Right femoral arterial access Left subclavian artery selective angiogram Bare-metal stent deployment to the left subclavian artery in a retrograde approach from the right femoral artery Left radial arterial access Bare-metal stent deployment to the left subclavian artery in a retrograde approach from the left radial artery Bilateral selective renal angiogram INDICATION Abnormal renal duplex suggesting renal artery stenosis, Suspected renovascular hypertension, Occluded left subclavian artery with subclavian steal phenomenon Informed consent was obtained prior to the procedure. COMPLICATIONS NONE Estimated Blood Loss: LESS THAN 10 ML TECHNIQUE 1% lidocaine used to anesthetize the right femoral groin. The right femoral artery was accessed via the Seldinger technique. 6 Turkmen sheath was placed in the right radial artery. JL 4 catheter was used to perform bilateral selective renal angiography as well as selective engagement of the left subclavian artery. Following this therapeutic heparin was administered and the sheath was upsized to a long 7 Turkmen sheath. A JR4 catheter was placed in the left subclavian artery and an advantage wire was used to traverse the subtotal occlusion of the left subclavian artery. A 9 mm x 37 mm balloon mounted bare-metal stent was deployed at 10 shabbir reducing the critical stenosis. During the procedure there was significant patient movement and the wire was inadvertently pulled back. At this point the left radial artery was accessed via the Salinger technique and a 6 Turkmen hydrophilic sheath was placed in the left radial artery. A wire was then placed retrograde through the subclavian artery out into the descending aorta. An 8 mm x 17 mm bare-metal stent was then deployed overlapping the for stent yet proximal to the left vertebral artery and left internal mammary artery. This was deployed at 20 shabbir. The balloon was advanced and deployed at 20 shabbir to mesh the 2 stents and further post dilate the ostium of the left subclavian artery. At the end of the procedure the left radial sheath was removed and hemostasis was achieved using TR banding patient was transferred to the postop holding area in stable condition for right femoral arterial sheath removal ANGIOGRAPHIC RESULTS Right renal artery singular normal Left renal artery singular and has proximal 10% luminal regularities Left subclavian artery is subtotally occluded proximally Following revascularization the left subclavian artery is widely patent with antegrade flow into the left vertebral artery and left internal mammary artery and left axillary artery IMPRESSION Nonocclusive renal artery disease Successful reconstruction of the left subclavian artery subtotal occlusion reduced to 0% with 2 contiguous bare metal balloon mounted stents PLAN 1. Supportive care overnight with specific attention on blood pressure to avoid hypertensive emergency and perisheath hematoma 2. Manual pressure for right femoral sheath 3. Continue dual antiplatelet therapy 4. Adequate pain control to avoid hypertensive spikes 5. Keep blood pressure above 140 mmHg systolic and less than 180 mmHg systolic Electronically signed by : Gui Linares MD 06/10/2024 15:16:18
[2024-06-10 11:48] LABS: Chloride 106 mmol/L (98-107)
[2024-06-10 11:49] LABS: Potassium 4.4 mmoL/L (3.5-5.1); Sodium 136 mmol/L (136-145)
[2024-06-10 11:51] LABS: Basophils # 0.1 K/mm3 (0-0.2); Basophils % 0.6 % (0.1-2.0); Blood Urea Nitrogen 23 mg/dl (9-20); Creatinine Clearance Estimated 57 mL/min (50-200); Eosinophils # 0.2 K/mm3 (0.0-0.4); Estimated Glomerular Filt Rate 47 ml/min (>60); GFR (African American) 56 ML/MIN (>60); Hematocrit 43.2 % (42.0-52.0); Hemoglobin 14.7 g/dL (14.1-18.0); Lymphocytes # 1.8 K/mm3 (0.7-4.5); Mean Corpuscular Hemoglobin 29.1 pg (27.0-31.2); Mean Corpuscular Volume 85.6 fl (80-94); Mean Platelet Volume 7.5 fl (7.4-10.4); Monocytes # 0.4 K/mm3 (0.1-1.0); Monocytes % 4.7 % (1.7-9.3); Neutrophils % 73.7 % (37.0-80.0); Platelet Count 286 K/mm3 (142-424); Red Blood Count 5.04 M/mm3 (4.60-6.20); Red Cell Distribution Width 14.2 % (11.5-17.5); White Blood Count 9.5 K/mm3 (4.8-10.8)
[2024-06-10 11:52] LABS: Anion Gap 10.4 mEq/L (5-15); Calcium 9.6 mg/dl (8.4-10.2); Carbon Dioxide 24 mmol/L (22.0-30.0); Glucose 106 mg/dl (74-100)
[2024-06-10] MEDS: HEPARIN 1,000 UNITS/500ML NS (CATH LAB) 3000 UNIT IV (12:35)
[2024-06-10] MEDS: LIDOCAINE 1% 10ML MDV 20 ML IJ (12:54)
[2024-06-10] MEDS: diphenhydrAMINE 50MG/ML VIAL 50 MG IV (12:54)
[2024-06-10] MEDS: HEPARIN 1,000 UNITS/ML 10ML VIAL (CATH LAB) 10000 UNIT IV (13:12)
[2024-06-10] MEDS: 0.9 % SODIUM CHLORIDE 500 ML 25 ML IV (14:24)
[2024-06-10] MEDS: PROPOFOL 10MG/ML 20ML VIAL IV (14:25)
[2024-06-10] MEDS: LABETALOL 20MG/4ML SYRINGE 20 MG IV (14:27)
[2024-06-10] MEDS: IOPAMIDOL-370 (76%);100ML BOTTLE 100 ML IV (14:28)
[2024-06-10 14:34] LABS: CATHL Activated Clotting Time 343 SEC (74-125)
--- NOTE | 2024-06-10 14:35 | HMH.PHAINT1 ---
Pharmacy Intervention Comments: HOME MEDICATION LIST VERIFIED USING DISCHARGE LIST FROM PREVIOUS VISIT
[2024-06-10] MEDS: PROTAMINE SULFATE 50MG/5ML VIAL (CATH LAB) 50 MG IV (14:41)
--- NOTE | 2024-06-10 14:43 | EXP.HP ---
History of Present Illness *Admission Date: 06/10/24 *Reason for visit:: Subclavian stenosis *History of present illness: 68-year-old male with left subclavian stenosis, malignant hypertension, CAD, pacemaker in situ, MUNA. Was brought in for elective stenting of left subclavian artery today. Tolerated procedure well. Given his kidney dysfunction, need to monitor blood pressure, and right femoral insertion site needing monitoring, medicine was consulted by cardiology for observation overnight. On arrival to the floor, patient denies any chest pain. Minimal pain in right groin. Stable on room air. Has to lie supine until 9 PM. No nausea or vomiting. No shortness of breath. Blood pressure with systolic of 1 60-1 70 on evaluation. No neurologic deficits at this time [facility] Disclaimer: The information contained in this section may have been updated after the patient was seen, as this information can be updated by other users. Medical History History of cardiac pacemaker in situ PAD (peripheral artery disease) Stenosis of carotid artery History of pacemaker MUNA (acute kidney injury) Elevated troponin Shortness of Breath Neuropathy Renal cyst CVA (cerebral vascular accident) BPH (benign prostatic hyperplasia) HTN (hypertension) HLD (hyperlipidemia) COPD (chronic obstructive pulmonary disease) High blood pressure Surgical History History of cardiac cath History of dental surgery Family History Other Coronary artery disease Social History Smoking Status: Current every day smoker tobacco type: cigarettes packs per day: 1 second hand exposure: Yes alcohol intake: never substance use type: denies use current occupational status: employed Travel in the last 8 weeks: None housing: house Other Medical History Have you received the Flu Vaccine for this season: No Have you received the Pneumonia Vaccine: Yes Review of Systems Review of Systems Review of systems (narrative): 14 point review of systems performed, pertinent positives and negatives as per HPI Meds Home Medications and Allergies Home Medications ?Medication ?Instructions ?Recorded ?Confirmed ?Type tamsulosin 0.4 mg capsule 0.4 mg PO HS 08/28/22 06/10/24 History aspirin 81 mg tablet,delayed 81 mg PO DAILY 30 days #30 tabs 06/08/24 06/10/24 Rx release atorvastatin 40 mg tablet 40 mg PO HS 30 days #30 tabs 06/08/24 06/10/24 Rx clopidogrel 75 mg tablet 75 mg PO DAILY 30 days #30 tabs 06/08/24 06/10/24 Rx isosorbide mononitrate 30 mg 30 mg PO DAILY #30 tabs 06/08/24 06/10/24 Rx tablet,extended release 24 hr nifedipine 30 mg tablet,extended 60 mg (2 x 30 mg) PO DAILY 30 days 06/08/24 06/10/24 Rx release 24 hr #60 tabs New Prescriptions to Start Prescriptions: Allergies Allergy/AdvReac Type Severity Reaction Status Date / Time No Known Allergies Allergy Verified 06/09/24 09:47 Exam Data for Last 24 hours Vital signs and Labs for Last 24 Hours: Pulse Resp BP Pulse Ox O2 Del Method 60 20 196/87 H 90 L Room Air 06/10/24 14:31 06/10/24 14:31 06/10/24 14:31 06/10/24 14:31 06/10/24 14:31 Laboratory Results - last 24 hr 06/10/24 11:30: WBC 9.5, RBC 5.04, Hgb 14.7, Hct 43.2, MCV 85.6, MCH 29.1, MCHC 34.0, RDW 14.2, Plt Count 286 D, MPV 7.5, Neut % (Auto) 73.7, Lymph % (Auto) 19.0, Shelby % (Auto) 4.7, Eos % (Auto) 2.0, Baso % (Auto) 0.6, Neut # (Auto) 7.0, Lymph # (Auto) 1.8, Shelby # (Auto) 0.4, Eos # (Auto) 0.2, Baso # (Auto) 0.1, Sodium 136, Potassium 4.4, Chloride 106, Carbon Dioxide 24, Anion Gap 10.4, BUN 23 H D, Creatinine 1.50 H, Estimated Creat Clear 57, Estimated GFR 47 L, Est GFR ( Amer) 56 L, Glucose 106 H, Calcium 9.6 06/10/24 13:34: Activated Clotting Time 343 H* I & O for Last 24 hours: Intake & Output 06/07/24 06/08/24 06/09/24 10/23/24 23:59 23:59 23:59 23:59 Weight 85 kg Constitutional Constitutional: no acute distress and cooperative *Routine HEENT Exam Head: Present normocephalic Eye: Present EOMI and PERRL ENT: Present mucous membranes moist *Routine Neck Exam Neck: Present supple; Absent lymphadenopathy *Routine Respiratory Exam Respiratory: Present CTA bilaterally *Routine Cardiovascular Exam Cardiovascular: Present RRR *Routine Abdominal Exam Abdominal: Present soft and normoactive bowel sounds; Absent tenderness *Routine Rectal Exam Rectal:: deferred *Routine Genitalia Exam Genitalia:: deferred Comment:: Right femoral insertion site clean dry and intact. Minimal tenderness. No hematoma *Routine Extremities Exam Extremities: Absent cyanosis, clubbing or edema Comments: Right radial arterial sheath intact without bloody drainage. *Routine Skin Exam Skin: Present warm; Absent rash *Routine Neurological Exam Neurological: Present alert, oriented X3 and moving all extremities; Absent altered mental status Assessment and Plan *Assessment and plan (1) Subclavian artery stenosis: Status: Acute Category: Medical Code(s): I77.1 - Stricture of artery (2) Malignant hypertension: Status: Acute Category: Medical Code(s): I10 - Essential (primary) hypertension (3) History of cardiac pacemaker in situ: Problem Comment: Dual chamber implant MAY 2024 Status: Acute Category: Medical Code(s): Z95.0 - Presence of cardiac pacemaker (4) PAD (peripheral artery disease): Status: Acute Category: Medical Code(s): I73.9 - Peripheral vascular disease, unspecified (5) Stenosis of carotid artery: Status: Acute Category: Medical Code(s): I65.29 - Occlusion and stenosis of unspecified carotid artery (6) MUNA (acute kidney injury): Status: Acute Category: Medical Code(s): N17.9 - Acute kidney failure, unspecified Plan 68-year-old male with significant vasculopathy, malignant hypertension. Presented for elective stenting of left subclavian artery. Procedure tolerated well. Improved flow in left arm and vertebral artery. Discussed case with cardiology, request admission for monitoring overnight of blood pressure and insertion site in right femoral artery along with serial labs for kidney function. Medicine agreed to admit for further management. Monitoring on telemetry. Family at bedside. 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 [facility] 06/05/2020 revealed significant subclavian artery occlusion ostially. Status post stenting today -Improved antegrade flow in subclavian artery as well as left vertebral artery - Patient experienced mild symptoms of subclavian steal syndrome, endorsing word finding difficulties this morning and intermittent paresthesias of left arm suggesting hypoperfusion though these were rare events during last admission. -Monitor on telemetry. Close monitoring of blood pressure. Will monitor for any CVA symptoms or neurologic signs. -Resume regimen with isosorbide mononitrate 30 mg daily and nifedipine 60 mg daily. #Malignant hypertension #MUNA #CKD suspected from uncontrolled hypertension - White count normal at 9.5, hemoglobin 14.7. Platelets normal at 286. BUN 23, creatinine 1.5, down from 2.0 last visit. Repeat CBC, CMP, magnesium ordered for the morning. Monitor for improvement. Potassium normal at 4.4. -Blood pressure meds continued as above with isosorbide and nifedipine. -Goal SBP less than 180 #CAD #Third-degree heart block ? S/p PCI 06/05/2024 with 2 stents in right dominant artery. Access right radial artery, sheath in place without bloody drainage. ? S/p dual-chamber pacemaker on 06/04/2024. Currently pacing appropriately. ? ECHO reviewed from last visit, normal biventricular systolic function, marked increased LV wall thickness, mild RV dilation with normal RV function, mild LA dilation, mild MR. ? Continue aspirin 81 mg, Plavix 75, atorvastatin 40 mg daily. Continue tamsulosin 0.4 mg nightly for BPH Full code Heparinized in Primary Special Educator Cardiac diet
[2024-06-10] MEDS: HYDRALAZINE 20MG/ML VIAL 20 MG IV (15:00)
[2024-06-10] MEDS: MORPHINE 4MG/ML SYRINGE 4 MG IV (15:00)
--- NOTE | 2024-06-10 16:09 | PC.NURSE ---
arrived by estelleer from [employer]
[2024-06-10] MEDS: HYDROCODONE/APAP 5/325 MG TABLET 2 TAB PO (19:25)
[2024-06-10] MEDS: ATORVASTATIN 40MG TABLET 40 MG PO (20:48)
[2024-06-10] MEDS: TAMSULOSIN 0.4MG CAPSULE 0.4 MG PO (20:49)
--- NOTE | 2024-06-10 21:30 | PC.NURSE ---
Spoke with Dr. Linares who relays verbal orders for addition of Metoprolol Tartrate 50mg to be added to patient medication regimen. First dose to be given now, and to continue medication BID at this time. Verbal read back for confirmation, and updated physician on patient presentation, and reviewed plan of care. No further additional orders.
[2024-06-10] MEDS: METOPROLOL TARTRATE 50MG TABLET 50 MG PO (22:17)
[2024-06-11] VITALS (12 sets, daily range): BP systolic 128–199; BP diastolic 60–92; PULSE 52–80; RESP 12–20; TEMP 36.4–37.8; O2SAT 93–98; BMI 25.9
[2024-06-11 07:02] LABS: Albumin Level 3.4 g/dl (3.5-5.0); Chloride 110 mmol/L (98-107)
[2024-06-11 07:03] LABS: Potassium 4.2 mmoL/L (3.5-5.1); Sodium 137 mmol/L (136-145)
[2024-06-11 07:05] LABS: Alanine Aminotransferase 47 U/L (12-78); Albumin/Globulin Ratio 1.3 (1.1-1.8); Anion Gap 9.2 mEq/L (5-15); Aspartate Amino Transferase 43 U/L (17-59); Blood Urea Nitrogen 23 mg/dl (9-20); Carbon Dioxide 22 mmol/L (22.0-30.0); Creatinine Clearance Estimated 54 mL/min (50-200); Estimated Glomerular Filt Rate 43 ml/min (>60); GFR (African American) 52 ML/MIN (>60); Globulin 2.7 g/dL (1.3-3.2); Total Protein,Serum 6.1 g/dl (6.3-8.2)
[2024-06-11 07:06] LABS: Alkaline Phosphatase 97 U/L (38-126); Bilirubin,Total 0.6 mg/dl (0.2-1.3); Calcium 8.6 mg/dl (8.4-10.2); Glucose 97 mg/dl (74-100); Magnesium 2.1 mg/dl (1.6-2.3)
[2024-06-11 07:11] LABS: Basophils % 0.4 % (0.1-2.0); Eosinophils # 0.2 K/mm3 (0.0-0.4); Eosinophils % 1.9 % (0.1-12.0); Hemoglobin 13.5 g/dL (14.1-18.0); Lymphocytes # 1.5 K/mm3 (0.7-4.5); Lymphocytes % 14.2 % (10-50); Mean Corpuscular HGB Conc 32.9 g/dL (31.8-35.4); Mean Corpuscular Hemoglobin 28.6 pg (27.0-31.2); Mean Corpuscular Volume 86.8 fl (80-94); Mean Platelet Volume 7.8 fl (7.4-10.4); Monocytes # 0.5 K/mm3 (0.1-1.0); Monocytes % 4.4 % (1.7-9.3); Neutrophils # 8.4 K/mm3 (1.8-7.8); Neutrophils % 79.2 % (37.0-80.0); Platelet Count 267 K/mm3 (142-424); Red Blood Count 4.73 M/mm3 (4.60-6.20); Red Cell Distribution Width 14.3 % (11.5-17.5); White Blood Count 10.6 K/mm3 (4.8-10.8)
--- NOTE | 2024-06-11 08:19 | P.DS_ITS ---
General Admission date:: 06/10/24 Discharge date: 06/11/24 HPI HPI HPI: 68-year-old male with left subclavian stenosis, malignant hypertension, CAD, pacemaker in situ, MUNA. Was brought in for elective stenting of left subclavian artery today. Tolerated procedure well. Given his kidney dysfunction, need to monitor blood pressure, and right femoral insertion site needing monitoring, medicine was consulted by cardiology for observation overnight. On arrival to the floor, patient denies any chest pain. Minimal pain in right groin. Stable on room air. Has to lie supine until 9 PM. No nausea or vomiting. No shortness of breath. Blood pressure with systolic of 1 60-1 70 on evaluation. No neurologic deficits at this time Hospital Course Hospital Course Hospital Course: 68-year-old male with significant vasculopathy, malignant hypertension. Presented for elective stenting of left subclavian artery. Procedure tolerated well. Improved flow in left arm and vertebral artery. Discussed case with cardiology, request admission for monitoring overnight of blood pressure and insertion site in right femoral artery along with serial labs for kidney function. Medicine agreed to admit for further management. Monitored on telemetry overnight. No significant issues overnight. Feeling well by morning. Stable to discharge home on goal-directed therapy. 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 [facility] 06/05/2020 revealed significant subclavian artery occlusion ostially. Status post stenting on 06/10/2024. Improved antegrade flow in subclavian artery as well as left vertebral artery. During last visit, patient experienced mild symptoms of subclavian steal syndrome, endorsing word finding difficulties this morning and intermittent paresthesias of left arm suggesting hypoperfusion though these were rare events during last admission. Monitored on telemetry. Close monitoring of blood pressure. No recurrence of any CVA symptoms or neurologic signs. Continued home regimen of isosorbide mononitrate 30 mg daily, nifedipine 60 mg daily with the addition of metoprolol 50 mg twice daily. Close follow-up with cardiology for further management. #Malignant hypertension #MUNA #CKD suspected from uncontrolled hypertension - White count normal at 9.5, hemoglobin 14.7. Platelets normal at 286. BUN 23, creatinine 1.5-1.6 during admission, down from 2.0 last visit. Repeat CBC, CMP, magnesium ordered for the morning. Monitor for improvement. Potassium normal at 4.4. Blood pressure well-controlled during admission. Continue isosorbide, nifedipine, metoprolol as above. -Goal SBP less than 180 #CAD #Third-degree heart block ? S/p PCI 06/05/2024 with 2 stents in right dominant artery. S/p dual-chamber pacemaker on 06/04/2024. Currently pacing appropriately. ECHO reviewed from last visit, normal biventricular systolic function, marked increased LV wall thickness, mild RV dilation with normal RV function, mild LA dilation, mild MR. Continue aspirin 81 mg, Plavix 75, atorvastatin 40 mg daily. Continue tamsulosin 0.4 mg nightly for BPH Total time spent on discharge 32 minutes in counseling, documentation, chart review, and direct care with patient. Exam Data for Last 24 hours Vital signs and Labs for Last 24 Hours: Temp Pulse Resp BP Pulse Ox O2 Del Method 98.8 F 52 L 12 128/60 97 Room Air 06/11/24 04:00 06/11/24 07:00 06/11/24 07:00 06/11/24 07:00 06/11/24 07:00 06/11/24 07:00 Laboratory Results - last 24 hr 06/10/24 11:30: WBC 9.5, RBC 5.04, Hgb 14.7, Hct 43.2, MCV 85.6, MCH 29.1, MCHC 34.0, RDW 14.2, Plt Count 286 D, MPV 7.5, Neut % (Auto) 73.7, Lymph % (Auto) 19.0, [place] % (Auto) 4.7, Eos % (Auto) 2.0, Baso % (Auto) 0.6, Neut # (Auto) 7.0, Lymph # (Auto) 1.8, [place] # (Auto) 0.4, Eos # (Auto) 0.2, Baso # (Auto) 0.1, Sodium 136, Potassium 4.4, Chloride 106, Carbon Dioxide 24, Anion Gap 10.4, BUN 23 H D, Creatinine 1.50 H, Estimated Creat Clear 57, Estimated GFR 47 L, Est GFR ( Amer) 56 L, Glucose 106 H, Calcium 9.6 06/10/24 13:34: Activated Clotting Time 343 H* 06/11/24 05:17: WBC 10.6, RBC 4.73, Hgb 13.5 L, Hct 41.0 L, MCV 86.8, MCH 28.6, MCHC 32.9, RDW 14.3, Plt Count 267, MPV 7.8, Neut % (Auto) 79.2, Lymph % (Auto) 14.2, [place] % (Auto) 4.4, Eos % (Auto) 1.9, Baso % (Auto) 0.4, Neut # (Auto) 8.4 H, Lymph # (Auto) 1.5, [place] # (Auto) 0.5, Eos # (Auto) 0.2, Baso # (Auto) 0.0, Sodium 137, Potassium 4.2, Chloride 110 H, Carbon Dioxide 22, Anion Gap 9.2, BUN 23 H, Creatinine 1.60 H, Estimated Creat Clear 54, Estimated GFR 43 L, Est GFR ( Amer) 52 L, Glucose 97, Calcium 8.6, Magnesium 2.1, Total Bilirubin 0.6, AST 43, ALT 47, Alkaline Phosphatase 97, Total Protein 6.1 L, Albumin 3.4 L , Globulin 2.7, Albumin/Globulin Ratio 1.3 I & O for Last 24 hours: Intake & Output 06/08/24 06/09/24 06/10/24 06/11/24 23:59 23:59 23:59 23:59 Intake Total 240 / 240 Output Total 325 / 325 200 / 200 Balance -325 / -85 40 / 40 Weight 85 kg 86.8 kg Constitutional Constitutional: no acute distress, average body habitus and cooperative *Routine HEENT Exam Head: Present normocephalic Eye: Present EOMI and PERRL ENT: Present mucous membranes moist *Routine Neck Exam Neck: Present supple; Absent lymphadenopathy *Routine Respiratory Exam Respiratory: Present CTA bilaterally; Absent rhonchi, wheezes or crackles *Routine Cardiovascular Exam Cardiovascular: Present RRR *Routine Abdominal Exam Abdominal: Present soft and normoactive bowel sounds; Absent tenderness *Routine Rectal Exam Patient deferred: visual exam *Routine Exam Patient deferred: penile exam *Routine Extremities Exam Extremities: Present pulses intact (Equal in bilateral radial); Absent cyanosis, clubbing or edema *Routine Skin Exam Skin: Present warm; Absent rash *Routine Neurological Exam Neurological: Present alert, oriented X3 and moving all extremities Results Data Completed and Pending Labs on day of discharge: Labs from last 24 hours 06/11/24 06/10/24 06/10/24 05:17 13:34 11:30 WBC 10.6 9.5 RBC 4.73 5.04 Hgb 13.5 L 14.7 Hct 41.0 L 43.2 MCV 86.8 85.6 MCH 28.6 29.1 MCHC 32.9 34.0 RDW 14.3 14.2 Plt Count 267 286 D MPV 7.8 7.5 Neut % (Auto) 79.2 73.7 Lymph % (Auto) 14.2 19.0 [place] % (Auto) 4.4 4.7 Eos % (Auto) 1.9 2.0 Baso % (Auto) 0.4 0.6 Neut # (Auto) 8.4 H 7.0 Lymph # (Auto) 1.5 1.8 [place] # (Auto) 0.5 0.4 Eos # (Auto) 0.2 0.2 Baso # (Auto) 0.0 0.1 Activated Clotting Time 343 H* Sodium 137 136 Potassium 4.2 4.4 Chloride 110 H 106 Carbon Dioxide 22 24 Anion Gap 9.2 10.4 BUN 23 H 23 H D Creatinine 1.60 H 1.50 H Estimated Creat Clear 54 57 Estimated GFR 43 L 47 L Est GFR ( Amer) 52 L 56 L Glucose 97 106 H Calcium 8.6 9.6 Magnesium 2.1 Total Bilirubin 0.6 AST 43 ALT 47 Alkaline Phosphatase 97 Total Protein 6.1 L Albumin 3.4 L Globulin 2.7 Albumin/Globulin Ratio 1.3 DS: Diagnosis Discharge Diagnosis (1) Subclavian artery stenosis: Status: Acute Code(s): I77.1 - Stricture of artery (2) Malignant hypertension: Status: Resolved Code(s): I10 - Essential (primary) hypertension (3) History of cardiac pacemaker in situ: Status: Acute Code(s): Z95.0 - Presence of cardiac pacemaker Problem details: Dual chamber implant MAY 2024 (4) PAD (peripheral artery disease): Status: Acute Code(s): I73.9 - Peripheral vascular disease, unspecified (5) Stenosis of carotid artery: Status: Acute Code(s): I65.29 - Occlusion and stenosis of unspecified carotid artery (6) MUNA (acute kidney injury): Status: Resolved Code(s): N17.9 - Acute kidney failure, unspecified Meds Home Medications and Allergies Home Medications ?Medication ?Instructions ?Recorded ?Confirmed ?Type tamsulosin 0.4 mg capsule 0.4 mg PO HS 08/28/22 06/10/24 History aspirin 81 mg tablet,delayed 81 mg PO DAILY 30 days #30 tabs 06/08/24 06/10/24 Rx release atorvastatin 40 mg tablet 40 mg PO HS 30 days #30 tabs 06/08/24 06/10/24 Rx clopidogrel 75 mg tablet 75 mg PO DAILY 30 days #30 tabs 06/08/24 06/10/24 Rx isosorbide mononitrate 30 mg 30 mg PO DAILY #30 tabs 06/08/24 06/10/24 Rx tablet,extended release 24 hr nifedipine 30 mg tablet,extended 60 mg (2 x 30 mg) PO DAILY 30 days 06/08/24 06/10/24 Rx release 24 hr #60 tabs metoprolol tartrate 50 mg tablet 50 mg PO BID 30 days #60 tabs 06/11/24 Rx New Prescriptions to Start Prescriptions: metoprolol tartrate Lester Maciel Allergies Allergy/AdvReac Type Severity Reaction Status Date / Time No Known Allergies Allergy Verified 06/09/24 09:47 Discharge Plan Disposition Patient Disposition: Home, Self-Care Condition: Fair Follow up Plan Follow up with: Samantha Reyes APRN [Nurse Practitioner] - 06/15/24 10:30 am Gui Linares MD [Staff Physician] - 06/24/24 9:30 am Prescriptions/Medication Reconciliation: New metoprolol tartrate 50 mg Tablet 50 mg PO BID 30 Days Qty: 60 0RF Continued tamsulosin 0.4 mg capsule 0.4 mg PO HS atorvastatin 40 mg Tablet 40 mg PO HS 30 Days Qty: 30 0RF aspirin 81 mg Tablet,Delayed Release (Dr/Ec) 81 mg PO DAILY 30 Days Qty: 30 0RF nifedipine 30 mg Tablet Extended Release 24hr 60 mg PO DAILY 30 Days Qty: 60 0RF clopidogrel 75 mg Tablet 75 mg PO DAILY 30 Days Qty: 30 0RF isosorbide mononitrate 30 mg tablet extended release 24 hr 30 mg PO DAILY Qty: 30 0RF Problem Reconciliation Problems Reviewed?: Yes Patient Discharge Instructions ACTIVITY: Continue current activity DIET: continue same diet Patient Instructions: Essential Hypertension, DI for Cardiac Catheterization, DI for Surgical Site Infection, DI for Renal Artery Stenosis Print Language: [place] Providers Primary Care Provider: Dashawn Chowdhury Provider: Gui Linares Attending Provider: Lester Maciel
--- NOTE | 2024-06-11 09:46 | EXP.CARD.CON ---
History of Present Illness History of Present Illness Consult date: 06/11/24 Requesting physician: Lester Maciel Chief complaint: post procedure monitoring, htn History of present illness: This is a 68-year-old white male with past medical history of a recent third-degree heart block status post pacemaker placement 06/04/2024, coronary artery disease with a recent NANETTE to RCA May 2024 and extensive peripheral artery disease who presented to [facility] yesterday and underwent successful reconstruction of the left subclavian artery with 2 continuous bare-metal balloon mounted stents who was admitted for observation throughout the evening status post procedure. This morning patient reports he is feeling great. Denies chest pain, shortness of breath or extremity pain or weakness. Morning labs reviewed and stable. Creatinine noted to be 1.6, baseline creatinine 1.4-2. Blood pressure has been averaging 160s to 170s throughout the evening, which has improved. See detailed plan below. [facility] Disclaimer: The information contained in this section may have been updated after the patient was seen, as this information can be updated by other users. Medical History History of cardiac pacemaker in situ PAD (peripheral artery disease) Stenosis of carotid artery History of pacemaker MUNA (acute kidney injury) Elevated troponin Shortness of Breath Neuropathy Renal cyst CVA (cerebral vascular accident) BPH (benign prostatic hyperplasia) HTN (hypertension) HLD (hyperlipidemia) COPD (chronic obstructive pulmonary disease) High blood pressure Surgical History History of cardiac cath History of dental surgery Family History Other Coronary artery disease Social History Smoking Status: Current every day smoker tobacco type: cigarettes packs per day: 1 second hand exposure: Yes alcohol intake: never substance use type: denies use current occupational status: employed Travel in the last 8 weeks: None housing: house Review of Systems Review of Systems Review of systems:: pertinent systems reviewed and negative unless documented below Exam Data for Last 24 hours Vital signs and Labs for Last 24 Hours: Temp Pulse Resp BP Pulse Ox O2 Del Method 98.4 F 71 18 196/92 H 94 L Room Air 06/11/24 08:00 06/11/24 09:00 06/11/24 09:00 06/11/24 09:00 06/11/24 09:00 06/11/24 09:00 Laboratory Results - last 24 hr 06/10/24 11:30: WBC 9.5, RBC 5.04, Hgb 14.7, Hct 43.2, MCV 85.6, MCH 29.1, MCHC 34.0, RDW 14.2, Plt Count 286 D, MPV 7.5, Neut % (Auto) 73.7, Lymph % (Auto) 19.0, [place] % (Auto) 4.7, Eos % (Auto) 2.0, Baso % (Auto) 0.6, Neut # (Auto) 7.0, Lymph # (Auto) 1.8, [place] # (Auto) 0.4, Eos # (Auto) 0.2, Baso # (Auto) 0.1, Sodium 136, Potassium 4.4, Chloride 106, Carbon Dioxide 24, Anion Gap 10.4, BUN 23 H D, Creatinine 1.50 H, Estimated Creat Clear 57, Estimated GFR 47 L, Est GFR ( Amer) 56 L, Glucose 106 H, Calcium 9.6 06/10/24 13:34: Activated Clotting Time 343 H* 06/11/24 05:17: WBC 10.6, RBC 4.73, Hgb 13.5 L, Hct 41.0 L, MCV 86.8, MCH 28.6, MCHC 32.9, RDW 14.3, Plt Count 267, MPV 7.8, Neut % (Auto) 79.2, Lymph % (Auto) 14.2, [place] % (Auto) 4.4, Eos % (Auto) 1.9, Baso % (Auto) 0.4, Neut # (Auto) 8.4 H, Lymph # (Auto) 1.5, [place] # (Auto) 0.5, Eos # (Auto) 0.2, Baso # (Auto) 0.0, Sodium 137, Potassium 4.2, Chloride 110 H, Carbon Dioxide 22, Anion Gap 9.2, BUN 23 H, Creatinine 1.60 H, Estimated Creat Clear 54, Estimated GFR 43 L, Est GFR ( Amer) 52 L, Glucose 97, Calcium 8.6, Magnesium 2.1, Total Bilirubin 0.6, AST 43, ALT 47, Alkaline Phosphatase 97, Total Protein 6.1 L, Albumin 3.4 L, Globulin 2.7, Albumin/Globulin Ratio 1.3 I & O for Last 24 hours: Intake & Output 06/08/24 06/09/24 06/10/24 06/11/24 23:59 23:59 23:59 23:59 Intake Total 575 / 575 Output Total 325 / 325 200 / 200 Balance -325 / -85 375 / 375 Weight 187 lb 6.287 oz 191 lb 5.78 oz Constitutional Constitutional: no acute distress *Routine Respiratory Exam Respiratory: Present CTA bilaterally and symmetric chest movement *Routine Cardiovascular Exam Cardiovascular: Present RRR, Normal S1 and Normal S2 *Routine Abdominal Exam Abdominal: Present soft and normoactive bowel sounds; Absent tenderness *Routine Extremities Exam Extremities: Present full ROM and normal capillary refill; Absent edema *Routine Skin Exam Skin: Present intact, dry and warm Detailed Neck Exam: Thyroids Thyroid: Absent bruit Meds Home Medications and Allergies Home Medications ?Medication ?Instructions ?Recorded ?Confirmed ?Type tamsulosin 0.4 mg capsule 0.4 mg PO HS 08/28/22 06/10/24 History aspirin 81 mg tablet,delayed 81 mg PO DAILY 30 days #30 tabs 06/08/24 06/10/24 Rx release atorvastatin 40 mg tablet 40 mg PO HS 30 days #30 tabs 06/08/24 06/10/24 Rx clopidogrel 75 mg tablet 75 mg PO DAILY 30 days #30 tabs 06/08/24 06/10/24 Rx isosorbide mononitrate 30 mg 30 mg PO DAILY #30 tabs 06/08/24 06/10/24 Rx tablet,extended release 24 hr nifedipine 30 mg tablet,extended 60 mg (2 x 30 mg) PO DAILY 30 days 06/08/24 06/10/24 Rx release 24 hr #60 tabs New Prescriptions to Start Prescriptions: Allergies Allergy/AdvReac Type Severity Reaction Status Date / Time No Known Allergies Allergy Verified 06/09/24 09:47 Assessment and Plan *Assessment and plan (1) CAD (coronary artery disease): Status: Acute Category: Medical Code(s): I25.10 - Atherosclerotic heart disease of [place] coronary artery without angina pectoris (2) Subclavian artery stenosis: Status: Acute Category: Medical Code(s): I77.1 - Stricture of artery (3) History of cardiac pacemaker in situ: Problem Comment: Dual chamber implant MAY 2024 Status: Acute Category: Medical Code(s): Z95.0 - Presence of cardiac pacemaker (4) Third degree heart block: Status: Acute Category: Medical Code(s): I44.2 - Atrioventricular block, complete (5) Malignant hypertension: Status: Acute Category: Medical Code(s): I10 - Essential (primary) hypertension (6) PAD (peripheral artery disease): Status: Acute Category: Medical Code(s): I73.9 - Peripheral vascular disease, unspecified (7) Stenosis of carotid artery: Status: Acute Category: Medical Code(s): I65.29 - Occlusion and stenosis of unspecified carotid artery (8) Chronic kidney disease: Status: Acute Category: Medical Code(s): N18.9 - Chronic kidney disease, unspecified Plan Left subclavian artery stenosis Total occlusion of the left CCA and internal carotid arteries Stenosis of the right internal carotid artery greater than 70% Carotid ultrasound: High-grade stenosis of the proximal right internal carotid artery greater than 70%. Occlusion of the left common and internal carotid arteries with retrograde flow noted Left subclavian artery stenosis noted on left heart cath06/03/2024 Patient underwent successful reconstruction of the left subclavian artery with 2 continguous bare-metal's balloon mounted stents 06/10/2024. Continue DAPT therapy with aspirin and Plavix Patient has vascular follow-up on Saturday with Dr. Rudy Renee Per Dr. Gui Linares the carotid enterectomy should be considered an elective procedure as patient is still asymptomatic. As an outpatient, once the blood pressure normalizes we will repeat carotid ultrasound and re-determine the degree of carotid stenosis after still syndrome has resolved. Coronary artery disease Third-degree AV block resolved s/p dual-chamber pacemaker Echocardiogram: Normal biventricular systolic function, marked increased LV wall thickness, mild RV dilation with normal RV function, mild LA dilation, mild MR. Recommend cardiac MRI, PYP nuclear scan and amyloidosis lab testing. Cardiac MRI normal Left heart catheterization 06/03/2024: Successful stenting of the proximal and mid dominant RCA with 2 NANETTE. Persistent coronary disease in the LAD and circumflex artery which is best managed medically at this time. Occluded left subclavian artery. Persistent malignant hypertension. Continue Plavix and aspirin Dual-chamber pacemaker placed with resolution of 3rd degree block Malignant hypertension Maintain blood pressure 140-180 Continue Procardia 30 mg p.o. daily Continue Imdur 30 mg p.o. daily Start Metoprolol tartrate 50 mg p.o. twice daily Hip pain Concern for PAD Bilateral lower extremity venous duplex negative Bilateral LE arterial duplex-preliminary reports shows a left femoral artery occlusion with plaque in bilateral RECORD FILING CLERK's. Official read is pending CKD Creatinine 1.6, baseline 1.6-2 Preliminary renal artery duplex shows a left renal artery stenosis greater than 60%. Official read is pending Patient underwent renal angiogram on 06/10/2024 which showed a normal right renal artery and a proximal 10% luminal irregularity to the left renal artery CV summary 06/11/2024: Patient is CV stable for discharge home. Please continue below listed medications and have patient follow-up in cardiology clinic next . Patient is scheduled to see vascular on Saturday. Cardiac meds: Aspirin 81 mg p.o. daily Atorvastatin 40 mg p.o. daily Plavix 75 mg p.o. daily Procardia 30 mg p.o. daily Imdur 30 mg p.o. daily Metoprolol tartrate 50mg po BID
[2024-06-11] MEDS: METOPROLOL TARTRATE 50MG TABLET 50 MG PO (10:50)
[2024-06-11] MEDS: NIFEDIPINE 30 MG 60 MG PO (10:51)
[2024-06-11] MEDS: PAT OWN MED ***ASPIRIN EC 81MG 81 MG PO (10:51)
[2024-06-11] MEDS: ISOSORBIDE MONO 30 MG PO (10:51)
[2024-06-11] MEDS: PAT OWN MED ***CLOPIDOGREL 75MG 75 MG PO (10:51)
--- NOTE | 2024-06-12 10:18 | CARE MANAGER ---
Contacted patient related to hospital discharge. He states that he is dong well. He picked up his new medication and is aware of follow up appointments. Denies questions or concerns at this time. MARTINEZ Melo
== END 2024-06-11 12:01 | disposition home or self-care (01) ==
LOC: 2ND 14:21
PROVIDERS: Admitting Provider Internal Medicine; PCP Internal Medicine Adolescent Medicine; Visit Provider Internal Medicine Adolescent Medicine
DX: I70.1 Atherosclerosis of renal artery (principal); I77.1 Stricture of artery; Z95.0 Presence of cardiac pacemaker; I73.9 Peripheral vascular disease, unspecified; N17.9 Acute kidney failure, unspecified; I25.10 Atherosclerotic heart disease of native coronary artery without angina pectoris; I44.2 Atrioventricular block, complete; N18.9 Chronic kidney disease, unspecified; F17.210 Nicotine dependence, cigarettes, uncomplicated; I70.8 Atherosclerosis of other arteries; G45.8 Other transient cerebral ischemic attacks and related syndromes; I12.9 Hypertensive chronic kidney disease with stage 1 through stage 4 chronic kidney disease, or unspecified chronic kidney disease
CPT/HCPCS: 36252; 36415; 37236; 80048; 80053; 83735; 85025; 85347; 99152; 99153; C1725; C1769; C1876; C1894; G0378; J0360; J1200; J1644; J2270; J2720; Q9967

== ENCOUNTER 2024-06-16 09:24 | Outpatient (CLI) | payer MEDICARE, SELFPAY ==
[2024-06-16 09:52] LABS: Basophils # 0.1 K/mm3 (0-0.2); Basophils % 0.7 % (0.1-2.0); Eosinophils # 0.3 K/mm3 (0.0-0.4); Eosinophils % 2.9 % (0.1-12.0); Hemoglobin 13.4 g/dL (14.1-18.0); Lymphocytes # 1.7 K/mm3 (0.7-4.5); Lymphocytes % 18.3 % (10-50); Mean Corpuscular Volume 90.7 fl (80-94); Mean Platelet Volume 7.5 fl (7.4-10.4); Monocytes # 0.4 K/mm3 (0.1-1.0); Monocytes % 4.5 % (1.7-9.3); Neutrophils # 6.7 K/mm3 (1.8-7.8); Neutrophils % 73.7 % (37.0-80.0); Platelet Count 331 K/mm3 (142-424); Red Blood Count 4.63 M/mm3 (4.60-6.20); Red Cell Distribution Width 13.8 % (11.5-17.5); White Blood Count 9.1 K/mm3 (4.8-10.8)
[2024-06-16 10:27] LABS: Albumin Level 3.8 g/dl (3.5-5.0); Chloride 108 mmol/L (98-107); Potassium 4.5 mmoL/L (3.5-5.1); Sodium 139 mmol/L (136-145)
[2024-06-16 10:29] LABS: Blood Urea Nitrogen 30 mg/dl (9-20); Estimated Glomerular Filt Rate 43 ml/min (>60); GFR (African American) 52 ML/MIN (>60)
[2024-06-16 10:30] LABS: Alanine Aminotransferase 62 U/L (12-78); Alkaline Phosphatase 106 U/L (38-126); Anion Gap 12.5 mEq/L (5-15); Aspartate Amino Transferase 45 U/L (17-59); Bilirubin,Direct 0.2 mg/dl (0.0-0.4); Bilirubin,Indirect 0.5 mg/dL (0.0-0.9); Bilirubin,Total 0.7 mg/dl (0.2-1.3); Bilirubin,Unconjugated 0.6 mg/dL (0.0-1.1); Carbon Dioxide 23 mmol/L (22.0-30.0); Glucose 111 mg/dl (74-100); Magnesium 2.1 mg/dl (1.6-2.3); Total Protein,Serum 6.4 g/dl (6.3-8.2)
[2024-06-19 20:10] LABS: Metanephrine Plasma 61.4 pg/mL (0.0-88.0); Normetanephrine Plasma 254.5 pg/mL (0.0-285.2)
[2024-06-22 09:18] LABS: Dopamine, Plasma 71 pg/mL (0-48); Epinephrine, Plasma 37 pg/mL (0-62); Norepinephrine, Plasma 1410 pg/mL (0-874)
== END 2024-06-16 23:59 | disposition home or self-care (01) ==
LOC: LAB 09:26
PROVIDERS: PCP Internal Medicine Adolescent Medicine; Visit Provider Nurse Practitioner
DX: I10 Essential (primary) hypertension (principal); E78.5 Hyperlipidemia, unspecified; I25.10 Atherosclerotic heart disease of native coronary artery without angina pectoris; I77.1 Stricture of artery; I70.1 Atherosclerosis of renal artery; I65.29 Occlusion and stenosis of unspecified carotid artery; I73.9 Peripheral vascular disease, unspecified; Z95.0 Presence of cardiac pacemaker; N18.9 Chronic kidney disease, unspecified; F17.200 Nicotine dependence, unspecified, uncomplicated
CPT/HCPCS: 36415; 80048; 80076; 82384; 83735; 83835; 85025

== ENCOUNTER 2024-06-18 09:02 | Outpatient (CLI) | payer MEDICARE, SELFPAY ==
[2024-06-23 01:13] LABS: Metanephrine, U,24hr 182 ug/24 hr (58-276); Metanephrine, Ur 126 ug/L (Undefined); Normetanephr.,U,24h 604 ug/24 hr (156-729); Normetanephrine, Ur 418 ug/L (Undefined)
== END 2024-06-18 23:59 | disposition home or self-care (01) ==
LOC: LAB 09:03
PROVIDERS: PCP Internal Medicine Adolescent Medicine; Visit Provider Nurse Practitioner
DX: I10 Essential (primary) hypertension (principal); E78.5 Hyperlipidemia, unspecified; I25.10 Atherosclerotic heart disease of native coronary artery without angina pectoris; I77.1 Stricture of artery; I70.1 Atherosclerosis of renal artery; I65.29 Occlusion and stenosis of unspecified carotid artery; I73.9 Peripheral vascular disease, unspecified; Z95.0 Presence of cardiac pacemaker; N18.9 Chronic kidney disease, unspecified; F17.200 Nicotine dependence, unspecified, uncomplicated
CPT/HCPCS: 83835

== ENCOUNTER 2024-06-22 10:29 | Outpatient (CLI) | payer MEDICARE, SELFPAY ==
[2024-07-03 14:18] LABS: Dopamine, Ur, 24hr 204 ug/24 hr (0-510); Dopamine, Urine 95 ug/L (Undefined); Epinephrine, U, 24hr <6 ug/24 hr (0-20); Epinephrine, Urine <3 ug/L (Undefined); Norepinephrine, Ur 20 ug/L (Undefined); Norepinephrine,U,24h 43 ug/24 hr (0-135); VMA, Urine 2.5 mg/L (Undefined); VMA, Urine, 24hr 5.4 mg/24 hr (0.0-7.5)
== END 2024-06-22 23:59 | disposition home or self-care (01) ==
LOC: LAB 10:30
PROVIDERS: PCP Internal Medicine Adolescent Medicine; Visit Provider Nurse Practitioner
DX: I10 Essential (primary) hypertension (principal); E78.5 Hyperlipidemia, unspecified; I25.10 Atherosclerotic heart disease of native coronary artery without angina pectoris; I77.1 Stricture of artery; I70.1 Atherosclerosis of renal artery; I65.29 Occlusion and stenosis of unspecified carotid artery; I73.9 Peripheral vascular disease, unspecified; Z95.0 Presence of cardiac pacemaker; N18.9 Chronic kidney disease, unspecified; F17.200 Nicotine dependence, unspecified, uncomplicated
CPT/HCPCS: 82384; 84585

== ENCOUNTER 2024-06-29 14:17 | Outpatient (CLI) | payer MEDICARE, SELFPAY ==
--- NOTE | 2024-06-29 14:18 | US_ITS ---
FINAL REPORT TECHNIQUE: Ultrasound images of the kidneys and bladder were obtained. CLINICAL HISTORY: N18.9 - Chronic kidney disease, unspecified COMPARISON: Renal Doppler 06/04/2024 FINDINGS: The right kidney measures 10.4 cm in length. It is normal in echogenicity. There is no hydronephrosis. There is a 2.7 cm cyst with septations in the right kidney, likely a mildly complicated cyst. The left kidney measures 11.2 cm in length. It is normal in echogenicity. There is no hydronephrosis. Favor parapelvic cysts up to 3.1 cm in size. IMPRESSION: Bilateral renal cysts as described, on the right side a septated cyst, likely mildly complicated. If clinically indicated, renal mass protocol CT could be performed for further evaluation. Reviewed, Interpreted and Dictated by Eliot Kulkarni III, MD Transcribed by Shelia Hopper Authenticated and [facility]
== END 2024-06-29 23:59 | disposition home or self-care (01) ==
LOC: RAD 14:18
PROVIDERS: PCP Internal Medicine Adolescent Medicine; Visit Provider Nurse Practitioner
DX: N18.9 Chronic kidney disease, unspecified (principal); I77.1 Stricture of artery; E78.5 Hyperlipidemia, unspecified
CPT/HCPCS: 76770

== ENCOUNTER 2024-07-01 12:45 | Outpatient (RCR) | payer MEDICARE, SELFPAY | END 2024-09-22 14:00 | disposition home or self-care (01) | LOC: CR 12:45 | PROVIDERS: Visit Provider Internal Medicine | DX: Z98.890 Other specified postprocedural states (principal); Z95.5 Presence of coronary angioplasty implant and graft | CPT/HCPCS: 93798 ==

== ENCOUNTER 2024-07-13 07:45 | Outpatient (CLI) | payer MEDICARE, SELFPAY ==
--- NOTE | 2024-07-13 07:46 | NM_ITS ---
APPROVED REPORT Sleep Manager: Procedure: 99mTc-PYP Cardiac Amyloidosis Imaging Clinical Indication: Heart failure, increased LV wall thickness Protocol: The patient received 26.4 mCi 99mTc-PYP intravenously. Planar and SPECT imaging was performed approximately 3 hours post injection. Planar images included anterior, left lateral and SHANNON-45 projections. Findings: Visual interpretation: Planar and SPECT images were reviewed The overall quality of the study was good. Semi quantitative SPECT findings showed a grade 2. Impression: 1. Overall, the quality of the study was fair. 2. Semi quantitative SPECT findings showed grade 2. 3. 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 This study and report were reviewed and signed by Zoran Luis MD (computer consultant). Conclusion Electronically signed by : Wanda Luis MD 07/14/2024 00:54:55
[2024-07-13] MEDS: PYROPHOSPHATE CARDIAC (PYP);1 DOSE VIAL IV (08:51)
[2024-07-13] MEDS: SODIUM CHLORIDE 0.9% 10ML SYR (RAD ONLY) 10 ML IV (08:51)
== END 2024-07-13 23:59 | disposition home or self-care (01) ==
LOC: RAD 07:46
PROVIDERS: PCP Internal Medicine Adolescent Medicine; Visit Provider Nurse Practitioner
DX: N18.9 Chronic kidney disease, unspecified (principal); I70.1 Atherosclerosis of renal artery; I73.9 Peripheral vascular disease, unspecified; I65.29 Occlusion and stenosis of unspecified carotid artery; I77.1 Stricture of artery; I25.10 Atherosclerotic heart disease of native coronary artery without angina pectoris; E78.5 Hyperlipidemia, unspecified
CPT/HCPCS: 78800

== ENCOUNTER 2024-07-14 10:12 | Outpatient (CLI) | payer MEDICARE, SELFPAY ==
[2024-07-14 10:33] LABS: Basophils # 0.1 K/mm3 (0-0.2); Basophils % 0.9 % (0.1-2.0); Eosinophils # 0.4 K/mm3 (0.0-0.4); Eosinophils % 5.5 % (0.1-12.0); Hematocrit 39.2 % (42.0-52.0); Hemoglobin 13.4 g/dL (14.1-18.0); Lymphocytes # 1.5 K/mm3 (0.7-4.5); Lymphocytes % 18.7 % (10-50); Mean Corpuscular HGB Conc 34.3 g/dL (31.8-35.4); Mean Corpuscular Volume 84.5 fl (80-94); Mean Platelet Volume 8.7 fl (7.4-10.4); Monocytes # 0.4 K/mm3 (0.1-1.0); Monocytes % 5.1 % (1.7-9.3); Neutrophils # 5.6 K/mm3 (1.8-7.8); Neutrophils % 69.9 % (37.0-80.0); Platelet Count 182 K/mm3 (142-424); Red Blood Count 4.64 M/mm3 (4.60-6.20); Red Cell Distribution Width 14.4 % (11.5-17.5)
[2024-07-14 11:18] LABS: Alanine Aminotransferase 20 U/L (12-78); Albumin Level 4.1 g/dl (3.5-5.0); Alkaline Phosphatase 78 U/L (38-126); Anion Gap 12.6 mEq/L (5-15); Aspartate Amino Transferase 21 U/L (17-59); Bilirubin,Direct 0.4 mg/dl (0.0-0.4); Bilirubin,Indirect 0.3 mg/dL (0.0-0.9); Bilirubin,Total 0.7 mg/dl (0.2-1.3); Bilirubin,Unconjugated 0.3 mg/dL (0.0-1.1); Blood Urea Nitrogen 28 mg/dl (9-20); Calcium 9.2 mg/dl (8.4-10.2); Carbon Dioxide 28 mmol/L (22.0-30.0); Chloride 106 mmol/L (98-107); Chol/HDL Ratio 3.3 (1-3.5); Cholesterol 143 mg/dl (140-200); Estimated Glomerular Filt Rate 28 ml/min (>60); GFR (African American) 34 ML/MIN (>60); Glucose 99 mg/dl (74-100); HDL Cholesterol 43 mg/dl (40-60); Magnesium 2.2 mg/dl (1.6-2.3); Potassium 4.6 mmoL/L (3.5-5.1); Sodium 142 mmol/L (136-145); Total Protein,Serum 6.3 g/dl (6.3-8.2); Triglycerides 156 mg/dl (30-150); VLDL Cholesterol 31 mg/dL (0-40)
[2024-07-14 11:30] LABS: Direct LDL Cholesterol 67.75 mg/dL (100-129)
[2024-07-14 11:37] LABS: Free T4 (Free Thyroxine) 1.08 ng/dl (0.78-2.19)
[2024-07-14 11:49] LABS: Thyroid Stimulating Hormone 1.36 uIU/mL (0.465-4.68)
== END 2024-07-14 23:59 | disposition home or self-care (01) ==
LOC: LAB 10:13
PROVIDERS: PCP Internal Medicine Adolescent Medicine; Visit Provider Nurse Practitioner
DX: I73.9 Peripheral vascular disease, unspecified (principal); I25.10 Atherosclerotic heart disease of native coronary artery without angina pectoris; I10 Essential (primary) hypertension; E78.5 Hyperlipidemia, unspecified
CPT/HCPCS: 36415; 80048; 80061; 80076; 83735; 84439; 84443; 85025

== ENCOUNTER 2024-07-23 08:18 | Day surgery (SDC) | payer MEDICARE, SELFPAY ==
[2024-07-23] VITALS (14 sets, daily range): BP systolic 106–177; BP diastolic 55–91; PULSE 59–70; RESP 16–18; TEMP 36.9; O2SAT 95–99; BMI 25.4
--- NOTE | 2024-07-23 07:04 | IR_ITS ---
APPROVED REPORT Patient Location: Outpatient PROCEDURES Selective coronary angiogram Drug-eluting stent deployment to the proximal LAD INDICATION Coronary artery disease Informed consent was obtained prior to the procedure. COMPLICATIONS NONE Estimated Blood Loss: LESS THAN 10 ML TECHNIQUE One percent lidocaine used to anesthetize the right anterior aspect of the wrist. The right radial artery was accessed via the Seldinger technique. A 6 [place] sheath was placed in the right radial artery. 2.5 mg of Verapamil, 800 mcg of nitroglycerin, 1mg Lidocaine and 5000 U Heparin were given through the arterial sheath. A 6 [place] JL 3 guide catheter was placed in left main artery followed by Choice PT extra-support wire placed on the LAD. A 3.5 x 26 mm [place] frontier stent was deployed at 14 shabbir reducing the severe stenosis to 0%. ROSENDA-3 flow was present before and after the procedure. In the procedure the apparatus was removed the sheath was removed and hemostasis was achieved using TR banding patient was transferred to the postop putting in stable addition. IMPRESSION Successful stenting the proximal LAD severe disease reduced to 0% with 1 drug-eluting stent PLAN 1. Continue with dual antiplatelet therapy 2. Avoidance of tobacco products 3. Risk factor modification 4. Treatment of amyloidosis as prescribed 5. Cardiac rehabilitation Electronically signed by : Gui Linares MD 07/23/2024 11:50:10
[2024-07-23 09:00] LABS: Basophils # 0.1 K/mm3 (0-0.2); Basophils % 1.5 % (0.1-2.0); Eosinophils # 0.4 K/mm3 (0.0-0.4); Eosinophils % 4.6 % (0.1-12.0); Hematocrit 41.8 % (42.0-52.0); Hemoglobin 13.8 g/dL (14.1-18.0); Lymphocytes # 1.4 K/mm3 (0.7-4.5); Lymphocytes % 17.2 % (10-50); Mean Corpuscular HGB Conc 32.9 g/dL (31.8-35.4); Mean Corpuscular Hemoglobin 28.8 pg (27.0-31.2); Mean Corpuscular Volume 87.6 fl (80-94); Mean Platelet Volume 7.5 fl (7.4-10.4); Monocytes # 0.3 K/mm3 (0.1-1.0); Monocytes % 3.5 % (1.7-9.3); Neutrophils # 5.8 K/mm3 (1.8-7.8); Neutrophils % 73.3 % (37.0-80.0); Platelet Count 213 K/mm3 (142-424); Red Blood Count 4.78 M/mm3 (4.60-6.20); Red Cell Distribution Width 14.5 % (11.5-17.5)
[2024-07-23 09:03] LABS: Chloride 110 mmol/L (98-107); Potassium 4.1 mmoL/L (3.5-5.1); Sodium 143 mmol/L (136-145)
[2024-07-23 09:06] LABS: Anion Gap 12.1 mEq/L (5-15); Blood Urea Nitrogen 24 mg/dl (9-20); Carbon Dioxide 25 mmol/L (22.0-30.0); Creatinine Clearance Estimated 41 mL/min (50-200); Estimated Glomerular Filt Rate 32 ml/min (>60); GFR (African American) 38 ML/MIN (>60)
[2024-07-23 09:07] LABS: Calcium 9.3 mg/dl (8.4-10.2); Glucose 107 mg/dl (74-100)
[2024-07-23] MEDS: LIDOCAINE 1% 10ML MDV 20 ML IJ (10:44)
[2024-07-23] MEDS: HEPARIN 1,000 UNITS/500ML NS (CATH LAB) 3000 UNIT IV (10:44)
[2024-07-23] MEDS: diphenhydrAMINE 50MG/ML VIAL 50 MG IV (10:44)
[2024-07-23] MEDS: 0.9 % SODIUM CHLORIDE 500 ML 25 ML IV (10:44)
[2024-07-23] MEDS: NITROGLYCERIN 800MCG/8ML SYR (CATH LAB) 800 MCG IA (10:45)
[2024-07-23] MEDS: VERAPAMIL 2.5MG/ML 2ML VIAL 2.5 MG IV (10:45)
[2024-07-23] MEDS: HEPARIN 1,000 UNITS/ML 10ML VIAL (CATH LAB) 10000 UNIT IV (10:45)
[2024-07-23] MEDS: MIDAZOLAM HCL 1MG/ML 5ML VIAL 1 MG IV (11:24)
[2024-07-23] MEDS: FENTANYL 100MCG/2ML VIAL 50 MCG IV (11:24)
[2024-07-23] MEDS: IOPAMIDOL-370 (76%);100ML BOTTLE 30 ML IV (14:07)
== END 2024-07-23 15:12 | disposition home or self-care (01) ==
PROVIDERS: PCP Internal Medicine Adolescent Medicine; Visit Provider Internal Medicine
DX: I25.10 Atherosclerotic heart disease of native coronary artery without angina pectoris (principal); I12.9 Hypertensive chronic kidney disease with stage 1 through stage 4 chronic kidney disease, or unspecified chronic kidney disease; F17.210 Nicotine dependence, cigarettes, uncomplicated; J44.9 Chronic obstructive pulmonary disease, unspecified; I77.1 Stricture of artery; Z95.0 Presence of cardiac pacemaker; I44.2 Atrioventricular block, complete; I70.1 Atherosclerosis of renal artery; N18.9 Chronic kidney disease, unspecified; E85.82 Wild-type transthyretin-related (ATTR) amyloidosis; I65.23 Occlusion and stenosis of bilateral carotid arteries; Z79.899 Other long term (current) drug therapy
CPT/HCPCS: 80048; 85025; 92928; 99152; C1725; C1769; C1874; C9600; J1200; J1644; J2250; J3010; Q9967

== ENCOUNTER 2024-07-27 10:56 | Outpatient (CLI) | payer MEDICARE, SELFPAY ==
[2024-07-27 12:06] LABS: Chloride 111 mmol/L (98-107)
[2024-07-27 12:07] LABS: Potassium 4.4 mmoL/L (3.5-5.1); Sodium 140 mmol/L (136-145)
[2024-07-27 12:09] LABS: Blood Urea Nitrogen 30 mg/dl (9-20); Estimated Glomerular Filt Rate 28 ml/min (>60); GFR (African American) 34 ML/MIN (>60)
[2024-07-27 12:10] LABS: Anion Gap 11.4 mEq/L (5-15); Calcium 8.9 mg/dl (8.4-10.2); Carbon Dioxide 22 mmol/L (22.0-30.0); Glucose 100 mg/dl (74-100)
[2024-07-27 13:16] LABS: Basophils # 0.1 K/mm3 (0-0.2); Basophils % 0.8 % (0.1-2.0); Eosinophils # 0.4 K/mm3 (0.0-0.4); Eosinophils % 5.1 % (0.1-12.0); Hemoglobin 13.2 g/dL (14.1-18.0); Lymphocytes # 1.8 K/mm3 (0.7-4.5); Lymphocytes % 25.5 % (10-50); Mean Corpuscular HGB Conc 33.9 g/dL (31.8-35.4); Mean Corpuscular Hemoglobin 28.8 pg (27.0-31.2); Mean Corpuscular Volume 84.9 fl (80-94); Monocytes # 0.4 K/mm3 (0.1-1.0); Monocytes % 5.2 % (1.7-9.3); Neutrophils # 4.5 K/mm3 (1.8-7.8); Neutrophils % 63.4 % (37.0-80.0); Platelet Count 193 K/mm3 (142-424); Red Blood Count 4.59 M/mm3 (4.60-6.20); Red Cell Distribution Width 14.5 % (11.5-17.5); White Blood Count 7.1 K/mm3 (4.8-10.8)
== END 2024-07-27 23:59 | disposition home or self-care (01) ==
LOC: LAB 10:57
PROVIDERS: PCP Internal Medicine Adolescent Medicine; Visit Provider Internal Medicine
DX: I25.10 Atherosclerotic heart disease of native coronary artery without angina pectoris (principal)
CPT/HCPCS: 36415; 80048; 85025

== ENCOUNTER 2024-08-03 07:48 | Outpatient (CLI) | payer MEDICARE, SELFPAY ==
--- NOTE | 2024-08-03 07:50 | CT_ITS ---
FINAL REPORT TECHNIQUE: Noncontrast CT exam of the abdomen and pelvis. This study was performed with techniques to keep radiation doses as low as reasonably achievable (ALARA). Individualized dose reduction techniques using automated exposure control or adjustment of mA and/or kV according to the patient''s size were employed. CLINICAL HISTORY: Renal Mass. COMPARISON: 06/29/2024 FINDINGS: Abdomen: Lung bases are clear. Liver, spleen and pancreas have a normal CT appearance in their limited unenhanced state. There is mild left adrenal enlargement which may be due to adenoma or hyperplasia. There is a cystic mass in the anterior left kidney measuring up to 3.2 cm. 2 right renal lesions are seen with the larger measuring 3 cm and the smaller measuring 1.1 cm. There is an exophytic lesion in the lateral left kidney measuring 1.2 cm which is not well-characterized without contrast. Pelvis: No distal ureteral stones are seen. Bladder is unremarkable. No fluid collection or adenopathy is seen. IMPRESSION: 3.2 cm cystic mass anterior left kidney and right renal lesions, not well-characterized without contrast. Reviewed, Interpreted and Dictated by Kofi Barnes MD Transcribed by Sandra Johnson Authenticated and [facility]
[2024-08-03 08:31] LABS: Albumin Level 4.3 g/dl (3.5-5.0)
[2024-08-03 08:32] LABS: Chloride 107 mmol/L (98-107); Potassium 3.9 mmoL/L (3.5-5.1); Sodium 135 mmol/L (136-145)
[2024-08-03 08:34] LABS: Alanine Aminotransferase 28 U/L (12-78); Anion Gap 7.9 mEq/L (5-15); Aspartate Amino Transferase 33 U/L (17-59); Bilirubin,Unconjugated 0.2 mg/dL (0.0-1.1); Blood Urea Nitrogen 38 mg/dl (9-20); Carbon Dioxide 24 mmol/L (22.0-30.0); Estimated Glomerular Filt Rate 23 ml/min (>60); GFR (African American) 27 ML/MIN (>60); Total Protein,Serum 6.8 g/dl (6.3-8.2)
[2024-08-03 08:35] LABS: Alkaline Phosphatase 84 U/L (38-126); Bilirubin,Direct 0.4 mg/dl (0.0-0.4); Bilirubin,Indirect 0.2 mg/dL (0.0-0.9); Bilirubin,Total 0.6 mg/dl (0.2-1.3); Calcium 9.2 mg/dl (8.4-10.2); Chol/HDL Ratio 4.1 (1-3.5); Cholesterol 155 mg/dl (140-200); Glucose 109 mg/dl (74-100); HDL Cholesterol 38 mg/dl (40-60); Magnesium 2.2 mg/dl (1.6-2.3); Triglycerides 231 mg/dl (30-150); VLDL Cholesterol 46 mg/dL (0-40)
[2024-08-03 08:43] LABS: Basophils # 0.1 K/mm3 (0-0.2); Eosinophils # 0.4 K/mm3 (0.0-0.4); Eosinophils % 5.2 % (0.1-12.0); Hematocrit 38.4 % (42.0-52.0); Hemoglobin 13.2 g/dL (14.1-18.0); Lymphocytes # 1.5 K/mm3 (0.7-4.5); Lymphocytes % 21.1 % (10-50); Mean Corpuscular HGB Conc 34.3 g/dL (31.8-35.4); Mean Corpuscular Hemoglobin 29.1 pg (27.0-31.2); Mean Corpuscular Volume 84.8 fl (80-94); Mean Platelet Volume 7.4 fl (7.4-10.4); Monocytes # 0.4 K/mm3 (0.1-1.0); Monocytes % 4.9 % (1.7-9.3); Neutrophils # 4.9 K/mm3 (1.8-7.8); Neutrophils % 67.8 % (37.0-80.0); Platelet Count 182 K/mm3 (142-424); Red Blood Count 4.53 M/mm3 (4.60-6.20); Red Cell Distribution Width 14.5 % (11.5-17.5); White Blood Count 7.2 K/mm3 (4.8-10.8)
[2024-08-03 08:46] LABS: Direct LDL Cholesterol 60.09 mg/dL (100-129)
[2024-08-03 09:08] LABS: Thyroid Stimulating Hormone 1.24 uIU/mL (0.465-4.68)
[2024-08-03 09:22] LABS: Free T4 (Free Thyroxine) 1.11 ng/dl (0.78-2.19)
== END 2024-08-03 23:59 | disposition home or self-care (01) ==
LOC: RAD 07:50
PROVIDERS: Physician Assistant; PCP Internal Medicine Adolescent Medicine; Visit Provider Internal Medicine
DX: E85.82 Wild-type transthyretin-related (ATTR) amyloidosis (principal); I70.1 Atherosclerosis of renal artery; I10 Essential (primary) hypertension; N18.9 Chronic kidney disease, unspecified; Z95.0 Presence of cardiac pacemaker; I73.9 Peripheral vascular disease, unspecified; I65.29 Occlusion and stenosis of unspecified carotid artery; I77.1 Stricture of artery; I25.10 Atherosclerotic heart disease of native coronary artery without angina pectoris; E78.5 Hyperlipidemia, unspecified; F17.200 Nicotine dependence, unspecified, uncomplicated
CPT/HCPCS: 36415; 74176; 80048; 80061; 80076; 83735; 84439; 84443; 85025

== ENCOUNTER 2024-09-29 09:55 | Outpatient (CLI) | payer MEDICARE, SELFPAY ==
[2024-09-29 10:05] LABS: Microscopic, Urine URINE MICROSCOPIC (MICROSCOPIC)
[2024-09-29 10:41] LABS: Appearance,Urine CLEAR (Clear); Bilirubin,Urine Negative (Negative); Blood, Urine TRACE-I (Negative); Color,Urine YELLOW (Yellow); Glucose,Urine (UA) Negative (Negative); Ketones,Urine Negative (Negative); Leukocyte Esterase,Urine Negative (Negative); Nitrate,Urine Negative (Negative); Protein,Urine 2+ (Negative); Specific Gravity, Urine 1.025 (1.005-1.030); Urobilinogen,Urine 0.2 EU/dl (0.2)
[2024-09-29 11:01] LABS: Bacteria,Urine Trace /lpf; Squamous Epithelial Cell,Urine Occasional #/hpf (0-5); WBC,Urine Occasional #/hpf (0-3)
[2024-09-29 11:05] LABS: Creatinine,Urine Random 134 mg/dL (Not Estab.)
[2024-09-29 11:20] LABS: Albumin Level 4.7 g/dl (3.5-5.0); Chloride 108 mmol/L (98-107); Potassium 4.2 mmoL/L (3.5-5.1); Sodium 140 mmol/L (136-145)
[2024-09-29 11:23] LABS: Anion Gap 16.2 mEq/L (5-15); Blood Urea Nitrogen 31 mg/dl (9-20); Calcium 9.3 mg/dl (8.4-10.2); Carbon Dioxide 20 mmol/L (22.0-30.0); Creatine Kinase 66 U/L (55-170); Estimated Glomerular Filt Rate 30 ml/min (>60); GFR (African American) 36 ML/MIN (>60); Glucose 102 mg/dl (74-100); Phosphorous 3.4 mg/dl (2.5-4.5)
[2024-09-30 08:12] LABS: Complement C3 142 mg/dL (82-167)
[2024-09-30 13:23] LABS: Anti-DNA (DS) Ab Qn <1 IU/mL (0-9)
[2024-10-05 12:15] LABS: Antinuclear Antibodies, IFA POSITIVE
== END 2024-09-29 23:59 | disposition home or self-care (01) ==
LOC: LAB 09:56
PROVIDERS: PCP Internal Medicine Adolescent Medicine; Visit Provider Internal Medicine Nephrology
DX: N17.9 Acute kidney failure, unspecified (principal); E78.5 Hyperlipidemia, unspecified; I25.10 Atherosclerotic heart disease of native coronary artery without angina pectoris; I10 Essential (primary) hypertension
CPT/HCPCS: 36415; 80069; 81001; 82550; 82570; 84156; 86038; 86161; 86225

== ENCOUNTER 2024-10-01 09:10 | Outpatient (CLI) | payer MEDICARE, SELFPAY ==
[2024-10-02 09:11] LABS: Prot,24hr calculated 2166 mg/24 hr (30-150); Protein, Total, Urine 108.3 mg/dL (Not Estab.)
== END 2024-10-01 23:59 | disposition home or self-care (01) ==
LOC: LAB 09:14
PROVIDERS: PCP Internal Medicine Adolescent Medicine; Visit Provider Internal Medicine Nephrology
DX: N17.9 Acute kidney failure, unspecified (principal)
CPT/HCPCS: 84156

== ENCOUNTER 2024-10-19 09:50 | Outpatient (CLI) | payer MEDICARE, SELFPAY ==
--- NOTE | 2024-10-19 09:51 | US_ITS ---
FINAL REPORT CLINICAL HISTORY: .fu cysts COMPARISON: 06/29/2024 FINDINGS: RENAL ULTRASOUND: The right kidney measures 9.9 cm in length. There is a complex mildly septated cyst in the right mid kidney measuring 2.8 x 2.2 cm, was previously 2.5 x 2.0 cm. A few other smaller cysts are identified. No evidence of hydronephrosis is noted. The left kidney measures 10.5 cm in length. There are multiple hypoechoic cysts, the largest is a central, measuring up to 2.5 cm, was previously 3.1 cm. Other hypoechoic cystic lesions are less prominent as well. There is a hypoechoic but not clearly cystic lesion in the lower pole of the left kidney measuring 1.2 cm in size. This focus may represent a complex cyst or solid mass, and is similar to the prior exam. No evidence of hydronephrosis is noted. IMPRESSION: Numerous bilateral renal cysts are present, with 1 indeterminate cyst in the left kidney. This indeterminate lesion is stable when compared to the prior ultrasound. Longer-term follow-up is suggested with a 6-month follow-up renal ultrasound. Reviewed, Interpreted and Dictated by Kofi Barnes MD Transcribed by Shelia Hopper Authenticated and [facility]
== END 2024-10-19 23:59 | disposition home or self-care (01) ==
LOC: RAD 09:51
PROVIDERS: PCP Internal Medicine Adolescent Medicine; Visit Provider Urology
DX: N28.1 Cyst of kidney, acquired (principal); N18.9 Chronic kidney disease, unspecified
CPT/HCPCS: 76770

== ENCOUNTER 2024-12-28 10:08 | Outpatient (CLI) | payer MEDICARE, SELFPAY ==
[2024-12-28 10:20] LABS: Microscopic, Urine URINE MICROSCOPIC (MICROSCOPIC)
[2024-12-28 10:43] LABS: Basophils % 0.6 % (0.1-2.0); Eosinophils # 0.2 Kmm3 (0.0-0.4); Eosinophils % 2.5 % (0.1-12.0); Hematocrit 38.2 % (42.0-52.0); Hemoglobin 12.7 g/dL (14.1-18.0); Immature Granulocytes # 0.03 10^3uL; Immature Granulocytes % 0.4 %; Lymphocytes # 1.4 K/mm3 (0.7-4.5); Mean Corpuscular HGB Conc 33.2 g/dL (31.8-35.4); Mean Corpuscular Hemoglobin 28.9 pg (27.0-31.2); Mean Corpuscular Volume 86.8 fl (80-94); Mean Platelet Volume 9.5 fl (7.4-10.4); Monocytes # 0.4 K/mm3 (0.1-1.0); Monocytes % 5.1 % (1.7-9.3); Neutrophils # 5.1 K/mm3 (1.8-7.8); Neutrophils % 71.4 % (37.0-80.0); Nucleated Red Blood Cells # 0 10^3/uL; Nucleated Red Blood Cells % 0 %; Platelet Count 192 K/mm3 (142-424); Red Cell Distribution Width 12.9 % (11.5-17.5); Red Cell Distribution Width-SD 40.6 fL; White Blood Count 7.1 K/mm3 (4.8-10.8)
[2024-12-28 12:17] LABS: Albumin Level 4.4 g/dl (3.5-5.0); Chloride 112 mmol/L (98-107); Potassium 4.1 mmoL/L (3.5-5.1); Sodium 140 mmol/L (136-145)
[2024-12-28 12:20] LABS: Anion Gap 13.1 mEq/L (5-15); Blood Urea Nitrogen 35 mg/dl (9-20); Calcium 9.1 mg/dl (8.4-10.2); Carbon Dioxide 19 mmol/L (22.0-30.0); Estimated Glomerular Filt Rate 26 ml/min (>60); GFR (African American) 31 ML/MIN (>60); Glucose 111 mg/dl (74-100); Phosphorous 3.2 mg/dl (2.5-4.5)
[2024-12-28 14:32] LABS: Appearance,Urine CLEAR (Clear); Bilirubin,Urine Negative (Negative); Blood, Urine Negative (Negative); Color,Urine YELLOW (Yellow); Glucose,Urine (UA) Negative (Negative); Ketones,Urine Negative (Negative); Leukocyte Esterase,Urine Negative (Negative); Nitrate,Urine Negative (Negative); Protein,Urine 2+ (Negative); Urobilinogen,Urine 0.2 EU/dl (0.2)
[2024-12-28 15:37] LABS: Creatinine,Urine Random 122 mg/dL (Not Estab.)
[2024-12-28 18:33] LABS: Bacteria,Urine Trace /lpf; Squamous Epithelial Cell,Urine Occasional #/hpf (0-5)
[2024-12-29 08:12] LABS: PSA, Free 0.72 ng/mL; Prostate Specific Ag 3.9 ng/mL (0.0-4.0)
== END 2024-12-28 23:59 | disposition home or self-care (01) ==
LOC: LAB 10:09
PROVIDERS: Urology; PCP Internal Medicine Adolescent Medicine; Visit Provider Internal Medicine Nephrology
DX: N17.9 Acute kidney failure, unspecified (principal); N40.1 Benign prostatic hyperplasia with lower urinary tract symptoms; N28.1 Cyst of kidney, acquired
CPT/HCPCS: 36415; 80069; 81001; 82570; 84153; 84154; 84156; 85025

== ENCOUNTER 2025-01-18 15:00 | Outpatient (CLI) | payer MEDICARE, SELFPAY ==
--- NOTE | 2025-01-18 15:10 | XR_ITS ---
FINAL REPORT CLINICAL HISTORY: rt hip pain FINDINGS: AP, lateral, and oblique views of the lumbar spine were obtained. There is no prior exam for comparison. There is no acute fracture or acute malalignment. Vertebral body height is preserved. Multilevel degenerative disc disease is most pronounced at L2-3.. No acute paraspinal abnormality is identified. IMPRESSION: Degenerative changes without acute osseous abnormalities lumbar spine. Reviewed, Interpreted and Dictated by Kayla Watkins MD Transcribed by Tracey Jameson Authenticated and [facility]
--- NOTE | 2025-01-18 15:10 | XR_ITS ---
FINAL REPORT CLINICAL HISTORY: RT HIP PAIN FINDINGS: SACROILIAC JOINTS SERIES Three views were obtained. There is no prior exam for comparison. There is no acute osseous abnormality of the SI joints. Degenerative joint disease is noted bilaterally. There is no evidence of erosions. No ankylosis. No acute soft tissue abnormality is seen. IMPRESSION: Degenerative changes without acute osseous abnormality. Reviewed, Interpreted and Dictated by Kayla Watkins MD Transcribed by Tracey Jameson Authenticated and . [facility]
--- NOTE | 2025-01-18 15:10 | XR_ITS ---
FINAL REPORT CLINICAL HISTORY: rt hip pain FINDINGS: AP and frog leg views of the right hip were obtained. There is no prior exam for comparison. There is no acute fracture or dislocation. Degenerative joint disease in the bilateral hips is slightly worse on the right. Soft tissues are unremarkable. IMPRESSION: Degenerative change without acute osseous abnormality of the right hip. Reviewed, Interpreted and Dictated by Kayla Watkins MD Transcribed by Tracey Jameson Authenticated and [facility]
== END 2025-01-18 23:59 | disposition home or self-care (01) ==
LOC: RAD 15:01
PROVIDERS: PCP Internal Medicine Adolescent Medicine; Visit Provider Internal Medicine Adolescent Medicine
DX: M16.11 Unilateral primary osteoarthritis, right hip (principal); M46.1 Sacroiliitis, not elsewhere classified; M47.816 Spondylosis without myelopathy or radiculopathy, lumbar region
CPT/HCPCS: 72110; 72202; 73502

== ENCOUNTER 2025-02-05 11:15 | Outpatient (CLI) | payer MEDICARE, SELFPAY ==
--- OUTSIDE RECORDS SUMMARY | 2025-02-05 11:17 | XMS_ITS | Clinical Summary ---
Author Organization [facility] Address [address] [place] [address] Care Team Providers Care Pump Erector Name Role Phone Dashawn Chowdhury MD Primary Care Provider [phone] Allergies No known active allergies Medications Aspirin EC Adult Low Dose 81 MG EC tablet Take 1 tablet (81 mg) by mouth daily. Active atorvastatin (Lipitor) 80 MG tablet Take 1 tablet (80 mg) by mouth daily. 09/28/2024 Active clopidogrel (Plavix) 75 MG tablet Take 1 tablet (75 mg) by mouth daily. Active Jardiance 10 MG Take 1 tablet (10 mg) by mouth daily. 08/27/2024 Active hydrALAZINE (Apresoline) 25 MG tablet Take 1 tablet (25 mg) by mouth 2 (two) times a day as needed. 06/18/2024 Active isosorbide mononitrate ER (Imdur) 30 MG 24 hr tablet Take 1 tablet (30 mg) by mouth daily. Active metoprolol tartrate (Lopressor) 50 MG tablet Take 1 tablet (50 mg) by mouth 2 (two) times a day. Active NIFEdipine XL (Procardia XL) 60 MG 24 hr tablet Take 2 tablets (120 mg) by mouth daily. Active tamsulosin (Flomax) 0.4 MG 24 hr capsule Take 1 capsule (0.4 mg) by mouth daily. 08/24/2024 Active nicotine (Nicoderm CQ) 14 MG/24HR patch Place 1 patch on the skin 1 (one) time each day at the same time. 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 PHQ-2 Answer Date Recorded Patient Health Questionnaire-2 Score 0 10/08/2024 PHQ-9 Answer Date Recorded Patient Health Questionnaire-9 Score 0 10/08/2024 Sex and Gender Information Value Date Recorded Sex Assigned at Male 10/22/2024 8:09 PM EST Legal Sex Male 2:01 PM EDT Gender Identity Male 10/22/2024 8:07 PM EST Sexual Orientation Choose not to disclose 2024 8:07 PM EST Last Filed Vital Signs Vital Sign Reading Time Taken Comments Blood Pressure 147/67 10/23/2024 11:30 AM EST Pulse 75 10/23/2024 11:30 AM EST Temperature 36.6 C (97.8 F) 10/23/2024 10:21 AM EST Respiratory Rate 16 10/23/2024 11:30 AM EST Oxygen Saturation 95% 10/23/2024 11:30 AM EST Inhaled Oxygen Concentration - - Weight 87 kg (191 lb 12.8 oz) 10/23/2024 9:00 AM EST Height 182.9 cm (6') 10/23/2024 9:00 AM EST Body Mass Index 26.01 10/23/2024 9:00 AM EST Plan of Treatment Upcoming Encounters Date Type Department Care Team (Late st Contact Info) Description 04/08/2025 1:20 PM EDT Office Visit [facility] [place] [address] [facility], [address] [place] [address] Vivek Lei MD [address] [place] [address] Health Maintenance Due Date Last Done Comments [facility]-Hepatitis C Screening 1955 [facility]-Medicare Annual Wellness (AWV) 1955 [facility]-/Child/Adol SDOH Screenings 1955 [facility]- SDOH Screenings 1973 [facility]-Adult SDOH Screenings 1973 [facility]-DTaP,Tdap,and Td Vaccines (1 - Tdap) 1974 CT Colonography 2000 Colonoscopy 2000 FIT-DNA 2000 FIT 2000 FOBT 2000 Sigmoidoscopy 2000 [facility]-Colorectal Cancer Screening 2000 [facility]-Lung Cancer Screening 2005 [facility]-RSV Vaccine: 60+ Years or (1 - Risk 60-74 years 1-dose series) 2015 [facility]-Abdominal Aortic Aneurysm (AAA) Screening 2020 [facility]-Zoster Vaccines (2 of 2) 04/14/2024 02/18/2024 [id number] Vaccine ( - season) 2024 05/04/2022, 06/08/2021, 12/05/2020, Additional history exists [facility]-Depression Screening 10/08/2025 10/08/2024, 09/20 [facility]-Pneumococcal Vaccine: 50+ Years Completed 02/18/2024, 11/08/2021 [facility]-Influenza Vaccine Completed 10/01/2024 , 06/27/2023, 05/04/2022, Additional history exists [facility]-Obesity Intervention Completed 10/08/2024, 09/20 HPV Vaccines Aged Out No longer eligi ble based on patient's age to complete this topic [facility]-HIB Vaccines Aged Out No longer e ligible based on patient's age to complete this topic [facility]-Hepatitis A Vaccines Aged Out No longer eligible based on patient's age to complete this topic [facility]-IPV Vaccines Aged Out No longer e ligible based on patient's age to complete this topic [facility]-Rotavirus Vaccines Aged Out No lo nger eligible based on patient's age to complete this topic Insurance [facility] MEDICARE Care Teams Pump Erector Relationship Specialty Start Date End Date Dashawn Chowdhury MD [address] [place] [address] PCP - General Internal Medicine 10/08/24
--- OUTSIDE RECORDS SUMMARY | 2025-02-05 11:17 | XMS_ITS | Encounter Summary ---
Author Organization [facility] Address [address] [place] [address] Care Team Providers Care Outreach Manager Name Role Phone Dashawn Chowdhury MD Primary Care Provider [phone] Encounter Details Date Type Department Care Team (Late Contact Info) Description 06/04/2024 Orders Only External Location [address] [place] [address] Gui Linares MD [address] [facility] [address] [place] [address] Social History Tobacco Use Types Packs/Day Years Used Date Smoking Tobacco: Never Assessed Sex and Gender Information Value Date Recorded Sex Assigned at Male 10/22/2024 8:09 PM EST Legal Sex Male 2:01 PM EDT Gender Identity Male 10/22/2024 8:07 PM EST Sexual Orientation Choose not to disclose 2024 8:07 PM EST documented as of this encounter Plan of Treatment Upcoming Encounters Date Type Department Care Team (Late Contact Info) Description 04/08/2025 1:20 PM EDT Office Visit [facility] [place] [address], [address] [place] [address] Vivek Lei MD [address] [place] [address] documented as of this encounter Procedures Procedure Name Priority Date/Time Associated Diagnosis Comments IR OUTSIDE IMAGES 06/04/2024 8:28 AM EDT documented in this encounter Results * IR OUTSIDE IMAGES (06/04/2024 8:28 AM EDT) Anatomical Region Laterality Modality X-Ray Angiograph y 06/04/2024 8:28 AM EDT us Gui Linares MD IMG IR PROCEDURES Final Re sult documented in this encounter Visit Diagnoses Not on filedocumented in this encounter Care Teams Outreach Manager Relationship Specialty Start Date End Date Dashawn Chowdhury MD [address] [place] [address] PCP - General Internal Medicine 10/08/24 documented as of this encounter
--- OUTSIDE RECORDS SUMMARY | 2025-02-05 11:17 | XMS_ITS | Encounter Summary ---
Author Organization [facility] Address [address] [place] [address] Care Team Providers Care Motorcycle Repairer Name Role Phone Dashawn Chowdhury MD Primary Care Provider [phone] Encounter Details Date Type Department Care Team (Late Contact Info) Description 06/03/2024 Orders Only External Location [address] [place] [address] Giselle Rose, TELEGRAPH OFFICE ROUTE AIDE [address] [facility] [address], [place] [address] Social History Tobacco Use Types Packs/Day Years [...] Description 04/08/2025 1:20 PM EDT Office Visit [facility] [place] [address] [facility] [facility], [address] [place] [address] Vivek Lei MD [address] [place] [address] documented as of this encounter Procedures Procedure Name Priority Date/Time Associated Diagnosis Comments MR OUTSIDE IMAGES 06/03/2024 12:41 PM EDT documented in this encounter Results * MR transfer of outside films (06/03/2024 12:41 PM EDT) Anatomical Region Laterality Modality Magnetic Resonan ce 06/03/2024 12:4 1 PM EDT us Giselle Rose APRN IMG MRI PROCEDURES Final Res ult documented in this encounter Visit Diagnoses Not on filedocumented in this encounter Care Teams Motorcycle Repairer Relationship Specialty Start Date End Date Dashawn Chowdhury MD [address] [place] [address] PCP - General Internal Medicine 10/08/24 documented as of this encounter
--- OUTSIDE RECORDS SUMMARY | 2025-02-05 11:17 | XMS_ITS | Encounter Summary ---
Author Organization [facility] Address [address] [place] [address] Care Team Providers Care Commercial Installer Name Role Phone Dashawn Chowdhury MD Primary Care Provider [phone] Encounter Details Date Type Department Care Team (Late Contact Info) Description 06/03/2024 Orders Only External Location [address] [place] [address] Gui Linares MD [address] [facility] [address] [place] [address] Social History Tobacco Use Types Packs/Day Years [...] Description 04/08/2025 1:20 PM EDT Office Visit [facility] [place] [address] [facility] [address], [address] [place] [address] Vivek Lei MD [address] [place] [address] documented as of this encounter Procedures Procedure Name Priority Date/Time Associated Diagnosis Comments IR OUTSIDE IMAGES 06/03/2024 11:00 AM EDT documented in this encounter Results * IR OUTSIDE IMAGES (06/03/2024 11:00 AM EDT) Anatomical Region Laterality Modality X-Ray Angiograph y 06/03/2024 11:0 0 AM EDT us Gui Linares MD IMG IR PROCEDURES Final Re sult documented in this encounter Visit Diagnoses Not on filedocumented in this encounter Care Teams Commercial Installer Relationship Specialty Start Date End Date Dashawn Chowdhury MD [address] [place] [address] PCP - General Internal Medicine 10/08/24 documented as of this encounter
--- OUTSIDE RECORDS SUMMARY | 2025-02-05 11:17 | XMS_ITS | Encounter Summary ---
Author Organization [facility] Address [address] [place] [address] Care Team Providers Care Manager Renewable Energy Name Role Phone Dashawn Chowdhury MD Primary Care Provider [phone] Encounter Details Date Type Department Care Team (Late st Contact Info) Description 06/03/2024 Orders Only External Location [address] [place] [address] Giselle Rose, VIRTUAL ASSISTANT FOR ADVERTISERS [address] [facility] [address], [place] [address] Social History Tobacco Use Types Packs/Day Years [...] Description 04/08/2025 1:20 PM EDT Office Visit [facility] [place] [address] [facility] [address] [facility], [address] [place] [address] Vivek Lei MD [address] [place] [address] documented as of this encounter Procedures Procedure Name Priority Date/Time Associated Diagnosis Comments US OUTSIDE IMAGES 06/03/2024 11:00 AM EDT documented in this encounter Results * US OUTSIDE IMAGES (06/03/2024 11:00 AM EDT) Anatomical Region Laterality Modality Ultrasound 06/03/2024 11:0 0 AM EDT us Giselle Rose VIRTUAL ASSISTANT FOR ADVERTISERS IMG US PROCEDURES Final Resu lt documented in this encounter Visit Diagnoses Not on filedocumented in this encounter Care Teams Manager Renewable Energy Relationship Specialty Start Date End Date Dashawn Chowdhury MD [address] [place] [address] PCP - General Internal Medicine 10/08/24 documented as of this encounter
--- OUTSIDE RECORDS SUMMARY | 2025-02-05 11:17 | XMS_ITS | Encounter Summary ---
Author Organization [facility] Address [address] [place] [address] Care Team Providers Care Ophthalmic Medical Assistant Name Role Phone Dashawn Chowdhury MD Primary Care Provider [phone] Encounter Details Date Type Department Care Team (Late Contact Info) Description 07/13/2024 Orders Only External Location [address] [place] [address] Samantha Reyes, SHANK CUTTER [address] [facility] [address] [place] [address] Social History Tobacco Use Types Packs/Day Years [...] Description 04/08/2025 1:20 PM EDT Office Visit [facility] [place] [address] [facility], [address] [place] [address] Vivek Lei MD [address] [place] [address] documented as of this encounter Procedures Procedure Name Priority Date/Time Associated Diagnosis Comments NM OUTSIDE IMAGES 07/13/2024 11:31 AM EST documented in this encounter Results * NM OUTSIDE IMAGES (07/13/2024 11:31 AM EST) Anatomical Region Laterality Modality Nuclear Medicine 07/13/2024 11:3 1 AM EST Samantha Reyes SHANK CUTTER IMG NM PROCEDURES Angela l Result documented in this encounter Visit Diagnoses Not on filedocumented in this encounter Care Teams Ophthalmic Medical Assistant Relationship Specialty Start Date End Date Dashawn Chowdhury MD [address] [place] [address] PCP - General Internal Medicine 10/08/24 documented as of this encounter
--- OUTSIDE RECORDS SUMMARY | 2025-02-05 11:17 | XMS_ITS | Encounter Summary ---
Author Organization [facility] Address [address] [place] [address] Care Team Providers Care Resilient Tile Installer Name Role Phone Dashawn Chowdhury MD Primary Care Provider [phone] Encounter Details Date Type Department Care Team (Late st Contact Info) Description 06/04/2024 Orders Only External Location [address] [place] [address] Provider, External Social History Tobacco Use Types Packs/Day Years [...] Description 04/08/2025 1:20 PM EDT Office Visit [facility] [place] [address] [facility] [address] [facility], [address] [place] [address] Vivek Lei MD [address] [place] [address] documented as of this encounter Procedures Procedure Name Priority Date/Time Associated Diagnosis Comments US OUTSIDE IMAGES 06/04/2024 6:47 AM EDT documented in this encounter Results * US OUTSIDE IMAGES (06/04/2024 6:47 AM EDT) Anatomical Region Laterality Modality Ultrasound 06/04/2024 6:47 AM EDT us External Provider IMG US PROCEDURES Final Result documented in this encounter Visit Diagnoses Not on filedocumented in this encounter Care Teams Resilient Tile Installer Relationship Specialty Start Date End Date Dashawn Chowdhury MD [address] [place] [address] PCP - General Internal Medicine 10/08/24 documented as of this encounter
--- OUTSIDE RECORDS SUMMARY | 2025-02-05 11:17 | XMS_ITS | Encounter Summary ---
Author Organization [facility] Address [address] [place] [address] Care Team Providers Care Metal Cnc Operator Name Role Phone Dashawn Chowdhury MD Primary Care Provider [phone] Encounter Details Date Type Department Care Team (Late st Contact Info) Description 06/04/2024 Orders Only External Location [address] [place] [address] Provider, External Social History Tobacco [...] Description 04/08/2025 1:20 PM EDT Office Visit [facility] [place] [address] [facility], [address] [place] [address] Vivek Lei MD [address] [place] [address] documented as of this encounter Procedures Procedure Name Priority Date/Time Associated Diagnosis Comments US OUTSIDE IMAGES 06/04/2024 7:06 AM EDT documented in this encounter Results * US OUTSIDE IMAGES (06/04/2024 7:06 AM EDT) Anatomical Region Laterality Modality Ultrasound 06/04/2024 7:06 AM EDT us External Provider IMG US PROCEDURES Final Result documented in this encounter Visit Diagnoses Not on filedocumented in this encounter Care Teams Metal Cnc Operator Relationship Specialty Start Date End Date Dashawn Chowdhury MD [address] [place] [address] PCP - General Internal Medicine 10/08/24 documented as of this encounter
--- OUTSIDE RECORDS SUMMARY | 2025-02-05 11:17 | XMS_ITS | Encounter Summary ---
Author Organization [facility] Address [address] [place] [address] Care Team Providers Care Hospice Bereavement Coordinator Name Role Phone Dashawn Chowdhury MD Primary Care Provider [phone] Encounter Details Date Type Department Care Team (Late Contact Info) Description 06/04/2024 Orders Only External Location [address] [place] [address] Samantha Reyes, LOSS PREVENTION INVESTIGATOR [address] [facility] [address] [place] [address] Social History Tobacco Use Types Packs/Day Years [...] Description 04/08/2025 1:20 PM EDT Office Visit [facility] [place] [address] [facility] [facility], [address] [place] [address] Vivek Lei MD [address] [place] [address] documented as of this encounter Procedures Procedure Name Priority Date/Time Associated Diagnosis Comments US OUTSIDE IMAGES 06/04/2024 12:58 PM EDT documented in this encounter Results * US OUTSIDE IMAGES (06/04/2024 12:58 PM EDT) Anatomical Region Laterality Modality Ultrasound 06/04/2024 12:5 8 PM EDT us Samantha Reyes LOSS PREVENTION INVESTIGATOR IMG US PROCEDURES Angela l Result documented in this encounter Visit Diagnoses Not on filedocumented in this encounter Care Teams Hospice Bereavement Coordinator Relationship Specialty Start Date End Date Dashawn Chowdhury MD [address] [place] [address] PCP - General Internal Medicine 10/08/24 documented as of this encounter
--- OUTSIDE RECORDS SUMMARY | 2025-02-05 11:17 | XMS_ITS | Encounter Summary ---
Author Organization [facility] Address [address] [place] [address] Care Team Providers Care Radiology Therapist Name Role Phone Dashawn Chowdhury MD Primary Care Provider [phone] Encounter Details Date Type Department Care Team (Late Contact Info) Description 06/03/2024 Orders Only External Location [address] [place] [address] Gui Linares MD [address] [facility] [facility] [place] [address] Social History Tobacco Use Types Packs/Day Years [...] Description 04/08/2025 1:20 PM EDT Office Visit [facility] [place] [address] [facility], [address] [place] [address] Vivek Lei MD [address] [place] [address] documented as of this encounter Procedures Procedure [...] on filedocumented in this encounter Care Teams Radiology Therapist Relationship Specialty Start Date End Date Dashawn Chowdhury MD [address] [place] [address] PCP - General Internal Medicine 10/08/24 documented as of this encounter
--- OUTSIDE RECORDS SUMMARY | 2025-02-05 11:17 | XMS_ITS | Encounter Summary ---
Author Organization [facility] Address [address] [place] [address] Care Team Providers Care Machine Rigger Name Role Phone Dashawn Chowdhury MD Primary Care Provider [phone] Encounter Details Date Type Department Care Team (Late Contact Info) Description 06/04/2024 Orders Only External Location [address] [place] [address] Samantha Reyes, TIGHT COOPER [address] [facility] [address] [place] [address] Social History Tobacco Use Types Packs/Day Years [...] Description 04/08/2025 1:20 PM EDT Office Visit [facility] [place] [address] [facility], [address] [place] [address] Vivek Lei MD [address] [place] [address] documented as of this encounter Procedures Procedure Name Priority Date/Time Associated Diagnosis Comments US OUTSIDE IMAGES 06/04/2024 1:11 PM EDT documented in this encounter Results * US OUTSIDE IMAGES (06/04/2024 1:11 PM EDT) Anatomical Region Laterality Modality Ultrasound 06/04/2024 1:11 PM EDT us Samantha Reyes TIGHT COOPER IMG US PROCEDURES Angela l Result documented in this encounter Visit Diagnoses Not on filedocumented in this encounter Care Teams Machine Rigger Relationship Specialty Start Date End Date Dashawn Chowdhury MD [address] [place] [address] PCP - General Internal Medicine 10/08/24 documented as of this encounter
--- OUTSIDE RECORDS SUMMARY | 2025-02-05 11:17 | XMS_ITS | Encounter Summary ---
Author Organization [facility] Address [address] [place] [address] Care Team Providers Care Grant Administrator Name Role Phone Dashawn Chowdhury MD Primary Care Provider [phone] Encounter Details Date Type Department Care Team (Late st Contact Info) Description 06/04/2024 Orders Only External Location [address] [place] [address] Provider, External Social History Tobacco [...] Description 04/08/2025 1:20 PM EDT Office Visit [facility] [place] [address] [facility], [address] [place] [address] Vivek Lei MD [address] [place] [address] documented as of this encounter [...] on filedocumented in this encounter Care Teams Grant Administrator Relationship Specialty Start Date End Date Dashawn Chowdhury MD [address] [place] [address] PCP - General Internal Medicine 10/08/24 documented as of this encounter
--- OUTSIDE RECORDS SUMMARY | 2025-02-05 11:17 | XMS_ITS | Encounter Summary ---
Author Organization [facility] Address [address] [place] [address] Care Team Providers Care Resident Manager Name Role Phone Dashawn Chowdhury MD Primary Care Provider [phone] Encounter Details Date Type Department Care Team (Late st Contact Info) Description 06/04/2024 Orders Only External Location [address] [place] [address] Provider, External Social History Tobacco [...] Description 04/08/2025 1:20 PM EDT Office Visit [facility] [place] [address] [facility], [address] [place] [address] Vivek Lei MD [address] [place] [address] documented as of this encounter [...] on filedocumented in this encounter Care Teams Resident Manager Relationship Specialty Start Date End Date Dashawn Chowdhury MD [address] [place] [id number] PCP - General Internal Medicine 10/08/24 documented as of this encounter
--- OUTSIDE RECORDS SUMMARY | 2025-02-05 11:17 | XMS_ITS | Encounter Summary ---
Author Organization [facility] Address [address] [place] [address] Care Team Providers Care Vaccinator Name Role Phone Dashawn Chowdhury MD Primary Care Provider [phone] Encounter Details Date Type Department Care Team (Late Contact Info) Description 06/04/2024 Orders Only External Location [address] [place] [address] Gui Linares MD [address] [facility] [address] [place] [address] Social History Tobacco Use Types Packs/Day Years [...] Description 04/08/2025 1:20 PM EDT Office Visit [facility] [place] [address] [facility], [address] [place] [address] Vivek Lei MD [address] [place] [address] documented as of this encounter Procedures Procedure Name Priority Date/Time Associated Diagnosis Comments XR OUTSIDE IMAGES 06/04/2024 11:31 AM EDT documented in this encounter Results * XR OUTSIDE IMAGES (06/04/2024 11:31 AM EDT) Anatomical Region Laterality Modality Radiographic Raquel ging 06/04/2024 11:3 1 AM EDT us Gui Linares MD IMG XR PROCEDURES Final Re sult documented in this encounter Visit Diagnoses Not on filedocumented in this encounter Care Teams Vaccinator Relationship Specialty Start Date End Date Dashawn Chowdhury MD [address] [place] [address] PCP - General Internal Medicine 10/08/24 documented as of this encounter
--- OUTSIDE RECORDS SUMMARY | 2025-02-05 11:17 | XMS_ITS | Encounter Summary ---
Author Organization [facility] Address [address] [place] [address] Care Team Providers Care Wooden Fence Erector Name Role Phone Dashawn Chowdhury MD Primary Care Provider [phone] Encounter Details Date Type Department Care Team (Late Contact Info) Description 06/04/2024 Orders Only External Location [address] [place] [address] Gui Linares MD [address] [facility] [address] [place] [address] Social History Tobacco Use Types Packs/Day Years [...] Description 04/08/2025 1:20 PM EDT Office Visit [facility] [place] [address] [facility], [address] [place] [address] Vivek Lei MD [address] [place] [address] documented as of this encounter Procedures Procedure [...] on filedocumented in this encounter Care Teams Wooden Fence Erector Relationship Specialty Start Date End Date Dashawn Chowdhury MD [address] [place] [address] PCP - General Internal Medicine 10/08/24 documented as of this encounter
--- OUTSIDE RECORDS SUMMARY | 2025-02-05 11:17 | XMS_ITS | Encounter Summary ---
Author Organization [facility] Address [address] [place] [address] Care Team Providers Care Granulator Machine Operator Name Role Phone Dashawn Chowdhury MD Primary Care Provider [phone] Encounter Details Date Type Department Care Team (Late Contact Info) Description 06/03/2024 Orders Only External Location [address] [place] [address] Giselle Rose, RN PERINATAL [address] [facility] [address] [address] Social History Tobacco Use Types Packs/Day Years [...] Description 04/08/2025 1:20 PM EDT Office Visit [facility] [place] [address] [facility], [address] [place] [address] Vivek Lei MD [address] [place] [address] documented as of this encounter [...] on filedocumented in this encounter Care Teams Granulator Machine Operator Relationship Specialty Start Date End Date Dashawn Chowdhury MD [address] [place] [address] PCP - General Internal Medicine 10/08/24 documented as of this encounter
--- OUTSIDE RECORDS SUMMARY | 2025-02-05 11:17 | XMS_ITS | Encounter Summary ---
Author Organization [facility] Address [address] [place] [address] Care Team Providers Care Chief Enterprise Architect Name Role Phone Dashawn Chowdhury MD Primary Care Provider [phone] Encounter Details Date Type Department Care Team (Late st Contact Info) Description 06/03/2024 Orders Only External Location [address] [place] [address] Giselle Rose, PACKER DRIED BEEF [address] [facility] [address] [address] Social History Tobacco Use Types Packs/Day Years [...] Description 04/08/2025 1:20 PM EDT Office Visit [facility] [place] [address] [facility], [address] [place] [address] Vivek Lei MD [address] [place] [address] documented as of this encounter Procedures Procedure Name Priority Date/Time Associated Diagnosis Comments US OUTSIDE IMAGES 06/03/2024 11:00 AM EDT documented in this encounter Results * US OUTSIDE IMAGES (06/03/2024 11:00 AM EDT) Anatomical Region Laterality Modality Ultrasound 06/03/2024 11:0 0 AM EDT us Giselle Rose PACKER DRIED BEEF IMG US PROCEDURES Final Resu lt documented in this encounter Visit Diagnoses Not on filedocumented in this encounter Care Teams Chief Enterprise Architect Relationship Specialty Start Date End Date Dashawn Chowdhury MD [address] [place] [address] PCP - General Internal Medicine 10/08/24 documented as of this encounter
--- OUTSIDE RECORDS SUMMARY | 2025-02-05 11:17 | XMS_ITS | Encounter Summary ---
Author Organization [facility] Address [address] [place] [address] Care Team Providers Care Advanced Clinical Specialist Name Role Phone Dashawn Chowdhury MD Primary Care Provider [phone] Encounter Details Date Type Department Care Team (Late Contact Info) Description 06/04/2024 Orders Only External Location [address] [place] [address] Samantha Reyes, MORTGAGE CLOSING CLERK [address] [facility] [address] [place] [address] Social History Tobacco Use Types Packs/Day Years [...] Description 04/08/2025 1:20 PM EDT Office Visit [facility] [place] [address] [facility], [address] [place] [address] Vivek Lei MD [address] [place] [address] documented as of this encounter Procedures Procedure Name Priority Date/Time Associated Diagnosis Comments US OUTSIDE IMAGES 06/04/2024 1:11 PM EDT documented in this encounter Results * US OUTSIDE IMAGES (06/04/2024 1:11 PM EDT) Anatomical Region Laterality Modality Ultrasound 06/04/2024 1:11 PM EDT us Samantha Reyes MORTGAGE CLOSING CLERK IMG US PROCEDURES Angela l Result documented in this encounter Visit Diagnoses Not on filedocumented in this encounter Care Teams Advanced Clinical Specialist Relationship Specialty Start Date End Date Dashawn Chowdhury MD [address] [place] [address] PCP - General Internal Medicine 10/08/24 documented as of this encounter
--- NOTE | 2025-02-05 11:29 | ECG_ITS ---
APPROVED REPORT Exam: Resting ECG HR:77 bpm ECG Measurements Heart Rate 77 AXES AL 153 P 46 QRSd 177 QRS -75 QT 447 T 77 QTc 479 Conclusion ELECTRONIC VENTRICULAR PACEMAKER ABNORMAL RHYTHM ECG UNCONFIRMED REPORT Electronically signed by : Dashawn Chowdhury MD 02/06/2025 14:53:13
--- NOTE | 2025-02-05 11:37 | XR_ITS ---
FINAL REPORT CLINICAL HISTORY: surgery states he is getting a hip injection denies chest pain or SOA hx HTN COMPARISON: 11/13/2019 FINDINGS: PA and lateral views of the chest were obtained. There has been interval placement of a left-sided pacemaker. The cardiac and mediastinal silhouettes are within normal limits. The lungs are clear. There is no pleural effusion or pneumothorax. No acute osseous abnormality is identified. IMPRESSION: No radiographic evidence of acute cardiac or pulmonary disease. Reviewed, Interpreted and Dictated by Kayla Watkins MD Transcribed by Tracey Jameson Authenticated and [facility]
[2025-02-05 11:40] LABS: MANUAL DIFFERENTIAL MANUAL DIFFERENTIAL (MANUAL DIFF)
[2025-02-05 11:49] LABS: Basophils % 0.3 % (0.1-2.0); Eosinophils # 0.2 Kmm3 (0.0-0.4); Eosinophils % 2.6 % (0.1-12.0); Hematocrit 39.1 % (42.0-52.0); Hemoglobin 13.1 g/dL (14.1-18.0); Lymphocytes # 1.6 K/mm3 (0.7-4.5); Lymphocytes % 17.4 % (10-50); Mean Corpuscular HGB Conc 33.5 g/dL (31.8-35.4); Mean Corpuscular Volume 86.5 fl (80-94); Mean Platelet Volume 9.4 fl (7.4-10.4); Monocytes # 0.4 K/mm3 (0.1-1.0); Monocytes % 3.8 % (1.7-9.3); Neutrophils # 6.9 K/mm3 (1.8-7.8); Neutrophils % 74.7 % (37.0-80.0); Platelet Count 208 K/mm3 (142-424); Red Blood Count 4.52 M/mm3 (4.60-6.20); White Blood Count 9.3 K/mm3 (4.8-10.8)
[2025-02-05 11:53] LABS: Chloride 109 mmol/L (98-107); Potassium 3.9 mmoL/L (3.5-5.1); Sodium 139 mmol/L (136-145)
[2025-02-05 11:56] LABS: Anion Gap 11.9 mEq/L (5-15); Blood Urea Nitrogen 31 mg/dl (9-20); Carbon Dioxide 22 mmol/L (22.0-30.0); Estimated Glomerular Filt Rate 28 ml/min (>60); GFR (African American) 34 ML/MIN (>60)
[2025-02-05 11:57] LABS: Calcium 9.1 mg/dl (8.4-10.2); Glucose 156 mg/dl (74-100)
[2025-02-05 14:32] LABS: Eosinophils % 3 % (0-3); Lymphocytes % 17 % (10-50); Monocytes % 1 % (2-9); Neutrophils % 79 % (42-76); Platelet Estimate Normal; RBC Morphology Normal; Total Cells Counted 100
== END 2025-02-05 23:59 | disposition home or self-care (01) ==
LOC: PREOP 11:15
PROVIDERS: Physician Assistant; PCP Internal Medicine Adolescent Medicine; Visit Provider Orthopaedic Surgery
DX: Z01.810 Encounter for preprocedural cardiovascular examination (principal); Z01.811 Encounter for preprocedural respiratory examination; Z01.812 Encounter for preprocedural laboratory examination; I49.8 Other specified cardiac arrhythmias; M25.551 Pain in right hip; G89.29 Other chronic pain; Z95.0 Presence of cardiac pacemaker
CPT/HCPCS: 71046; 80048; 85007; 85014; 85018; 85048; 85049; 93005

== ENCOUNTER 2025-02-09 08:04 | Day surgery (SDC) | payer MEDICARE, SELFPAY ==
--- NOTE | 2025-02-04 14:20 | PC.NURSE ---
Spoke w/ Kofi Chong in cardiology, determined ok for pt. to hold ASA and Plavix for 5 days prior to procedure. Pt. notified and verbalized understanding.
[2025-02-05 12:53] VITALS: BMI 27.1
[2025-02-09 09:26] VITALS: BP 138/69; PULSE 65; RESP 18; TEMP 36.4; O2SAT 100
[2025-02-09] MEDS: LIDOCAINE 1% 20ML MDV 20 ML (09:50)
[2025-02-09] MEDS: TRIAMCINOLONE ACET 40MG/ML VIAL 80 MG (09:50)
[2025-02-09 10:02] VITALS: BP 130/65; PULSE 66; RESP 18; TEMP 36.3; O2SAT 96
--- NOTE | 2025-02-09 10:02 | FL_ITS ---
FINAL REPORT CLINICAL HISTORY: RIGHT HIP INJECTION fluoro time 0:05 mGy 2.03 FINDINGS: FLUOROSCOPY LESS THAN 1 HOUR HISTORY: Fluoroscopy guidance Utilized right fluoroscopic guidance was provided for injection. A single spot film was obtained. 0.5 seconds of fluoroscopy time were used. DAP: 2.03 mGy IMPRESSION: As above. Reviewed, Interpreted and Dictated by Kofi Barnes MD Transcribed by Nichole Harman Authenticated and [facility]
[2025-02-09] MEDS: IOPAMIDOL-370 (76%);100ML BOTTLE 10 ML IV (10:05)
[2025-02-09 10:12] VITALS: BP 126/72; PULSE 68; RESP 18; O2SAT 97
[2025-02-09 10:22] VITALS: BP 132/74; PULSE 72; RESP 18; O2SAT 96
--- NOTE | 2025-02-09 10:27 | P.OP_ITS ---
Date of procedure: 02/09/25 Pre-op Diagnosis:: Right hip osteoarthritis Post-op Diagnosis:: Same Procedure performed:: Right hip injection with arthrogram x-ray guidance for needle placement Surgeon:: Simeon Umaña DO GROUP PRODUCT MANAGER:: Marshall Barrera Anesthesia: MAC Estimated blood loss (mL): 0 Operative findings:: See dictation Operative note:: Patient identified briefly. Right hip marked with yes my initial. Transferred operative suite placed upon the radiolucent bed. Right hip prepped and draped normal sterile fashion. Once prepped and draped final operative timeout performed to identify proper patient procedure and extremity. Everyone involved in case agree. No counter indication to beginning. X-rays brought into identify the right hip joint 18-gauge spinal needle was used in the proper trajectory into the hip capsule. Needle was placed in the hip capsule arthrogram performed once arthrogram was confirmed to be within the hip capsule injection 80 mg Kenalog 3 cc 1% lidocaine injected needle removed Band-A id placed patient waken sedation taken recovery in stable condition. Condition: stable Disposition: PACU Complications:: None apparent
[2025-02-09 10:32] VITALS: BP 133/77; PULSE 74; RESP 18; O2SAT 97
== END 2025-02-09 10:35 | disposition home or self-care (01) ==
PROVIDERS: PCP Internal Medicine Adolescent Medicine; Visit Provider Orthopaedic Surgery
PROC: 3E0U3GC Introduction of Other Therapeutic Substance into Joints, Percutaneous Approach (ICD-10-PCS; CPT 20610; principal; 2025-02-09 09:30)
DX: G89.29 Other chronic pain (principal); M25.551 Pain in right hip; M16.11 Unilateral primary osteoarthritis, right hip; E85.82 Wild-type transthyretin-related (ATTR) amyloidosis; J43.9 Emphysema, unspecified; I73.9 Peripheral vascular disease, unspecified; N40.0 Benign prostatic hyperplasia without lower urinary tract symptoms; I10 Essential (primary) hypertension; E78.5 Hyperlipidemia, unspecified; F17.210 Nicotine dependence, cigarettes, uncomplicated; I65.29 Occlusion and stenosis of unspecified carotid artery; Z86.73 Personal history of transient ischemic attack (TIA), and cerebral infarction without residual deficits; Z95.5 Presence of coronary angioplasty implant and graft; Z79.02 Long term (current) use of antithrombotics/antiplatelets; Z95.0 Presence of cardiac pacemaker; Z79.82 Long term (current) use of aspirin; Z79.899 Other long term (current) drug therapy
CPT/HCPCS: 27095; 77002; J2003; J2704; J3301; Q9967

== ENCOUNTER 2025-02-24 12:53 | Outpatient (CLI) | payer MEDICARE, SELFPAY ==
--- OUTSIDE RECORDS SUMMARY | 2025-02-24 12:57 | XMS_ITS | Encounter Summary ---
Author Organization [facility] Address [address] [place] [address] Care Team Providers Care Dye Automation Operator Name Role Phone Dashawn Chowdhury MD Primary Care Provider [phone] Encounter Details Date Type Department Care Team (Late Contact Info) Description 06/04/2024 Orders Only External Location [address] [place] [address] Samantha Reyes, LODGING FACILITIES MANAGER [address] [facility] [address] [place] [address] Social History Tobacco Use Types Packs/Day Years [...] Description 04/08/2025 1:20 PM EDT Office Visit [facility] [place] [address] [facility], [address] [place] [address] Vivek Lei MD [address] [place] [address] documented as of this encounter Procedures Procedure Name Priority Date/Time Associated Diagnosis Comments US OUTSIDE IMAGES 06/04/2024 12:58 PM EDT documented in this encounter Results * US OUTSIDE IMAGES (06/04/2024 12:58 PM EDT) Anatomical Region Laterality Modality Ultrasound 06/04/2024 12:5 8 PM EDT us Samantha Reyes LODGING FACILITIES MANAGER IMG US PROCEDURES Angela l Result documented in this encounter Visit Diagnoses Not on filedocumented in this encounter Care Teams Dye Automation Operator Relationship Specialty Start Date End Date Dashawn Chowdhury MD [address] [place] [address] PCP - General Internal Medicine 10/08/24 documented as of this encounter
--- OUTSIDE RECORDS SUMMARY | 2025-02-24 12:57 | XMS_ITS | Encounter Summary ---
Author Organization [facility] Address [address] [place] [address] Care Team Providers Care Managing Director Name Role Phone Dashawn Chowdhury MD Primary Care Provider [phone] Encounter Details Date Type Department Care Team (Late Contact Info) Description 06/04/2024 Orders Only External Location [address] [place] [address] Samantha Reyes, FIELD APPRAISER [address] [facility] [address] [place] [address] Social History Tobacco Use Types Packs/Day Years [...] Description 04/08/2025 1:20 PM EDT Office Visit [facility] [place] [address] [facility], [address] [place] [address] Vivek Lie MD [address] [place] [address] documented as of this encounter Procedures Procedure Name Priority Date/Time Associated Diagnosis Comments US OUTSIDE IMAGES 06/04/2024 1:11 PM EDT documented in this encounter Results * US OUTSIDE IMAGES (06/04/2024 1:11 PM EDT) Anatomical Region Laterality Modality Ultrasound 06/04/2024 1:11 PM EDT us Samantha Reyes FIELD APPRAISER IMG US PROCEDURES Angela l Result documented in this encounter Visit Diagnoses Not on filedocumented in this encounter Care Teams Managing Director Relationship Specialty Start Date End Date Dashawn Chowdhury MD [address] [place] [address] PCP - General Internal Medicine 10/08/24 documented as of this encounter
--- OUTSIDE RECORDS SUMMARY | 2025-02-24 12:57 | XMS_ITS | Clinical Summary ---
Author Organization [facility] Address [address] [place] [address] Care Team Providers Care C++ Quant Developer Name Role Phone Dashawn Chowdhury MD Primary Care Provider [phone] Allergies No known active allergies Medications Aspirin [...] Description 04/08/2025 1:20 PM EDT Office Visit [facility] [place] [address] [facility], [address] [place] [address] Vivek Lei MD [address] [place] [address] Health Maintenance Due Date Last Done Comments [facility]-Hepatitis C Screening 1955 [facility]-Medicare Annual Wellness (AWV) 1955 [facility]-Infant/Child/Adol SDOH Screenings 1955 [facility]- SDOH Screenings 1973 [...] [facility]-Zoster Vaccines (2 of 2) 04/14/2024 02/18/2024 [id number] Vaccine ( - season) 2024 05/04/2022, 06/08/2021, 12/05/2020, Additional history exists [facility]-Influenza Vaccine (#1) 04/19/202510/01, 06/27/2023, 05/04/2022, Additional history exists [facility]-Depression Screening 10/08/2025 10/08/2024, 09/20 [facility]-Pneumococcal Vaccine: 50+ Years Completed 02/18/2024, 11/08/2021 [facility]-Obesity Intervention Completed 10/08/2024, 09/20 HPV Vaccines [...] patient's age to complete this topic Insurance [employer] MEDICARE Care Teams C++ Quant Developer Relationship Specialty Start Date End Date Dashawn Chowdhury MD [address] [place] [address] PCP - General Internal Medicine 10/08/24
--- OUTSIDE RECORDS SUMMARY | 2025-02-24 12:57 | XMS_ITS | Encounter Summary ---
Author Organization [facility] Address [address] [place] [address] Care Team Providers Care Chief Strategy Officer Name Role Phone Dashawn Chowdhury MD Primary Care Provider [phone] Encounter Details Date Type Department Care Team (Late Contact Info) Description 06/03/2024 Orders Only External Location [address] [place] [address] Gui Linares MD [address] [facility] [address] [place] [address] Social History Tobacco Use Types Packs/Day Years [...] Description 04/08/2025 1:20 PM EDT Office Visit [facility] [place] [address] [facility], [address] [place] [address] Vivek Lei MD [address] [place] [address] documented as of this encounter Procedures Procedure [...] filedocumented in this encounter Care Teams Chief Strategy Officer Relationship Specialty Start Date End Date Dashawn Chowdhury MD [address] [place] [address] PCP - General Internal Medicine 10/08/24 documented as of this encounter
--- OUTSIDE RECORDS SUMMARY | 2025-02-24 12:57 | XMS_ITS | Encounter Summary ---
Author Organization [facility] Address [address] [place] [address] Care Team Providers Care Community Relations Officer Name Role Phone Dashawn Chowdhury MD Primary Care Provider [phone] Encounter Details Date Type Department Care Team (Late Contact Info) Description 06/03/2024 Orders Only External Location [address] [place] [address] Giselle Rose, DIGITAL DATA ANALYST [address] [facility] [address] [address] Social History Tobacco Use Types Packs/Day Years [...] Description 04/08/2025 1:20 PM EDT Office Visit [facility] [place] [address] [facility], [address] [place] [address] Vivek Lei MD [address] [place] [address] documented as of this encounter [...] on filedocumented in this encounter Care Teams Community Relations Officer Relationship Specialty Start Date End Date Dashawn Chowdhury MD [address] [place] [address] PCP - General Internal Medicine 10/08/24 documented as of this encounter
--- OUTSIDE RECORDS SUMMARY | 2025-02-24 12:57 | XMS_ITS | Encounter Summary ---
Author Organization [facility] Address [address] [place] [address] Care Team Providers Care Supervisor Microfilm Duplicating Unit Name Role Phone Dashawn Chowdhury MD Primary Care Provider [phone] Encounter Details Date Type Department Care Team (Late Contact Info) Description 06/04/2024 Orders Only External Location [address] [place] [address] Gui Linares MD [address] [facility] [address] [place] [address] Social History Tobacco Use Types Packs/Day Years [...] Description 04/08/2025 1:20 PM EDT Office Visit [facility] [place] [address] [facility], [address] [place] [address] Vivek Lei MD [address] [place] [address] documented as of this encounter Procedures Procedure [...] on filedocumented in this encounter Care Teams Supervisor Microfilm Duplicating Unit Relationship Specialty Start Date End Date Dashawn Chowdhury MD [address] [place] [address] PCP - General Internal Medicine 10/08/24 documented as of this encounter
--- OUTSIDE RECORDS SUMMARY | 2025-02-24 12:57 | XMS_ITS | Encounter Summary ---
Author Organization [facility] Address [address] [place] [address] Care Team Providers Care Health And Fitness Instructor Name Role Phone Dashawn Chowdhury MD Primary Care Provider [phone] Encounter Details Date Type Department Care Team (Late st Contact Info) Description 06/04/2024 Orders Only External Location [address] [place] [address] Provider, External Social History Tobacco [...] Description 04/08/2025 1:20 PM EDT Office Visit [facility] [place] [address] [facility], [address] [place] [address] Vivek Lei MD [address] [place] [address] documented as of this encounter [...] on filedocumented in this encounter Care Teams Health And Fitness Instructor Relationship Specialty Start Date End Date Dashawn Chowdhury MD [address] [place] [address] PCP - General Internal Medicine 10/08/24 documented as of this encounter
--- OUTSIDE RECORDS SUMMARY | 2025-02-24 12:57 | XMS_ITS | Encounter Summary ---
Author Organization [facility] Address [address] [place] [address] Care Team Providers Care Branch Assistant Name Role Phone Dashawn Chowdhury MD Primary Care Provider [phone] Encounter Details Date Type Department Care Team (Late Contact Info) Description 06/04/2024 Orders Only External Location [address] [place] [address] Gui Linares MD [address] [facility] [address] [place] [address] Social History Tobacco Use Types Packs/Day Years [...] Description 04/08/2025 1:20 PM EDT Office Visit [facility] [place] [address] [facility], [address] [place] [address] Vivek Lei MD [address] [place] [address] documented as of this encounter Procedures Procedure [...] on filedocumented in this encounter Care Teams Branch Assistant Relationship Specialty Start Date End Date Dashawn Chowdhury MD [address] [place] [address] PCP - General Internal Medicine 10/08/24 documented as of this encounter
--- OUTSIDE RECORDS SUMMARY | 2025-02-24 12:57 | XMS_ITS | Encounter Summary ---
Author Organization [facility] Address [address] [place] [address] Care Team Providers Care Manager Technical Name Role Phone Dashawn Chowdhury MD Primary Care Provider [phone] Encounter Details Date Type Department Care Team (Late st Contact Info) Description 06/04/2024 Orders Only External Location [address] [place] [address] Provider, External Social History Tobacco [...] Description 04/08/2025 1:20 PM EDT Office Visit [facility] [place] [address] [facility], [address] [place] [address] Vivek Lei MD [address] [place] [address] documented as of this encounter [...] filedocumented in this encounter Care Teams Manager Technical Relationship Specialty Start Date End Date Dashawn Chowdhury MD [address] [place] [address] PCP - General Internal Medicine 10/08/24 documented as of this encounter
--- OUTSIDE RECORDS SUMMARY | 2025-02-24 12:57 | XMS_ITS | Encounter Summary ---
Author Organization [facility] Address [address] [place] [address] Care Team Providers Care Bi Data Modeler Name Role Phone Dashawn Cohwdhury MD Primary Care Provider [phone] Encounter Details Date Type Department Care Team (Late Contact Info) Description 06/03/2024 Orders Only External Location [address] [place] [address] Gui Linares MD [address] [facility] [address] [place] [address] Social History Tobacco Use Types Packs/Day Years [...] Description 04/08/2025 1:20 PM EDT Office Visit [facility] [place] [address] [facility], [address] [place] [address] Vivek Lei MD [address] [place] [address] documented as of this encounter Procedures Procedure [...] on filedocumented in this encounter Care Teams Bi Data Modeler Relationship Specialty Start Date End Date Dashawn Chowdhury MD [address] [place] [address] PCP - General Internal Medicine 10/08/24 documented as of this encounter
--- OUTSIDE RECORDS SUMMARY | 2025-02-24 12:57 | XMS_ITS | Encounter Summary ---
Author Organization [facility] Address [address] [place] [address] Care Team Providers Care Research Consultant Name Role Phone Dashawn Chowdhury MD Primary Care Provider [phone] Encounter Details Date Type Department Care Team (Late st Contact Info) Description 06/04/2024 Orders Only External Location [address] [place] [address] Provider, External Social History Tobacco [...] Description 04/08/2025 1:20 PM EDT Office Visit [facility] [place] [address] [facility], [address] [place] [address] Vivek Lei MD [address] [place] [address] documented as of this encounter [...] on filedocumented in this encounter Care Teams Research Consultant Relationship Specialty Start Date End Date Dashawn Chowdhury MD [address] [place] [address] PCP - General Internal Medicine 10/08/24 documented as of this encounter
--- OUTSIDE RECORDS SUMMARY | 2025-02-24 12:57 | XMS_ITS | Encounter Summary ---
Author Organization [facility] Address [address] [place] [address] Care Team Providers Care Dry Heat Room Attendant Name Role Phone Dashawn Chowdhury MD Primary Care Provider [phone] Encounter Details Date Type Department Care Team (Late Contact Info) Description 06/03/2024 Orders Only External Location [address] [place] [address] Giselle Rose, HOST/HOSTESS RESTAURANT [address] [facility] [address], [place] [address] Social History Tobacco Use Types Packs/Day Years [...] Description 04/08/2025 1:20 PM EDT Office Visit [facility] [place] [address] [facility], [address] [place] [address] Vivek Lei MD [address] [place] [address] documented as of this encounter [...] on filedocumented in this encounter Care Teams Dry Heat Room Attendant Relationship Specialty Start Date End Date Dashawn Chowdhury MD [address] [place] [id number] PCP - General Internal Medicine 10/08/24 documented as of this encounter
--- OUTSIDE RECORDS SUMMARY | 2025-02-24 12:57 | XMS_ITS | Encounter Summary ---
Author Organization [facility] Address [address] [place] [address] Care Team Providers Care Trout Farmer Name Role Phone Dashawn Chowdhury MD Primary Care Provider [phone] Encounter Details Date Type Department Care Team (Late Contact Info) Description 06/04/2024 Orders Only External Location [address] [place] [address] Gui Linares MD [address] [facility] [address] [place] [address] Social History Tobacco Use Types Packs/Day Years [...] Description 04/08/2025 1:20 PM EDT Office Visit [facility] [place] [address] [facility], [address] [place] [address] Vivek Lei MD [address] [place] [address] documented as of this encounter Procedures Procedure Name Priority Date/Time Associated Diagnosis Comments XR OUTSIDE IMAGES 06/04/2024 11:31 AM EDT documented in this encounter Results * XR OUTSIDE IMAGES (06/04/2024 11:31 AM EDT) Anatomical Region Laterality Modality Radiographic Rqauel ging 06/04/2024 11:3 1 AM EDT us Gui Linares MD IMG XR PROCEDURES Final Re sult documented in this encounter Visit Diagnoses Not on filedocumented in this encounter Care Teams Trout Farmer Relationship Specialty Start Date End Date Dashawn Chowdhury MD [address] [place] [address] PCP - General Internal Medicine 10/08/24 documented as of this encounter
--- OUTSIDE RECORDS SUMMARY | 2025-02-24 12:57 | XMS_ITS | Encounter Summary ---
Author Organization [facility] Address [address] [place] [place] [address] Care Team Providers Care Final Finisher Name Role Phone Dashawn Chowdhury MD Primary Care Provider [phone] Encounter Details Date Type Department Care Team (Late Contact Info) Description 07/13/2024 Orders Only External Location [address] [place] [address] Samantha Reyes, EAR MACHINE OPERATOR [address] [facility] [address] [place] [address] Social History Tobacco Use Types Packs/Day Years [...] Description 04/08/2025 1:20 PM EDT Office Visit [facility] [place] [address] [facility], [address] [place] [address] Vivek Lei MD [address] [place] [address] documented as of this encounter Procedures Procedure Name Priority Date/Time Associated Diagnosis Comments NM OUTSIDE IMAGES 07/13/2024 11:31 AM EST documented in this encounter Results * NM OUTSIDE IMAGES (07/13/2024 11:31 AM EST) Anatomical Region Laterality Modality Nuclear Medicine 07/13/2024 11:3 1 AM EST Samantha Reyes EAR MACHINE OPERATOR IMG NM PROCEDURES Angela l Result documented in this encounter Visit Diagnoses Not on filedocumented in this encounter Care Teams Final Finisher Relationship Specialty Start Date End Date Dashawn Chowdhury MD [address] [place] [address] PCP - General Internal Medicine 10/08/24 documented as of this encounter
--- OUTSIDE RECORDS SUMMARY | 2025-02-24 12:57 | XMS_ITS | Encounter Summary ---
Author Organization [facility] Address [address] [place] [address] Care Team Providers Care Woodwind Instrument Repairer Name Role Phone Dashawn Chowdhury MD Primary Care Provider [phone] Encounter Details Date Type Department Care Team (Late st Contact Info) Description 06/04/2024 Orders Only External Location [address] [place] [address] Provider, External Social History Tobacco [...] Description 04/08/2025 1:20 PM EDT Office Visit [facility] [place] [address] [facility], [address] [place] [address] Vivek Lei MD [address] [place] [address] documented as of this encounter [...] on filedocumented in this encounter Care Teams Woodwind Instrument Repairer Relationship Specialty Start Date End Date Dashawn Chowdhury MD [address] [place] [address] PCP - General Internal Medicine 10/08/24 documented as of this encounter
--- OUTSIDE RECORDS SUMMARY | 2025-02-24 12:57 | XMS_ITS | Encounter Summary ---
Author Organization [facility] Address [address] [place] [address] Care Team Providers Care Air And Missile Defense Crewmember Name Role Phone Dashawn Chowdhury MD Primary Care Provider [phone] Encounter Details Date Type Department Care Team (Late st Contact Info) Description 06/03/2024 Orders Only External Location [address] [place] [address] Giselle Rose, WIRE CHARGER [address] [facility] [address] [address] Social History Tobacco Use Types Packs/Day Years [...] Description 04/08/2025 1:20 PM EDT Office Visit [facility] [place] [address] [facility], [address] [place] [address] Vivek Lei MD [address] [place] [address] documented as of this encounter Procedures Procedure Name Priority Date/Time Associated Diagnosis Comments US OUTSIDE IMAGES 06/03/2024 11:00 AM EDT documented in this encounter Results * US OUTSIDE IMAGES (06/03/2024 11:00 AM EDT) Anatomical Region Laterality Modality Ultrasound 06/03/2024 11:0 0 AM EDT us Giselle Rose WIRE CHARGER IMG US PROCEDURES Final Resu lt documented in this encounter Visit Diagnoses Not on filedocumented in this encounter Care Teams Air And Missile Defense Crewmember Relationship Specialty Start Date End Date Dashawn Chowdhury MD [address] [place] [address] PCP - General Internal Medicine 10/08/24 documented as of this encounter
--- OUTSIDE RECORDS SUMMARY | 2025-02-24 12:57 | XMS_ITS | Encounter Summary ---
Author Organization [facility] Address [address] [place] [address] Care Team Providers Care Manager Therapy Name Role Phone Dashawn Chowdhury MD Primary Care Provider [phone] Encounter Details Date Type Department Care Team (Late st Contact Info) Description 06/03/2024 Orders Only External Location [address] [place] [address] Giselle Rose, LONG CHAIN BEAMER [address] [facility] [address] [address] Social History Tobacco Use Types Packs/Day Years [...] Description 04/08/2025 1:20 PM EDT Office Visit [facility] [place] [address] [facility], [address] [place] [address] Vivek Lei MD [address] [place] [address] documented as of this encounter Procedures Procedure Name Priority Date/Time Associated Diagnosis Comments US OUTSIDE IMAGES 06/03/2024 11:00 AM EDT documented in this encounter Results * US OUTSIDE IMAGES (06/03/2024 11:00 AM EDT) Anatomical Region Laterality Modality Ultrasound 06/03/2024 11:0 0 AM EDT us Giselle Rose LONG CHAIN BEAMER IMG US PROCEDURES Final Resu lt documented in this encounter Visit Diagnoses Not on filedocumented in this encounter Care Teams Manager Therapy Relationship Specialty Start Date End Date Dashawn Chowdhury MD [address] [place] [address] PCP - General Internal Medicine 10/08/24 documented as of this encounter
--- OUTSIDE RECORDS SUMMARY | 2025-02-24 12:57 | XMS_ITS | Encounter Summary ---
Author Organization [facility] Address [address] [place] [address] Care Team Providers Care Mechanical Pencils Assembler Name Role Phone Dashawn Chowdhury MD Primary Care Provider [phone] Encounter Details Date Type Department Care Team (Late Contact Info) Description 06/04/2024 Orders Only External Location [address] [place] [address] Samantha Reyes, BOX CLOSING MACHINE OPERATOR [address] [facility] [address] [place] [address] Social History Tobacco Use Types Packs/Day Years [...] Description 04/08/2025 1:20 PM EDT Office Visit [facility] [place] [address] [facility] [facility], [address] [place] [address] Vivek Lei MD [address] [place] [address] documented as of this encounter Procedures Procedure Name Priority Date/Time Associated Diagnosis Comments US OUTSIDE IMAGES 06/04/2024 1:11 PM EDT documented in this encounter Results * US OUTSIDE IMAGES (06/04/2024 1:11 PM EDT) Anatomical Region Laterality Modality Ultrasound 06/04/2024 1:11 PM EDT us Samantha Reyes BOX CLOSING MACHINE OPERATOR IMG US PROCEDURES Angela l Result documented in this encounter Visit Diagnoses Not on filedocumented in this encounter Care Teams Mechanical Pencils Assembler Relationship Specialty Start Date End Date Dashawn Chowdhury MD [address] [place] [address] PCP - General Internal Medicine 10/08/24 documented as of this encounter
--- NOTE | 2025-02-24 13:00 | US_ITS ---
FINAL REPORT TECHNIQUE: Ultrasound images of the kidneys were obtained. CLINICAL HISTORY: .RENAL CYSTS COMPARISON: 10/19/2024 FINDINGS: The right kidney measures 10.7 cm in length. It is normal in echogenicity. There is no hydronephrosis. There are multiple cysts present in the right kidney. There is a mid right kidney 2.6 x 3.3 cm hypoechoic focus with a single septation again noted. The remainder of the cysts in the right kidney appear anechoic. The left kidney measures 11.8 cm in length. It is normal in echogenicity. There is no hydronephrosis. Multiple cysts are once again noted. There is a 1.3 x 1.5 cm exophytic left mid kidney cyst. A smaller exophytic left mid renal 9 mm cyst also remains present, and does not appear to represent a simple cyst. IMPRESSION: Multiple cysts are present bilaterally, most of which appear to represent simple cysts. However, a cyst on the right contains a septation, and a cyst on the left is not a simple cyst. Would recommend pre and postcontrast enhanced CT of the kidneys for further evaluation. Reviewed, Interpreted and Dictated by Alfredo Page MD Transcribed by Shelia Hopper Authenticated and [facility]
== END 2025-02-24 23:59 | disposition home or self-care (01) ==
LOC: RAD 12:53
PROVIDERS: PCP Internal Medicine Adolescent Medicine; Visit Provider Urology
DX: Q61.02 Congenital multiple renal cysts (principal); R93.422 Abnormal radiologic findings on diagnostic imaging of left kidney; R93.421 Abnormal radiologic findings on diagnostic imaging of right kidney
CPT/HCPCS: 76770

== ENCOUNTER 2025-03-03 13:43 | Outpatient (CLI) | payer MEDICARE, SELFPAY ==
--- OUTSIDE RECORDS SUMMARY | 2025-03-03 13:53 | XMS_ITS | Encounter Summary ---
Author Organization [facility] Address [address] [place] [address] Care Team Providers Care Medication Reconciliation Technician Name Role Phone Dashawn Chowdhury MD Primary Care Provider [phone] Encounter Details Date Type Department Care Team (Late st Contact Info) Description 06/04/2024 Orders Only External Location [address] [place] [address] Provider, External Social History Tobacco [...] Description 04/08/2025 1:20 PM EDT Office Visit [facility] [place] [address] [facility], [address] [place] [address] Vivek Lei MD [address] [place] [address] documented as of this encounter [...] on filedocumented in this encounter Care Teams Medication Reconciliation Technician Relationship Specialty Start Date End Date Dashawn Chowdhury MD [address] [place] [address] PCP - General Internal Medicine 10/08/24 documented as of this encounter
--- OUTSIDE RECORDS SUMMARY | 2025-03-03 13:53 | XMS_ITS | Encounter Summary ---
Author Organization [facility] Address [address] [place] [address] Care Team Providers Care Perennial House Manager Name Role Phone Dashawn Chowdhury MD Primary Care Provider [phone] Encounter Details Date Type Department Care Team (Late st Contact Info) Description 06/04/2024 Orders Only External Location [address] [place] [address] Provider, External Social History Tobacco [...] Description 04/08/2025 1:20 PM EDT Office Visit [facility] [place] [address] [facility], [address] [place] [address] Vivek Lei MD [address] [place] [address] documented as of this encounter [...] on filedocumented in this encounter Care Teams Perennial House Manager Relationship Specialty Start Date End Date Dashawn Chowdhury MD [address] [place] [address] PCP - General Internal Medicine 10/08/24 documented as of this encounter
--- OUTSIDE RECORDS SUMMARY | 2025-03-03 13:53 | XMS_ITS | Encounter Summary ---
Author Organization [facility] Address [address] [place] [address] Care Team Providers Care Sling Operator Name Role Phone Dashawn Chowdhury MD Primary Care Provider [phone] Encounter Details Date Type Department Care Team (Late st Contact Info) Description 06/04/2024 Orders Only External Location [address] [place] [address] Provider, External Social History Tobacco [...] Description 04/08/2025 1:20 PM EDT Office Visit [facility] [place] [address] [facility], [address] [place] [address] Vivek Lei MD [address] [place] [address] documented as of this encounter [...] on filedocumented in this encounter Care Teams Sling Operator Relationship Specialty Start Date End Date Dashawn Chowdhury MD [address] [place] [address] PCP - General Internal Medicine 10/08/24 documented as of this encounter
--- OUTSIDE RECORDS SUMMARY | 2025-03-03 13:54 | XMS_ITS | Clinical Summary ---
Author Organization [facility] Address [address] [place] [address] Care Team Providers Care Extension Agent Name Role Phone Dashawn Chowdhury MD Primary Care Provider [phone] Allergies No known active allergies Medications Aspirin [...] Description 04/08/2025 1:20 PM EDT Office Visit [facility] [place] [address] [facility], [address] [place] [address] Vivek Lei MD [address] [place] [address] Health Maintenance Due Date Last [...] UKY-Zoster Vaccines (2 of 2) 04/14/2024 02/18/2024 NON-RBIEL-03 Vaccine ( - season) 2024 05/04/2022, 06/08/2021, [...] this topic Insurance [employer] MEDICARE Care Teams Extension Agent Relationship Specialty Start Date End Date Dashawn Chowdhury MD [address] [place] [address] PCP - General Internal Medicine 10/08/24
--- OUTSIDE RECORDS SUMMARY | 2025-03-03 13:54 | XMS_ITS | Encounter Summary ---
Author Organization [facility] Address [address] [place] [address] Care Team Providers Care Online Marketing Coordinator Name Role Phone Dashawn Chowdhury MD Primary Care Provider [phone] Encounter Details Date Type Department Care Team (Late Contact Info) Description 06/04/2024 Orders Only External Location [address] [place] [address] Samantha Reyes, TACTICAL AIR CONTROL PARTY MANAGER [address] [facility] [address] [place] [address] Social History Tobacco Use Types Packs/Day Years [...] Description 04/08/2025 1:20 PM EDT Office Visit [facility] [place] [address] [facility], [address] [place] [address] Vivek Lei MD [address] [place] [address] documented as of this encounter Procedures Procedure Name Priority Date/Time Associated Diagnosis Comments US OUTSIDE IMAGES 06/04/2024 12:58 PM EDT documented in this encounter Results * US OUTSIDE IMAGES (06/04/2024 12:58 PM EDT) Anatomical Region Laterality Modality Ultrasound 06/04/2024 12:5 8 PM EDT us Samantha Reyes TACTICAL AIR CONTROL PARTY MANAGER IMG US PROCEDURES Angela l Result documented in this encounter Visit Diagnoses Not on filedocumented in this encounter Care Teams Online Marketing Coordinator Relationship Specialty Start Date End Date Dashawn Chowdhury MD [address] [place] [address] PCP - General Internal Medicine 10/08/24 documented as of this encounter
--- OUTSIDE RECORDS SUMMARY | 2025-03-03 13:54 | XMS_ITS | Encounter Summary ---
Author Organization [facility] Address [address] [place] [address] Care Team Providers Care Script Supervisor Name Role Phone Dashawn Chowdhury MD Primary Care Provider [phone] Encounter Details Date Type Department Care Team (Late Contact Info) Description 06/04/2024 Orders Only External Location [address] [place] [address] Gui Linares MD [address] [facility] [address] [place] [address] Social History Tobacco Use Types Packs/Day Years [...] Description 04/08/2025 1:20 PM EDT Office Visit [facility] [place] [address] [facility], [address] [place] [address] Vivek Lei MD [address] [place] [address] documented as of this encounter Procedures Procedure [...] on filedocumented in this encounter Care Teams Script Supervisor Relationship Specialty Start Date End Date Dashawn Chowdhury MD [address] [place] [address] PCP - General Internal Medicine 10/08/24 documented as of this encounter
--- OUTSIDE RECORDS SUMMARY | 2025-03-03 13:54 | XMS_ITS | Encounter Summary ---
Author Organization [facility] Address [address] [place] [address] Care Team Providers Care Civil Defense Director Name Role Phone Dashawn Chowdhury MD Primary Care Provider [phone] Encounter Details Date Type Department Care Team (Late Contact Info) Description 06/04/2024 Orders Only External Location [address] [place] [address] Samantha Reyes, WEIGHTS AND MEASURES INSPECTOR [address] [facility] [address] [place] [address] Social History Tobacco Use Types Packs/Day Years [...] Description 04/08/2025 1:20 PM EDT Office Visit [facility] [place] [address] [facility], [address] [place] [address] Vivek Lei MD [address] [place] [address] documented as of this encounter Procedures Procedure Name Priority Date/Time Associated Diagnosis Comments US OUTSIDE IMAGES 06/04/2024 1:11 PM EDT documented in this encounter Results * US OUTSIDE IMAGES (06/04/2024 1:11 PM EDT) Anatomical Region Laterality Modality Ultrasound 06/04/2024 1:11 PM EDT us Samantha Reyes WEIGHTS AND MEASURES INSPECTOR IMG US PROCEDURES Angela l Result documented in this encounter Visit Diagnoses Not on filedocumented in this encounter Care Teams Civil Defense Director Relationship Specialty Start Date End Date Dashawn Chowdhury MD [address] [place] [address] PCP - General Internal Medicine 10/08/24 documented as of this encounter
--- OUTSIDE RECORDS SUMMARY | 2025-03-03 13:54 | XMS_ITS | Encounter Summary ---
Author Organization [facility] Address [address] [place] [address] Care Team Providers Care Distribution Lineman Name Role Phone Dashawn Chowdhury MD Primary Care Provider [phone] Encounter Details Date Type Department Care Team (Late Contact Info) Description 06/03/2024 Orders Only External Location [address] [place] [address] Giselle Rose, MEDICAL OFFICE WORKER [address] [facility] [address] [address] Social History Tobacco Use Types Packs/Day Years [...] Description 04/08/2025 1:20 PM EDT Office Visit [facility] [place] [address] [facility], [address] [place] [address] Vivek Lei MD [address] [place] [address] documented as of this encounter [...] on filedocumented in this encounter Care Teams Distribution Lineman Relationship Specialty Start Date End Date Dashawn Chowdhury MD [address] [place] [address] PCP - General Internal Medicine 10/08/24 documented as of this encounter
--- OUTSIDE RECORDS SUMMARY | 2025-03-03 13:54 | XMS_ITS | Encounter Summary ---
Author Organization [facility] Address [address] [place] [address] Care Team Providers Care Hardware Engineer Name Role Phone Dashawn Chowdhury MD Primary Care Provider [phone] Encounter Details Date Type Department Care Team (Late st Contact Info) Description 06/04/2024 Orders Only External Location [address] [place] [address] Provider, External Social History Tobacco [...] Description 04/08/2025 1:20 PM EDT Office Visit [place] [facility] [place] [address] [facility], [address] [place] [address] Vivek Lei MD [address] [place] [address] documented as of this encounter [...] on filedocumented in this encounter Care Teams Hardware Engineer Relationship Specialty Start Date End Date Dashawn Chowdhury MD [address] [place] [address] PCP - General Internal Medicine 10/08/24 documented as of this encounter
--- OUTSIDE RECORDS SUMMARY | 2025-03-03 13:54 | XMS_ITS | Encounter Summary ---
Author Organization [facility] Address [address] [place] [address] Care Team Providers Care Locker Operator Name Role Phone Dashawn Chowdhury MD Primary Care Provider [phone] Encounter Details Date Type Department Care Team (Late Contact Info) Description 06/04/2024 Orders Only External Location [address] [place] [address] Samantha Reyes, FUNDRAISING OFFICER [address] [facility] [address] [place] [address] Social History Tobacco Use Types Packs/Day Years [...] Description 04/08/2025 1:20 PM EDT Office Visit [facility] [place] [address] [facility], [address] [place] [address] Vivek Lei MD [address] [place] [address] documented as of this encounter Procedures Procedure Name Priority Date/Time Associated Diagnosis Comments US OUTSIDE IMAGES 06/04/2024 1:11 PM EDT documented in this encounter Results * US OUTSIDE IMAGES (06/04/2024 1:11 PM EDT) Anatomical Region Laterality Modality Ultrasound 06/04/2024 1:11 PM EDT us Samantha Reyes FUNDRAISING OFFICER IMG US PROCEDURES Angela l Result documented in this encounter Visit Diagnoses Not on filedocumented in this encounter Care Teams Locker Operator Relationship Specialty Start Date End Date Dashawn Chowdhury MD [address] [place] [id number] PCP - General Internal Medicine 10/08/24 documented as of this encounter
--- OUTSIDE RECORDS SUMMARY | 2025-03-03 13:54 | XMS_ITS | Encounter Summary ---
Author Organization [facility] Address [address] [place] [address] Care Team Providers Care Library Clerical Assistant Name Role Phone Dashawn Chowdhury MD Primary Care Provider [phone] Encounter Details Date Type Department Care Team (Late Contact Info) Description 06/03/2024 Orders Only External Location [address] [place] [address] Gui Linares MD [address] [facility] [address] [place] [address] Social History Tobacco Use Types Packs/Day Years [...] Description 04/08/2025 1:20 PM EDT Office Visit [facility] [place] [address] [facility], [address] [place] [address] Vivek Lei MD [address] [place] [address] documented as of this encounter Procedures Procedure [...] on filedocumented in this encounter Care Teams Library Clerical Assistant Relationship Specialty Start Date End Date Dashawn Chowdhury MD [address] [place] [address] PCP - General Internal Medicine 10/08/24 documented as of this encounter
--- OUTSIDE RECORDS SUMMARY | 2025-03-03 13:54 | XMS_ITS | Encounter Summary ---
Author Organization [facility] Address [address] [place] [address] Care Team Providers Care Wool Supplier Name Role Phone Dashawn Chowdhury MD Primary Care Provider [phone] Encounter Details Date Type Department Care Team (Late st Contact Info) Description 06/03/2024 Orders Only External Location [address] [place] [phone] Giselle Rose, TRACK LAYING SUPERVISOR [address] [facility] [address] [address] Social History Tobacco Use Types Packs/Day Years [...] Description 04/08/2025 1:20 PM EDT Office Visit [facility] [place] [address] [facility], [address] [place] [address] Vivek Lei MD [address] [place] [address] documented as of this encounter Procedures Procedure Name Priority Date/Time Associated Diagnosis Comments US OUTSIDE IMAGES 06/03/2024 11:00 AM EDT documented in this encounter Results * US OUTSIDE IMAGES (06/03/2024 11:00 AM EDT) Anatomical Region Laterality Modality Ultrasound 06/03/2024 11:0 0 AM EDT us Giselle Rose TRACK LAYING SUPERVISOR IMG US PROCEDURES Final Resu lt documented in this encounter Visit Diagnoses Not on filedocumented in this encounter Care Teams Wool Supplier Relationship Specialty Start Date End Date Dashawn Chowdhury MD [address] [place] [address] PCP - General Internal Medicine 10/08/24 documented as of this encounter
--- OUTSIDE RECORDS SUMMARY | 2025-03-03 13:54 | XMS_ITS | Encounter Summary ---
Author Organization [facility] Address [address] [place] [address] Care Team Providers Care Tow Bar Driver Name Role Phone Dashawn Chowdhury MD Primary Care Provider [phone] Encounter Details Date Type Department Care Team (Late st Contact Info) Description 06/03/2024 Orders Only External Location [address] [place] [phone] Giselle Rose, CARTOGRAPHIC AIDE [address] [facility] [address] [address] Social History Tobacco Use Types Packs/Day Years [...] Description 04/08/2025 1:20 PM EDT Office Visit [facility] [place] [address] [facility], [address] [place] [address] Vivek Lei MD [address] [place] [address] documented as of this encounter Procedures Procedure Name Priority Date/Time Associated Diagnosis Comments US OUTSIDE IMAGES 06/03/2024 11:00 AM EDT documented in this encounter Results * US OUTSIDE IMAGES (06/03/2024 11:00 AM EDT) Anatomical Region Laterality Modality Ultrasound 06/03/2024 11:0 0 AM EDT us Giselle Rose CARTOGRAPHIC AIDE IMG US PROCEDURES Final Resu lt documented in this encounter Visit Diagnoses Not on filedocumented in this encounter Care Teams Tow Bar Driver Relationship Specialty Start Date End Date Dashawn Chowdhury MD [address] [place] [address] PCP - General Internal Medicine 10/08/24 documented as of this encounter
--- OUTSIDE RECORDS SUMMARY | 2025-03-03 13:54 | XMS_ITS | Encounter Summary ---
Author Organization [facility] Address [address] [place] [address] Care Team Providers Care Farm Reporter Name Role Phone Dashawn Chowdhury MD Primary Care Provider [phone] Encounter Details Date Type Department Care Team (Late Contact Info) Description 07/13/2024 Orders Only External Location [address] [place] [address] Samantha Reyes, DITCH TENDER [address] [facility] [address] [place] [address] Social History Tobacco Use Types Packs/Day Years [...] Description 04/08/2025 1:20 PM EDT Office Visit [facility] [place] [address] [facility], [address] [place] [address] Vivek Lei MD [address] [place] [address] documented as of this encounter Procedures Procedure Name Priority Date/Time Associated Diagnosis Comments NM OUTSIDE IMAGES 07/13/2024 11:31 AM EST documented in this encounter Results * NM OUTSIDE IMAGES (07/13/2024 11:31 AM EST) Anatomical Region Laterality Modality Nuclear Medicine 07/13/2024 11:3 1 AM EST Samantha Reyes DITCH TENDER IMG NM PROCEDURES Angela l Result documented in this encounter Visit Diagnoses Not on filedocumented in this encounter Care Teams Farm Reporter Relationship Specialty Start Date End Date Dashawn Chowdhury MD [address] [place] [address] PCP - General Internal Medicine 10/08/24 documented as of this encounter
--- OUTSIDE RECORDS SUMMARY | 2025-03-03 13:54 | XMS_ITS | Encounter Summary ---
Author Organization [facility] Address [address] [place] [address] Care Team Providers Care Patient Insurance Clerk Name Role Phone Dashawn Chowdhury MD Primary Care Provider [phone] Encounter Details Date Type Department Care Team (Late Contact Info) Description 06/03/2024 Orders Only External Location [address] [place] [address] Gui Linares MD [address] [facility] [address] [place] [address] Social History Tobacco Use Types Packs/Day Years [...] Description 04/08/2025 1:20 PM EDT Office Visit [facility] [place] [address] [facility], [address] [place] [address] Vivek Lei MD [address] [place] [address] documented as of this encounter Procedures Procedure [...] on filedocumented in this encounter Care Teams Patient Insurance Clerk Relationship Specialty Start Date End Date Dashawn Chowdhury MD [address] [place] [address] PCP - General Internal Medicine 10/08/24 documented as of this encounter
--- OUTSIDE RECORDS SUMMARY | 2025-03-03 13:54 | XMS_ITS | Encounter Summary ---
Author Organization [facility] Address [address] [place] [address] Care Team Providers Care Bin Operator Name Role Phone Dashawn Chowdhury MD Primary Care Provider [phone] Encounter Details Date Type Department Care Team (Late Contact Info) Description 06/04/2024 Orders Only External Location [address] [place] [address] Gui Linares MD [address] [facility] [address] [place] [address] Social History Tobacco Use Types Packs/Day Years [...] Description 04/08/2025 1:20 PM EDT Office Visit [facility] [place] [address] [facility], [address] [place] [address] Vivek Lei MD [address] [place] [address] documented as of this encounter Procedures Procedure [...] on filedocumented in this encounter Care Teams Bin Operator Relationship Specialty Start Date End Date Dashawn Chowdhury MD [address] [place] [address] PCP - General Internal Medicine 10/08/24 documented as of this encounter
--- OUTSIDE RECORDS SUMMARY | 2025-03-03 13:54 | XMS_ITS | Encounter Summary ---
Author Organization [facility] Address [address] [place] [address] Care Team Providers Care Tire Builder Operator Name Role Phone Dashawn Chowdhury MD Primary Care Provider [phone] Encounter Details Date Type Department Care Team (Late Contact Info) Description 06/03/2024 Orders Only External Location [address] [place] [phone] Giselle Rose, ARTIST AND REPERTOIRE MANAGER [address] [facility] [address] [address] Social History Tobacco Use Types Packs/Day Years [...] Description 04/08/2025 1:20 PM EDT Office Visit [facility] [place] [address] [facility], [address] [place] [address] Vivek Lei MD [address] [place] [address] documented as of this encounter [...] on filedocumented in this encounter Care Teams Tire Builder Operator Relationship Specialty Start Date End Date Dashawn Chowdhury MD [address] [place] [address] PCP - General Internal Medicine 10/08/24 documented as of this encounter
--- OUTSIDE RECORDS SUMMARY | 2025-03-03 13:54 | XMS_ITS | Encounter Summary ---
Author Organization [facility] Address [address] [place] [address] Care Team Providers Care Waste Collector Name Role Phone Dashawn Chowdhury MD Primary Care Provider [phone] Encounter Details Date Type Department Care Team (Late Contact Info) Description 06/04/2024 Orders Only External Location [address] [place] [address] Gui Linares MD [address] [facility] [address] [place] [address] Social History Tobacco Use Types Packs/Day Years [...] Description 04/08/2025 1:20 PM EDT Office Visit [facility] [place] [address] [facility], [address] [place] [address] Vivek Lei MD [address] [place] [address] documented as of this encounter Procedures Procedure [...] on filedocumented in this encounter Care Teams Waste Collector Relationship Specialty Start Date End Date Dashawn Chowdhury MD [address] [place] [address] PCP - General Internal Medicine 10/08/24 documented as of this encounter
--- NOTE | 2025-03-03 14:00 | CT_ITS ---
FINAL REPORT TECHNIQUE: Axial images through the abdomen and pelvis were performed without contrast.This study was performed with techniques to keep radiation doses as low as reasonably achievable, (ALARA). Individualized dose reduction techniques using automated exposure control or adjustment of mA and/or kV according to the patient's size were employed. CLINICAL HISTORY: stone/cyst COMPARISON: 02/24/2025, 08/03/2024 FINDINGS: ABDOMEN: The lung bases are clear. The heart size is normal. Limited images of the liver are unremarkable. The spleen and bladder are normal. No adrenal mass is identified. The aorta is normal in caliber. There is no significant free fluid or adenopathy. There is no nephrolithiasis. There is no hydronephrosis. There are 3 left renal lesions. 2 smaller cortical lesions are denser than simple cysts measuring up to 12 mm which are stable from prior exam. The central left renal cyst has improved measuring 28 x 20 mm, previously measured 32 x 29 mm. There are 3 right renal lesions with the largest measuring 29 mm, unchanged from prior exam. There is a denser than normal exophytic lesion in the lateral right kidney measuring 12 mm which is unchanged. There is mild gastric distention likely due to recent meal. PELVIS: The appendix is normal. The urinary bladder and prostate is unremarkable. There is no significant free fluid or adenopathy. IMPRESSION: Limited characterization of renal lesions due to lack of intravenous contrast. Renal lesions are stable in size with the exception of the left renal lesion which is improved. Consider 1 year follow-up renal mass protocol CT. Reviewed, Interpreted and Dictated by Kofi Barnes MD Transcribed by Sandra Johnson Authenticated and [facility]
== END 2025-03-03 23:59 | disposition home or self-care (01) ==
LOC: RAD 13:43
PROVIDERS: PCP Internal Medicine Adolescent Medicine; Visit Provider Urology
DX: R93.422 Abnormal radiologic findings on diagnostic imaging of left kidney (principal); R93.421 Abnormal radiologic findings on diagnostic imaging of right kidney; I70.1 Atherosclerosis of renal artery; N28.1 Cyst of kidney, acquired
CPT/HCPCS: 74176

== ENCOUNTER 2025-03-15 12:39 | Outpatient (RCR) | payer MEDICARE, SELFPAY ==
--- NOTE | 2025-03-15 13:44 | HMH.PTOPEV ---
PT Outpatient Evaluation Rehab PT Outpatient Evaluation Start: 03/15/25 12:51 Freq: Status: Active Protocol: Document 03/15/25 12:51 ALLY (Rec: 03/15/25 13:42 ALLY [id number]) E-signed By Raul Marr, PT Outpatient Therapy Subjective History Subjective History Pt is a 69 yom who is referred to [facility] outpatient PT with complaints of R hip pain. The pt reports that his pain began approximately 7 years ago. Pt reports that in May of last year, he had 5 stents placed and a Pacemaker inserted. Pt reports that since then, he has not exercised much at all and feels that his hip pain has worsened. Pt had X-rays completed on 01/18/2025, showcasing advanced OA of the R hip. On 02/09/25, the pt underwent an injection, to which he reports has helped his symptoms some. Pt presents this date that with a SP cane. Pt reports that he does not use it everyday but only when he is in more pain. The pt reports that his pain is always worse at the end of the day, and it is worsened with movement. Pt denies falls. 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 Chief Complaint Pain,Stiff,Weakness Symptom Type Ache,Throb,Sharp Symptoms Relieved By OTC Meds Symptoms Aggravated Standing,Bending/Stooping,Walking By Prior Functional None Limitations Current Functional Lifting,Housework,Standing,Squatting,Walking,Stairs, Limitations Balance Symptom Description Intermittent,Activity Dependent Level of pain today 3 (0-10) Pain scale - at its 0 best (0-10) Pain scale - at its 9 worst (0-10) Hip/Knee Eval Gait Observation General Gait Pattern Antalgic Gait,Decrease Weight Bear (R),Decrease Stride Observation Lngth (L) Assistive Device Assistive Devices Straight Cane Palpation Tenderness right Hip Palpation Tenderness Findings Hip Palpation 3/4 TTP to anterior R hip near joint line Overall Comment MMT Hip Flexion Strength 4- Good- Grade Hip Abduction 3 Fair Strength Grade Hip Adduction 3 Fair Strength Grade Hip Extension 4- Good- Strength Grade Knee Extension 5 Normal Strength Grade Knee Flexion 5 Normal Strength Grade Sensation Comment Intact to LT Special Tests Hip Carisa's Test Negative Right Hip Franco Test Negative Right Hip Scouring ( Positive Right Quadrant) Test Lower Extremity Functional Index Activities Today, do you or would you have any difficulty at all with: a.Any of your usual Quite a bit of difficulty work, housework or school activities b. Your usual Quite a bit of difficulty hobbies, recreational or sporting activities c. Getting into or Quite a bit of difficulty out of the bath d. Walking between Quite a bit of difficulty rooms e. Putting on your Quite a bit of difficulty shoes or socks f. Squatting Quite a bit of difficulty g. Lifting an object Quite a bit of difficulty , like a bag of groceries from the floor h. Performing light Quite a bit of difficulty activities around your home i. Performing heavy Quite a bit of difficulty activities around your home j. Getting into or Extreme difficulty or unable to perform activity out of a car k. Walking 2 blocks Moderate difficulty l. Walking a mile Quite a bit of difficulty m. Going up or down Quite a bit of difficulty 10 stairs (about 1 flight of stairs) n. Standing for 1 Quite a bit of difficulty hour o. Sitting for 1 A little bit of difficulty hour p. Running on even Extreme difficulty or unable to perform activity ground q. Running on uneven Extreme difficulty or unable to perform activity ground r. Making sharp Extreme difficulty or unable to perform activity turns while running fast s. Hopping Extreme difficulty or unable to perform activity t. Rolling over in Moderate difficulty bed LEFI Score Lower Extremity 19 Functional Index Score Miscellaneous Dx PT Eval Objective Objective FADIR: + [place]: + Pain relieved with long axis distraction Outpatient Therapy Assessment Impairments Problems/ Palpation Tenderness,Impaired Strength,Impaired Gait Impairmments Pattern,Impaired Walking,Impaired Standing,Impaired Household Care,Impaired Stair Climbing,Impaired Balance ,Subjective C/O Pain Prognosis Rehab Potential Good Comment with HEP compliance Clinical Impression Consistent with Yes Diagnosis Consistent with R hip OA (M16.11) Additional details: Pt presents with signs and symptoms of hip OA. Pt's symptoms reproduced with quadrant testing, hip scouring and relieved with distraction. Pt also demonstrates global weakness of his R hip. Skilled PT is indicated for this pt to address his current impairments and promote a return to his PLOF. Short Term Goals Number of Weeks 3 Decreased Palpation Yes: 2/4 to TTP assessment above Tenderness Increase Strength Yes: 4/5 to R hip complex Improve Gait Pattern Yes: Symmetrical gait pattern with AAD. without Assistive Device Improve LEFI Score Yes: to 29 Decrease Subjective Yes: 5/10 with above assessment C/O Pain Improve Self Care/ Yes Self Management Patient to be Ind w/ Yes HEP Alf Goals Number of Weeks 6 Decreased Palpation Yes: 0-1/4 to TTP assessment above Tenderness Increase Strength Yes: 4+/5 to R hip complex Improve Gait Pattern Yes: Transition to no AD without Assistive Device Improve Ability For Yes: Yardwork without increasing symptoms Household Care Improve Ability to Yes: Flight of stairs with reciprocal pattern Climb Stairs Improve LEFI Score Yes: >40 Decrease Subjective Yes: 2-3/10 with above assessment C/O Pain Patient to be Ind w/ Yes Advanced HEP Outpatient Therapy Plan of Care Treatment Plan May Include Therapeutic Exercise Yes Including Home Exercise Program Manual Therapy Yes Techniques Neuromuscular Re- Yes education Therapeutic Yes Activities to Return to Previous Functional/Work Level Gait Training Yes ADL/Self Care Yes Education Thermal Modalities Yes Massage Yes Manual Lymphatic Yes Drainage Eval/Re-Eval Yes Frequency Times per week 2 Duration Number of Weeks 6 Addendums This patient is a No candidate for social or vocational rehab ? Patient/Guardian Yes verbally acknowledges understanding of treatment program and consents to further treatment? Patient/Guardian Yes verbally acknowledges understanding of diagnosis, prognosis and goals for treatment? Eval Complexity PT Charges 77084 - High Complexity Shoulder/Elbow Eval Shoulder Objective Measurements Elbow Objective Measurements PHYSICIAN CERTIFICATION: I certify the specified therapy services for Chip Gamez are required, authorized, and reviewed every 30 days.
== END 2025-03-15 23:59 | disposition home or self-care (01) ==
LOC: PT 12:39
PROVIDERS: PCP Internal Medicine Adolescent Medicine; Visit Provider Orthopaedic Surgery
DX: M25.551 Pain in right hip (principal); G89.29 Other chronic pain
CPT/HCPCS: 97163

== ENCOUNTER 2025-03-16 13:16 | Outpatient (CLI) | payer MEDICARE, SELFPAY ==
--- NOTE | 2025-03-16 | CT_ITS ---
FINAL REPORT TECHNIQUE: Axial images were obtained from the lung apex to the mid abdomen by computed tomography. This study was performed with techniques to keep radiation doses as low as reasonably achievable (ALARA). Individualized dose reduction techniques using automated exposure control or adjustment of mA and/or kV according to the patient's size were employed. CLINICAL HISTORY: SCREENING current smoker 1ppd x51 years COMPARISON: 05/04/2024 FINDINGS: CHEST CT LOW DOSE CTDI vol (mGy): 2.90 DLP (mGy-cm): 102.38 There is no axillary adenopathy. There is no hilar or mediastinal adenopathy. The heart is normal in size. There is prominent coronary artery calcification. There is no pleural effusion. Very small pericardial effusion is identified. Pacemaker has been placed since the prior exam. There is evidence of prior granulomatous disease. Mild emphysema is identified. The previously identified tracheal and right mainstem bronchus secretion is no longer present. The previously identified renal lesion is not included on today's exam. IMPRESSION: Lung RADS category 1S. Recommend 12 month follow-up low-dose chest CT. Modifier S: Coronary artery calcification. Reviewed, Interpreted and Dictated by Kayla Watkins MD Transcribed by Nichole Harman Authenticated and [facility]
--- OUTSIDE RECORDS SUMMARY | 2025-03-16 13:18 | XMS_ITS | Encounter Summary ---
Author Organization [facility] Address [address] [place] [address] Care Team Providers Care Mica Parts Sprayer Name Role Phone Dashawn Chowdhury MD Primary Care Provider [phone] Encounter Details Date Type Department Care Team ([facility] Contact Info) Description 07/13/2024 Orders Only External Location [address] [place] [address] Samantha Reyes, VAMP STRAP IRONER [address] [facility] [address] [place] [address] Social History Tobacco Use Types Packs/Day Years [...] Department Care Team (Late Contact Info) Description 03/19/2025 10:40 AM EDT Office Visit [facility] [place] [facility] [address] [facility], [address] [place] [address] Alesha Chambers MD [address] [facility] [address] [place] [address] 05/04/2025 4:20 PM EDT Office Visit [facility] [place] [address] [facility] [facility], [address] [place] [address] Vivek Lei MD [address] [place] [address] documented as of this encounter Procedures Procedure Name Priority Date/Time Associated Diagnosis Comments NM OUTSIDE IMAGES 07/13/2024 11:31 AM EST documented in this encounter Results * NM OUTSIDE IMAGES (07/13/2024 11:31 AM EST) Anatomical Region Laterality Modality Nuclear Medicine 07/13/2024 11:3 1 AM EST Samantha Reyes VAMP STRAP IRONER IMG NM PROCEDURES Angela l Result documented in this encounter Visit Diagnoses Not on filedocumented in this encounter Care Teams Mica Parts Sprayer Relationship Specialty Start Date End Date Dashawn Chowdhury MD [address] [place] [address] PCP - General Internal Medicine 10/08/24 documented as of this encounter
--- OUTSIDE RECORDS SUMMARY | 2025-03-16 13:18 | XMS_ITS | Clinical Summary ---
Author Organization [facility] Address [address] [place] [address] Care Team Providers Care Director Hydrogen Storage Engineering Name Role Phone Dashawn Chowdhury MD Primary Care Provider [phone] Allergies No known active allergies Medications Aspirin [...] Date Cardiac amyloidosis 10/08/2024 Chronic kidney disease Encounters Date Type Department Care Team Description 03/12/2025 Telephone [facility] [address], [address] [place] [address] Luna Sanders from Last 3 Months Social History Tobacco Use Types Packs/Day Years Used Date Smoking Tobacco: Every Day Cigarettes 0.5 51.6 Started: 1973 Smokeless Tobacco: Never Tobacco Cessation:Ready [...] Care Team (Late st Contact Info) Description 03/19/2025 10:40 AM EDT Office Visit [facility] [address] [place] [address] Alesha Chambers MD [address] [place] [address] 05/04/2025 4:20 PM EDT Office Visit [facility] [place] [address] [facility], [address] [place] [address] Vivek Lei MD [address] [place] [address] Health Maintenance Due Date Last [...] 2015 [facility]-Abdominal Aortic Aneurysm (AAA) Screening 2020 [facility]-Pneumococcal Vaccine: 50+ Years (2 of 2 - PCV) 11/08/2022 11/08/2021 [id number] Vaccine ( - season) 2024 05/04/2022, 06/08/2021, 12/05/2020, Additional history exists [facility]-Influenza Vaccine (#1) 04/19/202510/01, 06/27/2023, 05/04/2022, Additional history exists [facility]-Depression Screening 10/08/2025 10/08/2024, 09/20 [facility]-Obesity Intervention Completed 10/08/2024, 09/20 [facility]-Zoster Vaccines Completed 03/05/2025, HPV Vaccines Aged Out No longer eligi [...] patient's age to complete this topic Insurance [facility] MEDICARE Care Teams Director Hydrogen Storage Engineering Relationship Specialty Start Date End Date Dashawn Chowdhury MD [address] [place] [address] PCP - General Internal Medicine 10/08/24
--- OUTSIDE RECORDS SUMMARY | 2025-03-16 13:18 | XMS_ITS | Encounter Summary ---
Author Organization [facility] Address [address] [place] [address] Care Team Providers Care Credit And Loan Collections Supervisor Name Role Phone Dashawn Chowdhury MD Primary Care Provider [phone] Encounter Details Date Type Department Care Team ([facility] Contact Info) Description 06/04/2024 Orders Only External Location [address] [place] [address] Gui Linares MD [address] [place] [address] [address] [place] [address] Social History Tobacco Use Types Packs/Day Years [...] Description 03/19/2025 10:40 AM EDT Office Visit [facility] [place] Nephrology, Bone & Mineral Metabolism [address] [facility], [address] [place] [address] Alesha Chambers MD [address] [facility] [address] [place] [address] 05/04/2025 4:20 PM EDT Office Visit [facility] [place] [address] [facility] [address], [address] [place] [address] Vivek Lei MD [address] [place] [address] documented as of this encounter [...] on filedocumented in this encounter Care Teams Credit And Loan Collections Supervisor Relationship Specialty Start Date End Date Dashawn Chowdhury MD [address] [place] [address] PCP - General Internal Medicine 10/08/24 documented as of this encounter
--- OUTSIDE RECORDS SUMMARY | 2025-03-16 13:18 | XMS_ITS | Encounter Summary ---
Author Organization [facility] Address [address] [place] [address] Care Team Providers Care Change Management Facilitator Name Role Phone Dashawn Chowdhury MD Primary Care Provider [phone] Encounter Details Date Type Department Care Team ([facility] Contact Info) Description 06/03/2024 Orders Only External Location [address] [place] [address] Gui Linares MD [address] [place] [address] [address] [place] [address] Social History Tobacco Use Types Packs/Day Years [...] Description 03/19/2025 10:40 AM EDT Office Visit [facility] [employer] [place] Nephrology, Bone & Mineral Metabolism [address] [facility], [address] [place] [address] Alesha Chambers MD [address] [facility] [address] [place] [address] 05/04/2025 4:20 PM EDT Office Visit [facility] [place] [address] [facility] [facility], [address] [place] [address] Vivek Lei MD [address] [place] [address] documented as of this encounter [...] on filedocumented in this encounter Care Teams Change Management Facilitator Relationship Specialty Start Date End Date Dashawn Chowdhury MD [address] [place] [address] PCP - General Internal Medicine 10/08/24 documented as of this encounter
--- OUTSIDE RECORDS SUMMARY | 2025-03-16 13:18 | XMS_ITS | Encounter Summary ---
Author Organization [facility] Address [address] [place] [address] Care Team Providers Care Hydro Plant Technician Name Role Phone Dashawn Chowdhury MD Primary Care Provider [phone] Encounter Details Date Type Department Care Team (Late Contact Info) Description 06/04/2024 Orders Only External Location [address] [place] [address] Provider, External Social History Tobacco [...] Description 03/19/2025 10:40 AM EDT Office Visit [facility] [employer] [place] Nephrology, Bone & Mineral Metabolism [address] [facility], [address] [place] [address] Alesha Chambers MD [address] [place] [address] 05/04/2025 4:20 PM EDT Office Visit [facility] [place] [address], [address] [place] [address] Vivek Lei MD [address] [place] [address] documented as of this encounter Procedures Procedure [...] on filedocumented in this encounter Care Teams Hydro Plant Technician Relationship Specialty Start Date End Date Dashawn Chowdhury MD [address] [place] [address] PCP - General Internal Medicine 10/08/24 documented as of this encounter
--- OUTSIDE RECORDS SUMMARY | 2025-03-16 13:18 | XMS_ITS | Encounter Summary ---
Author Organization [facility] Address [address] [address] Care Team Providers Care Narcotics And Vice Detective Name Role Phone Dashawn Chowdhury MD Primary Care Provider [phone] Encounter Details Date Type Department Care Team ([facility] Contact Info) Description 06/04/2024 Orders Only External Location [address] [place] [address] Samantha Reyes, INSPECTION MANAGER [address] [facility] [address] [place] [address] Social History Tobacco Use Types Packs/Day Years [...] Description 03/19/2025 10:40 AM EDT Office [facility] [place] Nephrology, Bone & Mineral Metabolism [address] [facility], [address] [place] [address] Alesha Chambers MD [address] [facility] [address] [place] [address] 05/04/2025 4:20 PM EDT Office Visit [facility] [place] [address] [facility], [address] [place] [address] Vivek Lei MD [address] [place] [address] documented as of this encounter Procedures Procedure Name Priority Date/Time Associated Diagnosis Comments US OUTSIDE IMAGES 06/04/2024 1:11 PM EDT documented in this encounter Results * US OUTSIDE IMAGES (06/04/2024 1:11 PM EDT) Anatomical Region Laterality Modality Ultrasound 06/04/2024 1:11 PM EDT us Samantha Reyes INSPECTION MANAGER IMG US PROCEDURES Angela l Result documented in this encounter Visit Diagnoses Not on filedocumented in this encounter Care Teams Narcotics And Vice Detective Relationship Specialty Start Date End Date Dashawn Chowdhury MD [address] [place] [address] PCP - General Internal Medicine 10/08/24 documented as of this encounter
--- OUTSIDE RECORDS SUMMARY | 2025-03-16 13:18 | XMS_ITS | Encounter Summary ---
Author Organization [facility] Address [address] [place] [address] Care Team Providers Care Salesperson Neckties Name Role Phone Dashawn Chowdhury MD Primary Care Provider [phone] Encounter Details Date Type Department Care Team ([facility] Contact Info) Description 03/12/2025 Telephone [facility], Bone [facility] Mineral Metabolism [address] [facility], [address] [place] [address] [facility] [address] [place] [id number] Social History Tobacco Use Types Packs/Day Years Used Date Smoking Tobacco: Every Day Cigarettes 0.5 51.6 Started: 1973 Smokeless Tobacco: Never Alcohol Use Standard Drinks/Week Comments Yes 0 [...] PM EST documented as of this encounter Miscellaneous Notes * Telephone Encounter - Luna Sanders - 03/12/2025 9:34 AM EDT LVM [facility] documented in this encounter Plan of Treatment Upcoming Encounters Date Type Department Care Team (Late st Contact Info) Description 03/19/2025 10:40 AM EDT Office Visit [facility] [employer] [place] Nephrology, Bone & Mineral Metabolism [address], [address] [place] [address] Alesha Chambers MD [address] [place] [address] 05/04/2025 4:20 PM EDT Office Visit [facility] [place] [address], [address] [place] [address] Vivek Lei MD [address] [place] [address] documented as of this encounter Visit Diagnoses Not on filedocumented in this encounter Additional Health Concerns Assessment Noted Time PHQ-9 Depression Total Score: 0 10/08/19 12:30 PM EST A fall risk assessment has been complete d for the patient 10/08/2024 12:30 PM EST A Body Mass Index follow-up plan has been documented for the patient 10/23/2024 11:01 AM EST documented as of this encounter Care Teams Salesperson Neckties Relationship Specialty Start Date End Date Dashawn Chowdhury MD [address] [place] [address] PCP - General Internal Medicine 10/08/24 documented as of this encounter
--- OUTSIDE RECORDS SUMMARY | 2025-03-16 13:18 | XMS_ITS | Encounter Summary ---
Author Organization [facility] Address [address] [place] [address] Care Team Providers Care Roasterman Name Role Phone Dashawn Chowdhury MD Primary Care Provider [phone] Encounter Details Date Type Department Care Team ([facility] Contact Info) Description 06/04/2024 Orders Only External Location [address] [place] [address] Samantha Reyes, INSURANCE FOLLOW UP REP [address] [facility] [address] [place] [address] Social History Tobacco Use Types Packs/Day Years [...] Description 03/19/2025 10:40 AM EDT Office Visit [facility] [employer] [place] Nephrology, Bone & Mineral Metabolism [address] [facility], [address] [place] [address] Alesha Chambers MD [address] [facility] [address] [place] [address] 05/04/2025 4:20 PM EDT Office Visit [facility] [place] [address] [facility], [address] [place] [address] Vivek Lei MD [address] [place] [address] documented as of this encounter Procedures Procedure Name Priority Date/Time Associated Diagnosis Comments US OUTSIDE IMAGES 06/04/2024 1:11 PM EDT documented in this encounter Results * US OUTSIDE IMAGES (06/04/2024 1:11 PM EDT) Anatomical Region Laterality Modality Ultrasound 06/04/2024 1:11 PM EDT us Samantha Reyes INSURANCE FOLLOW UP REP IMG US PROCEDURES Angela l Result documented in this encounter Visit Diagnoses Not on filedocumented in this encounter Care Teams Roasterman Relationship Specialty Start Date End Date Dashawn Chowdhury MD [address] [place] [address] PCP - General Internal Medicine 10/08/24 documented as of this encounter
--- OUTSIDE RECORDS SUMMARY | 2025-03-16 13:18 | XMS_ITS | Encounter Summary ---
Author Organization [facility] Address [address] [place] [address] Care Team Providers Care Manager Of Tires Sales Name Role Phone Dashawn Chowdhury MD Primary Care Provider [phone] Encounter Details Date Type Department Care Team (Late Contact Info) Description 06/04/2024 Orders Only External Location [address] [place] [address] Provider, External Social History Tobacco [...] 03/19/2025 10:40 AM EDT Office Visit Professional [employer] [place] Nephrology, Bone & Mineral Metabolism [address] [facility], [address] [place] [address] Alesha Chambers MD [address] [place] [address] 05/04/2025 4:20 PM EDT Office Visit [facility] [place] [address], [address] [place] [address] Vivek Lei MD [address] [place] [address] documented as of this encounter Procedures Procedure [...] filedocumented in this encounter Care Teams Manager Of Tires Sales Relationship Specialty Start Date End Date Dashawn Chowdhury MD [address] [place] [address] PCP - General Internal Medicine 10/08/24 documented as of this encounter
--- OUTSIDE RECORDS SUMMARY | 2025-03-16 13:18 | XMS_ITS | Encounter Summary ---
Author Organization [facility] Address [address] [place] [address] Care Team Providers Care Auger Operator Name Role Phone Dashawn Chowdhury MD Primary Care Provider [phone] Encounter Details Date Type Department Care Team ([facility] Contact Info) Description 06/04/2024 Orders Only External Location [address] [place] [address] Samantha Reyes, GRIEF COUNSELLOR [address] [facility] [address] [place] [address] Social History Tobacco Use Types Packs/Day Years [...] Description 03/19/2025 10:40 AM EDT Office Visit [facility] [employer] [place] Nephrology, Bone & Mineral Metabolism [address] [facility], [address] [place] [address] Alesha Chambers MD [address] [facility] [address] [place] [address] 05/04/2025 4:20 PM EDT Office Visit [facility] [place] [address] [facility], [address] [place] [address] Vivek Lei MD [address] [place] [address] documented as of this encounter Procedures Procedure Name Priority Date/Time Associated Diagnosis Comments US OUTSIDE IMAGES 06/04/2024 12:58 PM EDT documented in this encounter Results * US OUTSIDE IMAGES (06/04/2024 12:58 PM EDT) Anatomical Region Laterality Modality Ultrasound 06/04/2024 12:5 8 PM EDT us Samantha Reyes GRIEF COUNSELLOR IMG US PROCEDURES Angela l Result documented in this encounter Visit Diagnoses Not on filedocumented in this encounter Care Teams Auger Operator Relationship Specialty Start Date End Date Dashawn Chowdhury MD [address] [place] [address] PCP - General Internal Medicine 10/08/24 documented as of this encounter
--- OUTSIDE RECORDS SUMMARY | 2025-03-16 13:18 | XMS_ITS | Encounter Summary ---
Author Organization [facility] Address [address] [place] [address] Care Team Providers Care Sales Trainer Name Role Phone Dashawn Chowdhury MD Primary Care Provider [phone] Encounter Details Date Type Department Care Team ([facility] Contact Info) Description 06/03/2024 Orders Only External Location [address] [place] [address] Giselle Rose, CONTAINER WASHER MACHINE [address] [facility] [address] [place] [id number] Social History Tobacco Use Types Packs/Day Years [...] Description 03/19/2025 10:40 AM EDT Office Visit [facility] Nephrology, Bone & Mineral Metabolism [address] [facility], [address] [place] [address] Alesha Chambers MD [address] [place] [address] 05/04/2025 4:20 PM EDT Office Visit [facility] [place] [address] [facility], [address] [place] [address] Vivek Lei MD [address] [place] [address] documented as of this encounter Procedures Procedure Name Priority Date/Time Associated Diagnosis Comments US OUTSIDE IMAGES 06/03/2024 11:00 AM EDT documented in this encounter Results * US OUTSIDE IMAGES (06/03/2024 11:00 AM EDT) Anatomical Region Laterality Modality Ultrasound 06/03/2024 11:0 0 AM EDT us Giselle Rose CONTAINER WASHER MACHINE IMG US PROCEDURES Final Resu lt documented in this encounter Visit Diagnoses Not on filedocumented in this encounter Care Teams Sales Trainer Relationship Specialty Start Date End Date Dashawn Chowdhury MD [address] [place] [address] PCP - General Internal Medicine 10/08/24 documented as of this encounter
--- OUTSIDE RECORDS SUMMARY | 2025-03-16 13:18 | XMS_ITS | Encounter Summary ---
Author Organization [facility] Address [address] [place] [address] Care Team Providers Care Supervisor Dental Laboratory Name Role Phone Dashawn Chowdhury MD Primary Care Provider [phone] Encounter Details Date Type Department Care Team (Late Contact Info) Description 06/04/2024 Orders Only External Location [address] [place] [address] Provider, External Social History Tobacco [...] 03/19/2025 10:40 AM EDT Office Visit [facility] [employer] [place] Nephrology, Bone & Mineral Metabolism [address] [facility], [address] [place] [address] Alesha Chambers MD [address] [place] [address] 05/04/2025 4:20 PM EDT Office Visit [facility] [place] [address], [address] [place] [address] Vivek Lei MD [address] [place] [address] documented as of this encounter Procedures Procedure [...] filedocumented in this encounter Care Teams Supervisor Dental Laboratory Relationship Specialty Start Date End Date Dashawn Chowdhury MD [address] [place] [address] PCP - General Internal Medicine 10/08/24 documented as of this encounter
--- OUTSIDE RECORDS SUMMARY | 2025-03-16 13:18 | XMS_ITS | Encounter Summary ---
Author Organization [facility] Address [address] [place] [address] Care Team Providers Care Trials Manager Name Role Phone Dashawn Chowdhury MD Primary Care Provider [phone] Encounter Details Date Type Department Care Team ([facility] [address] Contact Info) Description 06/04/2024 Orders Only External Location [address] [place] [address] Gui Linares MD [address] [place] [address] [address] [place] [address] Social History Tobacco Use Types Packs/Day Years [...] Description 03/19/2025 10:40 AM EDT Office Visit [facility] [employer] [place] Nephrology, Bone & Mineral Metabolism [address] [facility], [address] [place] [address] Alesha Chambers MD [address] [facility] [address] [place] [address] 05/04/2025 4:20 PM EDT Office Visit [facility] [place] [address] [facility], [address] [place] [address] Vivek Lei MD [address] [place] [address] documented as of this encounter [...] on filedocumented in this encounter Care Teams Trials Manager Relationship Specialty Start Date End Date Dashawn Chowdhury MD [address] [place] [address] PCP - General Internal Medicine 10/08/24 documented as of this encounter
--- OUTSIDE RECORDS SUMMARY | 2025-03-16 13:18 | XMS_ITS | Clinical Summary ---
Author Organization [facility] Address [address] [place] [address] Care Team Providers Care Homicide Squad Commanding Officer Name Role Phone Dashawn Chowdhury MD Primary Care Provider + [phone] Allergies No known active allergies Encounters Date Type Department Care Team Description 01/07/2025 8:05 AM EDT - 01/07/2025 11:59 PM EDT Hospital Encounter [address] [address] Rudy Howell MD Carotid artery stenosis, symptomatic, bilateral; Atherosclerosis, generalized; Essential hypertension Discharge Disposition: Home or Self Care 01/07/2025 Travel from Last 3 Months Social History Tobacco Use Types Packs/Day Years Used Date Smoking Tobacco: Never Assessed Sex and Gender Information Value Date Recorded Sex Assigned at Not on file Legal Sex Male 1:23 PM EST Gender Identity Not on file Sexual Orientation Not on file Plan of Treatment Health Maintenance Due Date Last Done Comments TDAP/TD VACCINES (1 - Tdap) 1974 COLOGUARD 2000 COLON CANCER SCREENING 5 YEA R SIGMOIDOSCOPY 2000 COLONOSCOPY 2000 COLORECTAL CANCER SCREENING 2000 CT COLONOGRAPHY 2000 FECAL OCCULT BLOOD TEST 2000 FIT Testing (1 year) 2000 AAA SCREEN ONCE 2020 ZOSTER VACCINE (2 of 2) 04/14/2024 02/18/2024 COVID-19 Vaccine (5 - 2023-2 5 season) 2024 05/04/2022, 06/08/2021, 12/05/2020, Additional history exists ANNUAL PHYSICAL 10/19/2024 HEPATITIS C SCREENING 10/19/2024 INFLUENZA VACCINE 05/19/2025 10/01/2024, , 05/04/2022, Additional history exists Pneumococcal Vaccine 50+ Completed 02/18/2024, 10/18 Procedures Procedure Name Priority Date/Time Associated Diagnosis Comments CT ANGIOGRAM NECK Routine 01/07/2025 9:1 2 AM EDT Carotid artery stenosis, symptomatic, bilateral Atherosclerosis, generalized Essential hypertension from Last 3 Months Results * CT Angiogram Neck (01/07/2025 9:12 AM EDT) Anatomical Region Laterality Modality Neck, Vascular N/A Computed Tomogra phy 01/08/2025 12:3 9 AM EDT Impressions 01/08/2025 12:45 AM EDT Impression: Complete occlusion of the left common carotid artery a short distance beyond its origin, with reconstitution of the left ICA at the bifurcation, likely via ECA collaterals. The remaining left ICA more distally appears normal in caliber although demonstrates relative attenuation and decreased contrast opacification relative to the right, likely suggesting general hypoperfusion. No additional high-grade stenosis or occlusion in the neck. Electronically Signed: Juice Billy MD 01/08/2025 12:45 AM EDT Workstation ID: [id number] Narrative 01/08/2025 12:[address] ANGIOGRAM NECK Date of Exam: 01/07/2025 8:39 AM EDT Indication: CAROTID ARTERY STENOSIS, ASYMPTOMATIC BILATERAL, ATHEROSCLEROSIS, GENERALIZED, ESSENTIAL HYPERTENSION. Comparison: None available. Technique: CTA of the neck was performed before and after the uneventful intravenous administration of 70 mL Isovue-370. Reconstructed coronal and sagittal images were also obtained. In addition, a 3-D volume rendered image was created for interpretation. Automated exposure control and iterative reconstruction methods were used. Findings: The lung apices are clear. Evaluation of the neck soft tissues demonstrates no pathologic adenopathy or unexpected aerodigestive tract mass. Atherosclerotic aortic arch with shared origin of the brachiocephalic and left common carotid arteries. Stented origin of the left subclavian artery appears patent. Circumferential soft plaque or intimal hyperplasia is noted at the right ICA origin with mild, less than 50% stenosis present by NASCET criteria. The left common carotid artery is occluded a short distance beyond its origin with reconstitution at the bifurcation likely via ECA collaterals with significantly attenuated proximal left ICA beyond the area of reconstitution, increasing in caliber along the more distal cervical segments which appear relatively normal although mildly attenuated in contrast density relative to the right, likely reflecting overall diminished perfusion. The right vertebral artery is normal in course and caliber. The left vertebral artery demonstrate some calcific atherosclerotic changes without significant associated narrowing. Procedure Note Gabino Billy MD - 01/08/2025 CT ANGIOGRAM NECK Date of Exam: 01/07/2025 8:39 AM EDT Indication: CAROTID ARTERY STENOSIS, ASYMPTOMATIC BILATERAL,ATHEROSCLEROSIS, GENERALIZED, ESSENTIAL HYPERTENSION. Comparison: None available. Technique: CTA of the neck was performed before and after the uneventfulintravenous administration of 70 mL Isovue-370. Reconstructed coronal andsagittal images were also obtained. In addition, a 3-D volume renderedimage was created for interpretation. Automated exposure control and iterative reconstructionmethods were used. Findings: The lung apices are clear. Evaluation of the neck soft tissuesdemonstrates no pathologic adenopathy or unexpected aerodigestive tractmass. Atherosclerotic aortic arch with shared origin of thebrachiocephalic and left common carotid arteries. Stented origin of the left subclavian artery appears patent. Circumferential softplaque or intimal hyperplasia is noted at the right ICA origin with mild,less than 50% stenosis present by NASCET criteria. The left common carotidartery is occluded a short distance beyond its origin with reconstitution at the bifurcation likelyvia ECA collaterals with significantly attenuated proximal left ICA beyondthe area of reconstitution, increasing in caliber along the more distalcervical segments which appear relatively normal although mildly attenuated in contrast density relativeto the right, likely reflecting overall diminished perfusion. The rightvertebral artery is normal in course and caliber. The left vertebralartery demonstrate some calcific atherosclerotic changes without significant associated narrowing. IMPRESSION: Impression: Complete occlusion of the left common carotid artery a short distancebeyond its origin, with reconstitution of the left ICA at the bifurcation,likely via ECA collaterals. The remaining left ICA more distally appearsnormal in caliber although demonstrates relative attenuation and decreased contrast opacificationrelative to the right, likely suggesting general hypoperfusion. No additional high-grade stenosis or occlusion in the neck. Electronically Signed: Juice Billy MD 01/08/2025 12:45 AM EDT Workstation ID: [id number] us Rudy Howell MD IMG CT ORDERABLES Final Res ult from Last 3 Months Insurance Care Teams Homicide Squad Commanding Officer Relationship Specialty Start Date End Date Dashawn Chowdhury MD [address] [facility] [address] [place] [address] PCP - General Adolescent Medicine 01/07/25
--- OUTSIDE RECORDS SUMMARY | 2025-03-16 13:18 | XMS_ITS | Encounter Summary ---
Author Organization [facility] Address [address] [place] [address] Care Team Providers Care Hand Cloth Cutter Name Role Phone Dashawn Chowdhury MD Primary Care Provider [phone] Encounter Details Date Type Department Care Team ([facility] Contact Info) Description 06/03/2024 Orders Only External Location [address] [place] [address] Gui Linares MD [address] [place] [address] [address] [place] [address] Social History Tobacco Use Types Packs/Day Years [...] Description 03/19/2025 10:40 AM EDT Office Visit [facility] [place] [facility] [address] [facility], [address] [place] [address] Alesha Chambers MD [address] [facility] [address] [place] [address] 05/04/2025 4:20 PM EDT Office Visit [facility] [place] [address], [address] [place] [address] Vivek Lei MD [address] [place] [address] documented as of this encounter [...] on filedocumented in this encounter Care Teams Hand Cloth Cutter Relationship Specialty Start Date End Date Dashawn Chowdhury MD [address] [place] [address] PCP - General Internal Medicine 10/08/24 documented as of this encounter
--- OUTSIDE RECORDS SUMMARY | 2025-03-16 13:18 | XMS_ITS | Encounter Summary ---
Author Organization [facility] Address [address] [place] [address] Care Team Providers Care Prints And Drawings Curator Name Role Phone Dashawn Chowdhury MD Primary Care Provider [phone] Encounter Details Date Type Department Care Team ([facility] Contact Info) Description 06/03/2024 Orders Only External Location [address] [place] [phone] Giselle Rose, WRITER PRODUCER [address] [facility] [address] [place] [id number] Social History Tobacco Use Types Packs/Day Years [...] Description 03/19/2025 10:40 AM EDT Office Visit [facility]rology[facility] Min[facility] Met[facility] [address] [facility], [address] [place] [address] Alesha Chambers MD [address] [place] [address] 05/04/2025 4:20 PM EDT Office Visit [facility] [place] [address] [facility], [address] [place] [address] Vivek Lei MD [address] [place] [address] documented as of this encounter Procedures Procedure Name Priority Date/Time Associated Diagnosis Comments US OUTSIDE IMAGES 06/03/2024 11:00 AM EDT documented in this encounter Results * US OUTSIDE IMAGES (06/03/2024 11:00 AM EDT) Anatomical Region Laterality Modality Ultrasound 06/03/2024 11:0 0 AM EDT us Giselle Rose WRITER PRODUCER IMG US PROCEDURES Final Resu lt documented in this encounter Visit Diagnoses Not on filedocumented in this encounter Care Teams Prints And Drawings Curator Relationship Specialty Start Date End Date Dashawn Chowdhury MD [address] [place] [address] PCP - General Internal Medicine 10/08/24 documented as of this encounter
--- OUTSIDE RECORDS SUMMARY | 2025-03-16 13:18 | XMS_ITS | Encounter Summary ---
Author Organization [facility] Address [address] [place] [address] Care Team Providers Care Hub Associate Name Role Phone Dashawn Chowdhury MD Primary Care Provider [phone] Encounter Details Date Type Department Care Team ([facility] Contact Info) Description 06/03/2024 Orders Only External Location [address] [place] [phone] Giselle Rose, DIRECTOR TALENT [address] [facility] [address] [place] [phone] Social History Tobacco Use Types Packs/Day Years [...] Description 03/19/2025 10:40 AM EDT Office Visit [facility]phrology, [facility] Mineral Metabolism [address] [facility], [address] [place] [address] Alesha Chambers MD [address] [place] [address] 05/04/2025 4:20 PM EDT Office Visit [facility] [place] [address] [facility], [address] [place] [address] Vivek Lei MD [address] [place] [address] documented as of this encounter Procedures Procedure Name Priority Date/Time Associated Diagnosis Comments MR OUTSIDE IMAGES 06/03/2024 12:41 PM EDT documented in this encounter Results * MR transfer of outside films (06/03/2024 12:41 PM EDT) Anatomical Region Laterality Modality Magnetic Resonan ce 06/03/2024 12:4 1 PM EDT us Giselle Rose DIRECTOR TALENT IMG MRI PROCEDURES Final Res ult documented in this encounter Visit Diagnoses Not on filedocumented in this encounter Care Teams Hub Associate Relationship Specialty Start Date End Date Dashawn Chowdhury MD [address] [place] [address] PCP - General Internal Medicine 10/08/24 documented as of this encounter
--- OUTSIDE RECORDS SUMMARY | 2025-03-16 13:18 | XMS_ITS | Encounter Summary ---
Author Organization [facility] Address [address] [place] [address] Care Team Providers Care Terminal Makeup Operator Name Role Phone Dashawn Chowdhury MD Primary Care Provider [phone] Encounter Details Date Type Department Care Team ([facility] Contact Info) Description 06/03/2024 Orders Only External Location [address] [place] [phone] Giselle Rose, LAW EXAMINER [address] [facility] [address] [place] [phone] Social History Tobacco Use Types Packs/Day Years [...] Description 03/19/2025 10:40 AM EDT Office Visit [facility]phrology, Bone & Mineral Metabolism [address] [facility], [address] [place] [address] Alesha Chambers MD [address] [place] [address] 05/04/2025 4:20 PM EDT Office Visit [facility] [place] [address] [facility], [address] [place] [address] Vivek Lei MD [address] [place] [address] documented as of this encounter Procedures Procedure Name Priority Date/Time Associated Diagnosis Comments MR OUTSIDE IMAGES 06/03/2024 12:41 PM EDT documented in this encounter Results * MR transfer of outside films (06/03/2024 12:41 PM EDT) Anatomical Region Laterality Modality Magnetic Resonan ce 06/03/2024 12:4 1 PM EDT us Giselle Rose LAW EXAMINER IMG MRI PROCEDURES Final Res ult documented in this encounter Visit Diagnoses Not on filedocumented in this encounter Care Teams Terminal Makeup Operator Relationship Specialty Start Date End Date Dashawn Chowdhury MD [address] [place] [address] PCP - General Internal Medicine 10/08/24 documented as of this encounter
--- OUTSIDE RECORDS SUMMARY | 2025-03-16 13:18 | XMS_ITS | Encounter Summary ---
Author Organization [facility] Address [address] [place] [address] Care Team Providers Care Stretching Press Operator Name Role Phone Dashawn Chowdhury MD Primary Care Provider [phone] Encounter Details Date Type Department Care Team (Late Contact Info) Description 06/04/2024 Orders Only External Location [address] [place] [address] Provider, External Social History Tobacco [...] 03/19/2025 10:40 AM EDT Office Visit [facility] [place] [facility] Met[facility] [address] [facility], [address] [place] [address] Alesha Chambers MD [address] [place] [address] 05/04/2025 4:20 PM EDT Office Visit [facility] [place] [address], [address] [place] [address] Vivek Lei MD [address] [place] [address] documented as of this encounter Procedures Procedure [...] on filedocumented in this encounter Care Teams Stretching Press Operator Relationship Specialty Start Date End Date Dashawn Chowdhury MD [address] [place] [address] PCP - General Internal Medicine 10/08/24 documented as of this encounter
--- OUTSIDE RECORDS SUMMARY | 2025-03-16 13:18 | XMS_ITS | Encounter Summary ---
Author Organization [facility] Address [address] [place] [address] Care Team Providers Care Field Organizer Name Role Phone Dashawn Chowdhury MD Primary Care Provider [phone] Encounter Details Date Type Department Care Team ([facility] Contact Info) Description 06/04/2024 Orders Only External Location [address] [place] [address] Gui Linares MD [address] [place] [address] [address] [place] [address] Social History Tobacco Use Types Packs/Day Years [...] Description 03/19/2025 10:40 AM EDT Office Visit [facility] [place] [facility]eral Metabolism [address] [facility], [address] [place] [address] Alesha Chambers MD [address] [facility] [address] [place] [address] 05/04/2025 4:20 PM EDT Office Visit [facility] [place] [address] [facility], [address] [place] [address] Vivek Lei MD [address] [place] [address] documented as of this encounter [...] on filedocumented in this encounter Care Teams Field Organizer Relationship Specialty Start Date End Date Dashawn Chowdhury MD [address] [place] [address] PCP - General Internal Medicine 10/08/24 documented as of this encounter
== END 2025-03-16 23:59 | disposition home or self-care (01) ==
LOC: RAD 13:17
PROVIDERS: PCP Internal Medicine Adolescent Medicine; Visit Provider Physician Assistant
DX: I25.10 Atherosclerotic heart disease of native coronary artery without angina pectoris (principal); Z13.9 Encounter for screening, unspecified; Z87.891 Personal history of nicotine dependence
CPT/HCPCS: 71271

== ENCOUNTER 2025-04-06 14:00 | Outpatient (RCR) | payer MEDICARE, SELFPAY | END 2025-04-06 23:59 | disposition home or self-care (01) | LOC: PT 14:00 | PROVIDERS: PCP Internal Medicine Adolescent Medicine; Visit Provider Orthopaedic Surgery | DX: M25.551 Pain in right hip (principal); G89.29 Other chronic pain | CPT/HCPCS: 97110; 97530 ==

== ENCOUNTER 2025-04-21 11:04 | Outpatient (CLI) | payer MEDICARE, SELFPAY ==
--- OUTSIDE RECORDS SUMMARY | 2025-03-19 10:40 | XMS_ITS | Encounter Summary ---
Author Organization [facility] Address [address] [place] [address] Care Team Providers Care Branch Billing Payroll Clerk Name Role Phone Dashawn Chowdhury MD Primary Care Provider [phone] Reason for Referral * Consultation (Routine) - Authorized Specialty Diagnoses / Procedures Referred By Maximino quevedo Referred To Contact Diagnoses Stage 3 chronic kidney disease, unspecified whether stage 3a or 3b CKD ([facility]/HCC) Alesha Chambers MD [address] [facility] [address] [place] [address] Phone: tel: fax: Referral ID Status Reason Start Date Expiration Date V isits Requested Visits Authorized [id number] Authorized 03/19/2025 09/18/2026 1 1 Reason for Visit * Reason Comments Consult * Consultation (Routine) - Closed Specialty Diagnoses / Procedures Referred By Maximino quevedo Referred To Contact Nephrology Diagnoses Cyst of kidney, acquired Atherosclerosis of renal artery ([facility]) Hiro Hirsch MD [address] [facility] [address] [place] [address] Phone: tel: fax: [facility] [place] [facility]ph[facility], Bone & Mineral Metabolism [address] [facility], [address] [place] [address] Phone: tel: fax: Referral ID Status Reason Start Date Expiration Date V isits Requested Visits Authorized [id number] Closed Specialty Services Required 03/03/2025 09/02/2026 1 1 Encounter Details Date Type Department Care Team (Late st Contact Info) Description 03/19/2025 10:40 AM EDT Office Visit [facility] Nephrology, Bone & Mineral Metabolism [address], [address] [place] [address] Alesha Chambers MD [address] [place] [address] Stage 3 chronic kidney disease, unspecified whether stage 3a or 3b CKD (CMS/HCC) (Primary Dx); Proteinuria, unspecified type Social History Tobacco Use Types Packs/Day Years Used Date Smoking Tobacco: Every Day Cigarettes 0.5 51.7 Started: 1973 Smokeless Tobacco: Never Tobacco Cessation:Ready to Q uit: Not Asked; Counseling Given: Not Answered Alcohol Use Standard Drinks/Week Comments Yes 0 (1 standard drink = 0.6 oz pur e alcohol) occ. PHQ-2 Answer Date Recorded Patient Health Questionnaire-2 Score 0 03/19/2025 PHQ-9 Answer Date Recorded Patient Health Questionnaire-9 Score 0 10/08/2024 Sex and Gender Information Value Date Recorded Sex Assigned at Male 10/22/2024 8:09 PM EST Legal Sex Male 2:01 PM EDT Gender Identity Male 10/22/2024 8:07 PM EST Sexual Orientation Choose not to disclose 2024 8:07 PM EST documented as of this encounter Last Filed Vital Signs Vital Sign Reading Time Taken Comments Blood Pressure 154/75 03/19/2025 10:21 AM EDT Pulse 71 03/19/2025 10:21 AM EDT Temperature 36.4 C (97.6 F) 03/19/2025 10:21 AM EDT Respiratory Rate - - Oxygen Saturation 99% 03/19/2025 10:21 AM EDT Inhaled Oxygen Concentration - - Weight 90.7 kg (200 lb) 03/19/2025 10:21 AM EDT Height 182.9 cm (6') 03/19/2025 10:21 AM EDT Body Mass Index 27.12 03/19/2025 10:21 AM EDT documented in this encounter Functional Status * Over the past 2 weeks, how often have you been bothered by any of the following problems? Question Answer Date of Assessment Author Little interest or pleasure in doing things Not at all 03/19/2025 10:25 AM EDT Barbara Mohan Feeling down, depressed, or hopeless Not at all 03/19/2025 10:25 AM EDT Barbara Mohan Patient Health Questionnaire -2 Score 0 03/19/2025 10:25 AM EDT Barbara Mohan * If you checked off any problems on this questionnaire so far, Question Answer Date of Assessment Author How difficult have these problems made it for you to do your work, take care of things at home, or get along with other people? Not difficult at all 03/19/2025 10:25 AM EDT Anirudh Mohan n documented as of this encounter Miscellaneous Notes * Progress Notes - Alesha Chambers MD - 03/19/2025 10:40 AM EDT SUBJECTIVE Chip Lópezministeriokristina presents as a consult for cyst of kidney and atherosclerosis of kidney by Hiro Hirsch MD. HISTORY OF PRESENT ILLNESS 69 yo M with PMH of CAD s/p stenting, s/p pacemaker placement, PVD with CKD with cysts, HTN, HLD, COPD, CVA who has been referred to clinic for CKD, cysts of kidney, and atherosclerotic disease of kidney. Reports feeling well at the moment. Reports ongoing issues with PAD affecting carotid arteries, coronary arteries. Pt is on statin, Plavix, BB, other hypertensives with semi-decent BP control. Pt hasbeen on [id number], Jardiance, but insurance decided not to cover when changes occurred. Pt has knownhe has some form of CKD for some time related to his cardiac and vascular issues. Does not use nsaids regularly. During past year, Cr has been around 2.2-2.5. [place] of multiple cysts on US with majority being simple cysts. Left kidney with exophytic cyst that does not appear simple. 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 Ptdoes have history of proteinuria. He has undergone biopsy for cardiac amyloid which was ruled out. BP regimen hydralazine 25 mg BID, Imdur 30 mg daily, Toprol XL 50 mg daily, nifedipine 120 mg daily. Current smoker who is working on quitting. At this time, denies hematuria, dysuria, acute CP, SOA, abd pain, flank pain, worsening edema, F/C,NVD, [place]. Past Medical History[1] Family History[2] Surgical History[3] Social History Tobacco Use Smoking status: Every Day Current packs/day: 0.50 Average packs/day: 0.5 packs/day for 51.6 years (25.8 ttl pk-yrs) Types: Cigarettes Start date: 1973 Smokeless tobacco: Never Substance Use Topics Alcohol use: Yes Comment: occ. Current Medications[4] Allergies[5] All medications have been reviewed today. REVIEW OF SYSTEMS As stated in HPI. OBJECTIVE Vitals: 03/19/25 1021 BP: (!) 154/75 Pulse: 71 Temp: 36.4 ??C (97.6 ??F) SpO2: 99% PHYSICAL EXAMINATION Gen: NAD, well-developed HEENT: normocephalic, atraumatic, external structure of ears and nose normal, EOMI, anicteric sclera, moist mucous membranes Neck: trachea midline Skin: warm, dry, no rash CV: RRR, no MRG, no BLE edema Resp: symmetrical chest expansion, no increased work of breathing, good insp/exp effort, vesicular BS bilaterally Abd: soft, NT, ND, normoactive BS MSK: no joint swelling or erythema, good ROM of upper extremities Neuro: AOx3, cortical function grossly intact, speed runner grossly intact bilaterally Psych: affect congruent with mood, judgement normal LAB RESULTS Lab Results Component Value Date GLUCOSE 96 10/08/2024 CALCIUM 9.2 10/08/2024 NA 142 10/08/2024 K 4.3 10/08/2024 CO2 21 (L) 10/08/2024 CL 108 (H) 10/08/2024 BUN 30 (H) 10/08/2024 CREATININE 2.12 (H) 10/08/2024 Lab Results Component Value Date ALBUMIN 4.1 10/08/2024 Lab Results Component Value Date CALCIUM 9.2 10/08/2024 Outside labs reviewed from December and January 2025, Cr 2.5 and 2.3 respectively. ASSESSMENT/PLAN 69 yo M with PMH of CAD s/p stenting, s/p pacemaker placement, PVD with CKD with cysts, HTN, HLD, COPD, CVA who has been referred to clinic for CKD, cysts of kidney, and atherosclerotic disease of kidney. - CKD 3b: pt likely with CKD related to vascular disease and its complications. Latest Cr 2.3-2.5 on labs sent from PCP. eGFR would be CKD 4, if sustains. BUN in 30s, electrolytes stable. UA with 2+ protein. UPC 1.4 mg/mg. - Proteinuria: as above - Multiple Renal Cysts: could have been acquired over time. Radiologist did not mention appearance of PCKD. Pt with left exophytic cyst which would require further monitoring. - HTN: BP elevated today. Plan/Recs: - will send pt down to the lab today to see if any changes have occurred since labs taken in December and January. - continue current BP and cardiac regimen. Will monitor. - Rx Farxiga 5 mg daily for proteinuria, CKD, and cardiac health RTC in 1 month Orders Placed This Encounter Procedures Creatinine, Random, Urine Standing Status: Future Number of Occurrences: 1 Expected Date: 03/19/2025 Expiration Date: 09/19/2026 [facility] Protein, Random, Urine with Creatinine Standing Status: Future Number of Occurrences: 1 Expected Date: 03/19/2025 Expiration Date: 09/19/2026 Release to patient in MyChart: Immediate Urinalysis with reflex microscopic (Culture NOT Included) Standing Status: Future Number of Occurrences: 1 Expected Date: 03/19/2025 Expiration Date: 09/19/2026 [facility]: Immediate CBC W/O Differential Standing Status: Future Number of Occurrences: 1 Expected Date: 03/19/2025 Expiration Date: 09/19/2026 Release [facility] in [facility]: Immediate Renal Function Panel, Plasma Standing Status: Future Number of Occurrences: 1 Expected Date: 03/19/2025 Expiration Date: 09/19/2026 Release to [facility] in [facility]: Immediate Follow Up Nephrology Standing Status: Future Expected Date: 04/16/2025 Expiration Date: 04/19/2026 Referral Priority: Routine Referral Type: Consultation Number of Visits Requested: 1 Note to Patient: The Cure Act makes medical noted like these available to patients in the interest of transparency. However, be advised this is a medical document. It is intended as peerto peer communication. It is written in medical language and may contain abbreviations or verbiage that are unfamiliar. It may appear blunt or direct. Medical documents are intended to carry relevantinformation, facts as evident, and the clinical opinion of the physician [1] Past Medical History: Diagnosis Date CKD (chronic kidney disease) COPD (chronic obstructive pulmonary disease) ([facility]) Coronary stent patent 5 stents Hyperlipidemia Hypertension Pacemaker Medtronic Stroke ([facility]) [2] History reviewed. No pertinent family history. [3] Past Surgical History: Procedure Laterality Date CARDIAC CATHETERIZATION INSERT / REPLACE / REMOVE PACEMAKER [4] Current Outpatient Medications Medication Sig Dispense Refill Acetaminophen Extra Strength 500 MG tablet TAKE 2 TABLETS BY MOUTH THREE TIMES DAILY NEEDED Aspirin EC Adult Low Dose 81 MG EC tablet Take 1 tablet (81 mg) by mouth daily. atorvastatin (Lipitor) 80 MG tablet Take 1 tablet (80 mg) by mouth daily. clopidogrel (Plavix) 75 MG tablet Take 1 tablet (75 mg) by mouth daily. hydrALAZINE (Apresoline) 25 MG tablet Take 1 tablet (25 mg) by mouth 2 (two) times a day as needed. isosorbide mononitrate ER (Imdur) 30 MG 24 hr tablet Take 1 tablet (30 mg) by mouth daily. loratadine (Claritin) 10 MG tablet Take 1 tablet by mouth daily. metoprolol succinate XL (Toprol-XL) 50 MG 24 hr tablet Take 1 tablet by mouth daily. metoprolol tartrate (Lopressor) 50 MG tablet Take 1 tablet (50 mg) by mouth 2 (two) times a day. nicotine (Nicoderm CQ) 14 MG/24HR patch Place 1 patch on the skin 1 (one) time each day at the sametime. 90 patch 3 NIFEdipine XL (Procardia XL) 60 MG 24 hr tablet Take 2 tablets (120 mg) by mouth daily. tamsulosin (Flomax) 0.4 MG 24 hr capsule Take 1 capsule (0.4 mg) by mouth daily. Jardiance 10 MG Take 1 tablet (10 mg) by mouth daily. (Patient not taking: Reported on 10/23/2024) No current facility-administered medications for this visit. [5] No Known Allergies documented in this encounter Plan of Treatment Upcoming Encounters Date Type Department Care Team (Late st Contact Info) Description 04/26/2025 12:00 PM EDT Office Visit [facility] Nephrology, Bone & Mineral Metabolism [address], [address] [place] [address] Alesha Chambers MD [address] [place] [address] 05/04/2025 4:20 PM EDT Office Visit [facility] [place] [employer] [address] [place] [address] Vivek Lei MD [address] [place] [address] Scheduled Referrals Name Type Priority Associated Diagnoses Orde r Schedule Follow Up Nephrology Outpatient Referral Routine Stage 3 chronic kidney disease, unspecified whether stage 3a or 3b CKD (CMS/HCC) Expected: 04/16/2025 (Approximate), Expires: 04/19/2026 documented as of this encounter Results * (ABNORMAL) Urinalysis with reflex microscopic (Culture NOT Included) (03/19/2025 2:32 PM EDT) Color, Urine Yellow LAB URINALYSIS - AUTOMATED METHOD 03/19/2025 5:28 PM EDT [facility] Clarity, Urine Clear LAB URINALYSIS - AUTOMATED METHOD 03/19/2025 5:28 PM EDT [facility] Spec [place], Urine 1.017 1.005 - 1.030 LAB URINALYSIS - AUTOMATED METHOD 03/19/2025 5:28 PM EDT [facility] pH, Urine 6.0 5.0 - 8.0 LAB URINALYSIS - AUTOMATED METHOD 03/19/2025 5:28 PM EDT [facility] Protein, Urine 100(A) Negative mg/dL LAB URINALYSIS - AUTOMATED METHOD 03/19/2025 5:28 PM EDT [facility] Glucose, Urine 100(A) Negative mg/dL LAB URINALYSIS - AUTOMATED METHOD 03/19/2025 5:28 PM EDT [facility] Ketones, Urine Negative Negative mg/dL LAB URINALYSIS - AUTOMATED METHOD 03/19/2025 5:28 PM EDT [facility] Blood, Urine Negative Negative LAB URINALYSIS - AUTOMATED METHOD 03/19/2025 5:28 PM EDT [facility] Bilirubin, Urine Negative Negative LAB URINALYSIS - AUTOMATED METHOD 03/19/2025 5:28 PM EDT [facility] Urobilinogen, Urine 0.2 0.2 to 1.0 mg/dL LAB URINALYSIS - AUTOMATED METHOD 03/19/2025 5:28 PM EDT [facility] Leukocytes, Urine Negative Negative LAB URINALYSIS - AUTOMATED METHOD 03/19/2025 5:28 PM EDT [facility] Nitrite, Urine Negative Negative LAB URINALYSIS - AUTOMATED METHOD 03/19/2025 5:28 PM EDT [facility] Urine Urine specimen obtained by clean catch procedure / Unknown Non-blood Collection / Unknown 03/19/2025 2:32 PM EDT 03/19/2025 2:32 PM EDT us Alesha Chambers MD LAB URINE ORDERABLES Fin al Result Performing Organization Address City/[facility] Co de Phone Number [facility] [address] [place] [address] * Protein, Random, Urine with Creatinine (03/19/2025 2:32 PM EDT) Protein, Urine 98 mg/dL 03/19/2025 6:09 PM EDT [facility] Creatinine, Urine 123 mg/dL 03/19/2025 6:09 PM EDT [facility] Protein/Creati nine Ratio 0.8 mg/mg Creat 03/19/2025 6:09 PM EDT [facility] Urine Urine specimen obtained by clean catch procedure / Unknown Non-blood Collection / Unknown 03/19/2025 2:32 PM EDT 03/19/2025 2:32 PM EDT us Alesha Chambers MD LAB URINE ORDERABLES Fin al Result [facility] [address] [place] [address] * (ABNORMAL) Renal Function Panel, Plasma (03/19/2025 11:40 AM EDT) Glucose, Plasma 106(H) 74 - 99 mg/dL 03/19/2025 3:10 PM EDT [facility] BUN, Plasma 22 8 - 23 mg/dL 03/19/2025 3:10 PM EDT [facility] Creatinine, Plasma 2.02(H) 0.70 - 1.20 mg/dL 03/19/2025 3:10 PM EDT [facility] BUN/Creatinine Ratio 11 03/19/2025 3:10 PM EDT [facility] Sodium, Plasma 140 136 - 145 mmol/L 03/19/2025 3:10 PM EDT [facility] Potassium, Plasma 4.1 3.6 - 4.9 mmol/L 03/19/2025 3:10 PM EDT [facility] Chloride, Plasma 105 97 - 107 mmol/L 03/19/2025 3:10 PM EDT [facility] CO2, Plasma 22 22 - 29 mmol/L 03/19/2025 3:10 PM EDT [facility] Anion Gap 13 6 - 16 mmol/L 03/19/2025 3:10 PM EDT [facility] Total Calcium, Plasma 9.7 8.9 - 10.2 mg/dL 03/19/2025 3:10 PM EDT [facility] Phosphorus, Plasma 2.9 2.5 - 4.5 mg/dL 03/19/2025 3:10 PM EDT [facility] Albumin, Plasma 4.6 3.5 - 5.2 g/dL 03/19/2025 3:10 PM EDT [facility] eGFRcr 35.0 mL/min/1.7 3m*2 03/19/2025 3:10 PM EDT [facility] Comment:Reported eGFRcr in m L/min/1.73m2 is based the CKD-EPI 2020 equation that does not use a race coefficient. Blood Venous blood specimen / Unknown Venipuncture / Unknown 03/19/2025 11:40 AM EDT 03/19/2025 11:40 AM EDT Alesha Chambers MD LAB BLOOD ORDERABLES Fin al Result [facility] [address] [place] [address] * CBC W/O Differential (03/19/2025 11:40 AM EDT) [facility] Signature WBC Count 9.42 3.70 - 10.30 10*3/uL LAB HEMATOLOGY METHOD 03/19/2025 2:27 PM EDT [facility] RBC Count 4.90 4.60 - 6.10 10*6/uL LAB HEMATOLOGY METHOD 03/19/2025 2:27 PM EDT [facility] HGB 14.0 13.7 - 17.5 g/dL LAB HEMATOLOGY METHOD 03/19/2025 2:27 PM EDT [facility] HCT 42.5 40.0 - 51.0 % LAB HEMATOLOGY METHOD 03/19/2025 2:27 PM EDT [facility] Platelet Count 241 155 - 369 10*3/uL LAB HEMATOLOGY METHOD 03/19/2025 2:27 PM EDT [facility] MCV 87 79 - 98 fL LAB HEMATOLOGY METHOD 03/19/2025 2:27 PM EDT [facility] MCH 28.6 26.0 - 32.0 pg LAB HEMATOLOGY METHOD 03/19/2025 2:27 PM EDT [facility] MCHC 32.9 30.7 - 35.5 g/dL LAB HEMATOLOGY METHOD 03/19/2025 2:27 PM EDT [facility] RDW 13.2 11.5 - 14.5 % LAB HEMATOLOGY METHOD 03/19/2025 2:27 PM EDT [facility] MPV 10.0 8.8 - 12.5 fL LAB HEMATOLOGY METHOD 03/19/2025 2:27 PM EDT [facility] nRBC 0.0 <=0.0 per 100 WBCs LAB HEMATOLOGY METHOD 03/19/2025 2:27 PM EDT [facility] Blood Venous blood specimen / Unknown Venipuncture / Unknown 03/19/2025 11:40 AM EDT 03/19/2025 11:40 AM EDT Alesha Chambers MD LAB BLOOD ORDERABLES Fin al Result [facility] [address] [place] [address] documented in this encounter Visit Diagnoses Diagnosis Stage 3 chronic kidney disease, unspecified whether stage 3a or 3b CKD (CMS/HCC)- Primary Proteinuria, unspecified type documented in this encounter Additional Health Concerns Assessment Noted Time PHQ-9 Depression Total Score: 0 10/08/19 12:30 PM EST A fall risk assessment has been complete d for the patient 03/19/2025 10:26 AM EDT A Body Mass Index follow-up plan has been documented for the patient 03/29/2025 12:34 PM EDT documented as of this encounter Care Teams Branch Billing Payroll Clerk Relationship Specialty Start Date End Date Dashawn Chowdhury MD [address] [place] [id number] PCP - General Internal Medicine 10/08/24 documented as of this encounter
[2025-04-21 11:09] LABS: Microscopic, Urine URINE MICROSCOPIC (MICROSCOPIC)
--- OUTSIDE RECORDS SUMMARY | 2025-04-21 11:30 | XMS_ITS | Encounter Summary ---
Author Organization [facility] Address [address] [place] [address] Care Team Providers Care Clothing Supervisor Name Role Phone Dashawn Chowdhury MD Primary Care Provider [phone] Encounter Details Date Type Department Care Team (Late Contact Info) Description 06/04/2024 Orders Only External Location [address] [place] [address] Provider, External Social History Tobacco [...] Department Care Team (Late Contact Info) Description 04/26/2025 12:00 PM EDT Office Visit [facility], [facility] Mineral Metabolism [address] [facility], [address] [place] [address] Alesha Chambers MD [address] [place] [address] 05/04/2025 4:20 PM EDT Office Visit [facility] [place] [address] [facility], [address] [place] [address] Vivek Lei MD [address] [place] [address] documented as of this encounter Procedures Procedure [...] on filedocumented in this encounter Care Teams Clothing Supervisor Relationship Specialty Start Date End Date Dashawn Chowdhury MD [address] [place] [address] PCP - General Internal Medicine 10/08/24 documented as of this encounter
--- OUTSIDE RECORDS SUMMARY | 2025-04-21 11:30 | XMS_ITS | Encounter Summary ---
Author Organization [facility] Address [address] [place] [address] Care Team Providers Care Rim Technician Name Role Phone Dashawn Chowdhury MD Primary Care Provider [phone] Encounter Details Date Type Department Care Team (Late Contact Info) Description 06/04/2024 Orders Only External Location [address] [place] [address] Provider, External Social History Tobacco [...] 04/26/2025 12:00 PM EDT Office Visit Professional [employer] [place] [facility] & Mineral Metabolism [address] [facility], [address] [place] [address] Alesha Chambers MD [address] [place] [address] 05/04/2025 4:20 PM EDT Office Visit [facility] [place] [address] [facility], [address] [place] [address] Vivek Lei MD [address] [place] [address] documented as of this encounter Procedures Procedure [...] on filedocumented in this encounter Care Teams Rim Technician Relationship Specialty Start Date End Date Dashawn Chowdhury MD [address] [place] [address] PCP - General Internal Medicine 10/08/24 documented as of this encounter
--- OUTSIDE RECORDS SUMMARY | 2025-04-21 11:30 | XMS_ITS | Encounter Summary ---
Author Organization [facility] Address [address] [place] [address] Care Team Providers Care Brand Activation Manager Name Role Phone Dashawn Chowdhury MD Primary Care Provider [phone] Encounter Details Date Type Department Care Team (Late Contact Info) Description 06/04/2024 Orders Only External Location [address] [place] [address] Provider, External Social History Tobacco [...] 04/26/2025 12:00 PM EDT Office Visit [facility] [place] [facility] Metabolism [address] [facility], [address] [place] [address] Alesha Chambers MD [address] [place] [address] 05/04/2025 4:20 PM EDT Office Visit [facility] [place] [address] [facility], [address] [place] [address] Vivek Lei MD [address] [place] [address] documented as of this encounter Procedures Procedure [...] on filedocumented in this encounter Care Teams Brand Activation Manager Relationship Specialty Start Date End Date Dashawn Chowdhury MD [address] [place] [address] PCP - General Internal Medicine 10/08/24 documented as of this encounter
--- OUTSIDE RECORDS SUMMARY | 2025-04-21 11:31 | XMS_ITS | Encounter Summary ---
Author Organization Address [address] [place] [address] Care Team Providers Care Commercial Hvac Service Technician Name Role Phone Dashawn Chowdhury MD Primary Care Provider [phone] Encounter Details Date Type Department Care Team ([facility] Contact Info) Description 06/03/2024 Orders Only External Location [address] [place] [address] Gui Linares MD [address] [place] [address] [address] [place] [address] Social History Tobacco Use Types Packs/Day Years [...] Description 04/26/2025 12:00 PM EDT Office Visit [facility] [place] [facility]eral Met[facility] [address] [facility], [address] [place] [address] Alesha Chambers MD [address] [facility] [address] [place] [address] 05/04/2025 4:20 PM EDT Office Visit [facility] [place] [address] [facility], [address] [place] [address] Vivek Lei MD [address] [place] [address] documented as of this encounter [...] filedocumented in this encounter Care Teams Commercial Hvac Service Technician Relationship Specialty Start Date End Date Dashawn Chowdhury MD [address] [place] [address] PCP - General Internal Medicine 10/08/24 documented as of this encounter
--- OUTSIDE RECORDS SUMMARY | 2025-04-21 11:31 | XMS_ITS | Encounter Summary ---
Author Organization [facility] Address [address] [place] [address] Care Team Providers Care Resident Advisor Name Role Phone Dashawn Chowdhury MD Primary Care Provider [phone] Encounter Details Date Type Department Care Team ([facility] Contact Info) Description 06/04/2024 Orders Only External Location [address] [place] [address] Gui Linares MD [address] [place] [address] [address] [place] [address] Social History Tobacco Use Types Packs/Day Years [...] Description 04/26/2025 12:00 PM EDT [facility] [employer] [place] Nephrology, [facility] & Mineral Metabolism [address] [facility], [address] [place] [address] Alesha Chambers MD [address] [facility] [address] [place] [address] 05/04/2025 4:20 PM EDT Office Visit [facility] [place] [address] [facility], [address] [place] [address] Vivek Lei MD [address] [place] [address] documented as of this encounter [...] filedocumented in this encounter Care Teams Resident Advisor Relationship Specialty Start Date End Date Dashawn Chowdhury MD [address] [place] [address] PCP - General Internal Medicine 10/08/24 documented as of this encounter
--- OUTSIDE RECORDS SUMMARY | 2025-04-21 11:31 | XMS_ITS | Encounter Summary ---
Author Organization [facility] Address [address] [place] [address] Care Team Providers Care Electric Motor Mechanic Name Role Phone Dashawn Chowdhury MD Primary Care Provider [phone] Encounter Details Date Type Department Care Team ([facility] Contact Info) Description 06/04/2024 Orders Only External Location [address] [place] [address] Samantha Reyes, SENIOR PATIENT ACCOUNT REPRESENTATIVE [address] [facility] [address] [place] [address] Social History Tobacco Use Types Packs/Day Years [...] Description 04/26/2025 12:00 PM EDT Office Visit [facility] [place] [facility], Bone & Mineral Metabolism [address] [facility], [address] [place] [address] Alesha Chambers MD [address] [facility] [address] [place] [address] 05/04/2025 4:20 PM EDT Office Visit [facility] [place] [address] [facility], [address] [place] [address] Vivek Lei MD [address] [place] [address] documented as of this encounter Procedures Procedure Name Priority Date/Time Associated Diagnosis Comments US OUTSIDE IMAGES 06/04/2024 12:58 PM EDT documented in this encounter Results * US OUTSIDE IMAGES (06/04/2024 12:58 PM EDT) Anatomical Region Laterality Modality Ultrasound 06/04/2024 12:5 8 PM EDT us Samantha Reyes SENIOR PATIENT ACCOUNT REPRESENTATIVE IMG US PROCEDURES Angela l Result documented in this encounter Visit Diagnoses Not on filedocumented in this encounter Care Teams Electric Motor Mechanic Relationship Specialty Start Date End Date Dashawn Chowdhury MD [address] [place] [address] PCP - General Internal Medicine 10/08/24 documented as of this encounter
--- OUTSIDE RECORDS SUMMARY | 2025-04-21 11:31 | XMS_ITS | Encounter Summary ---
Author Organization [facility] Address [address] [place] [address] Care Team Providers Care Glue Mill Operator Name Role Phone Dashawn Chowdhury MD Primary Care Provider [phone] Encounter Details Date Type Department Care Team ([facility] Contact Info) Description 06/04/2024 Orders Only External Location [address] [place] [address] Gui Linares MD [address] [place] [address] [address] [place] [address] Social History Tobacco Use Types Packs/Day Years [...] Description 04/26/2025 12:00 PM EDT Office Visit [facility] [place] Nephrology, Bone & Mineral Metabolism [address] [facility], [address] [place] [address] Alesha Chambers MD [address] [facility] [address] [place] [address] 05/04/2025 4:20 PM EDT Office Visit [facility] [place] [address] [facility], [address] [place] [address] Vivek Lei MD [address] [place] [address] documented as of this [...] on filedocumented in this encounter Care Teams Glue Mill Operator Relationship Specialty Start Date End Date Dashawn Chowdhury MD [address] [place] [address] PCP - General Internal Medicine 10/08/24 documented as of this encounter
--- OUTSIDE RECORDS SUMMARY | 2025-04-21 11:31 | XMS_ITS | Encounter Summary ---
Author Organization Address [address] [place] [address] Care Team Providers Care Business Development Specialist Name Role Phone Dashawn Chowdhury MD Primary Care Provider [phone] Encounter Details Date Type Department Care Team ([facility] st Contact Info) Description 03/29/2025 Orders Only [facility], [facility] Mineral Metabolism [address], [address] [place] [address] Alesha Chambers MD [address] [place] [address] Stage 3b chronic kidney disease (CMS/HCC) (Primary Dx) Social History Tobacco Use Types Packs/Day Years Used Date Smoking Tobacco: Every Day Cigarettes 0.5 51.7 Started: 1973 Smokeless Tobacco: Never Alcohol Use [...] Progress Notes - Alesha Chambers MD - 03/29/2025 12:36 PM EDT Placing labs from next visit. documented in this encounter Plan of Treatment Upcoming Encounters Date Type Department Care Team (Late st Contact Info) Description 04/26/2025 12:00 PM EDT Office Visit [facility] Nephrology, Bone & Mineral Metabolism [address], [address] [place] [address] Alesha Chambers MD [address] [place] [address] 05/04/2025 4:20 PM EDT Office Visit [facility] [place] [address], [address] [place] [address] Vivek Lei MD [address] [place] [address] Scheduled Orders Name Type Priority Associated Diagnoses Orde r Schedule Creatinine, Random, Urine Lab Routine Stage 3b chronic kidney disease (CMS/HCC) Expected: 04/20/2025 (Approximate), Expires: 09/30/2026 Protein, Random, Urine with Creatinine Lab Routine Stage 3b chronic kidney disease (CMS/HCC) Expected: 04/20/2025 (Approximate), Expires: 09/30/2026 Urinalysis with reflex microscopic (Culture NOT Included) Lab Routine Stage 3b chronic kidney disease (CMS/HCC) Expected: 04/20/2025 (Approximate), Expires: 09/30/2026 Renal Function Panel, Plasma Lab Routine Stage 3b chronic kidney disease (CMS/HCC) Expected: 04/20/2025 (Approximate), Expires: 09/30/2026 Cystatin C Lab Routine Stage 3b chronic kidney disease (CMS/HCC) Expected: 04/20/2025 (Approximate), Expires: 09/30/2026 documented as of this encounter Visit Diagnoses Diagnosis Stage 3b chronic kidney disease (CMS/HCC)- Primary documented in this encounter Additional Health Concerns Assessment Noted Time PHQ-9 Depression Total Score: 0 10/08/19 12:30 PM EST A fall risk assessment has been complete d for the patient 03/19/2025 10:26 AM EDT A Body Mass Index follow-up plan has been documented for the patient 03/29/2025 12:34 PM EDT documented as of this encounter Care Teams Business Development Specialist Relationship Specialty Start Date End Date Dashawn Chowdhury MD [address] [place] [address] PCP - General Internal Medicine 10/08/24 documented as of this encounter
--- OUTSIDE RECORDS SUMMARY | 2025-04-21 11:31 | XMS_ITS | Encounter Summary ---
Author Organization [facility] Address [address] [place] [address] Care Team Providers Care Professional Services Consultant Name Role Phone Dashawn Chowdhury MD Primary Care Provider [phone] Encounter Details Date Type Department Care Team ([facility] Contact Info) Description 06/04/2024 Orders Only External Location [address] [place] [address] Gui Linares MD [address] [place] [address] [address] [place] [address] Social History Tobacco Use Types Packs/Day Years [...] Description 04/26/2025 12:00 PM EDT Office Visit [facility] [place] Nephrology, Bone & Mineral Metabolism [address] [facility], [address] [place] [address] Alesha Chambers MD [address] [facility] [address] [place] [address] 05/04/2025 4:20 PM EDT Office Visit [facility] [place] [address] [facility], [address] [place] [address] Vivek Lei MD [address] [place] [address] documented as of this encounter [...] on filedocumented in this encounter Care Teams Professional Services Consultant Relationship Specialty Start Date End Date Dashawn Chowdhury MD [address] [place] [address] PCP - General Internal Medicine 10/08/24 documented as of this encounter
--- OUTSIDE RECORDS SUMMARY | 2025-04-21 11:31 | XMS_ITS | Encounter Summary ---
Author Organization [facility] Address [address] [place] [address] Care Team Providers Care Forestry Foreman Name Role Phone Dashawn Chowdhury MD Primary Care Provider [phone] Encounter Details Date Type Department Care Team ([facility] Contact Info) Description 06/03/2024 Orders Only External Location [address] [place] [address] Giselle Rose, MEDICAL LABORATORY TECHNOLOGIST [address] [facility] [address] [place] [id number] Social History Tobacco Use Types Packs/Day Years [...] 12:00 PM EDT Office Visit [facility] [place] Nephrology, Bone & Mineral Metabolism [address] [facility], [address] [place] [address] Alesha Chambers MD [address] [place] [address] 05/04/2025 4:20 PM EDT Office Visit [facility] [place] [address] [facility], [address] [place] [address] Vivek Lei MD [address] [place] [address] documented as of this encounter Procedures Procedure Name Priority Date/Time Associated Diagnosis Comments US OUTSIDE IMAGES 06/03/2024 11:00 AM EDT documented in this encounter Results * US OUTSIDE IMAGES (06/03/2024 11:00 AM EDT) Anatomical Region Laterality Modality Ultrasound 06/03/2024 11:0 0 AM EDT us Giselle Rose MEDICAL LABORATORY TECHNOLOGIST IMG US PROCEDURES Final Resu lt documented in this encounter Visit Diagnoses Not on filedocumented in this encounter Care Teams Forestry Foreman Relationship Specialty Start Date End Date Dashawn Chowdhury MD [address] [place] [address] PCP - General Internal Medicine 10/08/24 documented as of this encounter
--- OUTSIDE RECORDS SUMMARY | 2025-04-21 11:31 | XMS_ITS | Encounter Summary ---
Author Organization [facility] Address [address] [place] [address] Care Team Providers Care Shank Scourer Name Role Phone Dashawn Chowdhury MD Primary Care Provider [phone] Encounter Details Date Type Department Care Team (Late st Contact Info) Description 03/19/2025 Telephone [facility] [address] [place] [address] Everette Samuel, PharmD Social History Tobacco Use Types Packs/Day Years [...] PM EST documented as of this encounter Functional Status * Over the [...] Mohan n documented as of this encounter Plan of Treatment Upcoming Encounters Date Type Department Care Team (Late st Contact Info) Description 04/26/2025 12:00 PM EDT Office Visit [email or web address] [place] [facility]ph[facility], Bone & Mineral Metabolism [address] [facility], [address] [place] [address] Alesha Chambers MD [address] [facility] [address] [place] [address] 05/04/2025 4:20 PM EDT Office Visit [facility] [place] [address] [facility], [address] [place] [address] Vivek Lei MD [address] [place] [address] documented as of this encounter [...] documented as of this encounter Care Teams Shank Scourer Relationship Specialty Start Date End Date Dashawn Chowdhury MD [address] [place] [address] PCP - General Internal Medicine 10/08/24 documented as of this encounter
--- OUTSIDE RECORDS SUMMARY | 2025-04-21 11:31 | XMS_ITS | Encounter Summary ---
Author Organization [facility] Address [address] [place] [address] Care Team Providers Care Pet Supplies Salesperson Name Role Phone Dashawn Chowdhury MD Primary Care Provider [phone] Encounter Details Date Type Department Care Team (Late Contact Info) Description 06/04/2024 Orders Only External Location [address] [place] [address] Provider, External Social History Tobacco [...] 04/26/2025 12:00 PM EDT Office Visit [facility] [place] Nephrology, Bone & Mineral Metabolism [address] [facility], [address] [place] [address] Alesha Chambers MD [address] [place] [address] 05/04/2025 4:20 PM EDT Office Visit [facility] [place] [address] [facility], [address] [place] [address] Vivek eLi MD [address] [place] [address] documented as of this encounter Procedures Procedure [...] on filedocumented in this encounter Care Teams Pet Supplies Salesperson Relationship Specialty Start Date End Date Dashawn Chowdhury MD [address] [place] [address] PCP - General Internal Medicine 10/08/24 documented as of this encounter
--- OUTSIDE RECORDS SUMMARY | 2025-04-21 11:31 | XMS_ITS | Encounter Summary ---
Author Organization [facility] Address [address] [place] [address] Care Team Providers Care Bird Keeper Name Role Phone Dashawn Chowdhury MD Primary Care Provider [phone] Reason for Visit * Reason Onset Date Comments HCN - Patient Message 04/20/2025 Encounter Details Date Type Department Care Team ([facility] st Contact Info) Description 04/20/2025 Telephone [facility], Bone [facility] Mineral Metabolism [address] [facility], [address] [place] [address] Alesha Chambers MD [address] [place] [address] HCN - Patient Message Social History Tobacco Use Types Packs/Day Years [...] encounter Miscellaneous Notes * Telephone Encounter - Janessa Freeman - 04/21/2025 9:14 AM EDT Clinical Concern/Question Reason for Call: Patient asking for lab orders to be faxed to [facility] in [place]. Best contact number: [phone] (home) Optimal time of day to reach caller: ANYTIME Additional comments/information from caller: None Note: Please do not reply to this message. Follow-up communication and further actions as a result of this message need to be communicated with the patient directly, if the patient is not active onMyChart. If the patient is active on MyChart, they will receive notification of the communication/outcome via MyChart. * Telephone Encounter - Ute Tejada - 04/20/2025 11:23 AM EDT Clinical Concern/Question Reason for Call: pt wants to know if he needs to have labs doen prior to appt on 04/26 Best contact number: [phone] (mobile) Optimal time of day to reach caller: ANYTIME Additional comments/information from caller: None Note: Please do not reply to this message. Follow-up communication and further actions as a result of this message need to be communicated with the patient directly, if the patient is not active onMyChart. If the patient is active on MyChart, they will receive notification of the communication/outcome via MyChart. documented in this encounter Plan of Treatment Upcoming Encounters Date Type Department Care Team (Late st Contact Info) Description 04/26/2025 12:00 PM EDT Office Visit [facility] Nephrology, Bone & Mineral Metabolism [address] [facility], [address] [place] [address] Alesha Chambers MD [address] [facility] [address] [place] [address] 05/04/2025 4:20 PM EDT Office Visit [facility] [place] [address] [facility], [address] [place] [address] Vivek Lei MD [address] [place] [address] documented as of this encounter [...] documented as of this encounter Care Teams Bird Keeper Relationship Specialty Start Date End Date Dashawn Chowdhury MD [address] [place] [address] PCP - General Internal Medicine 10/08/24 documented as of this encounter
--- OUTSIDE RECORDS SUMMARY | 2025-04-21 11:31 | XMS_ITS | Clinical Summary ---
Author Organization [facility] Address [address] [place] [address] Care Team Providers Care Dishcloth Folder Name Role Phone Dashawn Chowdhury MD Primary Care Provider [phone] Allergies No known active allergies Social History Tobacco Use Types Packs/Day Years [...] 05/04/2022, 06/08/2021, 12/05/2020, Additional history exists ANNUAL WELLNESS VISIT 10/19/2024 HEPATITIS C SCREENING 10/19/2024 INFLUENZA VACCINE 05/19/2025 10/01/2024, , 05/04/2022, Additional history exists Pneumococcal Vaccine 50+ Completed 02/18/2024, 10/18 Insurance Care Teams Dishcloth Folder Relationship Specialty Start Date End Date Dashawn Chowdhury MD [address] [facility] [address] [place] [address] PCP - General Adolescent Medicine 01/07/25
--- OUTSIDE RECORDS SUMMARY | 2025-04-21 11:31 | XMS_ITS | Encounter Summary ---
Author Organization [facility] Address [address] [place] [address] Care Team Providers Care Mailing Jogger Name Role Phone Dashawn Chowdhury MD Primary Care Provider [phone] Encounter Details Date Type Department Care Team (Latest Contact Info) Description 03/19/2025 Travel Social History Tobacco Use Types Packs/Day Years [...] all 03/19/2025 10:25 AM EDT Anirudh Mohan documented as of this encounter Plan of Treatment Upcoming Encounters Date Type Department Care Team (Late st Contact Info) Description 04/26/2025 12:00 PM EDT Office Visit [facility] Mineral Metabolism [address] [facility], [address] [place] [address] Alesha Chambers MD [address] [facility] [address] [place] [address] 05/04/2025 4:20 PM EDT Office Visit [facility] [place] [address] [facility], [address] [place] [address] Vivek Lei MD [address] [place] [address] documented as of this encounter Visit Diagnoses Not on filedocumented in this encounter Additional Health Concerns Assessment Noted Time PHQ-9 Depression Total Score: 0 10/08/19 25 12:30 PM EST A fall risk assessment has been complete d for the patient 03/19/2025 10:26 AM EDT A Body Mass Index follow-up plan has been documented for the patient 03/29/2025 12:34 PM EDT documented as of this encounter Care Teams Mailing Jogger Relationship Specialty Start Date End Date Dashawn Chowdhury MD [address] [place] [address] PCP - General Internal Medicine 10/08/24 documented as of this encounter
--- OUTSIDE RECORDS SUMMARY | 2025-04-21 11:31 | XMS_ITS | Encounter Summary ---
Author Organization [facility] Address [address] [place] [address] Care Team Providers Care Apartment Maintenance Supervisor Name Role Phone Dashawn Chowdhury MD Primary Care Provider [phone] Encounter Details Date Type Department Care Team ([facility] Contact Info) Description 06/04/2024 Orders Only External Location [address] [place] [address] Samantha Reyes, CONTACT CLERK [address] [facility] [address] [place] [address] Social History Tobacco Use Types Packs/Day Years [...] Description 04/26/2025 12:00 PM EDT Office Visit [facility] [place] Nephrology, Bone & Mineral Metabolism [address] [facility], [address] [place] [address] Alesha Chambers MD [address] [facility] [address] [place] [address] 05/04/2025 4:20 PM EDT Office Visit [facility] [place] [address] [facility], [address] [place] [address] Vivek Lei MD [address] [place] [address] documented as of this encounter Procedures Procedure Name Priority Date/Time Associated Diagnosis Comments US OUTSIDE IMAGES 06/04/2024 1:11 PM EDT documented in this encounter Results * US OUTSIDE IMAGES (06/04/2024 1:11 PM EDT) Anatomical Region Laterality Modality Ultrasound 06/04/2024 1:11 PM EDT us Samantha Reyes CONTACT CLERK IMG US PROCEDURES Angela l Result documented in this encounter Visit Diagnoses Not on filedocumented in this encounter Care Teams Apartment Maintenance Supervisor Relationship Specialty Start Date End Date Dashawn Chowdhury MD [address] [place] [address] PCP - General Internal Medicine 10/08/24 documented as of this encounter
--- OUTSIDE RECORDS SUMMARY | 2025-04-21 11:31 | XMS_ITS | Encounter Summary ---
Author Organization [facility] Address [address] [place] [address] Care Team Providers Care Feeder Worker Power Unit Operator Name Role Phone Dashawn Chowdhury MD Primary Care Provider [phone] Encounter Details Date Type Department Care Team ([facility] Contact Info) Description 06/04/2024 Orders Only External Location [address] [place] [address] Samantha Reyes, REED REPAIRER [address] [facility] [address] [place] [address] Social History Tobacco Use Types Packs/Day Years [...] Description 04/26/2025 12:00 PM EDT Office Visit [facility] [place] Nephrology, Bone & Mineral Metabolism [address] [facility], [address] [place] [address] Alesha Chambers MD [address] [facility] [address] [place] [address] 05/04/2025 4:20 PM EDT Office Visit [facility] [place] [address] [facility], [address] [place] [address] Vivek Lei MD [address] [place] [address] documented as of this encounter Procedures Procedure Name Priority Date/Time Associated Diagnosis Comments US OUTSIDE IMAGES 06/04/2024 1:11 PM EDT documented in this encounter Results * US OUTSIDE IMAGES (06/04/2024 1:11 PM EDT) Anatomical Region Laterality Modality Ultrasound 06/04/2024 1:11 PM EDT us Samantha Reyes REED REPAIRER IMG US PROCEDURES Angela l Result documented in this encounter Visit Diagnoses Not on filedocumented in this encounter Care Teams Feeder Worker Power Unit Operator Relationship Specialty Start Date End Date Dashawn Chowdhury MD [address] [place] [address] PCP - General Internal Medicine 10/08/24 documented as of this encounter
--- OUTSIDE RECORDS SUMMARY | 2025-04-21 11:31 | XMS_ITS | Encounter Summary ---
Author Organization [facility] Address [address] [place] [address] Care Team Providers Care Senior Capital Markets Specialist Name Role Phone Dashawn Chowdhury MD Primary Care Provider [phone] Encounter Details Date Type Department Care Team ([facility] Contact Info) Description 07/13/2024 Orders Only External Location [address] [place] [address] Samantha Reyes, HARMONIC ANALYST [address] [facility] [address] [place] [address] Social History Tobacco Use Types Packs/Day Years [...] Description 04/26/2025 12:00 PM EDT Office Visit [facility] [employer] [place] Nephrology, Bone & Mineral Metabolism [address] [facility], [address] [place] [address] Alesha Chambers MD [address] [facility] [address] [place] [address] 05/04/2025 4:20 PM EDT Office Visit [facility] [place] [address] [facility], [address] [place] [phone] Vivek Lei MD [address] [place] [address] documented as of this encounter Procedures Procedure Name Priority Date/Time Associated Diagnosis Comments NM OUTSIDE IMAGES 07/13/2024 11:31 AM EST documented in this encounter Results * NM OUTSIDE IMAGES (07/13/2024 11:31 AM EST) Anatomical Region Laterality Modality Nuclear Medicine 07/13/2024 11:3 1 AM EST Samantha Reyes HARMONIC ANALYST IMG NM PROCEDURES Angela l Result documented in this encounter Visit Diagnoses Not on filedocumented in this encounter Care Teams Senior Capital Markets Specialist Relationship Specialty Start Date End Date Dashawn Chowdhury MD [address] [place] [address] PCP - General Internal Medicine 10/08/24 documented as of this encounter
--- OUTSIDE RECORDS SUMMARY | 2025-04-21 11:31 | XMS_ITS | Encounter Summary ---
Author Organization [facility] Address [address] [place] [address] Care Team Providers Care Trackman Name Role Phone Dashawn Chowdhury MD Primary Care Provider [phone] Encounter Details Date Type Department [facility] Description 06/03/2024 Orders Only External Location [address] [place] [phone] Giselle Rose, FRAME BANDER [address] [facility] [address] [place] [id number] Social History Tobacco Use Types Packs/Day Years [...] Description 04/26/2025 12:00 PM EDT Office Visit [facility] [place] Nephrology, Bone & Mineral Metabolism [address] [facility], [address] [place] [address] Alesha Chambers MD [address] [place] [address] 05/04/2025 4:20 PM EDT Office Visit [facility] [place] [address] [facility], [address] [place] [address] Vivek Lei MD [address] [place] [address] documented as of this encounter Procedures Procedure Name Priority Date/Time Associated Diagnosis Comments MR OUTSIDE IMAGES 06/03/2024 12:41 PM EDT documented in this encounter Results * MR transfer of outside films (06/03/2024 12:41 PM EDT) Anatomical Region Laterality Modality Magnetic Resonan ce 06/03/2024 12:4 1 PM EDT us Giselle Rose FRAME BANDER IMG MRI PROCEDURES Final Res ult documented in this encounter Visit Diagnoses Not on filedocumented in this encounter Care Teams Trackman Relationship Specialty Start Date End Date Dashawn Chowdhury MD [address] [place] [address] PCP - General Internal Medicine 10/08/24 documented as of this encounter
--- OUTSIDE RECORDS SUMMARY | 2025-04-21 11:31 | XMS_ITS | Encounter Summary ---
Author Organization [facility] Address [address] [place] [address] Care Team Providers Care Ear Specialist Name Role Phone Dashawn Chowdhury MD Primary Care Provider [phone] Encounter Details Date Type Department Care Team ([facility] Contact Info) Description 06/03/2024 Orders Only External Location [address] [place] [address] Gui Linares MD [address] [place] [address] [address] [place] [address] Social History Tobacco Use Types Packs/Day Years [...] Description 04/26/2025 12:00 PM EDT Office Visit [facility] [email or web address] [place] Nephrology, Bone & Mineral Metabolism [address] [facility], [address] [place] [address] Alesha Chambers MD [address] [facility] [address] [place] [address] 05/04/2025 4:20 PM EDT Office Visit [facility] [place] [address] [facility], [address] [place] [address] Vivek Lei MD [address] [place] [address] documented as of this encounter [...] on filedocumented in this encounter Care Teams Ear Specialist Relationship Specialty Start Date End Date Dashawn Chowdhury MD [address] [place] [address] PCP - General Internal Medicine 10/08/24 documented as of this encounter
--- OUTSIDE RECORDS SUMMARY | 2025-04-21 11:31 | XMS_ITS | Encounter Summary ---
Author Organization [facility] Address [address] [place] [address] Care Team Providers Care Line Up Worker Name Role Phone Dashawn Chowdhury MD Primary Care Provider [phone] Encounter Details Date Type Department Care Team ([facility] [address] Contact Info) Description 06/03/2024 Orders Only External Location [address] [place] [phone] Giselle Rose, HOGSHEAD SALVAGE [address] [facility] [address] [place] [phone] Social History Tobacco Use Types Packs/Day Years [...] Description 04/26/2025 12:00 PM EDT Office Visit [facility] [place] Nephrology, Bone & Mineral Metabolism [address] [facility], [address] [place] [address] Alesha Chambers MD [address] [place] [address] 05/04/2025 4:20 PM EDT Office Visit [facility] [place] [address] [facility], [address] [place] [address] Vivek Lie MD [address] [place] [address] documented as of this encounter Procedures Procedure Name Priority Date/Time Associated Diagnosis Comments MR OUTSIDE IMAGES 06/03/2024 12:41 PM EDT documented in this encounter Results * MR transfer of outside films (06/03/2024 12:41 PM EDT) Anatomical Region Laterality Modality Magnetic Resonan ce 06/03/2024 12:4 1 PM EDT us Giselle Rose HOGSHEAD SALVAGE IMG MRI PROCEDURES Final Res ult documented in this encounter Visit Diagnoses Not on filedocumented in this encounter Care Teams Line Up Worker Relationship Specialty Start Date End Date Dashawn Chowdhury MD [address] [place] [address] PCP - General Internal Medicine 10/08/24 documented as of this encounter
--- OUTSIDE RECORDS SUMMARY | 2025-04-21 11:31 | XMS_ITS | Encounter Summary ---
Author Organization [facility] Address [address] [place] [address] Care Team Providers Care Shear Grinder Operator Name Role Phone Dashawn Chowdhury MD Primary Care Provider [phone] Encounter Details Date Type Department Care Team ([facility] Contact Info) Description 06/03/2024 Orders Only External Location [address] [place] [phone] Giselle Rose, CRIMINAL JUSTICE INSTRUCTOR [address] [facility] [address] [place] [phone] Social History Tobacco Use Types Packs/Day Years [...] Description 04/26/2025 12:00 PM EDT Office Visit [facility] [employer] [place] Nephrology, Bone & Mineral Metabolism [address] [facility], [address] [place] [address] Alesha Chambers MD [address] [place] [address] 05/04/2025 4:20 PM EDT Office Visit [facility] [place] [address] [facility], [address] [place] [address] Vivek Lei MD [address] [place] [address] documented as of this encounter Procedures Procedure Name Priority Date/Time Associated Diagnosis Comments US OUTSIDE IMAGES 06/03/2024 11:00 AM EDT documented in this encounter Results * US OUTSIDE IMAGES (06/03/2024 11:00 AM EDT) Anatomical Region Laterality Modality Ultrasound 06/03/2024 11:0 0 AM EDT us Giselle Rose CRIMINAL JUSTICE INSTRUCTOR IMG US PROCEDURES Final Resu lt documented in this encounter Visit Diagnoses Not on filedocumented in this encounter Care Teams Shear Grinder Operator Relationship Specialty Start Date End Date Dashawn Chowdhury MD [address] [place] [address] PCP - General Internal Medicine 10/08/24 documented as of this encounter
--- OUTSIDE RECORDS SUMMARY | 2025-04-21 11:32 | XMS_ITS | Encounter Summary ---
Author Organization [facility] Address [address] [place] [address] Care Team Providers Care Senior Materials Scientist Name Role Phone Dashawn Chowdhury MD Primary Care Provider [phone] Encounter Details Date Type Department Care Team ([facility] Contact Info) Description 03/12/2025 Telephone [facility] Nephrology, Bone & Mineral Metabolism [address] [facility], [address] [place] [address] Luna Sanders [facility] [address] [place] [phone] Social History Tobacco Use Types Packs/Day Years [...] 04/26/2025 12:00 PM EDT Office Visit [facility] [place] Nephrology, Bone & Mineral Metabolism [address], [address] [place] [address] Alesha Chambers MD [address] [place] [address] 05/04/2025 4:20 PM EDT Office Visit [facility] [place] [address], [address] [place] [address] Vivek Lei MD [address] [place] [address] documented as of this encounter [...] documented as of this encounter Care Teams Senior Materials Scientist Relationship Specialty Start Date End Date Dashawn Chowdhury MD [address] [place] [address] PCP - General Internal Medicine 10/08/24 documented as of this encounter
--- OUTSIDE RECORDS SUMMARY | 2025-04-21 11:32 | XMS_ITS | Clinical Summary ---
Author Organization [facility] Address [address] [place] [address] Care Team Providers Care Echocardiograph Tech Name Role Phone Dashawn Chowdhury MD Primary Care Provider [phone] Allergies No known active allergies Medications Aspirin EC Adult Low Dose 81 MG EC tablet Take 1 tablet (81 mg) by mouth daily. Active atorvastatin (Lipitor) 80 MG tablet Take 1 tablet (80 mg) by mouth daily. 09/28/2024 Active clopidogrel (Plavix) 75 MG tablet Take 1 tablet (75 mg) by mouth daily. Active hydrALAZINE (Apresoline) 25 MG tablet Take [...] same time. 90 patch 3 10/08/2024 Active metoprolol succinate XL (Toprol-XL) 50 MG 24 hr tablet Take 1 tablet by mouth daily. 02/23/2025 Active loratadine (Claritin) 10 MG tablet Take 1 tablet by mouth daily. 01/29/2025 Active Acetaminophen Extra Strength 500 MG tablet TAKE 2 TABLETS BY MOUTH THREE TIMES DAILY NEEDED 01/20/2025 Active Farxiga 5 MG tabletIndication s:Stage 3 chronic kidney disease, unspecified whether stage 3a or 3b CKD (CMS/HCC),Protei daisy, unspecified type Take 1 tablet by mouth daily. 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/HCC) (Primary Dx) 03/19/2025 10:40 AM EDT Office Visit [facility] Nephrology, Bone & Mineral Metabolism [address], [address] [place] [address] Alesha Chambers MD Stage 3 chronic kidney disease, unspecified whether stage 3a or 3b CKD ([facility]/HCC) (Primary Dx); Proteinuria, unspecified type 03/19/2025 Telephone [facility] [address] [place] [address] Everette Samuel, PharmD 03/19/2025 Travel 03/12/2025 Telephone [facility] Nephrology, Bone & Mineral Metabolism [address], [address] [place] [address] Luna Sanders from Last 3 [...] F) 03/19/2025 10:21 AM EDT Respiratory Rate 16 10/23/2024 11:30 AM EST Oxygen Saturation 99% 03/19/2025 10:21 AM EDT Inhaled Oxygen Concentration - - Weight 90.7 kg (200 lb) 03/19/2025 10:21 AM EDT Height 182.9 cm (6') 03/19/2025 10:21 AM EDT Body Mass Index 27.12 03/19/2025 10:21 AM EDT Plan of Treatment Upcoming Encounters Date Type Department Care Team (Late st Contact Info) Description 04/26/2025 12:00 PM EDT Office Visit [facility] [place] Nephrology, Bone & Mineral Metabolism [address] [facility], [address] [place] [address] Alesha Chambers MD [address] [facility] [address] [place] [address] 05/04/2025 4:20 PM EDT Office Visit [facility] [place] [address] [facility], [address] [place] [address] Vivek Lei MD [address] [place] [address] Health Maintenance Due Date Last Done Comments [facility]-Hepatitis C Screening 1955 [facility]-Medicare Annual Wellness (AWV) 1955 [facility]-Infant/Child/Adol SDOH Screenings 1955 [facility]- SDOH Screenings 1973 [facility]-Adult SDOH Screenings 1973 [facility]-DTaP,Tdap,and Td Vaccines (1 - Tdap) 1974 CT Colonography 2000 Colonoscopy 2000 FIT 2000 FOBT 2000 Sigmoidoscopy 2000 [facility]-Lung Cancer Screening 2005 [facility]-RSV Vaccine: 60+ Years or (1 - Risk 60-74 years 1-dose series) 2015 [facility]-Abdominal Aortic Aneurysm (AAA) Screening 2020 [facility]-Pneumococcal Vaccine: 50+ Years (2 of 2 - PCV) 11/08/2022 11/08/2021 FIT-DNA 01/14/2024 01/13/2021 [facility]-Colorectal Cancer Screening 01/14/2024 CLX-KUHOM-30 Vaccine ( - season) 2025 05/04/2022, 06/08/2021, 12/05/2020, Additional history exists [facility]-Influenza Vaccine (#1) 04/19/202510/01, 06/27/2023, 05/04/2022, Additional history exists [facility]-Depression Screening 03/19/2026 03/19/2025, 09/20 [facility]-Zoster Vaccines Completed 03/05/2025, [facility]-Obesity Intervention Completed 025, 10/08/2024, 10/08/2024 HPV Vaccines Aged Out No longer eligi [...] on patient's age to complete this topic Procedures Procedure Name Priority Date/Time Associated Diagnosis Comments PROTEIN, URINE, RANDOM WITH CREATININE Today 03/19/2025 2:32 PM EDT Stage 3 chronic kidney disease, unspecified whether stage 3a or 3b CKD (CMS/HCC) URINALYSIS WITH REFLEX MICROSCOPIC Today 03/19/2025 2:32 PM EDT Stage 3 chronic kidney disease, unspecified whether stage 3a or 3b CKD (CMS/HCC) CBC W/O DIFFERENTIAL Today 03/19/2025 11:40 AM EDT Stage 3 chronic kidney disease, unspecified whether stage 3a or 3b CKD (CMS/HCC) RENAL FUNCTION PANEL, PLASMA Today 03/19/2025 11:40 AM EDT Stage 3 chronic kidney disease, unspecified whether stage 3a or 3b CKD (CMS/HCC) from Last 3 Months Results * Protein, Random, Urine with Creatinine (03/19/2025 2:32 PM EDT) Protein, Urine 98 mg/dL 03/19/2025 6:09 PM EDT [facility] Creatinine, Urine 123 mg/dL 03/19/2025 6:09 PM EDT [facility] Protein/Creati nine Ratio 0.8 mg/mg Creat 03/19/2025 6:09 PM EDT [facility] Urine Urine specimen obtained by clean catch procedure / Unknown Non-blood Collection / Unknown 03/19/2025 2:32 PM EDT 03/19/2025 2:32 PM EDT Alesha Chambers MD LAB URINE ORDERABLES Fin al Result [facility] [address] [place] [address] * (ABNORMAL) Urinalysis with reflex microscopic (Culture NOT Included) (03/19/2025 2:32 PM EDT) Color, Urine Yellow LAB URINALYSIS - AUTOMATED METHOD 03/19/2025 5:28 PM EDT [facility] Clarity, Urine Clear LAB URINALYSIS - AUTOMATED METHOD 03/19/2025 5:28 PM EDT [facility] Spec [place], Urine 1.017 1.005 - 1.030 LAB URINALYSIS - AUTOMATED METHOD 03/19/2025 5:28 PM EDT [facility] pH, Urine 6.0 5.0 - 8.0 LAB URINALYSIS - AUTOMATED METHOD 03/19/2025 5:28 PM EDT [facility] Protein, Urine 100(A) Negative mg/dL LAB URINALYSIS - AUTOMATED METHOD 03/19/2025 5:28 PM EDT [facility] Glucose, Urine 100(A) Negative mg/dL LAB URINALYSIS - AUTOMATED METHOD 03/19/2025 5:28 PM EDT [facility] Ketones, Urine Negative Negative mg/dL LAB URINALYSIS - AUTOMATED METHOD 03/19/2025 5:28 PM EDT [facility] Blood, Urine Negative Negative LAB URINALYSIS - AUTOMATED METHOD 03/19/2025 5:28 PM EDT [facility] Bilirubin, Urine Negative Negative LAB URINALYSIS - AUTOMATED METHOD 03/19/2025 5:28 PM EDT [facility] Urobilinogen, Urine 0.2 0.2 to 1.0 mg/dL LAB URINALYSIS - AUTOMATED METHOD 03/19/2025 5:28 PM EDT [facility] Leukocytes, Urine Negative Negative LAB URINALYSIS - AUTOMATED METHOD 03/19/2025 5:28 PM EDT [facility] Nitrite, Urine Negative Negative LAB URINALYSIS - AUTOMATED METHOD 03/19/2025 5:28 PM EDT [facility] Urine Urine specimen obtained by clean catch procedure / Unknown Non-blood Collection / Unknown 03/19/2025 2:32 PM EDT 03/19/2025 2:32 PM EDT Alesha Chambers MD LAB URINE ORDERABLES Fin al Result [facility] [address] [place] [id number] * CBC W/O Differential (03/19/2025 11:40 AM EDT) [facility] WBC Count 9.42 3.70 - 10.30 10*3/uL LAB HEMATOLOGY METHOD 03/19/2025 2:27 PM EDT [facility] RBC Count 4.90 4.60 - 6.10 10*6/uL LAB HEMATOLOGY METHOD 03/19/2025 2:27 PM EDT [facility] HGB 14.0 13.7 - 17.5 g/dL LAB HEMATOLOGY METHOD 03/19/2025 2:27 PM EDT [facility] HCT 42.5 40.0 - 51.0 % LAB HEMATOLOGY METHOD 03/19/2025 2:27 PM EDT [facility] Platelet Count 241 155 - 369 10*3/uL LAB HEMATOLOGY METHOD 03/19/2025 2:27 PM EDT [facility] MCV 87 79 - 98 fL LAB HEMATOLOGY METHOD 03/19/2025 2:27 PM EDT [facility] MCH 28.6 26.0 - 32.0 pg LAB HEMATOLOGY METHOD 03/19/2025 2:27 PM EDT [facility] MCHC 32.9 30.7 - 35.5 g/dL LAB HEMATOLOGY METHOD 03/19/2025 2:27 PM EDT [facility] RDW 13.2 11.5 - 14.5 % LAB HEMATOLOGY METHOD 03/19/2025 2:27 PM EDT [facility] MPV 10.0 8.8 - 12.5 fL LAB HEMATOLOGY METHOD 03/19/2025 2:27 PM EDT [facility] nRBC 0.0 <=0.0 per 100 WBCs LAB HEMATOLOGY METHOD 03/19/2025 2:27 PM EDT [facility] Blood Venous blood specimen / Unknown Venipuncture / Unknown 03/19/2025 11:40 AM EDT 03/19/2025 11:40 AM EDT Alesha Chambers MD LAB BLOOD ORDERABLES Fin al Result [facility] [address] [place] [address] * (ABNORMAL) Renal Function Panel, Plasma (03/19/2025 11:40 AM EDT) Glucose, Plasma 106(H) 74 - 99 mg/dL 03/19/2025 3:10 PM EDT [facility] BUN, Plasma 22 8 - 23 mg/dL 03/19/2025 3:10 PM EDT [facility] Creatinine, Plasma 2.02(H) 0.70 - 1.20 mg/dL 03/19/2025 3:10 PM EDT [facility] BUN/Creatinine Ratio 11 03/19/2025 3:10 PM EDT [facility] Sodium, Plasma 140 136 - 145 mmol/L 03/19/2025 3:10 PM EDT [facility] Potassium, Plasma 4.1 3.6 - 4.9 mmol/L 03/19/2025 3:10 PM EDT [facility] Chloride, Plasma 105 97 - 107 mmol/L 03/19/2025 3:10 PM EDT [facility] CO2, Plasma 22 22 - 29 mmol/L 03/19/2025 3:10 PM EDT [facility] Anion Gap 13 6 - 16 mmol/L 03/19/2025 3:10 PM EDT [facility] Total Calcium, Plasma 9.7 8.9 - 10.2 mg/dL 03/19/2025 3:10 PM EDT [facility] Phosphorus, Plasma 2.9 2.5 - 4.5 mg/dL 03/19/2025 3:10 PM EDT [facility] Albumin, Plasma 4.6 3.5 - 5.2 g/dL 03/19/2025 3:10 PM EDT [facility] eGFRcr 35.0 mL/min/1.7 3m*2 03/19/2025 3:10 PM EDT [facility] Comment:Reported eGFRcr in m L/min/1.73m2 is based the CKD-EPI 2020 equation that does not use a race coefficient. Blood Venous blood specimen / Unknown Venipuncture / Unknown 03/19/2025 11:40 AM EDT 03/19/2025 11:40 AM EDT Alesha Chambers MD LAB BLOOD ORDERABLES Fin al Result [facility] [address] [place] [address] from Last 3 Months Insurance [employer] MEDICARE Care Teams Echocardiograph Tech Relationship Specialty Start Date End Date Dashawn Chowdhury MD [address] [place], [place] [id number] PCP - General Internal Medicine 10/08/24
[2025-04-21 12:03] LABS: Bilirubin,Urine Negative (Negative); Color,Urine YELLOW (Yellow); Glucose,Urine (UA) 3+ (Negative); Ketones,Urine Negative (Negative); Leukocyte Esterase,Urine Negative (Negative); PH,Urine 5.5 (5.0-8.5); Protein,Urine 1+ (Negative); Specific Gravity, Urine 1.020 (1.005-1.030); Urobilinogen,Urine 0.2 EU/dl (0.2)
[2025-04-21 12:27] LABS: Albumin Level 4.3 g/dl (3.5-5.0); Chloride 113 mmol/L (98-107); Potassium 3.9 mmoL/L (3.5-5.1); Sodium 143 mmol/L (136-145)
[2025-04-21 12:30] LABS: Anion Gap 11.9 mEq/L (5-15); Blood Urea Nitrogen 25 mg/dl (9-20); Carbon Dioxide 22 mmol/L (22.0-30.0); Creatinine,Serum 1.90 mg/dl (0.66-1.25); Estimated Glomerular Filt Rate 35 ml/min (>60); GFR (African American) 43 ML/MIN (>60)
[2025-04-21 12:31] LABS: Calcium 9.0 mg/dl (8.4-10.2); Glucose 109 mg/dl (74-100); Phosphorous 3.1 mg/dl (2.5-4.5)
[2025-04-21 13:00] LABS: WBC,Urine Occasional #/hpf (0-3)
== END 2025-04-21 23:59 | disposition home or self-care (01) ==
LOC: LAB 11:05
PROVIDERS: PCP Internal Medicine Adolescent Medicine; Visit Provider Internal Medicine Nephrology
DX: N18.32 Chronic kidney disease, stage 3b (principal)
CPT/HCPCS: 80069; 81001; 82570; 82610; 84156

== ENCOUNTER 2025-05-05 16:56 | Outpatient (RCR) | payer MEDICARE, SELFPAY | END 2025-05-05 23:59 | disposition home or self-care (01) | LOC: PT 16:56 | PROVIDERS: PCP Internal Medicine Adolescent Medicine; Visit Provider Orthopaedic Surgery | DX: M25.551 Pain in right hip (principal); G89.29 Other chronic pain | CPT/HCPCS: 97110; 97530 ==